=== PATIENT | male | born 1960 | race Hispanic/Latino ===

== ENCOUNTER 2017-01-31 22:59 | Observation (INO) | payer OTHER ==
[2017-01-31 22:59] VITALS: BMI 19.8
[2017-01-31] MEDS ORDERED: Morphine 2 mg/ml ISec IVP STA (23:47)
[2017-01-31] MEDS ORDERED: Sodium Chloride 0.9% 1,000 ML IV STA (23:47)
--- NOTE | 2017-01-31 23:53 | ED PDOC ---
Arrival/HPI - General Chief Complaint: Abdominal Pain Time Seen by Provider: 01/31/17 23:18 Historian: Patient - History of Present Illness Narrative History of Present Illness (Text): 01/31/17 23:44 Alexis Carolina is a 56 year old male, whose past medical history includes Crohn' s disease, hypertension, and diabetes, who presents to the Emergency department complaining of diffuse abdominal pain since for the past few hours. Patient reports associated nausea. Patient states symptoms are similar to previous episodes of Crohn's flare ups. Patient denies any chest pain, shortness of breath, vomiting, diarrhea, urinary symptoms, back pain, neck pain, headache, dizziness, or any other complaints. PMD: Dr. Olson GI: Dr. Rachel Evans Time/Duration: 4-6 hours Symptom Onset: Gradual Symptom Course: Unchanged Activities at Onset: Rest, Light Context: Home Past Medical History - Provider Review Nursing Documentation Reviewed: Yes - Infectious Disease Hx of Infectious Diseases: None - Cardiac Hx Hypertension: Yes - Pulmonary Hx Respiratory Disorders: No - Neurological Hx Neurological Disorder: No - HEENT Hx HEENT Disorder: No - Renal Hx Renal Disorder: Yes Hx Kidney Stones: Yes (11-09-26 2 MM STONE) - Endocrine/Metabolic Hx Endocrine Disorders: Yes Hx Diabetes Mellitus Type 2: Yes (NEWLY DX 2015) - Hematological/Oncological Hx Blood Disorders: No - Integumentary Hx Dermatological Disorder: No - Musculoskeletal/Rheumatological Hx Falls: No - Gastrointestinal Hx Gastrointestinal Disorders: Yes (BILATERAL HERNIA REPAIR) Hx Crohn's Disease: Yes Other/Comment: IBS - Genitourinary/Gynecological Hx Genitourinary Disorders: Yes (HYDROCELE) - Psychiatric Hx Psychophysiologic Disorder: No Hx Substance Use: No - Surgical History Hx Musculoskeletal Surgery: Yes (L SHOULDER SX) Other/Comment: explor lap 08/30/16/bowel small intestine DENIES - Anesthesia Hx Anesthesia: Yes Hx Anesthesia Reactions: No Hx Malignant Hyperthermia: No Family/Social History - Physician Review Nursing Documentation Reviewed: Yes Family/Social History: No Known Family HX Smoking Status: Never Smoked Hx Alcohol Use: No Hx Substance Use: No Allergies/Home Meds Allergies/Adverse Reactions: Allergies pseudoephedrine HCl [From Sudafed] Allergy (Verified 11/09/16 11:31) NAUSEA Home Medications: Home Meds Medication Instructions Recorded Confirmed metFORMIN [glucOPHAGE] 500 mg PO BID 05/20/16 01/31/17 Aspirin [Ecotrin] 81 mg PO DAILY 05/22/16 01/31/17 Ferrous Sulfate [Feosol] 325 mg PO TID 11/09/16 01/31/17 Mercaptopurine [6-Mp] 2 tab PO DAILY 11/09/16 01/31/17 Lisinopril [Zestril] 20 mg PO DAILY 01/31/17 01/31/17 Review of Systems - Physician Review All systems were reviewed & negative as marked: Yes - Review of Systems Constitutional: Normal. absent: Fevers Eyes: Normal ENT: Normal Respiratory: Normal. absent: SOB, Cough Cardiovascular: Normal. absent: Chest Pain Gastrointestinal: Abdominal Pain, Nausea. absent: Diarrhea, Vomiting Genitourinary Male: Normal. absent: Dysuria, Frequency, Hematuria, Urinary Output Changes Musculoskeletal: Normal. absent: Back Pain, Neck Pain Skin: Normal. absent: Rash Neurological: Normal. absent: Headache, Dizziness Endocrine: Normal Hemo/Lymphatic: Normal Psychiatric: Normal Physical Exam Vital Signs Reviewed: Yes Vital Signs Temp Pulse Resp BP Pulse Ox 02/01/17 02:00 77 16 160/83 H 100 02/01/17 00:57 79 18 154/96 H 98 01/31/17 23:23 99.0 F 86 18 168/86 H 98 Temperature: Afebrile Blood Pressure: Hypertensive Pulse: Regular Respiratory Rate: Normal Appearance: Positive for: Well-Appearing, Non-Toxic, Comfortable Pain Distress: None Mental Status: Positive for: Alert and Oriented X 3 - Systems Exam Head: Present: Atraumatic, Normocephalic Pupils: Present: PERRL Extroacular Muscles: Present: EOMI Conjunctiva: Present: Normal Mouth: Present: Moist Mucous Membranes Neck: Present: Normal Range of Motion Respiratory/Chest: Present: Clear to Auscultation, Good Air Exchange. No: Respiratory Distress, Accessory Muscle Use Cardiovascular: Present: Regular Rate and Rhythm, Normal S1, S2. No: Murmurs Abdomen: Present: Tenderness (Diffuse abdominal tenderness), Normal Bowel Sounds. No: Distention, Peritoneal Signs Back: Present: Normal Inspection Upper Extremity: Present: Normal Inspection. No: Cyanosis, Edema Lower Extremity: Present: Normal Inspection. No: Edema Neurological: Present: GCS=15, CN II-XII Intact, Speech Normal Skin: Present: Warm, Dry, Normal Color. No: Rashes Psychiatric: Present: Alert, Oriented x 3, Normal Insight, Normal Concentration Medical Decision Making ED Course and Treatment: 01/31/17 23:45 Impression: 56 year old male complaining of diffuse abdominal pain and nausea. Differential Diagnosis include but are not limited to: Plan: -- CT Abdomen and Pelvis -- Labs, lipase -- Urinalysis -- IV fluids -- Zofran -- Pepcid -- Zofran -- Morphine -- Reassess and disposition Prior Visits: Notes and results from previous visits were reviewed. Progress Notes: Reviewed radiology, CT Abdomen and Pelvis shows: 1. Partial ascending colectomy with ileocolic anastomosis in the right mid abdomen. 2. Mild distention of distal small bowel which is increased since 01/03/2017 and extends to the ileocolic anastomosis which remains widely patent. There is borderline distention of the colon to the level of the sigmoid which is similar to the prior study. The obstructive change of the small bowel may be related to the degree of colonic distention which may be a reflection of colonic ileus or pseudoobstruction. The degree of distention of the sigmoid and rectum is decreased since the prior study, however. 3. Nonobstructing left renal calculus. 4. Mild left hydronephrosis and slight hydroureter which extends into the pelvis. No ureteral or UVJ calculi are seen and may reflect baseline physiology and is similar to the prior study. 5. Borderline splenomegaly which is similar. 6. Question of slight wall thickening of the gastric antrum, however, the stomach is not distended. There is slight induration extending anteriorly from the stomach into the right transverse mesocolon which is increased since the prior study and may be a reflection of antral gastritis. 02/01/17 03:[address] Modesto Olson, who is aware and agrees with plan. Accepts pt in to his service. Pt will go to [facility] observation for Crohn's exacerbation and abdominal pain. - Lab Interpretations Lab Results: 02/01/17 00:01 02/01/17 00:01 Lab Results 02/01/17 00:01: WBC 6.0 D, RBC 4.07, Hgb 11.9 L, Hct 33.7 L, MCV 82.8, MCH 29.2 , MCHC 35.3, RDW 16.7 H, Plt Count 158, MPV 10.3 02/01/17 00:01: Sodium 140, Potassium 3.7, Chloride 103, Carbon Dioxide 28, Anion Gap 13, BUN 17, Creatinine 0.9, Est GFR ( Amer) > 60, Est GFR (Non- Af Amer) > 60, Random Glucose 113 H, Calcium 9.2, Total Bilirubin 1.3, AST 41, ALT 32, Alkaline Phosphatase 120, Total Protein 7.3, Albumin 4.3, Globulin 3.0, Albumin/Globulin Ratio 1.4, Lipase 50 I have reviewed the lab results: Yes - RAD Interpretation Narrative RAD Interpretations (Text): CT Abdomen and Pelvis shows: Lower thorax: Minimal bilateral lower lobe atelectasis or scar. ABDOMEN: Liver: Unremarkable. No mass. Gallbladder and bile ducts: Unremarkable. No calcified stones. No ductal dilation. Pancreas: Unremarkable. No mass. No ductal dilation. Spleen: Borderline splenomegaly. Adrenals: Unremarkable. No mass. Kidneys and ureters: Small nonobstructing left renal calculus in the lower pole with mild left hydronephrosis and slight hydroureter which extends pelvis with no ureteral, UVJ or bladder calculi identified. Stomach and bowel: There is slight wall thickening of the gastric antrum which is not unusual in the nondistended state, however, there is induration extending from the stomach into the right transverse mesocolon and suggests antral gastritis. Partial ascending colectomy with ileocolic anastomosis in the lateral right abdomen. Moderate stool in the proximal ascending colon just beyond the anastomosis which remains adequately patent. There is upper normal size of the gas filled transverse and descending colon with a transition sigmoid colon which demonstrates no definite mass. There is mild distention of small bowel to the level of the ileocolic anastomosis. Appendix: See above. PELVIS: Bladder: Unremarkable. No mass. Reproductive: Unremarkable as visualized. ABDOMEN and PELVIS: Intraperitoneal space: Unremarkable. No free air. No significant fluid collection. Bones/joints: No acute fracture. No dislocation. Soft tissues: Unremarkable. Vasculature: Unremarkable. No abdominal aortic aneurysm. Lymph nodes: Unremarkable. No enlarged lymph nodes. IMPRESSION: 1. Partial ascending colectomy with ileocolic anastomosis in the right mid abdomen. 2. Mild distention of distal small bowel which is increased since 01/03/2017 and extends to the ileocolic anastomosis which remains widely patent. There is borderline distention of the colon to the level of the sigmoid which is similar to the prior study. The obstructive change of the small bowel may be related to the degree of colonic distention which may be a reflection of colonic ileus or pseudoobstruction. The degree of distention of the sigmoid and rectum is decreased since the prior study, however. 3. Nonobstructing left renal calculus. 4. Mild left hydronephrosis and slight hydroureter which extends into the pelvis. No ureteral or UVJ calculi are seen and may reflect baseline physiology and is similar to the prior study. 5. Borderline splenomegaly which is similar. 6. Question of slight wall thickening of the gastric antrum, however, the stomach is not distended. There is slight induration extending anteriorly from the stomach into the right transverse mesocolon which is increased since the prior study and may be a reflection of antral gastritis. Radiology Orders: 02/01/17 00:49 ABD & PELVIS IV CONTRAST ONLY [CT] Stat Creative Services Producer: Radiologist - Medication Orders Current Medication Orders: Sodium Chloride (Sodium Chloride 0.9%) 1,000 mls @ 100 mls/hr IV .Q10H [facility] Last Admin: 02/01/17 03:17 Dose: 100 mls/hr Discontinued Medications Famotidine (Pepcid) 20 mg IVP STAT STA Stop: 01/31/17 23:48 Last Admin: 02/01/17 00:13 Dose: 20 mg Sodium Chloride (Sodium Chloride 0.9%) 1,000 mls @ 999 mls/hr IV .Q1H1M STA Stop: 02/01/17 00:47 Last Admin: 02/01/17 00:13 Dose: 999 mls/hr Iohexol (Omnipaque 350 100 Ml) Confirm Administered Dose 350 mg .ROUTE .STK-MED ONE Stop: 02/01/17 01:07 Morphine Sulfate (Morphine) 2 mg IVP STAT STA Stop: 01/31/17 23:48 Last Admin: 02/01/17 00:14 Dose: 2 mg Re-Assess: DILMA Pain Assessment Document 02/01/17 01:14 EKCHELSEA (Rec: 02/01/17 03:26 [id number]) Pain Reassessment Is this a pain reassessment? Yes Morphine Sulfate (Morphine) 2 mg IVP STAT STA Stop: 02/01/17 02:56 Last Admin: 02/01/17 03:17 Dose: 2 mg Ondansetron HCl (Zofran Inj) 4 mg IVP ONCE ONE Stop: 01/31/17 23:48 Last Admin: 02/01/17 00:13 Dose: 4 mg - Maria Ribe Statement The provider has reviewed the documentation as recorded by the Maria Ribhector Echavarria All medical record entries made by the Maria Ribhector were at my direction and personally dictated by me. I have reviewed the chart and agree that the record accurately reflects my personal performance of the history, physical exam, medical decision making, and the department course for this patient. I have also personally directed, reviewed, and agree with the discharge instructions and disposition. Disposition/Present on Arrival - Present on Arrival Any Indicators Present on Arrival: No History of DVT/PE: No History of Uncontrolled Diabetes: No Urinary Catheter: No History of Decub. Ulcer: No History Surgical Site Infection Following: None - Disposition Have Diagnosis and Disposition been Completed?: Yes Diagnosis: Crohns disease, Abdominal pain Disposition: HOSPITALIZED Disposition Time: 03:59 Patient Plan: Observation Condition: STABLE Referrals: Rolo Olson MD [Primary Care Provider] - Follow up with primary
[2017-02-01 00:19] LABS: HEMATOCRIT 33.7 % (42.0-52.0); MEAN CELL VOLUME 82.8 fL (80.0-105.0); MEAN CORPUSCULAR HEMOGLOBIN 29.2 pg (25.0-35.0); MEAN CORPUSCULAR HGB CONC 35.3 g/dl (31.0-37.0); MEAN PLATELET VOLUME 10.3 fl (7.0-11.0); RED CELL DISTRIBUTION WIDTH 16.7 % (11.5-14.5)
[2017-02-01 00:29] LABS: ALB/GLOB RATIO 1.4 (1.1-1.8); ALKALINE PHOSPHATASE 120 U/L (38-133); ALT/SGPT 32 U/L (7-56); AST/SGOT 41 U/L (15-59); BILIRUBIN,TOTAL 1.3 mg/dL (0.2-1.3); BLOOD UREA NITROGEN 17 mg/dL (7-21); CALCIUM 9.2 mg/dL (8.4-10.5); CARBON DIOXIDE 28 mmol/L (21-33); CHLORIDE 103 mmol/L (95-110); GFR AFRICAN-AMERICAN > 60; GLUCOSE,RANDOM 113 mg/dL (70-110); LIPASE 50 U/L (23-300); POTASSIUM 3.7 mmol/L (3.6-5.0); SODIUM 140 mmol/L (132-148); TOTAL PROTEIN 7.3 g/dL (5.8-8.3)
[2017-02-01] MEDS ORDERED: Iohexol 350 MG/100 ML VIAL ONE (01:06)
[2017-02-01] MEDS ORDERED: Morphine 2 mg/ml ISec IVP STA (02:55)
[2017-02-01] MEDS: Sodium Chloride 0.9% 1,000 ML IV SCH ×2 (03:17→12:30)
[2017-02-01] MEDS ORDERED: Sodium Chloride 0.9% 1,000 ML IV STA (04:00)
--- NOTE | 2017-02-01 06:25 | CP.PCM.PN ---
Subjective - Date & Time of Evaluation Date of Evaluation: 02/01/17 Time of Evaluation: 06:21 - Subjective Subjective: S:Nurse calls and tells that BP was 171/109 at 4:45AM. It was 160/11 at 06:00. Patient is asymptomatic. Seen at bedside. Has No complaints. Medical record was reviewed. O: Last Vital Signs 3 Temp 98.1 F 02/01/17 05:10 Pulse 77 02/01/17 05:10 Resp 18 02/01/17 05:10 BP 171/109 H 02/01/17 05:10 Pulse Ox 98 02/01/17 04:00 Awake, alert, not in distress. LUNGS:Normal breathing pattern. A:Elevated blood pressure reading. P:Lisinopril 20 mg PO stat. Objective - Vital Signs/Intake and Output Vital Signs (last 24 hours): Temp Pulse Resp BP Pulse Ox 98.1 F 77 18 171/109 H 98 02/01/17 05:10 02/01/17 05:10 02/01/17 05:10 02/01/17 05:10 02/01/17 04:00 - Medications Medications: Current Medications Sodium Chloride (Sodium Chloride 0.9%) 1,000 mls @ 100 mls/hr IV .Q10H [facility]ATH[facility] Last Admin: 02/01/17 03:17 Dose: 100 mls/hr Sodium Chloride (Sodium Chloride 0.9%) 1,000 mls @ 100 mls/hr IV .Q10H STA Stop: 02/01/17 13:59 Last Admin: 02/01/17 05:00 Dose: 100 mls/hr Pneumococcal Polyvalent Vaccine (Pneumovax 23 Vaccine) 0.5 ml IM .ONCE ONE Stop: 02/03/17 10:01
--- NOTE | 2017-02-01 07:27 | CT ---
PROCEDURE: CT Chest, Abdomen and Pelvis with intravenous contrast HISTORY: abdominal pain COMPARISON: 01/03/2017. TECHNIQUE: IV dose administered: 100 cc of Omnipaque 300 Radiation dose: Total exam DLP = 282 mGy-cm. This CT exam was performed using one or more of the following dose reduction techniques: Automated exposure control, adjustment of the mA and/or kV according to patient size, and/or use of iterative reconstruction technique. FINDINGS: CT CHEST WITH CONTRAST: LUNGS: Clear. No nodule, mass or consolidation. MEDIASTINUM: Unremarkable. Normal caliber aorta and pulmonary arterial trunk. No aortic dissection. Normal size heart. LYMPH NODES: Unremarkable. PLEURA: Unremarkable. No pneumothorax. No pleural fluid. BONES: Unremarkable. OTHER FINDINGS: None. CT ABDOMEN AND PELVIS: LIVER: Unremarkable. No gross lesion or ductal dilatation. GALLBLADDER AND BILE DUCTS: Unremarkable. PANCREAS: Unremarkable. No gross lesion or ductal dilatation. SPLEEN: Unremarkable. ADRENALS: Unremarkable. No mass. KIDNEYS AND URETERS: Nonobstructive left lower pole renal calculus.. Minimal left hydronephrosis. No solid mass. VASCULATURE: Unremarkable. No aortic aneurysm. BOWEL: Mild distention of distal small bowel extending to the ileocolic anastomosis. Borderline distention of the colon to the level of the sigmoid colon. Status post partial ascending colectomy with ileocolic anastomosis. APPENDIX: Normal appendix. PERITONEUM: Minimal free fluid in the pelvis. LYMPH NODES: Unremarkable. No enlarged lymph nodes. BLADDER: Unremarkable. REPRODUCTIVE: Unremarkable. BONES: No acute fracture. OTHER FINDINGS: None. IMPRESSION: Status post partial ascending colectomy with ileocolic anastomosis.Mild distention of distal small bowel extending to the ileocolic anastomosis. Minimal free fluid in the pelvis. Borderline distention of the colon to the level of the sigmoid colon
[2017-02-01 12:27] LABS: URINE BILIRUBIN NEGATIVE (NEGATIVE); URINE BLOOD TRACE-INTACT (NEGATIVE); URINE GLUCOSE (UA) NEGATIVE (NEGATIVE); URINE KETONE NEGATIVE (NEGATIVE); URINE LEUKOCYTE ESTERASE NEGATIVE Leu/uL (NEGATIVE); URINE PROTEIN NEGATIVE mg/dL (<30 mg/dL); URINE UROBILINOGEN 0.2 E.U./dL (<1 E.U./dL)
[2017-02-01 12:30] LABS: URINE APPEARANCE CLEAR (CLEAR); URINE COLOR YELLOW (YELLOW)
[2017-02-01 12:45] LABS: URINE BACTERIA FEW (NEG); URINE EPITHELIAL CELLS 0 - 2 /hpf (0-5); URINE WBC 0 - 2 /hpf (0-6)
--- NOTE | 2017-02-01 13:33 | CP.PCM.CON ---
<Salazar Claire - Last Filed: 02/01/17 13:33> History of Present Illness - History of Present Illness History of Present Illness: PGY4 GI Fellow Consult Note Patient is a 55yo male with PMHx significant for Crohn's disease s/p right hemicolectomy and terminal ileum resection, on 6-MP 100mg PO QD, multiple SBO, DM, nephrolithiasis who presented to the ED with abdominal pain. The patient contacted our answering service last night when he suddenly developed crushing, stabbing 10/10 diffuse abdominal pain while at work. He notes that he had not passed stool or flatus in approximately 24 hours. Given severity of pain and history of CD and recurrent SBO, he was encouraged to go to the ED for further evaluation. Today, he states pain is modestly improved at an 8/10 following analgesia but he still has not passed flatus or BM. In the days leading up to admission he does admit to having had a slight URI which was improving. Denies any recent antibiotic use, sick contacts or travel. He has been compliant with his 6-MP regimen. Denies any rectal bleeding and has been having 2-3 loose or watery stool daily. Denies any significant weight loss, nausea or vomiting. PMHx: See HPI PSHx: Right hemicolectomy, TI resection, B/L inguinal hernia repairs FHx: Mother - breast cancer; father - CAD Social: Former smoker, occasional EtOH use Endo: EGD/Colonoscopy - 07/19 - gastritis, gastric polyps, TI stricture, internal hemorrhoids Review of Systems - Constitutional Constitutional: Anorexia. absent: Chills, Fever - EENT Eyes: absent: Change in Vision Nose/Mouth/Throat: absent: Sore Throat - Cardiovascular Cardiovascular: absent: Chest Pain, Dyspnea, Edema - Respiratory Respiratory: absent: Cough, Dyspnea, Excessive Mucous Production - Gastrointestinal Gastrointestinal: Abdominal Pain, Bloating, Change in Bowel Habits, Constipation , Cramping, Nausea. absent: Diarrhea, Dyspepsia, Excessive Flatus, Heartburn, Hematemesis, Hematochezia, Melena, Vomiting - Genitourinary Genitourinary: absent: Dysuria, Urinary Frequency, Urinary Urgency - Musculoskeletal Musculoskeletal: absent: Back Pain, Neck Pain - Integumentary Integumentary: absent: New Lesions, Rash - Neurological Neurological: absent: Dizziness, Numbness, Focal Weakness - Psychiatric Psychiatric: absent: Anxiety, Depression - Endocrine Endocrine: absent: Polydipsia, Polyphagia, Polyuria - Hematologic/Lymphatic Hematologic: absent: Easy Bleeding, Easy Bruising, Lymphadenopathy Past Patient History - Infectious Disease Hx of Infectious Diseases: None - Past Social History Smoking Status: Never Smoked - CARDIAC Hx Cardiac Disorders: Yes Hx Hypertension: Yes - PULMONARY Hx Respiratory Disorders: No - NEUROLOGICAL Hx Neurological Disorder: No - HEENT Hx HEENT Problems: No - RENAL Hx Chronic Kidney Disease: Yes Hx Kidney Stones: Yes (39- 2 MM STONE) - ENDOCRINE/METABOLIC Hx Endocrine Disorders: Yes Hx Diabetes Mellitus Type 2: Yes (NEWLY DX 2015) - HEMATOLOGICAL/ONCOLOGICAL Hx Blood Disorders: No - INTEGUMENTARY Hx Dermatological Problems: No - MUSCULOSKELETAL/RHEUMATOLOGICAL Hx Falls: No - GASTROINTESTINAL Hx Gastrointestinal Disorders: Yes (BILATERAL HERNIA REPAIR) Hx Crohn's Disease: Yes Other/Comment: IBS - GENITOURINARY/GYNECOLOGICAL Hx Genitourinary Disorders: Yes (HYDROCELE) - PSYCHIATRIC Hx Psychophysiologic Disorder: No - SURGICAL HISTORY Hx Musculoskeletal Surgery: Yes (L SHOULDER SX) Other/Comment: explor lap 08/30/16/bowel small intestine DENIES - ANESTHESIA Hx Anesthesia: Yes Hx Anesthesia Reactions: No Hx Malignant Hyperthermia: No Meds Allergies/Adverse Reactions: Allergies Allergy/AdvReac Type Severity Reaction Status Date / Time pseudoephedrine HCl Allergy NAUSEA Verified 11/09/16 11:31 [From [facility]] - Medications Medications: Current Medications Famotidine (Pepcid) 20 mg PO 1000,2200 [facility] Last Admin: 02/01/17 10:17 Dose: 20 mg Sodium Chloride (Sodium Chloride 0.9%) 1,000 mls @ 100 mls/hr IV .Q10H [facility] Last Admin: 02/01/17 03:17 Dose: 100 mls/hr Sodium Chloride (Sodium Chloride 0.9%) 1,000 mls @ 100 mls/hr IV .Q10H STA Stop: 02/01/17 13:59 Last Admin: 02/01/17 05:00 Dose: 100 mls/hr Lisinopril (Zestril) 20 mg PO DAILY [facility] Last Admin: 02/01/17 10:17 Dose: 20 mg Metoprolol Tartrate (Lopressor) 100 mg PO BID [facility] Last Admin: 02/01/17 10:16 Dose: 100 mg Physical Exam - Constitutional Appears: Non-toxic, No Acute Distress - Eye Exam Eye Exam: EOMI, PERRL - ENT Exam ENT Exam: Mucous Membranes Moist - Respiratory Exam Respiratory Exam: Clear to Auscultation Bilateral. absent: Rales, Rhonchi, Wheezes - Cardiovascular Exam Cardiovascular Exam: RRR, +S1, +S2 - GI/Abdominal Exam GI & Abdominal Exam: Distended, Normal Bowel Sounds, Soft, Tenderness (diffusely , worse in RLQ/LLQ). absent: Firm, Guarding, Organomegaly, Rigid - Extremities Exam Extremities exam: Positive for: normal inspection. Negative for: pedal edema - Neurological Exam Neurological exam: Alert, Oriented x3 - Psychiatric Exam Psychiatric exam: Normal Affect, Normal Mood - Skin Skin Exam: Dry, Warm Results - Vital Signs Recent Vital Signs: Last Vital Signs Temp 98.3 F 02/01/17 08:17 Pulse 80 02/01/17 08:17 Resp 20 02/01/17 08:17 BP 160/111 H 02/01/17 10:17 Pulse Ox 100 02/01/17 08:17 - Labs Result Diagrams: 02/01/17 00:01 02/01/17 00:01 Assessment & Plan - Assessment and Plan (Free Text) Assessment: Patient is a 55yo male with PMHx significant for Crohn's disease s/p right hemicolectomy and terminal ileum resection, on 6-MP 100mg PO QD, multiple SBO, DM, nephrolithiasis who presented to the ED with abdominal pain. -Abdominal pain, suspect PSBO, ileus or possibly CD flare -Crohn's disease on 6-MP -DM Plan: -CT reviewed -Encourage NPO diet except medications for now, slowly advance to goal of low residue diet if passing flatus/stool -Resume 6-MP 100mg PO QD -Recommend surgical evaluation given recurrence of suspected obstruction -Check ESR/CRP, thiopurine metabolites -Conservative management for now; plan per clinical course -If symptoms worsen and CD flare presumed etiology, consider steroid therapy - Date & Time Date: 02/01/17 Time: 09:55 <Bessy Arteaga - Last Filed: 02/01/17 14:08> Meds - Medications Medications: Current Medications Famotidine (Pepcid) 20 mg PO 1000,2200 [facility] Last Admin: 02/01/17 10:17 Dose: 20 mg Sodium Chloride (Sodium Chloride 0.9%) 1,000 mls @ 100 mls/hr IV .Q10H [facility] Last Admin: 02/01/17 03:17 Dose: 100 mls/hr Lisinopril (Zestril) 20 mg PO DAILY [facility] Last Admin: 02/01/17 10:17 Dose: 20 mg Mercaptopurine (6-Mp) 100 mg PO DAILY [facility] Metoprolol Tartrate (Lopressor) 100 mg PO BID [facility] Last Admin: 02/01/17 10:16 Dose: 100 mg Results - Vital Signs Recent Vital Signs: Last Vital Signs Temp 98.3 F 02/01/17 08:17 Pulse 80 02/01/17 08:17 Resp 20 02/01/17 08:17 BP 160/111 H 02/01/17 10:17 Pulse Ox 100 02/01/17 08:17 - Labs Result Diagrams: 02/01/17 00:01 02/01/17 00:01 Attending/Attestation - Attestation I have personally seen and examined this patient.: Yes I have fully participated in the care of the patient.: Yes I have reviewed all pertinent clinical information: Yes Notes (Text): Patient seen and examined with GI fellow. Agree with his note as documented above with the following additions/exceptions. This is a 55yo male with h/o Crohn's ileitis s/p right hemicolectomy and terminal ileum resection on 6MP prophylaxis who is admitted with abdominal pain associated with nausea/vomiting x [address] with dilated small bowel loops. He has been compliant with his 6MP and was scheduled for elective colonoscopy later this month to evaluate anastomosis. Would continue conservative management at this time with bowel rest, IVF hydration, pain control as needed and antiemetic therapy if needed. If symptoms worsen, place NGT. Obtain surgical consultation with Dr. Ayala. Continue 6MP, check 6TG level. Further recommendations pending clinical course. Discussed with Dr. Olson. 02/01/17 14:08
--- NOTE | 2017-02-01 15:28 | CP.PCM.CON ---
History of Present Illness - History of Present Illness History of Present Illness: General Surgery Consult Re: h/o CD s/p resection; dilated loops r/o ileus/flare vs post-op HPI: 56M presented to ED C/O diffuse abdominal pain. Sudden, 10/10, stabbing, cramping pain. Began last night at work. Pt has had pain off and on 2/2 Crohn's but this pain was worse than prior episodes. Compliant with Crohn's meds. Last BM was 2 days ago, soft, non-bloody. +N, without emesis. + headache. No flatus, F/C, SOB, chest pain, dysuria. No other C/O. As of this afternoon, pt had had a liquid BM and 7/10 pain after meds. Nausea continues. PMH: Crohn's, HTN, DM PSH: R hemicolectomy, TI resection, B/L inguinal hernia repairs SH: Former smoker, EtOH, or drug use All: sudafed Meds: See MAR Review of Systems - Review of Systems All systems: reviewed and no additional remarkable complaints except (as per HPI ) Past Patient History - Infectious Disease Hx of Infectious Diseases: None - Past Social History Smoking Status: Never Smoked - CARDIAC Hx Cardiac Disorders: Yes Hx Hypertension: Yes - PULMONARY Hx Respiratory Disorders: No - NEUROLOGICAL Hx Neurological Disorder: No - HEENT Hx HEENT Problems: No - RENAL Hx Chronic Kidney Disease: Yes Hx Kidney Stones: Yes (3-9-27 2 MM STONE) - ENDOCRINE/METABOLIC Hx Endocrine Disorders: Yes Hx Diabetes Mellitus Type 2: Yes (NEWLY DX 2015) - HEMATOLOGICAL/ONCOLOGICAL Hx Blood Disorders: No - INTEGUMENTARY Hx Dermatological Problems: No - MUSCULOSKELETAL/RHEUMATOLOGICAL Hx Falls: No - GASTROINTESTINAL Hx Gastrointestinal Disorders: Yes (BILATERAL HERNIA REPAIR) Hx Crohn's Disease: Yes Other/Comment: IBS - GENITOURINARY/GYNECOLOGICAL Hx Genitourinary Disorders: Yes (HYDROCELE) - PSYCHIATRIC Hx Psychophysiologic Disorder: No - SURGICAL HISTORY Hx Musculoskeletal Surgery: Yes (L SHOULDER SX) Other/Comment: explor lap 08/30/16/bowel small intestine DENIES - ANESTHESIA Hx Anesthesia: Yes Hx Anesthesia Reactions: No Hx Malignant Hyperthermia: No Meds Allergies/Adverse Reactions: Allergies Allergy/AdvReac Type Severity Reaction Status Date / Time pseudoephedrine HCl Allergy NAUSEA Verified 11/09/16 11:31 [From [facility]] - Medications Medications: Current Medications Acetaminophen (Tylenol 325mg Tab) 650 mg PO Q4H PRN PRN Reason: Pain, Mild (1-3) Last Admin: 02/01/17 14:52 Dose: 650 mg Famotidine (Pepcid) 20 mg PO 1000,2200 [facility] Last Admin: 02/01/17 10:17 Dose: 20 mg Sodium Chloride (Sodium Chloride 0.9%) 1,000 mls @ 100 mls/hr IV .Q10H [facility] Last Admin: 02/01/17 12:30 Dose: 100 mls/hr Lisinopril (Zestril) 20 mg PO DAILY [facility] Last Admin: 02/01/17 10:17 Dose: 20 mg Mercaptopurine (6-Mp) 100 mg PO DAILY [facility] Last Admin: 02/01/17 15:15 Dose: 100 mg Metoprolol Tartrate (Lopressor) 100 mg PO BID [facility] Last Admin: 02/01/17 10:16 Dose: 100 mg Ondansetron HCl (Zofran Inj) 4 mg IVP Q4H PRN PRN Reason: Nausea/Vomiting Physical Exam - Constitutional Appears: Non-toxic, No Acute Distress - Head Exam Head Exam: ATRAUMATIC, NORMOCEPHALIC - Eye Exam Eye Exam: EOMI. absent: Scleral icterus - ENT Exam ENT Exam: Mucous Membranes Moist Additional comments: trachea midline - Respiratory Exam Respiratory Exam: NORMAL BREATHING PATTERN. absent: Respiratory Distress - Cardiovascular Exam Cardiovascular Exam: RRR, +S1, +S2 - GI/Abdominal Exam GI & Abdominal Exam: Guarding, Soft, Tenderness (in Right quadrants). absent: Distended, Firm, Rebound, Rigid - Rectal Exam Rectal Exam: Deferred - Extremities Exam Extremities exam: Positive for: normal capillary refill, normal inspection, pedal pulses present. Negative for: pedal edema - Back Exam Back exam: absent: CVA tenderness (L), CVA tenderness (R) - Neurological Exam Neurological exam: Alert, Oriented x3 - Psychiatric Exam Psychiatric exam: Normal Affect, Normal Mood - Skin Skin Exam: Dry, Warm Results - Vital Signs Recent Vital Signs: Last Vital Signs Temp 98.3 F 02/01/17 08:17 Pulse 80 02/01/17 08:17 Resp 20 02/01/17 08:17 BP 160/111 H 02/01/17 10:17 Pulse Ox 100 02/01/17 08:17 - Labs Result Diagrams: 02/01/17 00:01 02/01/17 00:01 Assessment & Plan - Assessment and Plan (Free Text) Assessment: 56M with crohns flare vs PSBO Plan: Pt passing stool, pain improving. Continue to monitor. Serial abd exams Possibly add stool softener to assist with stool passage, if ok with GI Appreciate GI input No surgical intervention at this time D/W Dr. Jamie Michelle PGY3
[2017-02-02] MEDS: Sodium Chloride 0.9% 1,000 ML IV SCH ×3 (00:31→17:44)
--- NOTE | 2017-02-02 08:35 | CP.PCM.PN ---
<Salazar Claire - Last Filed: 02/02/17 08:31> Subjective - Date & Time of Evaluation Date of Evaluation: 02/02/17 Time of Evaluation: 07:00 - Subjective Subjective: PGY4 GI Fellow Progress Note Patient seen and examined bedside this morning. The patient states he is feeling much better than on admission. One episode of bilious emesis yesterday. Passed stool yesterday, states no flatus today. Tolerating liquid diet. 12 system ROS performed and negative except where stated. Objective - Vital Signs/Intake and Output Vital Signs (last 24 hours): Temp Pulse Resp BP Pulse Ox 97.7 F 67 20 166/95 H 95 02/01/17 16:03 02/01/17 17:35 02/01/17 16:03 02/01/17 17:35 02/01/17 16:03 Intake and Output: 02/02/17 02/02/17 06:59 18:59 Intake Total 300 Output Total 1 Balance 299 - Medications Medications: Current Medications Acetaminophen (Tylenol 325mg Tab) 650 mg PO Q4H PRN PRN Reason: Pain, Mild (1-3) Last Admin: 02/02/17 05:22 Dose: 650 mg Famotidine (Pepcid) 20 mg PO 1000,2200 [facility] Last Admin: 02/01/17 21:30 Dose: 20 mg Sodium Chloride (Sodium Chloride 0.9%) 1,000 mls @ 100 mls/hr IV .Q10H [facility] Last Admin: 02/02/17 07:28 Dose: 100 mls/hr Lisinopril (Zestril) 20 mg PO DAILY [facility] Last Admin: 02/01/17 10:17 Dose: 20 mg Mercaptopurine (6-Mp) 100 mg PO DAILY [facility] Last Admin: 02/01/17 15:15 Dose: 100 mg Metoprolol Tartrate (Lopressor) 100 mg PO BID [facility] Last Admin: 02/01/17 17:35 Dose: 100 mg Ondansetron HCl (Zofran Inj) 4 mg IVP Q4H PRN PRN Reason: Nausea/Vomiting - Constitutional Appears: Non-toxic, No Acute Distress - Eye Exam Eye Exam: EOMI, PERRL - ENT Exam ENT Exam: Mucous Membranes Moist - Respiratory Exam Respiratory Exam: Clear to Ausculation Bilateral. absent: Rales, Rhonchi, Wheezes - Cardiovascular Exam Cardiovascular Exam: RRR, +S1, +S2 - GI/Abdominal Exam GI & Abdominal Exam: Soft, Tenderness (LLQ/RLQ), Normal Bowel Sounds. absent: Distended, Firm, Guarding, Rigid, Organomegaly - Extremities Exam Extremities Exam: Normal Inspection. absent: Pedal Edema - Neurological Exam Neurological Exam: Alert, Awake, Oriented x3 - Psychiatric Exam Psychiatric exam: Normal Affect, Normal Mood - Skin Skin Exam: Dry, Warm Assessment and Plan - Assessment and Plan (Free Text) Assessment: Patient is a 55yo male with PMHx significant for Crohn's disease s/p right hemicolectomy and terminal ileum resection, on 6-MP 100mg PO QD, multiple SBO, DM, nephrolithiasis who presented to the ED with abdominal pain. -Abdominal pain, suspect PSBO, ileus; less likely CD flare -Crohn's disease on 6-MP -DM Plan: -Suspect symptoms related to ileus/PSBO in setting of low ESR/CRP -Check fecal calprotectin -Tolerating liquid diet, continue for today; goal of low residue diet if symptomatically improved -Tap water enema X1 -Continue 6-MP 100mg PO QD -Appreciate surgical evaluation -Awaiting thiopurine metabolites <Micah Potter - Last Filed: 02/02/17 11:07> Objective - Vital Signs/Intake and Output Vital Signs (last 24 hours): Temp Pulse Resp BP Pulse Ox 98.6 F 76 20 151/90 H 97 02/02/17 06:00 02/02/17 06:00 02/02/17 06:00 02/02/17 10:08 02/02/17 06:00 Intake and Output: 02/02/17 02/02/17 06:59 18:59 Intake Total 300 Output Total 1 Balance 299 - Medications Medications: Current Medications Acetaminophen (Tylenol 325mg Tab) 650 mg PO Q4H PRN PRN Reason: Pain, Mild (1-3) Last Admin: 02/02/17 10:06 Dose: 650 mg Famotidine (Pepcid) 20 mg PO 1000,2200 [facility] Last Admin: 02/02/17 10:08 Dose: 20 mg Sodium Chloride (Sodium Chloride 0.9%) 1,000 mls @ 100 mls/hr IV .Q10H [facility] Last Admin: 06/02/17 07:28 Dose: 100 mls/hr Lisinopril (Zestril) 20 mg PO DAILY [facility] Last Admin: 02/02/17 10:07 Dose: 20 mg Mercaptopurine (6-Mp) 100 mg PO DAILY [facility] Last Admin: 02/02/17 10:08 Dose: 100 mg Metoprolol Tartrate (Lopressor) 100 mg PO BID [facility] Last Admin: 02/02/17 10:08 Dose: 100 mg Ondansetron HCl (Zofran Inj) 4 mg IVP Q4H PRN PRN Reason: Nausea/Vomiting Last Admin: 02/02/17 10:11 Dose: 4 mg Attending/Attestation - Attestation I have personally seen and examined this patient.: Yes I have fully participated in the care of the patient.: Yes I have reviewed all pertinent clinical information, including history, physical exam and plan: Yes Notes (Text): 02/02/17 11:02 I have seen and examined patient with GI fellow. No acute events overnight, he continues to endorse abdominal pain worse on movement, though improved considerably since arrival to hospital. He had one episode of non-bloody emesis yesterday along with small bowel movement. He denies nausea, vomiting, fever/chills. Tolerating PO liquids without difficulty. Crohn's disease s/p R hemicolectomy with ileocolonic anastomosis Abdominal pain, likely secondary to ileus, clinically does not resemble IBD disease exacerbation - Continue with 6-MP dosed at 1.5 mg/kg, awaiting metabolites - Obtain fecal calprotectin - Follow up surgical recommendations - Suggest enema today along with gentle once daily miralax for symptomatic relief of constipation/ileus - May advance diet slowly as tolerated - Patient has reportedly had recent outpatient CT enterography performed, will obtain results. He also has an outpatient colonoscopy scheduled with Dr. Evans in the upcoming 2 weeks. Will continue to monitor patient clinical course.
--- NOTE | 2017-02-02 09:36 | CP.PCM.PN ---
Subjective - Date & Time of Evaluation Date of Evaluation: 02/02/17 Time of Evaluation: 06:50 - Subjective Subjective: General Surgery Pt S&E, NAEO. Still with some abd pain but improved since yesterday. No other complaints today. Tolerating liquids. BM yesterday. Objective - Vital Signs/Intake and Output Vital Signs (last 24 hours): Temp Pulse Resp BP Pulse Ox 98.6 F 76 20 151/90 H 97 02/02/17 06:00 02/02/17 06:00 02/02/17 06:00 02/02/17 06:00 02/02/17 06:00 Intake and Output: 02/02/17 02/02/17 06:59 18:59 Intake Total 300 Output Total 1 Balance 299 - Medications Medications: Current Medications Acetaminophen (Tylenol 325mg Tab) 650 mg PO Q4H PRN PRN Reason: Pain, Mild (1-3) Last Admin: 02/02/17 05:22 Dose: 650 mg Famotidine (Pepcid) 20 mg PO 1000,2200 [facility] Last Admin: 02/01/17 21:30 Dose: 20 mg Sodium Chloride (Sodium Chloride 0.9%) 1,000 mls @ 100 mls/hr IV .Q10H [facility] Last Admin: 02/02/17 07:28 Dose: 100 mls/hr Lisinopril (Zestril) 20 mg PO DAILY [facility] Last Admin: 02/01/17 10:17 Dose: 20 mg Mercaptopurine (6-Mp) 100 mg PO DAILY [facility] Last Admin: 02/01/17 15:15 Dose: 100 mg Metoprolol Tartrate (Lopressor) 100 mg PO BID [facility] Last Admin: 02/01/17 17:35 Dose: 100 mg Ondansetron HCl (Zofran Inj) 4 mg IVP Q4H PRN PRN Reason: Nausea/Vomiting - Constitutional Appears: Non-toxic, No Acute Distress - Head Exam Head Exam: ATRAUMATIC, NORMOCEPHALIC - Eye Exam Eye Exam: EOMI. absent: Scleral icterus - Respiratory Exam Respiratory Exam: NORMAL BREATHING PATTERN. absent: Respiratory Distress - GI/Abdominal Exam GI & Abdominal Exam: Soft, Tenderness (in lower quadrants). absent: Distended, Firm, Rigid - Neurological Exam Neurological Exam: Alert, Awake - Skin Skin Exam: Dry, Warm Assessment and Plan - Assessment and Plan (Free Text) Assessment: 56M with Ileus vs PSBO Plan: Pain improving. Continue to monitor. Serial abd exams Management per GI No surgical intervention at this time D/W Dr. Jamie Michelle PGY3
--- NOTE | 2017-02-02 10:22 | RAD ---
HISTORY: Abdominal pain, constipation COMPARISON: CT abdomen and pelvis from 02/01/2017. FINDINGS: BOWEL: There is mild gaseous distension of the distal small bowel loops. BONES: Normal. OTHER FINDINGS: None. IMPRESSION: Persistent mild gaseous distension of the distal small bowel loops.
--- NOTE | 2017-02-03 07:26 | CP.PCM.PN ---
Subjective - Date & Time of Evaluation Date of Evaluation: 02/03/17 Time of Evaluation: 07:23 - Subjective Subjective: Surgery: Dr. Ayala Patient feeling better today. Reports small BM yesterday. Pain resolved. Patient states he is going home today and has plan for colonoscopy on the . Objective - Vital Signs/Intake and Output Vital Signs (last 24 hours): Temp Pulse Resp BP Pulse Ox 98.5 F 77 20 160/98 H 97 02/02/17 16:39 02/02/17 17:37 02/02/17 16:39 02/02/17 17:37 02/02/17 16:39 - Medications Medications: Current Medications Acetaminophen (Tylenol 325mg Tab) 650 mg PO Q4H PRN PRN Reason: Pain, Mild (1-3) Last Admin: 02/02/17 18:52 Dose: 650 mg Famotidine (Pepcid) 20 mg PO 1000,2200 [facility] Last Admin: 02/02/17 22:38 Dose: 20 mg Sodium Chloride (Sodium Chloride 0.9%) 1,000 mls @ 100 mls/hr IV .Q10H [facility] Last Admin: 02/02/17 17:44 Dose: 100 mls/hr Lisinopril (Zestril) 20 mg PO DAILY [facility] Last Admin: 02/02/17 10:07 Dose: 20 mg Mercaptopurine (6-Mp) 100 mg PO DAILY [facility] Last Admin: 02/02/17 10:08 Dose: 100 mg Metoprolol Tartrate (Lopressor) 100 mg PO BID [facility] Last Admin: 02/02/17 17:37 Dose: 100 mg Ondansetron HCl (Zofran Inj) 4 mg IVP Q4H PRN PRN Reason: Nausea/Vomiting Last Admin: 02/02/17 10:11 Dose: 4 mg - Constitutional Appears: Non-toxic, No Acute Distress - Head Exam Head Exam: ATRAUMATIC, NORMOCEPHALIC - Eye Exam Eye Exam: EOMI, Normal appearance - ENT Exam ENT Exam: Mucous Membranes Moist - Respiratory Exam Respiratory Exam: NORMAL BREATHING PATTERN. absent: Respiratory Distress - Cardiovascular Exam Cardiovascular Exam: REGULAR RHYTHM. absent: Tachycardia - GI/Abdominal Exam GI & Abdominal Exam: Soft. absent: Distended, Tenderness Assessment and Plan - Assessment and Plan (Free Text) Assessment: 56 y/o male w/ ileus vs. partial SBO, resolved Plan: -cont reg diet -seems resolved -cleared from surgical standpoint -further recs per Dr. Jamie Coley PGY1
[2017-02-03 07:43] VITALS: BP 152/99; PULSE 72; RESP 18; TEMP 98.1; O2SAT 98
[2017-02-03 08:06] LABS: BASO # 0.02 K/mm3 (0.0-2.0); BASO % 0.7 % (0.0-3.0); EOS # 0.2 (0.0-0.7); EOS % 6.1 % (1.5-5.0); GRAN # 1.75 (1.4-6.5); GRAN % 59.8 % (50.0-68.0); LYMPH # 0.8 (1.2-3.4); LYMPH % 25.6 % (22.0-35.0); MEAN CELL VOLUME 81.2 fL (80.0-105.0); MEAN CORPUSCULAR HEMOGLOBIN 29.2 pg (25.0-35.0); MEAN CORPUSCULAR HGB CONC 35.9 g/dl (31.0-37.0); MEAN PLATELET VOLUME 9.9 fl (7.0-11.0); MONO # 0.2 (0.1-0.6); MONO % 7.8 % (1.0-6.0); PLATELET COUNT 150 10^3/uL (120.0-450.0); RED CELL DISTRIBUTION WIDTH 15.8 % (11.5-14.5)
[2017-02-03 08:30] LABS: ALB/GLOB RATIO 1.2 (1.1-1.8); ALKALINE PHOSPHATASE 95 U/L (38-133); ALT/SGPT 25 U/L (7-56); AMYLASE 43 U/L (35-125); AST/SGOT 20 U/L (15-59); BILIRUBIN,TOTAL 1.2 mg/dL (0.2-1.3); BLOOD UREA NITROGEN 9 mg/dL (7-21); CALCIUM 8.7 mg/dL (8.4-10.5); CARBON DIOXIDE 27 mmol/L (21-33); CHLORIDE 106 mmol/L (98-107); GFR AFRICAN-AMERICAN > 60; GLUCOSE,RANDOM 124 mg/dL (70-110); LIPASE 42 U/L (23-300); POTASSIUM 3.3 mmol/L (3.6-5.0); SODIUM 138 mmol/L (132-148); TOTAL PROTEIN 6.2 g/dL (5.8-8.3)
[2017-02-03 08:54] LABS: ADD MANUAL DIFF? NO; WHITE BLOOD COUNT 2.9 10^3/ul (4.5-11.0)
--- NOTE | 2017-02-03 08:55 | CP.PCM.PN ---
<Salazar Claire - Last Filed: 02/03/17 10:07> Subjective - Date & Time of Evaluation Date of Evaluation: 02/03/17 Time of Evaluation: 07:45 - Subjective Subjective: PGY4 GI Fellow Progress Note Patient seen and examined bedside this morning. The patient admits that he passed a large loose BM this morning and 2 yesterday. Ate regular diet for dinner last night without pain or issues. Denies any nausea, vomiting and is eager to return home. 12 system ROS performed and negative except where stated. Objective - Vital Signs/Intake and Output Vital Signs (last 24 hours): Temp Pulse Resp BP Pulse Ox 98.1 F 72 18 152/99 H 98 02/03/17 07:42 02/03/17 07:42 02/03/17 07:42 02/03/17 07:42 02/03/17 07:42 - Medications Medications: Current Medications Acetaminophen (Tylenol 325mg Tab) 650 mg PO Q4H PRN PRN Reason: Pain, Mild (1-3) Last Admin: 02/02/17 18:52 Dose: 650 mg Famotidine (Pepcid) 20 mg PO 1000,2200 [facility] Last Admin: 02/02/17 22:38 Dose: 20 mg Sodium Chloride (Sodium Chloride 0.9%) 1,000 mls @ 100 mls/hr IV .Q10H [facility] Last Admin: 02/02/17 17:44 Dose: 100 mls/hr Lisinopril (Zestril) 20 mg PO DAILY [facility] Last Admin: 02/02/17 10:07 Dose: 20 mg Mercaptopurine (6-Mp) 100 mg PO DAILY [facility] Last Admin: 02/02/17 10:08 Dose: 100 mg Metoprolol Tartrate (Lopressor) 100 mg PO BID [facility] Last Admin: 02/02/17 17:37 Dose: 100 mg Ondansetron HCl (Zofran Inj) 4 mg IVP Q4H PRN PRN Reason: Nausea/Vomiting Last Admin: 02/02/17 10:11 Dose: 4 mg - Labs Labs: 02/03/17 07:57 - Constitutional Appears: Non-toxic, No Acute Distress - Eye Exam Eye Exam: EOMI, PERRL - ENT Exam ENT Exam: Mucous Membranes Moist - Respiratory Exam Respiratory Exam: Clear to Ausculation Bilateral. absent: Rales, Rhonchi, Wheezes - Cardiovascular Exam Cardiovascular Exam: RRR, +S1, +S2 - GI/Abdominal Exam GI & Abdominal Exam: Soft, Normal Bowel Sounds. absent: Distended, Firm, Guarding, Rigid, Tenderness, Organomegaly - Extremities Exam Extremities Exam: Normal Inspection. absent: Pedal Edema - Neurological Exam Neurological Exam: Alert, Awake, Oriented x3 - Psychiatric Exam Psychiatric exam: Normal Affect, Normal Mood - Skin Skin Exam: Dry, Warm Assessment and Plan - Assessment and Plan (Free Text) Assessment: Patient is a 55yo male with PMHx significant for Crohn's disease s/p right hemicolectomy and terminal ileum resection, on 6-MP 100mg PO QD, multiple SBO, DM, nephrolithiasis who presented to the ED with abdominal pain. -Abdominal pain, suspect PSBO, ileus - resolving -Crohn's disease on 6-MP -DM Plan: -Passing flatus and BM, tolerating diet -Fecal calprotectin collected yesterday, pending -Continue 6-MP 100mg PO QD (1.5mg/kg dosing) -Awaiting thiopurine metabolites -Patient has outpatient follow up scheduled with planned colonoscopy on 02/19/17 -OK to D/C from GI standpoint <Adair Polanco MD - Last Filed: 02/03/17 13:56> Objective - Vital Signs/Intake and Output Vital Signs (last 24 hours): Temp Pulse Resp BP Pulse Ox 98.1 F 72 18 152/99 H 98 02/03/17 07:42 02/03/17 10:05 02/03/17 07:42 02/03/17 10:05 02/03/17 07:42 - Labs Labs: 02/03/17 07:57 02/03/17 07:57 Attending/Attestation - Attestation I have personally seen and examined this patient.: Yes I have fully participated in the care of the patient.: Yes I have reviewed all pertinent clinical information, including history, physical exam and plan: Yes Notes (Text): 02/03/17 13:55 55yo male with PMHx significant for Crohn's disease s/p right hemicolectomy and terminal ileum resection, on 6-MP 100mg PO QD, multiple SBO, DM, nephrolithiasis who presented to the ED with abdominal pain in setting of partial ileus. Now passing flatus and BM. Advance diet and follow up with Dr yanez as outpatient.
[2017-02-03] MEDS ORDERED: Pneumococcal 23-Valent Vaccine IM ONE (10:00)
[2017-02-03] MEDS ORDERED: Potassium Chloride 20 mEq ER Tab PO SCH (10:00)
[2017-02-03 10:34] LABS: ERYTHROCYTE SEDIMENTATION RATE 17 mm/hr (0.00-15.0)
--- NOTE | 2017-02-03 19:43 | PN ---
DATE: 02/02/2017 The patient was seen this Sunday morning in room 373, bed 2. He was down for an abdominal x-ray as o rdered by GI. He is feeling well and would like to eat, but still has some abdominal distention and bloating. In reviewing the abdominal film, there appears to be a good amount of stool in the transve rse colon, a little stool in the descending colon and then air in the rectum, but that is my interpre tation by my view. I will await the radiologist's opinion. I explained to the patient that I agree with the recommendation of the systems programmer analyst to get a Fleet enema today, stimulate a bowel movem ent and if he moves his bowels, I told him I would increase his diet and perhaps look forward to disc harge as early as tomorrow as this all may be a transient ileus related to his Crohn's disease, perha ps related to diet. PHYSICAL EXAMINATION: ABDOMEN: Soft. There is little pain or tenderness. EXTREMITIES: Show no edema. PLAN: As outlined above. Kris Olson MD cc: [id number] TT: 02/03/2017 19:42:42 Confirmation # [id number] Dictation # [id number] kelsey
--- NOTE | 2017-02-04 00:43 | HP ---
CHIEF COMPLAINT: Abdominal pain. HISTORY OF PRESENT ILLNESS: This is a 56-year-old man known in the office for several years. He has recently diagnosed Crohn's disease and was hospitalized with a flareup twice earlier this year. The patient was doing well during the day, but developed rather sudden onset of abdominal pain, causing him to come to the Emergency Room. This was felt to be related to his Crohn's disease. Pain was sig nificant. His cake inspector was notified and arrangements were made for him to be admitted. PAST MEDICAL HISTORY: Significant for hypertension and diabetes. PAST SURGICAL HISTORY: Significant for bilateral inguinal hernia repairs and resection of the termin al ileum due to obstruction and of Crohn's disease earlier in this year, 2017. SOCIAL HISTORY: He does not smoke. He only experimented with tobacco a little bit in high school. He does not drink alcohol. He is with 2 sons. ALLERGIES: He has no known allergies to medication, but there is a QUESTION OF SUDAFED CAUSING NAUSE A IN THE PAST. CURRENT MEDICATIONS: Include 6-mercaptopurine, medications for diabetes as well as hypertension, bet a blockers, SALVADOR inhibitors, metformin and possibly glipizide. REVIEW OF SYSTEMS: Otherwise, unremarkable. PHYSICAL EXAMINATION: GENERAL: The patient was seen on morning after admission in the lap cutter hours of this day in room 373, bed 1. He is lying in bed, somewhat uncomfortable with left-sided abdominal discom fort. He reports loose watery stools as his baseline and has had several stools yesterday. HEENT: Head and neck are unremarkable. Conjunctivae pink. Mucous membranes moist. NECK: Supple, without masses. Thyroid not palpable. LUNGS: Clear with good aeration, right and left. HEART: Regular, nontachycardic. ABDOMEN: Soft. Diffusely tender, more so on the left side. No guarding or rebound. Bowel sounds w ere present. There is no palpable mass, heat or erythema. EXTREMITIES: Unremarkable, thin, no edema. IMPRESSION: 1. Abdominal pain. 2. History of postoperative Crohn's related colonic ileus impaction/constipation. 3. Chronic constipation. 4. Hypertension. 5. Diabetes. PLAN: We will follow the lead from GI. The patient received some analgesics last night and seems to already be much improved. CT scan looks relatively unremarkable today. He is headed for abdominal pain film this morning. We will continue to follow. Kris Olson MD cc: [id number] TT: 02/04/2017 00:31:55 ln
--- NOTE | 2017-02-04 11:13 | DS ---
This is a 56-year-old man I have known for some time. He moved to [place] and then returned to [facility] under my care once again after several years in [place]. He was recently diagnosed with Crohn's disease, underwent surgical resection of the terminal ileum. His surgical course and home postop cou rse was complicated with anastomosis stricture and chronic constipation. Surgery was not required on the stricture. It seems to have improved gradually. The patient was tolerating food and diet well, eating well, but now presented to the acute care facility at [facility] with a rather diallo dden onset of abdominal pain. Initial CT was unremarkable. Followup abdominal plain film showed enriqueta e stool, quite a bit of stool, in the colon. He was given a tap water enema and low-residue diet and treatment of his Crohn's and constipation. His bowel movements had been watery at home, but he now had several large stools and as of today, was in good spirits, feeling much better, no abdominal symp toms, tolerating dinner and breakfast well and looking forward to going home. PHYSICAL EXAMINATION: ABDOMEN: Completely within normal limits. There is normal bowel sounds. No guarding, no tenderness . The remainder of his physical exam was normal and at baseline and therefore with his family present, he was instructed to resume his prior medications, continue the low-residue diet recommended by GI. He is scheduled for colonoscopy in approximately 2 weeks. He will follow up with the gastroenterolog ist for that and then see me after his colonoscopy. In the meantime, I remain network operations manager and available to him 26/03 should there be any questions. FINAL DISCHARGE DIAGNOSES: 1. Acute constipation. 2. Chronic constipation. 3. Crohn's disease. 4. Hypertension. 5. Diabetes. Kris Olson MD cc: [id number] TT: 02/04/2017 11:13:36 en
[2017-02-06 23:59] LABS: 6-MMP < 500 (< 5700); 6-TG 207 (235-400)
== END 2017-02-03 13:11 | disposition home or self-care (01) ==
LOC: ED 22:59 → ERH 02-01 03:55 → 3RSO 02-01 04:43
PROVIDERS: ADMIT Internal Medicine; ATTEND Internal Medicine
DX: K59.09 Other constipation (principal); K50.90 Crohn's disease, unspecified, without complications; I12.9 Hypertensive chronic kidney disease with stage 1 through stage 4 chronic kidney disease, or unspecified chronic kidney disease; E11.22 Type 2 diabetes mellitus with diabetic chronic kidney disease; N18.9 Chronic kidney disease, unspecified; Z87.442 Personal history of urinary calculi; K29.70 Gastritis, unspecified, without bleeding; N13.2 Hydronephrosis with renal and ureteral calculous obstruction; K64.8 Other hemorrhoids; R16.1 Splenomegaly, not elsewhere classified; K29.50 Unspecified chronic gastritis without bleeding; K56.7 Ileus, unspecified; K56.60 Unspecified intestinal obstruction; Z79.82 Long term (current) use of aspirin; Z79.899 Other long term (current) drug therapy; Z87.891 Personal history of nicotine dependence; Z90.49 Acquired absence of other specified parts of digestive tract; Z80.3 Family history of malignant neoplasm of breast; Z82.49 Family history of ischemic heart disease and other diseases of the circulatory system; Z87.19 Personal history of other diseases of the digestive system
CPT/HCPCS: 36415; 74020; 74177; 80053; 81001; 82150; 82948; 83690; 83789; 85025; 85027; 85651; 96361; 96374; 96375; 96376; 99284; G0378; J2270; J2405; J7040; Q9967

== ENCOUNTER 2017-02-19 06:19 | Day surgery (SDC) | payer OTHER ==
[2017-02-19 07:03] VITALS: BMI 19.8
[2017-02-19] MEDS ORDERED: Lidocaine 1% Inj (20ml) ONE (08:09)
[2017-02-19] MEDS ORDERED: Propofol 10 mg/ml Inj (20 ML) ONE (08:09)
[2017-02-19 08:42] VITALS: TEMP 97.5
[2017-02-19] MEDS ORDERED: Sodium Chloride 0.9% 1,000 ML IV SCH (08:45)
[2017-02-19 09:33] VITALS: BP 145/86; PULSE 81; RESP 16; O2SAT 99
== END 2017-02-19 10:00 | disposition home or self-care (01) ==
LOC: ENDO 06:19
PROVIDERS: ATTEND Internal Medicine
DX: K50.00 Crohn's disease of small intestine without complications (principal); K63.89 Other specified diseases of intestine; Z90.49 Acquired absence of other specified parts of digestive tract; Z88.2 Allergy status to sulfonamides; K52.9 Noninfective gastroenteritis and colitis, unspecified
CPT/HCPCS: 45380; 88305; J2704; J3010; J7040 ×2

== ENCOUNTER 2017-03-16 10:45 | Observation (INO) | payer OTHER ==
[2017-03-16 11:02] VITALS: BMI 21.1
[2017-03-16] MEDS ORDERED: Sodium Chloride 0.9% 1,000 ML IV STA (11:09)
[2017-03-16] MEDS ORDERED: Iohexol 240 (50 ml) ONE (11:14)
--- NOTE | 2017-03-16 11:36 | ED PDOC ---
Arrival/HPI - General Historian: Patient - History of Present Illness Time/Duration: 24 hours Symptom Onset: Sudden Symptom Course: Unchanged Quality: Cramping Severity Level: 7 Activities at Onset: Other (at work) Context: Work <Shane Dillon - Last Filed: 03/16/17 17:45> <Bhupendra Hunter DO - Last Filed: 03/16/17 20:42> - General Chief Complaint: Abdominal Pain Time Seen by Provider: 03/16/17 11:06 - History of Present Illness Narrative History of Present Illness (Text): 56 M with PMH of Crohn's, DM, HTN, and s/p partial ascending colectomy presents to ED for complaint of Abdominal pain. Patient stated that he was at work yesterday when the pain came on suddenly. Patient has had similar pain in the past that has been associated with Crohn's flares. Patient has had a history of obstruction as well. Patient rates the pain as 7/10 currently but 10/10 yesterday when it began. He describes the pain as constant and cramping located in LUQ without radiation. Nothing he noticed alleviates or exacerbates his pain. Patient last had a BM yesterday morning. He reports to normally having liquid stool. Patient had colectomy in August [address] Ayala and had a colonoscopy by Dr. Evans last month. He states that he is complaint with medications and follows the diet that Dr. Evans had suggested. Admits to subjective Chills and nausea. Denies fevers, cp, palpitations, sob, vomiting, diarrhea. PMD: Dr. Olson PMH: Crohn's, DM, HTN, and s/p partial ascending colectomy Meds: As per EMR Allergy: pseudoephedrine PSH: s/p partial ascending colectomy (08/2016), colonoscopy (02/2017) Hosp: multiple in last 6-7 months for Crohn's, abd pain Social: Denies smoking, etoh and illicit drug use (Shane Dillon) Past Medical History - Provider Review Nursing Documentation Reviewed: Yes - Travel History Have you recently traveled outside [place] w/in the past 3 mons?: No - Infectious Disease Hx of Infectious Diseases: None - Cardiac Hx Hypertension: Yes Hx Pacemaker: No - Pulmonary Hx Respiratory Disorders: No - Neurological Hx Paralysis: No - HEENT Hx HEENT Disorder: No - Renal Hx Renal Disorder: Yes Hx Kidney Stones: Yes (3-9-27 2 MM STONE) - Endocrine/Metabolic Hx Endocrine Disorders: Yes Hx Diabetes Mellitus Type 2: Yes (NEWLY DX 2015) - Hematological/Oncological Hx Blood Transfusions: Yes (2016) Hx Blood Transfusion Reaction: No - Integumentary Hx Dermatological Disorder: No - Musculoskeletal/Rheumatological Hx Musculoskeletal Disorders: No - Gastrointestinal Hx Gastrointestinal Disorders: Yes (BILATERAL HERNIA REPAIR) Hx Crohn's Disease: Yes Other/Comment: IBS - Genitourinary/Gynecological Hx Genitourinary Disorders: Yes (HYDROCELE) - Psychiatric Hx Emotional Abuse: No Hx Physical Abuse: No Hx Substance Use: No - Surgical History Hx Musculoskeletal Surgery: Yes (L SHOULDER SX) Other/Comment: explor lap 08/30/16/bowel small intestine DENIES - Anesthesia Hx Anesthesia: Yes Hx Anesthesia Reactions: No Hx Malignant Hyperthermia: No - Suicidal Assessment Feels Threatened In Home Enviroment: No <Shane Dillon - Last Filed: 03/16/17 17:45> Family/Social History - Physician Review Nursing Documentation Reviewed: Yes Smoking Status: Never Smoked Hx Alcohol Use: No Hx Substance Use: No <Shane Dillon - Last Filed: 03/16/17 17:45> Family/Social History: No Known Family HX <Bhupendra Hunter DO - Last Filed: 03/16/17 20:42> Allergies/Home Meds <Shane Dillon - Last Filed: 03/16/17 17:45> <Bhupendra Hunter DO - Last Filed: 03/16/17 20:42> Allergies/Adverse Reactions: Allergies pseudoephedrine HCl [From Sudafed] Allergy (Verified 02/12/17 09:26) "HEART RACES" DENIES NAUSEA Home Medications: Home Meds Medication Instructions Recorded Confirmed metFORMIN [glucOPHAGE] 500 mg PO QAM 05/20/16 03/16/17 Aspirin [Ecotrin] 81 mg PO QAM 05/22/16 03/16/17 Mercaptopurine [6-Mp] 1 tab PO QAM 11/09/16 03/16/17 Lisinopril [Zestril] 20 mg PO QAM 01/31/17 03/16/17 Cholestyramine [Questran] 4 gm PO BID 02/12/17 03/16/17 Methylcellulose [Fiber] 500 mg PO BID 02/12/17 03/16/17 Ondansetron HCl [Zofran] 4 mg PO Q6H 02/12/17 03/16/17 Budesonide [Entocort EC] 9 mg PO DAILY 02/19/17 03/16/17 Cholecalciferol [Vitamin D 1000 IU] 1 tab PO DAILY 02/19/17 03/16/17 Cyanocobalamin [Vitamin B12 1000 1 ml SC Q30D 02/19/17 03/16/17 mcg/ml Inj] Review of Systems - Review of Systems Constitutional: Other (chills). absent: Fatigue, Weight Change, Fevers, Night Sweats Eyes: absent: Vision Changes, Photophobia, Eye Pain ENT: absent: Hearing Changes, Tinnitus, TMJ Pain, Voice Changes Respiratory: absent: SOB, Cough, Sputum, Wheezing Cardiovascular: absent: Chest Pain, Palpitations, Edema, Calf Pain, Orthopnea, Syncope Gastrointestinal: Abdominal Pain, Constipation, Nausea. absent: Diarrhea, Vomiting Genitourinary Male: absent: Dysuria, Frequency Musculoskeletal: absent: Arthralgias, Back Pain, Neck Pain Skin: absent: Pruritis, Skin Lesions, Laceration, Abscess Neurological: absent: Headache, Dizziness, Focal Weakness Endocrine: absent: Diaphoresis, Polyuria, Polydipsia Hemo/Lymphatic: absent: Adenopathy, Easy Bleeding, Easy Bruising Psychiatric: absent: Anxiety, Depression, Suicidal Ideation <Shane Dillon - Last Filed: 03/16/17 17:45> Physical Exam Vital Signs Reviewed: Yes Temperature: Afebrile Blood Pressure: Hypertensive Pulse: Regular Respiratory Rate: Normal Appearance: Positive for: Non-Toxic, Comfortable Pain Distress: Mild Mental Status: Positive for: Alert and Oriented X 3 - Systems Exam Head: Present: Atraumatic, Normocephalic Pupils: Present: PERRL Extroacular Muscles: Present: EOMI Conjunctiva: Present: Normal Ears: Present: Normal Mouth: Present: Moist Mucous Membranes Pharnyx: Present: Normal Nose (External): Present: Atraumatic Nose (Internal): Present: Normal Inspection Neck: Present: Normal Range of Motion Respiratory/Chest: Present: Clear to Auscultation, Good Air Exchange Cardiovascular: Present: Regular Rate and Rhythm, Normal S1, S2 Abdomen: Present: Tenderness, Guarding (voluntary), Scars (midline scar from previous colectomy). No: Distention, Normal Bowel Sounds (hyperactive), Peritoneal Signs, Rebound, Hernias Upper Extremity: Present: Normal ROM, NORMAL PULSES, Neurovascularly Intact, Capillary Refill < 2s Lower Extremity: Present: NORMAL PULSES, Normal ROM, Neurovascularly Intact, Capillary Refill < 2 s Neurological: Present: GCS=15, CN II-XII Intact, Speech Normal, Motor Func Grossly Intact, Normal Sensory Function, Normal Cerebellar Funct Skin: Present: Warm, Dry, Normal Color Lymphatic: No: Cervical Adenopathy, Axillary Adenopathy, Inguinal Adenopathy Psychiatric: Present: Alert, Oriented x 3, Normal Insight, Normal Concentration , Normal Affect, Normal Mood <Shane Dillon - Last Filed: 03/16/17 17:45> <Bhupendra Hunter DO - Last Filed: 03/16/17 20:42> Vital Signs Temp Pulse Resp BP Pulse Ox 03/16/17 19:28 82 18 142/87 98 03/16/17 17:32 87 16 139/84 99 03/16/17 15:43 84 16 165/107 H 99 03/16/17 11:02 98.8 F 84 18 177/97 H 99 Medical Decision Making <Sahne Dillon - Last Filed: 03/16/17 17:45> <Bhupendra Hunter DO - Last Filed: 03/16/17 20:42> ED Course and Treatment: Patient made NPO. CBC, CMP, Lipase, Urinalysis, urine C&S, and Abd & Pelvis CT with PO contrast ordered. IV fluids, pepcid, and zofran given. Patient refusing to drink PO contrast because "it doesn't taste good and makes stomach hurt." AB CT showed colonic distention that was similar to previous study from 02/2017. Morphine was given for pain which helped. Case was discussed with patient's primary Dr. Olson. He recommended Maalox and . Primary wanted surgery to see patient. As per surgical consultant, patient is ok to go home. Patient did not feel comfortable going home due to pain. Case was discussed again with Dr. Olson, it was determined that patient would be admitted for observation. Consult placed for Dr. Evans. IV fluids continued. (Shane Dillon) In agreement with resident note, which includes further HPI details. Patient was seen and evaluated with resident, came up with plan and treatment together. (Bhupendra Hunter DO) - Lab Interpretations Lab Results: 03/16/17 12:00 03/16/17 12:00 Lab Results 03/16/17 14:30: Urine Color Yellow, Urine Appearance Clear, Urine pH 6.0, Ur Specific Comfort 1.020, Urine Protein Negative, Urine Glucose (UA) Negative, Urine Ketones Negative, Urine Blood Negative, Urine Nitrate Negative, Urine Bilirubin Negative, Urine Urobilinogen 0.2, Ur Leukocyte Esterase Negative 03/16/17 12:00: Sodium 140, Potassium 3.6, Chloride 104, Carbon Dioxide 27, Anion Gap 13, BUN 16, Creatinine 0.7, Est GFR ( Amer) > 60, Est GFR (Non- Af Amer) > 60, Random Glucose 111 H, Calcium 9.4, Total Bilirubin 1.8 H, AST 24 , ALT 29, Alkaline Phosphatase 126, Total Protein 7.3, Albumin 4.2, Globulin 3.2 , Albumin/Globulin Ratio 1.3, Lipase 31 03/16/17 12:00: WBC 4.1 L D, RBC 4.28, Hgb 13.2 L, Hct 38.0 L, MCV 88.8, MCH 30.8, MCHC 34.7, RDW 13.9, Plt Count 141, MPV 10.6, Gran % 74.0 H, Lymph % (Auto ) 18.4 L, Labette % (Auto) 6.4 H, Eos % (Auto) 1.0 L, Baso % (Auto) 0.2, Gran # 3.01, Lymph # 0.8 L, Labette # 0.3, Eos # 0.0, Baso # 0.01 - RAD Interpretation Radiology Orders: 03/16/17 11:09 ABD PELVIS PO & IV CONTRAST [CT] Stat - Medication Orders Current Medication Orders: Hydromorphone HCl (Dilaudid) 0.5 mg IVP Q4H PRN PRN Reason: Pain, moderate (4-7) Last Admin: 03/16/17 20:30 Dose: 0.5 mg Sodium Chloride (Sodium Chloride 0.9%) 1,000 mls @ 100 mls/hr IV .Q10H HEATHER Last Admin: 03/16/17 16:59 Dose: 100 mls/hr Discontinued Medications Al Hydrox/Mg Hydrox/Simethicone (Maalox Plus 30 Ml) 30 ml PO STAT STA Stop: 03/16/17 14:31 Last Admin: 03/16/17 15:23 Dose: 30 ml Belladonna/Phenobarbital ( Elixir) 10 ml PO STAT STA Stop: 03/16/17 14:30 Last Admin: 03/16/17 15:23 Dose: 10 ml Famotidine (Pepcid) 20 mg IVP STAT STA Stop: 03/16/17 11:10 Last Admin: 03/16/17 12:05 Dose: 20 mg Sodium Chloride (Sodium Chloride 0.9%) 1,000 mls @ 250 mls/hr IV .Q4H STA Stop: 03/16/17 15:08 Last Admin: 03/16/17 12:05 Dose: 250 mls/hr Iohexol (Omnipaque 240 (50 Ml)) Confirm Administered Dose 50 ml .ROUTE .STK-MED ONE Stop: 03/16/17 11:15 Iohexol (Omnipaque 350 100 Ml) Confirm Administered Dose 350 mg .ROUTE .STK-MED ONE Stop: 03/16/17 13:38 Morphine Sulfate (Morphine) 2 mg IVP STAT STA Stop: 03/16/17 13:26 Last Admin: 03/16/17 15:24 Dose: 2 mg Re-Assess: DILMA Pain Assessment Document 03/16/17 16:24 HI (Rec: 03/16/17 19:26 ID [id number]) Pain Reassessment Is this a pain reassessment? Yes Sleep Is patient sleeping during reassessment? Yes Ondansetron HCl (Zofran Inj) 4 mg IVP STAT STA Stop: 03/16/17 11:10 Last Admin: 03/16/17 12:05 Dose: 4 mg <Shane Dillon - Last Filed: 03/16/17 17:45> - PA / GLASS CUTTER HAND / Resident Statement / has reviewed & agrees with the documentation as recorded. / has examined the patient and agrees with the treatment plan. - Scribe Statement The provider has reviewed the documentation as recorded by the Scribe <Bhupendra Hunter DO - Last Filed: 03/16/17 20:42> - Scribe Statement Rosa Rico Provider Scribe Attestation: All medical record entries made by the Scribe were at my direction and personally dictated by me. I have reviewed the chart and agree that the record accurately reflects my personal performance of the history, physical exam, medical decision making, and the department course for this patient. I have also personally directed, reviewed, and agree with the discharge instructions and disposition. (Bhupendra Hunter DO) Disposition/Present on Arrival - Present on Arrival Any Indicators Present on Arrival: No History of DVT/PE: No History of Uncontrolled Diabetes: No Urinary Catheter: No History of Decub. Ulcer: No History Surgical Site Infection Following: None - Disposition Have Diagnosis and Disposition been Completed?: Yes Disposition Time: 16:00 Patient Plan: Admission <Shane Dillon - Last Filed: 03/16/17 17:45> <Bhupendra Hunter DO - Last Filed: 03/16/17 20:42> - Disposition Diagnosis: Abdominal pain Disposition: HOSPITALIZED Patient Problems: Current Active Problems Problem Status Onset Abdominal pain Acute Condition: STABLE
[2017-03-16 12:15] LABS: BASO # 0.01 K/mm3 (0.0-2.0); BASO % 0.2 % (0.0-3.0); GRAN # 3.01 (1.4-6.5); HEMOGLOBIN 13.2 gm/dL (14.0-18.0); LYMPH # 0.8 (1.2-3.4); LYMPH % 18.4 % (22.0-35.0); MEAN CELL VOLUME 88.8 fL (80.0-105.0); MEAN CORPUSCULAR HEMOGLOBIN 30.8 pg (25.0-35.0); MEAN CORPUSCULAR HGB CONC 34.7 g/dl (31.0-37.0); MEAN PLATELET VOLUME 10.6 fl (7.0-11.0); MONO # 0.3 (0.1-0.6); MONO % 6.4 % (1.0-6.0); PLATELET COUNT 141 10^3/uL (120.0-450.0); RBC 4.28 10^6/uL (3.5-6.1); RED CELL DISTRIBUTION WIDTH 13.9 % (11.5-14.5); WHITE BLOOD COUNT 4.1 10^3/ul (4.5-11.0)
[2017-03-16 12:24] LABS: ALB/GLOB RATIO 1.3 (1.1-1.8); ALBUMIN 4.2 g/dL (3.0-4.8); ALT/SGPT 29 U/L (7-56); AST/SGOT 24 U/L (15-59); BLOOD UREA NITROGEN 16 mg/dL (7-21); CALCIUM 9.4 mg/dL (8.4-10.5); GFR AFRICAN-AMERICAN > 60; GFR NON-AFRICAN AMERICAN > 60; LIPASE 31 U/L (23-300)
[2017-03-16] MEDS ORDERED: Morphine 2 mg/ml ISec IVP STA (13:25)
[2017-03-16] MEDS ORDERED: Iohexol 350 MG/100 ML VIAL ONE (13:37)
--- NOTE | 2017-03-16 14:15 | CT ---
PROCEDURE: CT Abdomen and Pelvis with contrast HISTORY: abd pain - h/o Crohn's disease partial colectomy COMPARISON: 02/01/2017 TECHNIQUE: Contrast dose: 96 cc of Omni 350 Radiation dose: Total exam DLP = 266 mGy-cm. This CT exam was performed using one or more of the following dose reduction techniques: Automated exposure control, adjustment of the mA and/or kV according to patient size, and/or use of iterative reconstruction technique. FINDINGS: LOWER THORAX: Unremarkable. LIVER: Unremarkable. No gross lesion or ductal dilatation. GALLBLADDER AND BILE DUCTS: Unremarkable. PANCREAS: Unremarkable. No gross lesion or ductal dilatation. SPLEEN: Unremarkable. ADRENALS: Unremarkable. No mass. KIDNEYS AND URETERS: Unremarkable. No hydronephrosis. No solid mass. VASCULATURE: Unremarkable. No aortic aneurysm. BOWEL: A suture line is seen in the ascending colon. The colon is moderately dilated. There is also some distal small bowel dilatation. The findings are unchanged. There is no mural thickening. There are no inflammatory changes. APPENDIX: Normal appendix. PERITONEUM: Unremarkable. No free fluid. No free air. LYMPH NODES: Unremarkable. No enlarged lymph nodes. BLADDER: Moderate to severe distention of the bladder REPRODUCTIVE: Unremarkable. BONES: No acute fracture. OTHER FINDINGS: None. IMPRESSION: Moderate distention of the colon and small bowel unchanged from prior study. There are no inflammatory changes seen
[2017-03-16] MEDS ORDERED: Atrop/Hyosc/Scopal/PB Elixir (120 ml) PO STA (14:29)
[2017-03-16] MEDS ORDERED: Alum-Mag Hydrox-Simethicone Susp (30 mL) PO STA (14:30)
[2017-03-16 14:38] LABS: URINE BILIRUBIN NEGATIVE (NEGATIVE); URINE BLOOD NEGATIVE (NEGATIVE); URINE GLUCOSE (UA) NEGATIVE (NEGATIVE); URINE LEUKOCYTE ESTERASE NEGATIVE Leu/uL (NEGATIVE); URINE NITRATE NEGATIVE (NEGATIVE); URINE PROTEIN NEGATIVE mg/dL (<30 mg/dL); URINE UROBILINOGEN 0.2 E.U./dL (<1 E.U./dL)
[2017-03-16 14:44] LABS: URINE APPEARANCE CLEAR (CLEAR); URINE COLOR YELLOW (YELLOW)
[2017-03-16] MEDS: Sodium Chloride 0.9% 1,000 ML IV SCH (16:59)
[2017-03-16] MEDS ORDERED: HYDROmorphone 0.5 mg/0.5 ml ISec IVP PRN (19:52)
[2017-03-17] MEDS: Sodium Chloride 0.9% 1,000 ML IV SCH (04:34)
--- NOTE | 2017-03-17 08:24 | CP.PCM.CON ---
<Salazar Claire - Last Filed: 03/17/17 10:46> History of Present Illness - History of Present Illness History of Present Illness: PGY5 GI Fellow Consult Note Patient is a 55yo male with PMHx significant for Crohn's ileitis s/p resection of TI with right hemicolectomy currently maintained on 6-MP 100mg PO QD and budesonide 9mg PO QD, SBO, DM, nephrolithiasis who presented overnight with sudden onset abdominal pain. Pain began Sunday night while patient was at work in the LUQ and LLQ and quickly generalized to the entire abdomen. Pain was sharp in nature and associated with constipation and difficulty passing flatus. He has had several similar episodes previously. Pain releived with analgesia given in the ED and CT performed there was unchanged from prior. He denies BM in last 24H. Tolerating liquid/soft diet without issue at this time. Recently saw Dr Evans as an outpatient and discussing possibility of initiating therapy with a biologic agent for his CD. Has been compliant with 6-MP and Budesonide. No recent illnesses, antibiotics use, sick contacts. PMHx: See HPI PSHx: Right hemicolectomy and TI resection, inguinal hernia repairs FHx: Mother - breast cancer; father - CAD Social: Former smoker, occasional EtOH use Endo: Colonoscopy - 02/2017 Review of Systems - Constitutional Constitutional: Anorexia. absent: Chills, Fever - EENT Eyes: absent: Change in Vision Nose/Mouth/Throat: absent: Sore Throat - Cardiovascular Cardiovascular: absent: Chest Pain, Dyspnea, Edema - Respiratory Respiratory: absent: Cough, Dyspnea, Excessive Mucous Production - Gastrointestinal Gastrointestinal: Abdominal Pain, Bloating, Constipation, Cramping, Nausea. absent: Diarrhea, Dyspepsia, Heartburn, Melena, Vomiting - Genitourinary Genitourinary: absent: Dysuria, Urinary Frequency, Urinary Urgency - Musculoskeletal Musculoskeletal: absent: Back Pain, Neck Pain - Integumentary Integumentary: absent: New Lesions, Rash - Neurological Neurological: absent: Dizziness, Numbness, Focal Weakness - Psychiatric Psychiatric: absent: Anxiety, Depression - Endocrine Endocrine: absent: Polydipsia, Polyphagia, Polyuria - Hematologic/Lymphatic Hematologic: absent: Easy Bleeding, Easy Bruising, Lymphadenopathy Past Patient History - Infectious Disease Hx of Infectious Diseases: None - Past Social History Smoking Status: Never Smoked - CARDIAC Hx Hypertension: Yes Hx Pacemaker: No - PULMONARY Hx Respiratory Disorders: No - NEUROLOGICAL Hx Neurological Disorder: No - HEENT Hx HEENT Problems: No - RENAL Hx Chronic Kidney Disease: Yes Hx Kidney Stones: Yes (3--27 2 MM STONE) - ENDOCRINE/METABOLIC Hx Endocrine Disorders: Yes Hx Diabetes Mellitus Type 2: Yes (NEWLY DX 2015) - HEMATOLOGICAL/ONCOLOGICAL Hx Blood Disorders: No - INTEGUMENTARY Hx Dermatological Problems: No - MUSCULOSKELETAL/RHEUMATOLOGICAL Hx Musculoskeletal Disorders: No Hx Falls: No - GASTROINTESTINAL Hx Gastrointestinal Disorders: Yes (BILATERAL HERNIA REPAIR) Hx Crohn's Disease: Yes Other/Comment: IBS - GENITOURINARY/GYNECOLOGICAL Hx Genitourinary Disorders: Yes (HYDROCELE) - PSYCHIATRIC Hx Emotional Abuse: No Hx Physical Abuse: No - SURGICAL HISTORY Hx Musculoskeletal Surgery: Yes (L SHOULDER SX) Other/Comment: explor lap 08/30/16/bowel small intestine DENIES - ANESTHESIA Hx Anesthesia: Yes Hx Anesthesia Reactions: No Hx Malignant Hyperthermia: No Meds Allergies/Adverse Reactions: Allergies Allergy/AdvReac Type Severity Reaction Status Date / Time pseudoephedrine HCl Allergy "HEART Verified 02/12/17 09:26 [From Sudafed] RACES" - Medications Medications: Current Medications Acetaminophen (Tylenol 325mg Tab) 650 mg PO Q4H PRN PRN Reason: Pain, Mild (1-3) Aspirin (Ecotrin) 81 mg PO DAILY HEATHER Budesonide (Entocort Ec) 9 mg PO DAILY HEATHER Hydromorphone HCl (Dilaudid) 0.5 mg IVP Q4H PRN PRN Reason: Pain, moderate (4-7) Last Admin: 03/16/17 20:30 Dose: 0.5 mg Sodium Chloride (Sodium Chloride 0.9%) 1,000 mls @ 100 mls/hr IV .Q10H HEATHER Last Admin: 03/17/17 04:34 Dose: 100 mls/hr Lisinopril (Zestril) 20 mg PO DAILY HEATHER Mercaptopurine (6-Mp) 50 mg PO DAILY HEATHER Metoprolol Tartrate (Lopressor) 100 mg PO BID HEATHER Ondansetron HCl (Zofran Tab) 4 mg PO Q8H PRN PRN Reason: Nausea/Vomiting Last Admin: 03/17/17 07:39 Dose: 4 mg Ondansetron HCl (Zofran Inj) 4 mg IVP Q6H PRN PRN Reason: Nausea/Vomiting Results - Vital Signs Recent Vital Signs: Last Vital Signs Temp 98.5 F 03/17/17 07:41 Pulse 95 H 03/17/17 07:41 Resp 18 03/17/17 07:41 BP 147/100 H 03/17/17 07:41 Pulse Ox 100 03/17/17 07:41 - Labs Result Diagrams: 03/16/17 12:00 03/16/17 12:00 Assessment & Plan - Assessment and Plan (Free Text) Assessment: Patient is a 55yo male with PMHx significant for Crohn's ileitis s/p resection of TI with right hemicolectomy currently maintained on 6-MP 100mg PO QD and budesonide 9mg PO QD, SBO, DM, nephrolithiasis who presented overnight with sudden onset abdominal pain. -Abdominal pain, constipation -Crohn's disease -DM -HTN Plan: -Tolerating diet without significant issue at this time; would eat low residue diet and advance slowly - can be done at home -Pain well controlled -Passing flatus, no stool at this juncture -Patient to follow up with Dr Evans for possible initiation of biologic therapy for ongoing CD -Continue 6-MP and Budesonide for now as ordered -OK to D/C from GI standpoint if pain well controlled - Date & Time Date: 03/17/17 Time: 08:00 <Adair Polanco MD - Last Filed: 03/17/17 16:28> Results - Vital Signs Recent Vital Signs: Last Vital Signs Temp 98.5 F 03/17/17 07:41 Pulse 85 03/17/17 09:09 Resp 18 03/17/17 07:41 BP 127/88 03/17/17 11:19 Pulse Ox 100 03/17/17 07:41 - Labs Result Diagrams: 03/16/17 12:00 03/16/17 12:00 Attending/Attestation - Attestation I have personally seen and examined this patient.: Yes I have fully participated in the care of the patient.: Yes I have reviewed all pertinent clinical information: Yes Notes (Text): 03/17/17 16:26 Patient seen with GI fellow on rounds. This is a 55yo male with PMHx significant for Crohn's ileitis s/p resection of TI with right hemicolectomy currently maintained on 6-MP 100mg PO QD and budesonide 9mg PO QD, SBO, DM, nephrolithiasis who presented overnight with sudden onset abdominal pain. Passing flatus today with resolution of pain. Wants to go home today with outpatient follow up.
[2017-03-17] MEDS ORDERED: Budesonide 3 mg ER Cap PO SCH (10:00)
[2017-03-17 11:57] VITALS: BP 127/88; PULSE 85
[2017-03-17 12:06] VITALS: RESP 18; O2SAT 100
[2017-03-17 12:33] VITALS: TEMP 98.5
--- NOTE | 2017-03-20 21:29 | HP ---
CHIEF COMPLAINT: Abdominal pain. HISTORY OF PRESENT ILLNESS: This is a 56-year-old man I have known for several years with Crohn's disease who was hospitalized on a few occasions this year, underwent a resection of the colon because of Crohn's disease with complications of persistent diarrhea and abdominal pain with apparent ileus noted on x-rays in the past prompting hospitalization. He is followed closely by surgeon and stone gang sawyer. He presented to the emergency room this 03/16/2017, because of a day of worsening abdominal pain. In the emergency room, analgesics were given as well as IV fluids. The patient and his family were still uncomfortable with the severity of the symptoms, so arrangements were made for him to be admitted for overnight observation. PAST MEDICAL HISTORY: Significant for hypertension and diabetes. PAST SURGICAL HISTORY: Significant for bilateral inguinal hernia repairs and resection of the terminal ileum due to obstruction of Crohn's disease earlier in this year, 2016. SOCIAL HISTORY: He does not smoke. He experimented with tobacco in high school. Does not drink alcohol. He is , has 2 sons. ALLERGIES: HE HAS NO KNOWN ALLERGIES. HE HAS NO KNOWN ALLERGIES TO THE MEDICINES, BUT THERE IS A QUESTION OF SUDAFED CAUSING NAUSEA IN THE PAST. CURRENT MEDICATIONS: Include 6-mercaptopurine, Entocort, aspirin, metoprolol, lisinopril, cholestyramine, metformin and Zofran. MULTIPOINT REVIEW OF SYSTEMS: Multipoint review of systems is otherwise unremarkable. PHYSICAL EXAMINATION: GENERAL: The patient was in the emergency room 12, resting in comfortable, in no acute distress. CT scan having been done. He is awake, alert, appropriate. VITAL SIGNS: Stable. He recently passed a huge amount of urine from a markedly distended urinary bladder, but there is no evidence of obstruction. He is able to void completely. HEAD AND NECK: Unremarkable. Conjunctivae are pink. Mucous membranes are moist. NECK: Supple without masses. Thyroid is not palpable. There are no masses palpable. No lymphadenopathy. LUNGS: Clear to auscultation and percussion. HEART: Regular, non-tachycardic. ABDOMEN: Soft, diffusely tender in all quadrants, especially the left upper quadrant. There is no palpable mass. No dilated loops of constipated stool are palpable. EXTREMITIES: Show no edema. IMPRESSION: 1. Abdominal pain. 2. Crohn's disease. 3. Diabetes. 4. Hypertension. PLAN: We will continue analgesics for now as well as IV fluids. GI consultation is ordered for the morning as well as surgical consultation appreciated, done in the emergency room earlier today. Hopefully with IV fluids and antibiotics, the patient will improve clinically and be ready for discharge tomorrow after relief of some of the gas and stool noted in the CAT scan to be present in the large intestine. Kris Olson MD
--- NOTE | 2017-03-21 10:14 | DS ---
This is a 56-year-old male I have known for sometime with Crohn's disease, hypertension and diabetes. He recently had resection of terminal ileum complicated by concerns of anastomosis stricture. He is plagued by chronic diarrhea and intermittent constipation. He came to the emergency room just yesterday with a day of worsening abdominal pain. Labs and CT scans were unremarkable, but because of the severity of symptoms and his chronic history after discussion with GI, he was admitted for overnight observation. Surgical team saw him in the ER. I met him in the ER Sunday evening of admission, he was hemodynamically stable. Abdominal exam was unremarkable except for tenderness and so he was admitted with IV fluids and analgesic. On the date of discharge, 03/17/2017, he was in bed much more comfortable looking forward to going home, feeling that after passing gas and stool, he was ready for discharge. He will follow up with us in the office within 1 week as well as with GI consult. FINAL DISCHARGE DIAGNOSES: 1. Abdominal pain. 2. Crohn's disease. 3. Hypertension. 4. Diabetes. Kris Olson MD
== END 2017-03-17 12:22 | disposition home or self-care (01) ==
LOC: ED 10:45 → ERH 16:51 → 5RNO 19:37
PROVIDERS: ADMIT Internal Medicine; ATTEND Internal Medicine
DX: K50.00 Crohn's disease of small intestine without complications (principal); N20.0 Calculus of kidney; E11.22 Type 2 diabetes mellitus with diabetic chronic kidney disease; I12.9 Hypertensive chronic kidney disease with stage 1 through stage 4 chronic kidney disease, or unspecified chronic kidney disease; N18.9 Chronic kidney disease, unspecified; K59.00 Constipation, unspecified; R10.9 Unspecified abdominal pain; Z87.891 Personal history of nicotine dependence; Z90.49 Acquired absence of other specified parts of digestive tract; Z79.82 Long term (current) use of aspirin; Z79.84 Long term (current) use of oral hypoglycemic drugs
CPT/HCPCS: 74177; 80053; 81003; 82948; 83690; 85025; 87086; 96361; 96374; 96375; 99285; G0378; J1170; J2270; J2405; J7040; Q9966; Q9967

== ENCOUNTER 2017-05-07 06:39 | Emergency (ER) | payer OTHER ==
[2017-05-07 06:40] VITALS: BMI 21.1
[2017-05-07 06:53] VITALS: TEMP 98.2
--- NOTE | 2017-05-07 07:21 | ED PDOC ---
Arrival/HPI - General Chief Complaint: Back Pain Time Seen by Provider: 05/07/17 06:58 - History of Present Illness Narrative History of Present Illness (Text): 05/07/17 07:17 56 year old male presenting to the ED with right sided neck pain. The patient woke up a week ago with a complaint of right sided neck pain. He states that upon waking he began to have difficultly turning his head. The pain starts in the right side of his neck and shoots down into his right shoulder. The pain is dull in nature but he gets a sharp pain whenever he moves his head. He states that he has been taking advil and tylenol all week but it has not really helped. He forgot to take an advil last night, so when he woke up this morning he could not get out of bed, this is when he decided to come to the emergency room. He denies any trauma. Denies any f/c, n/v, sob, cp, lightheadedness, dizziness, blurred vision, double vision, muscle weakness, numbness or tingling. PMH: Crohns Disease, IDDM, HTN PSH: Hernia surgery x2 Social: Denies tobacco, alcohol, illicit drug use Allergies: Pseudoephedrine (Luis De La O) Past Medical History - Provider Review Nursing Documentation Reviewed: Yes - Infectious Disease Hx of Infectious Diseases: None - Cardiac Hx Cardiac Disorders: Yes Hx Hypertension: Yes Hx Pacemaker: No - Pulmonary Hx Respiratory Disorders: No - Neurological Hx Neurological Disorder: No - HEENT Hx HEENT Disorder: No - Renal Hx Renal Disorder: Yes Hx Kidney Stones: Yes (3-9-27 2 MM STONE) - Endocrine/Metabolic Hx Endocrine Disorders: Yes Hx Diabetes Mellitus Type 2: Yes (NEWLY DX 2015) - Hematological/Oncological Hx Blood Disorders: No - Integumentary Hx Dermatological Disorder: No - Musculoskeletal/Rheumatological Hx Musculoskeletal Disorders: Yes Hx Back Pain: Yes Hx Falls: No - Gastrointestinal Hx Gastrointestinal Disorders: Yes (BILATERAL HERNIA REPAIR) Hx Crohn's Disease: Yes Other/Comment: IBS - Genitourinary/Gynecological Hx Genitourinary Disorders: Yes (HYDROCELE) - Psychiatric Hx Psychophysiologic Disorder: No Hx Emotional Abuse: No Hx Physical Abuse: No Hx Substance Use: No - Surgical History Hx Musculoskeletal Surgery: Yes (L SHOULDER SX) Other/Comment: explor lap 08/30/16/bowel small intestine DENIES - Anesthesia Hx Anesthesia: Yes Hx Anesthesia Reactions: No Hx Malignant Hyperthermia: No - Suicidal Assessment Feels Threatened In Home Enviroment: No Family/Social History - Physician Review Nursing Documentation Reviewed: Yes Family/Social History: Unknown Family HX Smoking Status: Never Smoked Hx Alcohol Use: No Hx Substance Use: No Allergies/Home Meds Allergies/Adverse Reactions: Allergies pseudoephedrine HCl [From Sudafed] Allergy (Verified 05/07/17 06:53) "HEART RACES" DENIES NAUSEA Home Medications: Home Meds Medication Instructions Recorded Confirmed Aspirin [Ecotrin] 81 mg PO QAM 05/22/16 05/07/17 Mercaptopurine [6-Mp] 2 tab PO QAM 11/09/16 05/07/17 Lisinopril [Zestril] 20 mg PO QAM 01/31/17 05/07/17 Methylcellulose [Fiber] 500 mg PO BID 02/12/17 05/07/17 Ondansetron HCl [Zofran] 4 mg PO Q6H 02/12/17 05/07/17 Budesonide [Entocort EC] 9 mg PO DAILY 02/19/17 05/07/17 Cholecalciferol [Vitamin D 1000 IU] 1 tab PO DAILY 02/19/17 05/07/17 Cyanocobalamin [Vitamin B12 1000 1 ml SC Q30D 02/19/17 05/07/17 mcg/ml Inj] Cholestyramine [Questran] 4 gm PO BID 05/07/17 05/07/17 Review of Systems - Physician Review All systems were reviewed & negative as marked: Yes - Review of Systems Constitutional: Normal Eyes: absent: Vision Changes, Eye Pain ENT: Other (right sided neck pain). absent: Hearing Changes, Sore Throat, Rhinorrhea, Sinus Congestion Respiratory: absent: SOB, Cough Cardiovascular: absent: Chest Pain, Palpitations, Edema, Syncope Gastrointestinal: Abdominal Pain (hx of Crohns dx). absent: Nausea, Vomiting Genitourinary Male: absent: Dysuria, Frequency Musculoskeletal: Neck Pain (right sided pain shoots into right shoulder ) Skin: Normal Neurological: Normal. absent: Headache, Dizziness, Focal Weakness, Speech Changes, Disequilibrium, Other (denies numbness or tingling) Endocrine: absent: Diaphoresis Psychiatric: Normal Physical Exam Vital Signs Reviewed: Yes Temperature: Afebrile Blood Pressure: Hypertensive (known long standing HTN, did not take morning medication) Pulse: Regular Respiratory Rate: Normal Appearance: Positive for: Well-Appearing, Non-Toxic, Comfortable Pain Distress: None Mental Status: Positive for: Alert and Oriented X 3 Finger Stick Blood Glucose: 169 - Systems Exam Head: Present: Atraumatic, Normocephalic. No: Contusion, Swelling Pupils: Present: PERRL. No: Pinpoint Extroacular Muscles: Present: EOMI Conjunctiva: Present: Normal Mouth: Present: Moist Mucous Membranes, Normal Lips, Normal Tounge. No: Normal Teeth (missing multiple teeth) Pharnyx: Present: Normal. No: ERYTHEMA, EXUDATE, TONSILS ENLARGED, Muffled/ Hoarse Voice Nose (External): Present: Atraumatic. No: Abrasion Nose (Internal): Present: Normal Inspection, Moist. No: No Active Bleeding Neck: Present: Paraspinal Tenderness (right sided muscles tight, tender to palpation), Trachea Midline. No: Normal Range of Motion (decreased active ROM due to pain), MIDLINE TENDERNESS, JVD, Lymphadenopathy, Bruit (no bruit b/l), Other (no palpable thrill in cartoids) Respiratory/Chest: Present: Clear to Auscultation. No: Respiratory Distress, Accessory Muscle Use, Wheezes, Rhonchi, Tender to Palpation Cardiovascular: Present: Regular Rate and Rhythm Abdomen: Present: Normal Bowel Sounds. No: Tenderness, Distention, Peritoneal Signs, Rebound, Guarding Back: No: CVA Tenderness, Midline Tenderness, Pain with Leg Raise Upper Extremity: Present: Normal Inspection, Normal ROM, NORMAL PULSES, Neurovascularly Intact, Capillary Refill < 2s, Other (5/5 strength b/l ). No: Edema, Tenderness, Swelling, Erythema, Temperature Abnormalties, Deformity Lower Extremity: Present: Normal Inspection, NORMAL PULSES, Neurovascularly Intact, Capillary Refill < 2 s, Other (5/5 strength b/l). No: Edema, CALF TENDERNESS, Tenderness, Swelling, Erythema, Temperature Abnormalties Neurological: Present: GCS=15, CN II-XII Intact, Speech Normal, Motor Func Grossly Intact, Normal Sensory Function, Normal Cerebellar Funct, Memory Normal Skin: Present: Warm, Dry, Normal Color. No: Diaphoretic Lymphatic: No: Cervical Adenopathy Psychiatric: Present: Alert, Oriented x 3, Normal Insight, Normal Concentration Medical Decision Making ED Course and Treatment: Right sided neck pain - Cervical muscle neck strain - Patient given Flexeril and Toradol while in ED - pain/ROM improved - Patient given a prescription for Flexeril and instructed to take advil as needed for pain Dispo: Home. Script given for Flexeril. Patient instructed to follow up with PMD. If symptoms worsen, patient is to return to the ED. (Luis De La O) 05/07/17 07:44 Patient Seen With Resident: In agreement with resident note and more details are present in their notes. Patient was seen and evaluated with resident, came up with plan and treatment together. 56 year old M p/w R sided neck pain. No midline tenderness. Reproducible with head turning towards that side. (Luis Armando Marx) - Medication Orders Current Medication Orders: Discontinued Medications Cyclobenzaprine HCl (Flexeril) 10 mg PO STAT STA Stop: 05/07/17 07:22 Last Admin: 05/07/17 07:30 Dose: 10 mg Ketorolac Tromethamine (Toradol) 30 mg IM STAT STA Stop: 05/07/17 07:29 Last Admin: 05/07/17 07:38 Dose: 30 mg Disposition/Present on Arrival - Present on Arrival Any Indicators Present on Arrival: No History of DVT/PE: No History of Uncontrolled Diabetes: No Urinary Catheter: No History of Decub. Ulcer: No History Surgical Site Infection Following: Abdominal Surgery - Disposition Have Diagnosis and Disposition been Completed?: Yes Disposition Time: 08:29 Patient Plan: Discharge - Disposition Diagnosis: Strain of neck muscle Disposition: HOME/ ROUTINE Condition: GOOD Discharge Instructions (ExitCare): Cervical Strain (DC) Prescriptions: Cyclobenzaprine [Flexeril] 5 mg PO BID #14 tab Referrals: Kris Olson MD [Primary Care Provider] - Follow up with primary Forms: [employer] (Emirati)
[2017-05-07 08:47] VITALS: BP 161/98; PULSE 90; RESP 18; O2SAT 99
== END 2017-05-07 08:46 | disposition home or self-care (01) ==
LOC: ED 06:39
DX: S16.1XXA Strain of muscle, fascia and tendon at neck level, initial encounter (principal); X58.XXXA Exposure to other specified factors, initial encounter
CPT/HCPCS: 96372; 99283; J1885

== ENCOUNTER 2017-05-22 08:00 | Observation (INO) | payer OTHER ==
[2017-05-22 08:00] VITALS: BMI 20.3
[2017-05-22] MEDS ORDERED: Sodium Chloride 0.9% 1,000 ML IV STA ×2 (08:29→10:09)
--- NOTE | 2017-05-22 08:44 | ED PDOC ---
Arrival/HPI - History of Present Illness Time/Duration: < week Symptom Onset: Sudden <Delfino Hinds - Last Filed: 05/22/17 11:10> <Slava Saldivar - Last Filed: 05/22/17 11:13> - General Chief Complaint: High Blood Sugar Time Seen by Provider: 05/22/17 08:02 - History of Present Illness Narrative History of Present Illness (Text): 05/22/17 08:37 This is a 56 year old male with PMHx Crohns disease s/p right hemicolectomy and terminal ileum resection, DM, HTN who presents complaining of elevated blood glucose. Patient was told to stop taking Metformin by his PMD last month because his glucose tended to run in the 90s. As of last , patient noted his glucose was 299. His PMD told him to restart on the Metformin that he still had at home. Since , patient has felt sick complaining of chills, nausea, blurred vision, dizziness, and lightheadedness. Patient denies travel history but admits sick contact in the form of his son who he states currently has a cold. Patient has also been experiencing polydipsia and polyuria. Patient states that his measured glucose this morning was 390 prompting him to come to the ED. Patient denies fevers, chest pain, dyspnea, dysuria. Patient complains of abdominal pain but states that this is his usual pain that he attributes to Crohns. PMHx: Crohns disease s/p right hemicolectomy and terminal ileum resection, DM, HTN PSHx: Right hemicolectomy, Terminal Illeum resection, B/L inguinal hernia repairs Allergies: Pseudoephedrine Social: Former smoker, occasional alcohol use. Denies drugs. Family Hx: Mother - breast cancer; father - CAD PMD: Dr. Olson (LizetDelfino Edmonds) Past Medical History - Provider Review Nursing Documentation Reviewed: Yes - Infectious Disease Hx of Infectious Diseases: None - Cardiac Hx Cardiac Disorders: Yes Hx Hypertension: Yes Hx Pacemaker: No - Pulmonary Hx Respiratory Disorders: No - Neurological Hx Neurological Disorder: No - HEENT Hx HEENT Disorder: No - Renal Hx Renal Disorder: Yes Hx Kidney Stones: Yes (3-9-27 2 MM STONE) - Endocrine/Metabolic Hx Endocrine Disorders: Yes Hx Diabetes Mellitus Type 2: Yes - Hematological/Oncological Hx Blood Disorders: No - Integumentary Hx Dermatological Disorder: No - Musculoskeletal/Rheumatological Hx Musculoskeletal Disorders: Yes Hx Back Pain: Yes Hx Falls: No - Gastrointestinal Hx Gastrointestinal Disorders: Yes (BILATERAL HERNIA REPAIR) Hx Crohn's Disease: Yes Other/Comment: IBS - Genitourinary/Gynecological Hx Genitourinary Disorders: Yes (HYDROCELE) - Psychiatric Hx Psychophysiologic Disorder: No Hx Emotional Abuse: No Hx Physical Abuse: No Hx Substance Use: No - Surgical History Hx Musculoskeletal Surgery: Yes (L SHOULDER SX) Other/Comment: explor lap 08/30/16/bowel small intestine - Anesthesia Hx Anesthesia: Yes Hx Anesthesia Reactions: No Hx Malignant Hyperthermia: No - Suicidal Assessment Feels Threatened In Home Enviroment: No <Delfino Hinds - Last Filed: 05/22/17 11:10> Family/Social History - Physician Review Nursing Documentation Reviewed: Yes Family/Social History: CAD/[place], Neoplasm/Cancer Smoking Status: Never Smoked Hx Alcohol Use: No Hx Substance Use: No <Delfino Hinds - Last Filed: 05/22/17 11:10> Allergies/Home Meds <Delfino Hinsd S - Last Filed: 05/22/17 11:10> <Slava Saldivar - Last Filed: 05/22/17 11:13> Allergies/Adverse Reactions: Allergies pseudoephedrine HCl [From Sudafed] Allergy (Verified 05/22/17 08:09) "HEART RACES" DENIES NAUSEA Home Medications: Home Meds Medication Instructions Recorded Confirmed Aspirin [Ecotrin] 81 mg PO QAM 05/22/16 05/22/17 Mercaptopurine [6-Mp] 2 tab PO QAM 11/09/16 05/22/17 Lisinopril [Zestril] 20 mg PO QAM 01/31/17 05/22/17 Methylcellulose [Fiber] 500 mg PO BID 02/12/17 05/22/17 Ondansetron HCl [Zofran] 4 mg PO Q6H PRN 02/12/17 05/22/17 Cholecalciferol [Vitamin D 1000 IU] 1 tab PO DAILY 02/19/17 05/22/17 Cyanocobalamin [Vitamin B12 1000 1 ml SC Q30D 02/19/17 05/22/17 mcg/ml Inj] Cholestyramine [Questran] 4 gm PO PRN PRN 05/07/17 05/22/17 Entecort 9 mg PO DAILY 05/22/17 05/22/17 amLODIPine [Norvasc] 5 mg PO DAILY 05/22/17 05/22/17 metFORMIN [glucOPHAGE] 500 mg PO BID 05/22/17 05/22/17 Review of Systems - Review of Systems Constitutional: Other (chills). absent: Fevers Eyes: Vision Changes (blurred vision) ENT: Normal Respiratory: Cough (dry). absent: SOB Cardiovascular: Normal. absent: Chest Pain Gastrointestinal: Abdominal Pain (right sided that he attributes to his usual chronic pain from Crohns disease) Genitourinary Male: Frequency. absent: Dysuria Musculoskeletal: Normal Skin: Normal Neurological: Dizziness, Other (lightheaded) Endocrine: Normal Hemo/Lymphatic: Normal Psychiatric: Normal <Delfino Hinds S - Last Filed: 05/22/17 11:10> Physical Exam Vital Signs Reviewed: Yes Temperature: Afebrile Blood Pressure: Hypertensive Pulse: Regular Respiratory Rate: Normal Appearance: Positive for: Comfortable Pain Distress: None Mental Status: Positive for: Alert and Oriented X 3 Finger Stick Blood Glucose: 415 - Systems Exam Head: Present: Atraumatic, Normocephalic Pupils: Present: PERRL Extroacular Muscles: Present: EOMI Conjunctiva: Present: Normal Mouth: Present: Moist Mucous Membranes Neck: Present: Normal Range of Motion Respiratory/Chest: Present: Clear to Auscultation, Good Air Exchange. No: Accessory Muscle Use, Wheezes, Rales, Rhonchi Cardiovascular: Present: Regular Rate and Rhythm, Normal S1, S2 Abdomen: Present: Tenderness (slight tenderness on the right side which patient states is chronic due to Crohns ), Normal Bowel Sounds. No: Distention Upper Extremity: Present: Normal Inspection, NORMAL PULSES. No: Edema Lower Extremity: Present: Normal Inspection, NORMAL PULSES. No: Edema, CALF TENDERNESS Neurological: Present: GCS=15, CN II-XII Intact Skin: Present: Warm, Dry, Normal Color. No: Rashes Psychiatric: Present: Alert, Oriented x 3 <Delfino Hinds S - Last Filed: 05/22/17 11:10> Vital Signs Temp Pulse Resp BP Pulse Ox 05/22/17 10:09 74 16 137/79 99 05/22/17 08:15 97.9 F 73 16 157/90 H 100 Medical Decision Making <Delfino Hinds - Last Filed: 05/22/17 11:10> <Slava Saldivar - Last Filed: 05/22/17 11:13> ED Course and Treatment: 05/22/17 08:49 Impression: This is a 56 year old male with PMHx Crohn's disease s/p right partial hemicolectomy and terminal ileum resection, DM, HTN complaining of elevated blood sugars. Differential diagnoses include but are not limited due to infection especially given the fact that he is on immune compromising medications for his Crohns disease. Plan: EKG CXR CBC, CMP, Mag, Phos Blood cultures UA VBG w. shock panel NS 1L bolus Re-assess EKG revealed sinus rhythm at rate 69 with short MS interval 100 ms. Patient given 2nd Liter bolus of fluid and admitted for observation. (Delfino Hinds Grey) A 56 year old male with high blood sugar. In agreement with resident note, which includes further HPI details. Patient was seen and evaluated with resident , came up with plan and treatment together. 05/22/17 10:44 Patient received 2 L of fluids with improvement in his glucose but he is still having symptoms. He needs tight glucose management and considering he is taking immunosuppresants he needs to be monitoring. Case discussed with Dr. Rolo Olson, who agrees with plan to place patient on observation and accepts admission under his service. (Slava Saldivar) - Lab Interpretations Lab Results: 05/22/17 08:10 05/22/17 08:10 Lab Results 05/22/17 10:05: POC Glucose (mg/dL) 306 H 05/22/17 09:05: Urine Color Yellow, Urine Appearance Clear, Urine pH 6.0, Ur Specific [place] 1.010, Urine Protein Negative, Urine Glucose (UA) >=1000, Urine Ketones Trace H, Urine Blood Negative, Urine Nitrate Negative, Urine Bilirubin Negative, Urine Urobilinogen 0.2, Ur Leukocyte Esterase Negative 05/22/17 08:12: POC Glucose (mg/dL) 415 H* 05/22/17 08:10: pO2 31, VBG pH 7.34, VBG pCO2 56.0, VBG HCO3 30.2 H, VBG Total CO2 31.9 H, VBG O2 Sat (Calc) 63.9, VBG Base Excess 3.1 H, VBG Potassium 3.7, Sodium 137.0, Chloride 100.0, Glucose 448 H*, Lactate 1.6, FiO2 21.0, Venous Blood Potassium 3.7 05/22/17 08:10: Sodium 139, Chloride 99, Potassium 3.8, Carbon Dioxide 27, Anion Gap 17, BUN 19, Creatinine 0.9, Est GFR ( Amer) > 60, Est GFR (Non- Af Amer) > 60, Random Glucose 425 H* D, Calcium 9.4, Phosphorus 3.2, Magnesium 1.5 L, Total Bilirubin 1.5 H, AST 17, ALT 24, Alkaline Phosphatase 175 H, Total Protein 7.2, Albumin 4.4, Globulin 2.8, Albumin/Globulin Ratio 1.6 05/22/17 08:10: WBC 3.9 L, RBC 4.21, Hgb 13.3 L, Hct 36.6 L, MCV 86.9, MCH 31.6 , MCHC 36.3, RDW 12.7, Plt Count 141, MPV 10.2, Gran % 67.2, Lymph % (Auto) 24.4 , [place] % (Auto) 5.8, Eos % (Auto) 2.3, Baso % (Auto) 0.3, Gran # 2.65, Lymph # 1.0 L, [place] # 0.2, Eos # 0.1, Baso # 0.01 - RAD Interpretation Radiology Orders: 05/22/17 08:26 CHEST PORTABLE [RAD] Stat - Medication Orders Current Medication Orders: Discontinued Medications Sodium Chloride (Sodium Chloride 0.9%) 1,000 mls @ 999 mls/hr IV .Q1H1M STA Stop: 05/22/17 09:29 Last Admin: 05/22/17 09:00 Dose: 999 mls/hr eMAR Start Stop Document 05/22/17 09:00 KATHRIN (Rec: 05/22/17 09:26 KATHRIN [id number]) Intravenous Solution Start Date 05/22/17 Start Time 09:00 End Date 05/22/17 End time 10:00 Total Infusion Time 60 Sodium Chloride (Sodium Chloride 0.9%) 1,000 mls @ 999 mls/hr IV .Q1H1M STA Stop: 05/22/17 11:09 Last Admin: 05/22/17 10:14 Dose: 999 mls/hr eMAR Start Stop Document 05/22/17 10:14 HI (Rec: 05/22/17 10:14 HI [id number]) Intravenous Solution Start Date 05/22/17 Start Time 10:14 <Delfino Hinds - Last Filed: 05/22/17 11:10> - PA / BOARD HAMMER OPERATOR / Resident Statement MD/DO has reviewed & agrees with the documentation as recorded. MD/DO has examined the patient and agrees with the treatment plan. - Scribe Statement The provider has reviewed the documentation as recorded by the Scribe <Slava Saldivar - Last Filed: 05/22/17 11:13> - Scribe Statement Malika Manley Provider Scribe Attestation: All medical record entries made by the Scribe were at my direction and personally dictated by me. I have reviewed the chart and agree that the record accurately reflects my personal performance of the history, physical exam, medical decision making, and the department course for this patient. I have also personally directed, reviewed, and agree with the discharge instructions and disposition. (Slava Saldivar) Disposition/Present on Arrival - Present on Arrival Any Indicators Present on Arrival: No History of DVT/PE: No History of Uncontrolled Diabetes: No Urinary Catheter: No History of Decub. Ulcer: No History Surgical Site Infection Following: None - Disposition Have Diagnosis and Disposition been Completed?: Yes Disposition Time: 10:45 <Delfino Hinds - Last Filed: 05/22/17 11:10> - Present on Arrival Any Indicators Present on Arrival: No - Disposition Patient Plan: Observation <Slava Saldivar - Last Filed: 05/22/17 11:13> - Disposition Diagnosis: Hyperglycemia, Weakness, Dehydration Disposition: HOSPITALIZED Patient Problems: Current Active Problems Problem Status Onset Hyperglycemia Acute Weakness Acute Dehydration Acute Condition: FAIR
[2017-05-22 08:50] LABS: BASO # 0.01 K/mm3 (0.0-2.0); BASO % 0.3 % (0.0-3.0); EOS # 0.1 (0.0-0.7); EOS % 2.3 % (1.5-5.0); GRAN # 2.65 (1.4-6.5); GRAN % 67.2 % (50.0-68.0); HEMATOCRIT 36.6 % (42.0-52.0); LYMPH % 24.4 % (22.0-35.0); MEAN CELL VOLUME 86.9 fl (80.0-105.0); MEAN CORPUSCULAR HEMOGLOBIN 31.6 pg (25.0-35.0); MEAN CORPUSCULAR HGB CONC 36.3 g/dl (31.0-37.0); MEAN PLATELET VOLUME 10.2 fl (7.0-11.0); MONO # 0.2 (0.1-0.6); MONO % 5.8 % (1.0-6.0); RED CELL DISTRIBUTION WIDTH 12.7 % (11.5-14.5); VENOUS BLOOD GAS BASE EXCESS 3.1 mmol/L (0.0-2.0); VENOUS BLOOD PH 7.34 (7.32-7.43); WHITE BLOOD COUNT 3.9 10^3/ul (4.5-11.0)
[2017-05-22 09:00] LABS: ALB/GLOB RATIO 1.6 (1.1-1.8); ALKALINE PHOSPHATASE 175 U/L (38-126); ALT/SGPT 24 U/L (7-56); AST/SGOT 17 U/L (17-59); BILIRUBIN,TOTAL 1.5 mg/dL (0.2-1.3); BLOOD UREA NITROGEN 19 mg/dL (7-21); CALCIUM 9.4 mg/dL (8.4-10.5); CARBON DIOXIDE 27 mmol/L (21-33); CHLORIDE 99 mmol/L (98-107); GFR AFRICAN-AMERICAN > 60; MAGNESIUM 1.5 mg/dL (1.7-2.2); PHOSPHOROUS 3.2 mg/dL (2.5-4.5); POTASSIUM 3.8 mmol/L (3.6-5.0); SODIUM 139 mmol/L (132-148); TOTAL PROTEIN 7.2 g/dL (5.8-8.3)
[2017-05-22 09:06] LABS: GLUCOSE,RANDOM 425 mg/dL (70-110)
[2017-05-22 09:57] LABS: URINE BILIRUBIN NEGATIVE (NEGATIVE); URINE BLOOD NEGATIVE (NEGATIVE); URINE GLUCOSE (UA) >=1000 mg/dL (NEGATIVE); URINE KETONE TRACE mg/dL (NEGATIVE); URINE LEUKOCYTE ESTERASE NEGATIVE Leu/uL (NEGATIVE); URINE PROTEIN NEGATIVE mg/dL (<30 mg/dL); URINE UROBILINOGEN 0.2 E.U./dL (<1 E.U./dL)
[2017-05-22 10:06] LABS: URINE APPEARANCE CLEAR (CLEAR); URINE COLOR YELLOW (YELLOW)
--- NOTE | 2017-05-22 11:02 | RAD ---
HISTORY: chills, cough COMPARISON: Comparison chest 11/04/2016. FINDINGS: LUNGS: No active pulmonary disease. PLEURA: No significant pleural effusion identified, no pneumothorax apparent. CARDIOVASCULAR: Normal. OSSEOUS STRUCTURES: No significant abnormalities. VISUALIZED UPPER ABDOMEN: Normal. OTHER FINDINGS: None. IMPRESSION: No active disease.
[2017-05-22] MEDS ORDERED: Sodium Chloride 0.45% 1,000 ML IV SCH (13:00)
[2017-05-22] MEDS ORDERED: Atropine-Diphenoxylate 0.025-2.5 mg Tab PO SCH (14:00)
[2017-05-22] MEDS: Insulin Reg-MEDIUM-Coverage SC SCH ×2 (16:36→21:52)
[2017-05-22] MEDS ORDERED: Atropine-Diphenoxylate 0.025-2.5 mg Tab PO PRN (17:44)
--- NOTE | 2017-05-22 22:48 | CARD ---
APPROVED REPORT EKG Measurement Heart [id number] CO [id number] [id number] <Conclusion> Poor data quality, interpretation may be adversely affected Sinus rhythm with short CO Otherwise normal ECG
[2017-05-23 06:24] LABS: BASO # 0.02 K/mm3 (0.0-2.0); BASO % 0.6 % (0.0-3.0); EOS # 0.1 (0.0-0.7); EOS % 2.5 % (1.5-5.0); GRAN # 2.11 (1.4-6.5); GRAN % 59.4 % (50.0-68.0); HEMATOCRIT 33.4 % (42.0-52.0); LYMPH # 1.2 (1.2-3.4); LYMPH % 32.4 % (22.0-35.0); MEAN CORPUSCULAR HEMOGLOBIN 30.5 pg (25.0-35.0); MEAN CORPUSCULAR HGB CONC 35.9 g/dl (31.0-37.0); MEAN PLATELET VOLUME 10.7 fl (7.0-11.0); MONO # 0.2 (0.1-0.6); MONO % 5.1 % (1.0-6.0); RED CELL DISTRIBUTION WIDTH 12.7 % (11.5-14.5); WHITE BLOOD COUNT 3.6 10^3/ul (4.5-11.0)
[2017-05-23 06:40] LABS: BLOOD UREA NITROGEN 15 mg/dL (7-21); CALCIUM 8.4 mg/dL (8.4-10.5); CARBON DIOXIDE 29 mmol/L (21-33); CHLORIDE 99 mmol/L (98-107); GFR AFRICAN-AMERICAN > 60; GLUCOSE,RANDOM 247 mg/dL (70-110); POTASSIUM 3.6 mmol/L (3.6-5.0); SODIUM 135 mmol/L (132-148)
[2017-05-23] MEDS: Insulin Reg-MEDIUM-Coverage SC SCH ×4 (08:08→22:21)
[2017-05-23] MEDS: Cholestyramine 4 gm/Pkt UD PO SCH ×2 (10:19→10:24)
[2017-05-23] MEDS: Budesonide 3 mg ER Cap PO SCH (10:20)
--- NOTE | 2017-05-23 11:36 | HP ---
CHIEF COMPLAINT: Diarrhea, dehydration, weakness, dizziness and elevated fingerstick sugar up to 400. HISTORY OF PRESENT ILLNESS: This is a 56-year-old man known to the office for several years who was recently diagnosed with Crohn's disease and hospitalized on several occasions with flare ups. He was doing very well. His sugars started run high. He developed diarrhea and abdominal cramping, which he feels is typical of his Crohn's type symptoms. When his sugar ran up to 400, he came to the emergency room. PAST MEDICAL/SURGICAL HISTORY: Significant for hypertension, diabetes and resection of the stricture of the terminal ileum. He also had bilateral inguinal hernia repairs in the distant past. SOCIAL HISTORY: He does not smoke. He does not drink alcohol. He is with 2 sons. ALLERGIES: HE HAS NO KNOWN ALLERGIES TO MEDICATION, BUT THERE IS A QUESTION OF SUDAFED CAUSING NAUSEA IN THE PAST. CURRENT MEDICATIONS: Include 6-mercaptopurine, Pentasa, aspirin, Entocort 9 mg daily, metformin, Lomotil, Lopressor, Norvasc, Questran, Tylenol, Zestril, and Zofran. REVIEW OF SYSTEMS: Significant only for symptoms related to his Crohn's disease with abdominal pain and diarrhea. PHYSICAL EXAMINATION: GENERAL: The patient was seen in room 364, bed 1, this Sunday, . He is sitting on bed, comfortable awake, alert, clear, and appropriate. Sugars have come down with the insulin given in the emergency room. HEENT: Head and neck is unremarkable. Conjunctivae are pink. Complexion is light. Mucous membranes are moist. NECK: Supple without masses. LUNGS: Clear. HEART: Regular and not tachycardic. ABDOMEN: Soft, essentially nontender. There is no guarding or rebound. EXTREMITIES: Show no edema. IMPRESSION: 1. Crohn's disease. 2. Abdominal pain. 3. Dehydration. 4. Diabetes out of control. PLAN: We will admit the patient, hydrate gently with IV fluids after 2 L normal saline given in the emergency room. Add fingerstick glucose checks every 4 times a day, before meals and at bedtime with insulin coverage. The patient says he feels hungry, and can tolerate a diet. Case was discussed later with GI. The patient is scheduled for an immunosuppressive infusion therapy tomorrow, so if clinically stable, improved and ready for discharge tomorrow, he will be able to be discharged and receive his IV infusion as an outpatient. Kris Olson MD [facility]
[2017-05-24 08:19] VITALS: BP 136/90; PULSE 75; RESP 20; TEMP 98; O2SAT 100
[2017-05-24] MEDS: Budesonide 3 mg ER Cap PO SCH (09:31)
[2017-05-24] MEDS: Insulin Reg-MEDIUM-Coverage SC SCH ×2 (09:32→11:56)
[2017-05-24] MEDS: Cholestyramine 4 gm/Pkt UD PO SCH (09:33)
--- NOTE | 2017-05-25 02:48 | DS ---
DATE OF DISCHARGE: 05/24/2017 The patient was seen this at noon at lunch time in room 364, bed 1. His GI symptoms and weakness have improved dramatically with IV hydration. His sugar has come down, but still runs high. Diarrhea has quieted. Crohn's disease seems to be at this point tolerable to him, and therefore he is ready for discharge to home. DISCHARGE SUMMARY: This is a 56-year-old man, known for a few years with recently-diagnosed Crohn's disease. He underwent colon resection in the past year for resection of the terminal ileum related to Crohn's. However, he continued abdominal pain and diarrhea. He also had diabetes in this hospital stay, came to the emergency room because of diabetes out of control with sugar of over 400 with abdominal symptoms and pain and watery diarrhea. He was seen in the ER. There, she was evaluated, insulin was given, and he was admitted. He was followed by gastroenterology campaign consultant, Dr. Evans and his group who know the patient well. The patient was scheduled for Remicade next day at the infusion center, so it was hoped that he has been able to discharge to home and receive his IV transfusion of Remicade. However following day, his IV hydration and antidiarrheal agents were given. The patient was still weak and felt unsteady and unable to go home. So, the treatment plan was continued an additional day. Remicade was not given. His prior medications were continued and on today, , 05/24/2017, he was ready for discharge to home feeling much better. His abdominal symptoms have quieted, diarrhea has subsided, and sugars were in the 200 range such that he can be comfortably discharged to home. His medications were reviewed as I sat at the bedside. He will continue metformin and glipizide, which had been resumed. 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 FINAL DIAGNOSES: 1. Diabetes, out of control. 2. Crohn's disease. 3. Diarrhea. 4. Dehydration. 5. Weakness due to all above. Kris Olson MD [facility] # [id number]
== END 2017-05-24 15:28 | disposition home or self-care (01) ==
LOC: ED 08:00 → ERH 10:41 → 3RNO 11:59
PROVIDERS: ADMIT Internal Medicine; ATTEND Internal Medicine
DX: E11.65 Type 2 diabetes mellitus with hyperglycemia (principal); I10 Essential (primary) hypertension; K50.90 Crohn's disease, unspecified, without complications; E86.0 Dehydration; Z79.82 Long term (current) use of aspirin; Z79.899 Other long term (current) drug therapy; Z80.3 Family history of malignant neoplasm of breast; Z82.49 Family history of ischemic heart disease and other diseases of the circulatory system; Z87.442 Personal history of urinary calculi; Z87.891 Personal history of nicotine dependence; Z90.49 Acquired absence of other specified parts of digestive tract; N43.3 Hydrocele, unspecified
CPT/HCPCS: 36415; 71010; 80048; 80053; 81003; 82803; 82948; 83735; 84100; 85025; 87040; 93005; 96360; 99284; G0378; J7040

== ENCOUNTER 2017-07-21 01:20 | Observation (INO) | payer OTHER ==
[2017-07-21] MEDS ORDERED: Sodium Chloride 0.9% 1,000 ML IV STA ×4 (01:38→10:27)
--- NOTE | 2017-07-21 02:29 | ED PDOC ---
Arrival/HPI - General Chief Complaint: Abdominal Pain Time Seen by Provider: 07/21/17 01:34 Historian: Family - Critical Care Critical Care Minutes: Other (35 minutes ) - History of Present Illness Narrative History of Present Illness (Text): 07/21/17 02:26 This is a 56 year old male, whose past medical history includes, Crohns disease s/p right hemicolectomy and terminal ileum resection, diabetes hypertension, who presents complaining of abdominal pain associated with vomiting and chills. Patient reports he was at work at 6PM when the pain began and believes his "Crohns is acting up". Patient's last bowel movement was yesterday. Patient reports vomiting, nausea, chills, but denies any fever or gas. PSHx: Right hemicolectomy, Terminal Illeum resection, B/L inguinal hernia repairs PMD: Dr. Olson Time/Duration: Other (8 hours ago) Symptom Onset: Sudden Symptom Course: Unchanged Activities at Onset: Light Context: Work Past Medical History - Provider Review Nursing Documentation Reviewed: Yes - Infectious Disease Hx of Infectious Diseases: None - Cardiac Hx Cardiac Disorders: Yes Other/Comment: HYPERLIPIDEMIA - Pulmonary Hx Respiratory Disorders: No - Neurological Hx Neurological Disorder: No - HEENT Hx HEENT Disorder: No - Renal Hx Kidney Stones: Yes - Endocrine/Metabolic Hx Diabetes Mellitus Type 2: Yes - Hematological/Oncological Other/Comment: BLOOD TRANSFUSION - Integumentary Hx Dermatological Disorder: No - Musculoskeletal/Rheumatological Other/Comment: LEFT SHOULDER SURGERY - Gastrointestinal Hx Gastrointestinal Disorders: Yes (BILATERAL HERNIA REPAIR) Hx Crohn's Disease: Yes Other/Comment: IBS - Genitourinary/Gynecological Hx Genitourinary Disorders: Yes (HYDROCELE) - Psychiatric Hx Psychophysiologic Disorder: No Hx Substance Use: No - Surgical History Hx Musculoskeletal Surgery: Yes (LEFT SHOULDER) Other/Comment: explor lap 08/30/16/bowel small intestine - Anesthesia Hx Anesthesia: Yes Hx Anesthesia Reactions: No Hx Malignant Hyperthermia: No - Suicidal Assessment Feels Threatened In Home Enviroment: No Family/Social History - Physician Review Nursing Documentation Reviewed: Yes Family/Social History: No Known Family HX Smoking Status: Never Smoked Hx Alcohol Use: No Hx Substance Use: No Allergies/Home Meds Allergies/Adverse Reactions: Allergies pseudoephedrine HCl [From Sudafed] Allergy (Verified 05/22/17 08:09) "HEART RACES" DENIES NAUSEA Home Medications: Home Meds Medication Instructions Recorded Confirmed Aspirin [Ecotrin] 81 mg PO QAM 05/22/16 07/21/17 Mercaptopurine [6-Mp] 2 tab PO QAM 11/09/16 07/21/17 Lisinopril [Zestril] 20 mg PO QAM 01/31/17 07/21/17 Methylcellulose [Fiber] 500 mg PO BID 02/12/17 07/21/17 Ondansetron HCl [Zofran] 4 mg PO Q6H PRN 02/12/17 07/21/17 Cholecalciferol [Vitamin D 1000 IU] 1 tab PO DAILY 02/19/17 07/21/17 Cyanocobalamin [Vitamin B12 1000 1 ml SC Q30D 02/19/17 07/21/17 mcg/ml Inj] Cholestyramine [Questran] 4 gm PO PRN PRN 05/07/17 07/21/17 amLODIPine [Norvasc] 5 mg PO DAILY 05/22/17 07/21/17 metFORMIN [glucOPHAGE] 500 mg PO Q12 05/22/17 07/21/17 Review of Systems - Physician Review All systems were reviewed & negative as marked: Yes - Review of Systems Constitutional: Other (Chills). absent: Fevers Gastrointestinal: Nausea, Vomiting. absent: Other (Gas) Physical Exam Vital Signs Reviewed: Yes Vital Signs Temp Pulse Resp BP Pulse Ox 07/21/17 07:59 100 H 16 137/87 96 07/21/17 03:45 94 H 18 156/92 H 96 07/21/17 01:39 98.0 F 86 18 181/107 H 98 Temperature: Afebrile Blood Pressure: Hypertensive Pulse: Regular Respiratory Rate: Normal Appearance: Positive for: Well-Appearing, Non-Toxic, Comfortable Pain Distress: None Mental Status: Positive for: Alert and Oriented X 3 - Systems Exam Head: Present: Atraumatic, Normocephalic Pupils: Present: PERRL Extroacular Muscles: Present: EOMI Conjunctiva: Present: Normal Mouth: Present: Dry Neck: Present: Normal Range of Motion Respiratory/Chest: Present: Clear to Auscultation, Good Air Exchange. No: Respiratory Distress, Accessory Muscle Use Cardiovascular: Present: Regular Rate and Rhythm, Normal S1, S2. No: Murmurs Abdomen: Present: Tenderness (diffusely thender), Distention (Mildly distented) , Normal Bowel Sounds. No: Peritoneal Signs, Rebound Back: Present: Normal Inspection Upper Extremity: Present: Normal Inspection. No: Cyanosis, Edema Lower Extremity: Present: Normal Inspection. No: Edema Neurological: Present: GCS=15, CN II-XII Intact, Speech Normal Skin: Present: Warm, Dry, Normal Color. No: Rashes Psychiatric: Present: Alert, Oriented x 3, Normal Insight, Normal Concentration Medical Decision Making ED Course and Treatment: 07/21/17 02:26 Impression: 56 year old male presents complaining of abdominal pain associated with vomiting and chills. PMHx of Crohns disease s/p right hemicolectomy and terminal ileum resection, DM, HTN Plan: -- labs -- Pepcid -- Morphine -- Zofran Inj -- IV Fluids -- Urinalysis -- VBG -- Reassess and disposition Prior Visits: Notes and results from previous visits were reviewed. Patient was last seen in the emergency department on 05/22/17 presents complaining of elevated blood glucose. Progress Notes: 07/21/17 03:19 35 minutes critical care time placed for pain management. Pending surgical consult EXAM: CT Abdomen and Pelvis With Intravenous Contrast Dictated and Authenticated by: Erika Denise MD 07/21/2017 5:05 AM IMPRESSION: Diffuse colonic dilation similar to prior study likely related to exacerbation of the patients known inflammatory bowel disease. 07/21/17 06:[address] Almonte and Dr. Holliday of GI who will place order. - Critical Care Critical Care Minutes: Other (35 minutes) - Lab Interpretations Lab Results: 07/21/17 02:25 07/21/17 02:25 Lab Results 07/21/17 06:00: pO2 85 H, VBG pH 7.34, VBG pCO2 49.0, VBG HCO3 26.4, VBG Total CO2 27.9, VBG O2 Sat (Calc) 93.3 H, VBG Base Excess 0.0, VBG Potassium 3.6, Sodium 139.0, Chloride 107.0, Glucose 151 H, Lactate 1.9, FiO2 21.0, Venous Blood Potassium 3.6 07/21/17 06:00: Urine Color Yellow, Urine Appearance Sl cloudy, Urine pH 6.0, Ur Specific Range 1.010, Urine Protein Negative, Urine Glucose (UA) 250 H, Urine Ketones Negative, Urine Blood Trace-lysed H, Urine Nitrate Negative, Urine Bilirubin Negative, Urine Urobilinogen 0.2, Ur Leukocyte Esterase Negative , Urine RBC 0 - 2, Urine WBC 0 - 2, Urine Bacteria Occ 07/21/17 02:25: pO2 42, VBG pH 7.30 L, VBG pCO2 58.0, VBG HCO3 28.5 H, VBG Total CO2 30.3 H, VBG O2 Sat (Calc) 75.4 H, VBG Base Excess 0.8, VBG Potassium 4.7, Sodium 140.0, Chloride 105.0, Glucose 182 H, Lactate 2.4 H, FiO2 21.0, Venous Blood Potassium 4.7 07/21/17 02:25: Sodium 140, Chloride 103, Potassium 4.7, Carbon Dioxide 30, Anion Gap 12, BUN 19, Creatinine 0.9, Est GFR ( Amer) > 60, Est GFR (Non- Af Amer) > 60, Random Glucose 174 H, Calcium 9.8, Total Bilirubin 2.1 H, AST 40 , ALT 42, Alkaline Phosphatase 168 H, Total Protein 8.0, Albumin 4.7, Globulin 3.3, Albumin/Globulin Ratio 1.4, Lipase 54 07/21/17 02:25: PT 10.4, INR 0.96, APTT 28.4 07/21/17 02:25: WBC 6.5 D, RBC 4.36, Hgb 14.0 D, Hct 39.9 L, MCV 91.5 D, MCH 32.1, MCHC 35.1, RDW 13.0, Plt Count 124, MPV 10.5, Gran % 84.0 H, Lymph % (Auto ) 9.9 L, [place] % (Auto) 5.0, Eos % (Auto) 0.8 L, Baso % (Auto) 0.3, Gran # 5.42, Lymph # 0.6 L, [place] # 0.3, Eos # 0.1, Baso # 0.02 07/21/17 02:21: POC Glucose (mg/dL) 192 H I have reviewed the lab results: Yes - RAD Interpretation Radiology Orders: 07/21/17 02:44 ABD & PELVIS IV CONTRAST ONLY [CT] Stat - Medication Orders Current Medication Orders: Discontinued Medications Acetaminophen (Tylenol 325mg Tab) 650 mg PO Q4H PRN PRN Reason: Fever >100.5 F Acetaminophen (Tylenol 325mg Tab) 650 mg PO Q4H PRN PRN Reason: Pain, Mild (1-3) Amlodipine Besylate (Norvasc) 5 mg PO DAILY [facility] Last Admin: 07/23/17 09:42 Dose: 5 mg MAR Pulse and Blood Pressure Document 07/23/17 09:42 VS (Rec: 07/23/17 09:43 VS [id number]) Pulse Pulse Rate (60-90) 75 Blood Pressure Blood Pressure (100/60-150/90) 142/89 Famotidine (Pepcid) 20 mg IVP STAT STA Stop: 07/21/17 01:39 Last Admin: 07/21/17 02:30 Dose: 20 mg IVP Administration Document 07/21/17 02:30 YP (Rec: 07/21/17 02:30 YP [id number]) Charges for Administration # of IVP Administrations 1 Glipizide (Glucotrol) 10 mg PO 0730,1630 [facility] Last Admin: 07/23/17 08:09 Dose: 10 mg Hydromorphone HCl (Dilaudid) 1 mg IVP STAT STA Stop: 07/21/17 06:35 Last Admin: 07/21/17 06:46 Dose: 1 mg DILMA Pain Assessment Document 07/21/17 06:46 MR (Rec: 07/21/17 06:46 [id number]) Pain Reassessment Is this a pain reassessment? Yes Sleep Is patient sleeping during reassessment? No Presence of Pain Presence of Pain Yes Pain Scale Used Pain Scale Used Numeric Location Pain Location Body Site Abdomen Description Description Constant Intensity of Pain at present 8 Pain Behavior Guarding Facial Grimacing Alleviating Factors/Management Medication Techniques Alleviating Factors Medication IVP Administration Document 07/21/17 06:46 MR (Rec: 07/21/17 06:46 [id number]) Charges for Administration # of IVP Administrations 1 Sodium Chloride (Sodium Chloride 0.9%) 1,000 mls @ 1,000 mls/hr IV .Q1H STA Stop: 07/21/17 02:37 Last Admin: 07/21/17 02:30 Dose: 1,000 mls/hr eMAR Start Stop Document 07/21/17 02:30 YP (Rec: 07/21/17 02:30 YP [id number]) Intravenous Solution Start Date 07/21/17 Start Time 02:30 End Date 07/21/17 End time 03:30 Total Infusion Time 60 Sodium Chloride (Sodium Chloride 0.9%) 1,000 mls @ 999 mls/hr IV .Q1H1M STA Stop: 07/21/17 03:30 Last Admin: 07/21/17 02:46 Dose: 999 mls/hr eMAR Start Stop Document 07/21/17 02:46 YP (Rec: 07/21/17 02:46 YP [id number]) Intravenous Solution Start Date 07/21/17 Start Time 02:46 End Date 07/21/17 End time 03:46 Total Infusion Time 60 Piperacillin Sod/Tazobactam Sod (Zosyn 3.375 In Ns 100ml) 100 mls @ 200 mls/hr IVPB STAT STA PRN Reason: Protocol Stop: 07/21/17 05:27 Last Admin: 07/21/17 05:18 Dose: 200 mls/hr eMAR Start Stop Document 07/21/17 05:18 MR (Rec: 07/21/17 05:19 MR [id number]) Intravenous Solution Start Date 07/21/17 Start Time 05:18 End Date 07/21/17 End time 05:48 Total Infusion Time 30 Sodium Chloride (Sodium Chloride 0.9%) 1,000 mls @ 150 mls/hr IV .Q6H40M STA Stop: 07/21/17 14:12 Last Admin: 07/21/17 08:59 Dose: 150 mls/hr eMAR Start Stop Document 07/21/17 08:59 LMC (Rec: 07/21/17 09:00 [facility] [id number]) Intravenous Solution Start Date 07/21/17 Start Time 08:00 Sodium Chloride (Sodium Chloride 0.9%) 1,000 mls @ 75 mls/hr IV .[id number] STA Stop: 07/21/17 20:52 Last Admin: 07/21/17 10:43 Dose: 75 mls/hr eMAR Start Stop Document 07/21/17 10:43 LO (Rec: 07/21/17 11:44 LO [id number]) Intravenous Solution Start Date 07/21/17 Start Time 10:43 End Date 07/21/17 Lisinopril (Zestril) 20 mg PO DAILY [facility] Last Admin: 07/23/17 09:43 Dose: 20 mg MAR Pulse and Blood Pressure Document 07/23/17 09:43 VS (Rec: 07/23/17 09:43 VS [id number]) Pulse Pulse Rate (60-90) 75 Blood Pressure Blood Pressure (100/60-150/90) 142/89 Methylprednisolone (Solu-Medrol) 125 mg IVP STAT STA Stop: 07/21/17 06:35 Last Admin: 07/21/17 07:03 Dose: 125 mg IVP Administration Document 07/21/17 07:03 YP (Rec: 07/21/17 07:03 YP [id number]) Charges for Administration # of IVP Administrations 1 Metoprolol Tartrate (Lopressor) 100 mg PO BID [facility] Last Admin: 07/23/17 09:43 Dose: 100 mg MAR Pulse and Blood Pressure Document 07/23/17 09:43 VS (Rec: 07/23/17 09:43 VS [id number]) Pulse Pulse Rate (60-90) 75 Blood Pressure Blood Pressure (100/60-150/90) 142/89 Morphine Sulfate (Morphine) 4 mg IVP STAT STA Stop: 07/21/17 02:31 Last Admin: 07/21/17 02:46 Dose: 4 mg MAR Pain Assessment Document 07/21/17 02:46 YP (Rec: 07/21/17 02:46 YP [id number]) Pain Reassessment Is this a pain reassessment? Yes Sleep Is patient sleeping during reassessment? No Presence of Pain Presence of Pain Yes IVP Administration Document 07/21/17 02:46 YP (Rec: 07/21/17 02:46 YP [id number]) Charges for Administration # of IVP Administrations 1 Morphine Sulfate (Morphine) 4 mg IVP Q4 PRN PRN Reason: Pain, moderate (4-7) Ondansetron HCl (Zofran Inj) 4 mg IVP STAT STA Stop: 07/21/17 02:31 Last Admin: 07/21/17 02:46 Dose: 4 mg IVP Administration Document 07/21/17 02:46 YP (Rec: 07/21/17 02:46 YP [id number]) Charges for Administration # of IVP Administrations 1 Ondansetron HCl (Zofran Inj) 4 mg IVP Q4H PRN PRN Reason: Nausea/Vomiting - Scribe Statement The provider has reviewed the documentation as recorded by the Key Flores Provider Scribe Attestation: All medical record entries made by the Key were at my direction and personally dictated by me. I have reviewed the chart and agree that the record accurately reflects my personal performance of the history, physical exam, medical decision making, and the department course for this patient. I have also personally directed, reviewed, and agree with the discharge instructions and disposition. Disposition/Present on Arrival - Present on Arrival Any Indicators Present on Arrival: No History of DVT/PE: No History of Uncontrolled Diabetes: No Urinary Catheter: No History of Decub. Ulcer: No History Surgical Site Infection Following: None - Disposition Have Diagnosis and Disposition been Completed?: Yes Diagnosis: Dehydration, Crohns disease, Intractable pain Disposition: HOSPITALIZED Disposition Time: 06:00 Patient Plan: Admission Condition: FAIR
[2017-07-21] MEDS ORDERED: Morphine 4 mg/ml ISec IVP STA (02:30)
[2017-07-21 02:51] LABS: BASO # 0.02 K/mm3 (0.0-2.0); BASO % 0.3 % (0.0-3.0); EOS # 0.1 (0.0-0.7); EOS % 0.8 % (1.5-5.0); GRAN # 5.42 (1.4-6.5); HEMATOCRIT 39.9 % (42.0-52.0); LYMPH # 0.6 (1.2-3.4); LYMPH % 9.9 % (22.0-35.0); MEAN CELL VOLUME 91.5 fl (80.0-105.0); MEAN CORPUSCULAR HEMOGLOBIN 32.1 pg (25.0-35.0); MEAN CORPUSCULAR HGB CONC 35.1 g/dl (31.0-37.0); MEAN PLATELET VOLUME 10.5 fl (7.0-11.0); MONO # 0.3 (0.1-0.6); WHITE BLOOD COUNT 6.5 10^3/ul (4.5-11.0)
[2017-07-21 02:55] LABS: VENOUS BLOOD GAS BASE EXCESS 0.8 mmol/L (0.0-2.0)
[2017-07-21 02:59] LABS: ALB/GLOB RATIO 1.4 (1.1-1.8); ALKALINE PHOSPHATASE 168 U/L (38-126); ALT/SGPT 42 U/L (7-56); AST/SGOT 40 U/L (17-59); BILIRUBIN,TOTAL 2.1 mg/dL (0.2-1.3); BLOOD UREA NITROGEN 19 mg/dL (7-21); CALCIUM 9.8 mg/dL (8.4-10.5); CARBON DIOXIDE 30 mmol/L (21-33); CHLORIDE 103 mmol/L (98-107); GFR AFRICAN-AMERICAN > 60; GLUCOSE,RANDOM 174 mg/dL (70-110); LIPASE 54 U/L (23-300); POTASSIUM 4.7 mmol/L (3.6-5.0); SODIUM 140 mmol/L (132-148)
[2017-07-21] MEDS ORDERED: Iohexol 350 MG/100 ML VIAL ONE (03:31)
[2017-07-21 03:36] LABS: INR 0.96 (0.93-1.08); PARTIAL THROMBOPLASTIN TIME 28.4 Seconds (25.1-36.5)
[2017-07-21] MEDS ORDERED: Piperacillin/Tazobact 3.375 gm 100 ML IVPB STA (04:58)
--- NOTE | 2017-07-21 05:05 | CT ---
EXAM: CT Abdomen and Pelvis With Intravenous Contrast EXAM DATE/TIME: 07/21/2017 2:44 AM CLINICAL HISTORY: 56 years old, male; Pain; Abdominal pain; Acute; Additional info: Abd pain HX of crohns and sbo TECHNIQUE: Axial computed tomography images of the abdomen and pelvis with intravenous contrast. All CT scans at this facility use one or more dose reduction techniques, viz.: automated exposure control; ma/kV adjustment per patient size (including targeted exams where dose is matched to indication; i.e. head); or iterative reconstruction technique. MIP reconstructed images were created and reviewed. Coronal and sagittal reformatted images were created and reviewed. CONTRAST: 100 mL of OMNI 350 administered intravenously. COMPARISON: CT - ABD PELVIS PO IV CONTRAST 2017-03-16 13:41 FINDINGS: The liver is normal. The spleen is enlarged. The pancreas is normal. No gallstones. Mild fullness of the left renal pelvis. Nonobstructing left renal calcification. Urinary bladder is dilated Surgical sutures are noted in the right colon. The entire colon is dilated with fluid,stool and air similar to prior study likely related to the patient's history of inflammatory bowel disease. The presence of fluid can be indicative of diarrhea producing entities. No free air or abscess. IMPRESSION: Diffuse colonic dilation similar to prior study likely related to exacerbation of the patients known inflammatory bowel disease.
[2017-07-21 06:11] LABS: VENOUS BLOOD PH 7.34 (7.32-7.43)
[2017-07-21 06:17] LABS: URINE BILIRUBIN NEGATIVE (NEGATIVE); URINE BLOOD TRACE-LYSED (NEGATIVE); URINE GLUCOSE (UA) 250 mg/dL (NEGATIVE); URINE KETONE NEGATIVE (NEGATIVE); URINE LEUKOCYTE ESTERASE NEGATIVE Leu/uL (NEGATIVE); URINE PROTEIN NEGATIVE mg/dL (<30 mg/dL); URINE UROBILINOGEN 0.2 E.U./dL (<1 E.U./dL)
[2017-07-21] MEDS ORDERED: HYDROmorphone 1 mg/ml ISec IVP STA (06:34)
[2017-07-21 06:55] LABS: URINE APPEARANCE SL CLOUDY (CLEAR); URINE COLOR YELLOW (YELLOW)
[2017-07-21 06:59] LABS: URINE BACTERIA OCC (NEG); URINE RBC 0 - 2 /hpf (0-2); URINE WBC 0 - 2 /hpf (0-6)
[2017-07-21] MEDS ORDERED: Morphine 4 mg/ml ISec IVP PRN (07:36)
--- NOTE | 2017-07-21 08:37 | CP.PCM.CON ---
History of Present Illness - History of Present Illness History of Present Illness: Surgery Consult note. Dr. Ayala 56yo M with PMHx of HTN, DM, Crohn's s/p resection of terminal ileum w/ R Hemicolectomy, comes in for evaluation of abdominal pain, vomiting which started when he was at work around 6PM last night. Emesis is non-bloody, non- bilious. He also reports chills. Denies any fevers. Denies CP/SOB. No Headaches. No urinary complaints. He does report similar complaints in the past which were associated with crohn's flare. CT Abd performed in the ER with evidence of likely IBD flare. PMHx: HTN, DM, Crohn's PSHx: Terminal Ileum resection, R Hemicolectomy, Bilateral inguinal hernia repair Family Hx: Mom - Breast CA; Dad - CAD Social Hx: Former smoker, social ETOH use Review of Systems - Review of Systems All systems: reviewed and no additional remarkable complaints except - Constitutional Constitutional: Chills. absent: Fever, Headache - EENT Nose/Mouth/Throat: absent: Epistaxis - Cardiovascular Cardiovascular: absent: Chest Pain, Dyspnea - Respiratory Respiratory: absent: Cough, Dyspnea, Wheezing - Gastrointestinal Gastrointestinal: Abdominal Pain, Nausea, Vomiting. absent: Belching, Bloating , Cramping, Diarrhea, Hematochezia, Melena - Genitourinary Genitourinary: absent: Difficulty Urinating, Dysuria - Musculoskeletal Musculoskeletal: absent: Back Pain Past Patient History - Infectious Disease Hx of Infectious Diseases: None - Past Social History Smoking Status: Never Smoked - CARDIAC Hx Cardiac Disorders: Yes Other/Comment: HYPERLIPIDEMIA - PULMONARY Hx Respiratory Disorders: No - NEUROLOGICAL Hx Neurological Disorder: No - HEENT Hx HEENT Problems: No - RENAL Hx Kidney Stones: Yes - ENDOCRINE/METABOLIC Hx Diabetes Mellitus Type 2: Yes - HEMATOLOGICAL/ONCOLOGICAL Other/Comment: BLOOD TRANSFUSION - INTEGUMENTARY Hx Dermatological Problems: No - MUSCULOSKELETAL/RHEUMATOLOGICAL Other/Comment: LEFT SHOULDER SURGERY - GASTROINTESTINAL Hx Gastrointestinal Disorders: Yes (BILATERAL HERNIA REPAIR) Hx Crohn's Disease: Yes Other/Comment: IBS - GENITOURINARY/GYNECOLOGICAL Hx Genitourinary Disorders: Yes (HYDROCELE) - PSYCHIATRIC Hx Psychophysiologic Disorder: No Hx Substance Use: No - SURGICAL HISTORY Hx Musculoskeletal Surgery: Yes (LEFT SHOULDER) Other/Comment: explor lap 12/28/16/bowel small intestine - ANESTHESIA Hx Anesthesia: Yes Hx Anesthesia Reactions: No Hx Malignant Hyperthermia: No Meds Allergies/Adverse Reactions: Allergies Allergy/AdvReac Type Severity Reaction Status Date / Time pseudoephedrine HCl Allergy "HEART Verified 05/22/17 08:09 [From Sudafed] RACES" - Medications Medications: Current Medications Acetaminophen (Tylenol 325mg Tab) 650 mg PO Q4H PRN PRN Reason: Fever >100.5 F Acetaminophen (Tylenol 325mg Tab) 650 mg PO Q4H PRN PRN Reason: Pain, Mild (1-3) Sodium Chloride (Sodium Chloride 0.9%) 1,000 mls @ 150 mls/hr IV .Q6H40M STA Stop: 07/21/17 14:12 Morphine Sulfate (Morphine) 4 mg IVP Q4 PRN PRN Reason: Pain, moderate (4-7) Ondansetron HCl (Zofran Inj) 4 mg IVP Q4H PRN PRN Reason: Nausea/Vomiting Physical Exam - Constitutional Appears: Well, Non-toxic, No Acute Distress - Head Exam Head Exam: ATRAUMATIC, NORMAL INSPECTION, NORMOCEPHALIC - Eye Exam Eye Exam: EOMI, Normal appearance - ENT Exam ENT Exam: Mucous Membranes Moist - Respiratory Exam Respiratory Exam: Clear to Auscultation Bilateral, NORMAL BREATHING PATTERN. absent: Decreased Breath Sounds, Rales, Rhonchi, Wheezes, Respiratory Distress - Cardiovascular Exam Cardiovascular Exam: RRR. absent: JVD - GI/Abdominal Exam GI & Abdominal Exam: Soft, Tenderness (Lower abdomen tenderness). absent: Distended, Firm, Guarding, Rigid - Extremities Exam Extremities exam: Positive for: normal inspection - Neurological Exam Neurological exam: Alert, Oriented x3 - Skin Skin Exam: Dry, Intact, Normal Color, Warm Results - Vital Signs Recent Vital Signs: Last Vital Signs Temp 98.0 F 07/21/17 01:39 Pulse 100 H 07/21/17 07:59 Resp 16 07/21/17 07:59 BP 137/87 07/21/17 07:59 Pulse Ox 96 07/21/17 07:59 - Labs Result Diagrams: 07/21/17 02:25 07/21/17 02:25 Assessment & Plan - Assessment and Plan (Free Text) Assessment: 56yo M with PMHx of Crohn's s/p TI resection, R Hemicolectomy here for likely IBD flare - CT Abd noted. Bowel anastamosis intact. - F/u GI plan - Continue IVF - Clears. ADAT - f/u stool studies - pain management - Zofran prn Further recs as per Dr. Ayala. Barry Plasecnia PGY1 surgery pager: [phone]
--- NOTE | 2017-07-21 09:31 | CP.PCM.CON ---
<Argelia Holliday - Last Filed: 07/21/17 09:47> History of Present Illness - History of Present Illness History of Present Illness: GI Fellow PGY4 Consult Note This is a 56yo male with PMHx significant for Crohn's ileitis s/p resection of TI with right hemicolectomy on 6-MP and Remicaide and has just been tapered off budesonide a few weeks ago, SBO, DM, nephrolithiasis who presented overnight with sudden onset abdominal pain. Pain began soon after eating a peanut butter jelly sandwich and quickly generalized to the entire abdomen with associated non -bloody bilious emesis. Pain was sharp in nature and associated with loose stools. He has had several similar episodes previously. Pt denies fevers, chills , nausea or rectal bleeding. Pain relieved with analgesia given in the ED and CT performed there was unchanged from prior showing ileus and dilated loops of bowel with stool retention. No recent illnesses, antibiotics use, sick contacts. He just had a colonoscopy February 2017 with no colitis, anastamosis was good with no stricture or ulcers, positive for ileitis. ROS: A 12pt ROS was obtained and was negative except a above. PMHx: See HPI PSHx: Right hemicolectomy and TI resection, inguinal hernia repairs FHx: Mother - breast cancer; father - CAD SHx: Former smoker, occasional EtOH use Past Patient History - Infectious Disease Hx of Infectious Diseases: None - Past Social History Smoking Status: Never Smoked - CARDIAC Hx Cardiac Disorders: Yes Other/Comment: HYPERLIPIDEMIA - PULMONARY Hx Respiratory Disorders: No - NEUROLOGICAL Hx Neurological Disorder: No - HEENT Hx HEENT Problems: No - RENAL Hx Kidney Stones: Yes - ENDOCRINE/METABOLIC Hx Diabetes Mellitus Type 2: Yes - HEMATOLOGICAL/ONCOLOGICAL Other/Comment: BLOOD TRANSFUSION - INTEGUMENTARY Hx Dermatological Problems: No - MUSCULOSKELETAL/RHEUMATOLOGICAL Other/Comment: LEFT SHOULDER SURGERY - GASTROINTESTINAL Hx Gastrointestinal Disorders: Yes (BILATERAL HERNIA REPAIR) Hx Crohn's Disease: Yes Other/Comment: IBS - GENITOURINARY/GYNECOLOGICAL Hx Genitourinary Disorders: Yes (HYDROCELE) - PSYCHIATRIC Hx Psychophysiologic Disorder: No Hx Substance Use: No - SURGICAL HISTORY Hx Musculoskeletal Surgery: Yes (LEFT SHOULDER) Other/Comment: explor lap 08/30/16/bowel small intestine - ANESTHESIA Hx Anesthesia: Yes Hx Anesthesia Reactions: No Hx Malignant Hyperthermia: No Meds Allergies/Adverse Reactions: Allergies Allergy/AdvReac Type Severity Reaction Status Date / Time pseudoephedrine HCl Allergy "HEART Verified 05/22/17 08:09 [From Sudafed] RACES" - Medications Medications: Current Medications Acetaminophen (Tylenol 325mg Tab) 650 mg PO Q4H PRN PRN Reason: Fever >100.5 F Acetaminophen (Tylenol 325mg Tab) 650 mg PO Q4H PRN PRN Reason: Pain, Mild (1-3) Sodium Chloride (Sodium Chloride 0.9%) 1,000 mls @ 150 mls/hr IV .Q6H40M STA Stop: 07/21/17 14:12 Last Admin: 07/21/17 08:59 Dose: 150 mls/hr Morphine Sulfate (Morphine) 4 mg IVP Q4 PRN PRN Reason: Pain, moderate (4-7) Ondansetron HCl (Zofran Inj) 4 mg IVP Q4H PRN PRN Reason: Nausea/Vomiting Physical Exam - Constitutional Appears: Non-toxic - Head Exam Head Exam: ATRAUMATIC, NORMAL INSPECTION, NORMOCEPHALIC - Eye Exam Eye Exam: EOMI, Normal appearance, PERRL Pupil Exam: PERRL - ENT Exam ENT Exam: Mucous Membranes Moist, Normal Exam - Neck Exam Neck exam: Positive for: Full Rom - Respiratory Exam Respiratory Exam: Clear to Auscultation Bilateral, NORMAL BREATHING PATTERN - Cardiovascular Exam Cardiovascular Exam: REGULAR RHYTHM - GI/Abdominal Exam GI & Abdominal Exam: Soft, Tenderness. absent: Distended, Guarding, Organomegaly - Rectal Exam Rectal Exam: Deferred - Extremities Exam Extremities exam: Positive for: normal inspection - Back Exam Back exam: NORMAL INSPECTION - Neurological Exam Neurological exam: Alert, Oriented x3 - Psychiatric Exam Psychiatric exam: Normal Affect, Normal Mood - Skin Skin Exam: Dry, Intact, Normal Color, Warm Results - Vital Signs Recent Vital Signs: Last Vital Signs Temp 98.0 F 07/21/17 01:39 Pulse 100 H 07/21/17 07:59 Resp 16 07/21/17 07:59 BP 137/87 07/21/17 07:59 Pulse Ox 96 07/21/17 07:59 - Labs Result Diagrams: 07/21/17 02:25 07/21/17 02:25 Assessment & Plan - Assessment and Plan (Free Text) Assessment: Patient is a 56yo male with PMHx significant for Crohn's ileitis s/p resection of TI with right hemicolectomy on 6-MP and Remicaide who presented overnight with sudden onset abdominal pain, vomiting, loose stools. 1. Abdominal pain 2. Loose stools 3. Crohn's disease 4. DM Plan: -Continue supportive care with IVF hydration NS@150cc/hr -Continue pain control and anti-emetics -Clear liquid diet today and advance tolerated -No indication for antibiotic therapy at this time -CT imaging reviewed with dilated loops of bowel similar on previous CT scans -Will order stool studies and fecal calprotectin -If pt does not improve by tomorrow will consider steroid therapy at that time -No plan for endoscopic evaluation at this time with recent colonoscopy 02/2017 -Will continue to follow pt closely <Jacques Evans - Last Filed: 07/21/17 14:39> Meds - Medications Medications: Current Medications Acetaminophen (Tylenol 325mg Tab) 650 mg PO Q4H PRN PRN Reason: Fever >100.5 F Acetaminophen (Tylenol 325mg Tab) 650 mg PO Q4H PRN PRN Reason: Pain, Mild (1-3) Sodium Chloride (Sodium Chloride 0.9%) 1,000 mls @ 75 mls/hr IV .[id number] STA Stop: 07/21/17 20:52 Last Admin: 07/21/17 10:43 Dose: 75 mls/hr Morphine Sulfate (Morphine) 4 mg IVP Q4 PRN PRN Reason: Pain, moderate (4-7) Ondansetron HCl (Zofran Inj) 4 mg IVP Q4H PRN PRN Reason: Nausea/Vomiting Results - Vital Signs Recent Vital Signs: Last Vital Signs Temp 98 F 07/21/17 12:09 Pulse 100 H 07/21/17 12:09 Resp 16 07/21/17 12:09 BP 137/87 07/21/17 12:09 Pulse Ox 96 07/21/17 07:59 - Labs Result Diagrams: 07/21/17 02:25 07/21/17 02:25 Attending/Attestation - Attestation I have personally seen and examined this patient.: Yes I have fully participated in the care of the patient.: Yes I have reviewed all pertinent clinical information: Yes Notes (Text): 07/21/17 14:36 56 year old male with h/o Crohn's disease s/p right hemicolectomy on 6MP/ Remicade admited with abdominal pain, vomiting, diarrhea. 1. Abdominal pain 2. Diarrhea 3. Crohn's disease 4. Nausea and vomiting Plan: -patient has apparent recurrent ileus appearance on CT scan -he has had multiple episodes of ileus -unclear to me exactly why he has recurrent ileus so frequently -he is on therapy with 6mp and remicade -after his next remicade infusion we will check Ab and trough levels to see if he needs a dose adjustment -would check stool studies to r/o infection -check fecal calprotectin -hydration/pain meds/anti-emetics -bowel rest for now until he improves -appreciate surgical opinion
[2017-07-21 12:33] VITALS: BMI 21.2
[2017-07-21] MEDS ORDERED: Pneumococcal 23-Valent Vaccine IM ONE (12:34)
[2017-07-21] MEDS ORDERED: Influenza Vaccine 60 mcg/0.5 mL SYR (4YR UP) IM ONE (12:34)
[2017-07-22 07:14] LABS: BASO # 0.01 K/mm3 (0.0-2.0); BASO % 0.3 % (0.0-3.0); GRAN # 2.59 (1.4-6.5); GRAN % 65.2 % (50.0-68.0); LYMPH # 0.9 (1.2-3.4); LYMPH % 23.4 % (22.0-35.0); MEAN CELL VOLUME 90.2 fl (80.0-105.0); MEAN CORPUSCULAR HEMOGLOBIN 31.6 pg (25.0-35.0); MEAN PLATELET VOLUME 10.3 fl (7.0-11.0); MONO # 0.4 (0.1-0.6); MONO % 10.1 % (1.0-6.0)
[2017-07-22 09:20] LABS: BLOOD UREA NITROGEN 14 mg/dL (7-21); CALCIUM 8.5 mg/dL (8.4-10.5); CARBON DIOXIDE 25 mmol/L (21-33); CHLORIDE 105 mmol/L (98-107); GFR AFRICAN-AMERICAN > 60; GLUCOSE,RANDOM 169 mg/dL (70-110)
[2017-07-22 09:49] LABS: POTASSIUM 3.6 mmol/L (3.6-5.0); SODIUM 136 mmol/L (132-148)
--- NOTE | 2017-07-22 10:07 | CP.PCM.PN ---
<Argelia Holliday - Last Filed: 07/22/17 10:02> Subjective - Date & Time of Evaluation Date of Evaluation: 07/22/17 Time of Evaluation: 07:00 - Subjective Subjective: GI Fellow PGY 4 Progress Note Pt seen and evaluated at bedside, pt reports that he has not had anything to eat overnight and would like to be advanced to a regular diet. Pt reports abdominal pain, N/V is improved. No BM since admission. ROS: A 12pt ROS was negative except as above. Objective - Vital Signs/Intake and Output Vital Signs (last 24 hours): Temp Pulse Resp BP Pulse Ox 98 F 100 H 16 137/87 96 07/21/17 12:09 07/21/17 12:09 07/21/17 12:09 07/21/17 12:09 07/21/17 07:59 Intake and Output: 07/22/17 07/22/17 06:59 18:59 Intake Total 1600 Balance 1600 - Medications Medications: Current Medications Acetaminophen (Tylenol 325mg Tab) 650 mg PO Q4H PRN PRN Reason: Fever >100.5 F Acetaminophen (Tylenol 325mg Tab) 650 mg PO Q4H PRN PRN Reason: Pain, Mild (1-3) Morphine Sulfate (Morphine) 4 mg IVP Q4 PRN PRN Reason: Pain, moderate (4-7) Ondansetron HCl (Zofran Inj) 4 mg IVP Q4H PRN PRN Reason: Nausea/Vomiting - Labs Labs: 07/22/17 06:55 07/22/17 06:55 PT 10.4 SECONDS (9.4-12.5) 07/21/17 02:25 INR 0.96 (0.93-1.08) 07/21/17 02:25 APTT 28.4 Seconds (25.1-36.5) 07/21/17 02:25 - Constitutional Appears: Non-toxic, No Acute Distress - Head Exam Head Exam: ATRAUMATIC, NORMAL INSPECTION, NORMOCEPHALIC - Eye Exam Eye Exam: EOMI, Normal appearance, PERRL - ENT Exam ENT Exam: Mucous Membranes Moist, Normal Exam - Neck Exam Neck Exam: Full ROM, Normal Inspection - Respiratory Exam Respiratory Exam: Clear to Ausculation Bilateral, NORMAL BREATHING PATTERN - Cardiovascular Exam Cardiovascular Exam: REGULAR RHYTHM - GI/Abdominal Exam GI & Abdominal Exam: Soft, Normal Bowel Sounds. absent: Distended, Rigid, Tenderness - Rectal Exam Rectal Exam: Deferred - Extremities Exam Extremities Exam: Full ROM, Normal Inspection - Back Exam Back Exam: NORMAL INSPECTION - Neurological Exam Neurological Exam: Alert, Awake, Oriented x3 - Psychiatric Exam Psychiatric exam: Normal Affect, Normal Mood - Skin Skin Exam: Dry, Intact, Normal Color, Warm Assessment and Plan - Assessment and Plan (Free Text) Assessment: Patient is a 56yo male with PMHx significant for Crohn's ileitis s/p resection of TI with right hemicolectomy on 6-MP and Remicaide who presented overnight with sudden onset abdominal pain, vomiting, loose stools. 1. Abdominal pain, N/V resolved 2. Loose stools, no BM 3. Crohn's disease 4. DM Plan: -Continue supportive care with pain control and anti-emetics -Advance diet to low fat, small frequent meals -No indication for antibiotic therapy at this time -CT imaging reviewed with ileus -Stool studies and fecal calprotectin pending, no BM -No plan for steroid therapy as abdominal pain, N/V is improved -No plan for endoscopic evaluation at this time with recent colonoscopy 02/2017 -Will continue to follow pt closely <Jacques Evans - Last Filed: 07/22/17 11:50> Objective - Vital Signs/Intake and Output Vital Signs (last 24 hours): Temp Pulse Resp BP Pulse Ox 98 F 88 16 143/86 96 07/21/17 12:09 07/22/17 10:43 07/21/17 12:09 07/22/17 10:43 07/21/17 07:59 Intake and Output: 07/22/17 07/22/17 06:59 18:59 Intake Total 1600 Balance 1600 - Medications Medications: Current Medications Acetaminophen (Tylenol 325mg Tab) 650 mg PO Q4H PRN PRN Reason: Fever >100.5 F Acetaminophen (Tylenol 325mg Tab) 650 mg PO Q4H PRN PRN Reason: Pain, Mild (1-3) Amlodipine Besylate (Norvasc) 5 mg PO DAILY [facility] Glipizide (Glucotrol) 10 mg PO 0730,1630 [facility] Lisinopril (Zestril) 20 mg PO DAILY [facility] Last Admin: 07/22/17 10:43 Dose: 20 mg Metoprolol Tartrate (Lopressor) 100 mg PO BID [facility] Last Admin: 07/22/17 10:43 Dose: 100 mg Morphine Sulfate (Morphine) 4 mg IVP Q4 PRN PRN Reason: Pain, moderate (4-7) Ondansetron HCl (Zofran Inj) 4 mg IVP Q4H PRN PRN Reason: Nausea/Vomiting - Labs Labs: 07/22/17 06:55 07/22/17 06:55 PT 10.4 SECONDS (9.4-12.5) 07/21/17 02:25 INR 0.96 (0.93-1.08) 07/21/17 02:25 APTT 28.4 Seconds (25.1-36.5) 07/21/17 02:25 Attending/Attestation - Attestation I have personally seen and examined this patient.: Yes I have fully participated in the care of the patient.: Yes I have reviewed all pertinent clinical information, including history, physical exam and plan: Yes Notes (Text): 07/22/17 11:49 56 year old male with h/o Crohn's disease s/p right hemicolectomy on 6MP/ Remicade admited with abdominal pain, vomiting, diarrhea. 1. Ileus 2. Crohn's disease Plan: -improved abdominal pain, wants to eat -no bm yet -advance diet as tolerated today -stool studies to r/o infection and check fecal calprotectin if he has bm -continue plan for outpatient remicade and checking TNF ab/trough -likely dc tomorrow if tolerating diet
[2017-07-22 16:30] VITALS: RESP 18
--- NOTE | 2017-07-22 21:05 | PN ---
DATE: 07/22/2017 DAILY PROGRESS NOTE SUBJECTIVE: The patient was seen this Sunday morning in 365 bed 2, resting comfortably in bed, in no acute pain as we speak. He was able to tolerate a little bit of diet as it was advanced by GI this morning. PHYSICAL EXAMINATION: GENERAL: The patient is awake and alert. LUNGS: Show good aeration, right and left. HEART: Regular, not tachycardic. ABDOMEN: Soft. There is still some diffuse mild soreness. EXTREMITIES: Show no edema. I spoke to the patient offering him the opportunity to discharge to home and to mostly likely be stable. He is concerned about the severity of his Crohn's, the frequent flare-ups as this is his seventh hospitalization this year and pending stool cultures and studies to be sent . Therefore, we will continue current course of treatment, hydration, medications, and increase diet, and if tolerated well, he should be ready for discharge to home in the morning. Kris Olson MD
--- NOTE | 2017-07-23 00:17 | HP ---
CHIEF COMPLAINT: Abdominal pain and diarrhea. HISTORY OF PRESENT ILLNESS: This is a 56-year-old man who recently diagnosed with Crohn's disease earlier this year. I have known for several years who in fact was seen in the office only few weeks ago, was doing rather well, but then developed abdominal pain and diarrhea. He calls [employer] and came to Emergency Room, was found to be clinically dry. H and H is 11 and 35. Coags were unremarkable. Potassium was low at 3.5 as the patient was admitted to Med/Surg floor with IV fluids, antibiotics and GI consultation called. PAST MEDICAL HISTORY: Significant for hypertension and diabetes. PAST SURGICAL HISTORY: Significant for bilateral inguinal hernia repairs and resection of the terminal ileum due to obstruction of Crohn's disease earlier this year in 2017. SOCIAL HISTORY: He is a nonsmoker. He only experimented with tobacco a little bit in high school. He does not drink alcohol. He was with 2 sons. ALLERGIES: HE HAS NO KNOWN ALLERGIES TO MEDICATIONS, BUT THERE IS A QUESTION OF SUDAFED CAUSING NAUSEA IN THE PAST. CURRENT MEDICATIONS: He is on oral agents for his diabetes as well as medications for hypertension and a medication regimen for Crohn's disease directed by [employer]. REVIEW OF SYSTEMS: Multiple point review of systems is otherwise unremarkable except for symptoms that seem to have resolved mostly around his gastrointestinal tract and his Crohn's disease. PHYSICAL EXAMINATION GENERAL: The patient is seen this Sunday morning, having just arrived to floor from Emergency Room in room 365, bed 1. He is resting in bed, a little uncomfortable from the abdominal discomfort and sore from diarrhea. Appears clinically dry. HEENT: Conjunctivae pink. Mucous membrane is dry. NECK: Supple. There is no JVD. Thyroid is not palpable. CHEST WALL: Thin. LUNGS: Has good aeration right and left. HEART: Not tachycardiac. It was regular. ABDOMEN: Soft. Diffusely tender. Bowel sounds are present, a bit hyperactive. EXTREMITIES: Thin. No edema. No calf tenderness. Good DP and PT pulses. IMPRESSION: 1. Acute exacerbation of Crohn's disease. 2. Diarrhea. 3. Dehydration. 4. Hypertension. 5. Diabetes. PLAN: We will admit and give IV fluids. Hold diabetes and hypertensive meds for now. We will follow sugars and use insulin coverage only if the sugars become quite high. We will follow his blood pressure as we supplement his fluid status with IV fluids. Tomorrow, I will ask the patient how he is feeling, I suspect that he will spring back from this episode rather quickly and hopefully, be ready for discharge to home tomorrow. Kris Olson MD
[2017-07-23 06:32] LABS: BASO # 0.01 K/mm3 (0.0-2.0); BASO % 0.3 % (0.0-3.0); EOS # 0.1 (0.0-0.7); EOS % 3.2 % (1.5-5.0); GRAN # 1.7 (1.4-6.5); GRAN % 53.6 % (50.0-68.0); HEMATOCRIT 34.9 % (42.0-52.0); LYMPH % 32.8 % (22.0-35.0); MEAN CELL VOLUME 90.6 fl (80.0-105.0); MEAN CORPUSCULAR HEMOGLOBIN 31.2 pg (25.0-35.0); MEAN CORPUSCULAR HGB CONC 34.4 g/dl (31.0-37.0); MEAN PLATELET VOLUME 10.1 fl (7.0-11.0); MONO # 0.3 (0.1-0.6); MONO % 10.1 % (1.0-6.0); RED CELL DISTRIBUTION WIDTH 13.1 % (11.5-14.5); WHITE BLOOD COUNT 3.2 10^3/ul (4.5-11.0)
[2017-07-23 07:12] LABS: BLOOD UREA NITROGEN 18 mg/dL (7-21); CALCIUM 8.9 mg/dL (8.4-10.5); CARBON DIOXIDE 29 mmol/L (21-33); CHLORIDE 103 mmol/L (98-107); GFR AFRICAN-AMERICAN > 60; GLUCOSE,RANDOM 154 mg/dL (70-110); POTASSIUM 3.7 mmol/L (3.6-5.0); SODIUM 137 mmol/L (132-148)
--- NOTE | 2017-07-23 07:34 | CP.PCM.PN ---
<Sandip Valentine - Last Filed: 07/23/17 09:31> Subjective - Date & Time of Evaluation Date of Evaluation: 07/23/17 Time of Evaluation: 07:00 - Subjective Subjective: Sandip Valentine D.O. PGY-2, GI Progress Note 56 year old male with a PMH of Crohn's s/p resection of terminal ileum w/ R Hemicolectomy on remicaide and 6-MP, HTN, and DM who presented with sudden onset abdominal pain. Patient was seen and examined at bedside. Patient states that he had no issues overnight and is feeling much better. Patient denies having any more episodes of nausea or vomiting and he was able to tolerate his diet without issues. Patient also states that he had a regular bowel movement yesterday and gave it to the nursing staff for collection. Otherwise no acute overnight events. Objective - Vital Signs/Intake and Output Vital Signs (last 24 hours): Temp Pulse Resp BP Pulse Ox 98.8 F 75 18 120/79 97 07/22/17 16:29 07/22/17 18:26 07/22/17 16:29 07/22/17 18:26 07/22/17 16:29 Intake and Output: 07/23/17 07/23/17 06:59 18:59 Intake Total 960 Balance 960 - Medications Medications: Current Medications Acetaminophen (Tylenol 325mg Tab) 650 mg PO Q4H PRN PRN Reason: Fever >100.5 F Acetaminophen (Tylenol 325mg Tab) 650 mg PO Q4H PRN PRN Reason: Pain, Mild (1-3) Amlodipine Besylate (Norvasc) 5 mg PO DAILY [facility] Glipizide (Glucotrol) 10 mg PO 0730,1630 [facility] Last Admin: 07/22/17 18:27 Dose: 10 mg Lisinopril (Zestril) 20 mg PO DAILY [facility] Last Admin: 07/22/17 10:43 Dose: 20 mg Metoprolol Tartrate (Lopressor) 100 mg PO BID [facility] Last Admin: 07/22/17 18:26 Dose: 100 mg Morphine Sulfate (Morphine) 4 mg IVP Q4 PRN PRN Reason: Pain, moderate (4-7) Ondansetron HCl (Zofran Inj) 4 mg IVP Q4H PRN PRN Reason: Nausea/Vomiting - Labs Labs: 07/23/17 05:45 07/23/17 05:45 PT 10.4 SECONDS (9.4-12.5) 07/21/17 02:25 INR 0.96 (0.93-1.08) 07/21/17 02:25 APTT 28.4 Seconds (25.1-36.5) 07/21/17 02:25 - Constitutional Appears: Well, Non-toxic, No Acute Distress - Head Exam Head Exam: ATRAUMATIC, NORMOCEPHALIC - Eye Exam Eye Exam: EOMI, PERRL. absent: Scleral icterus - ENT Exam ENT Exam: Mucous Membranes Moist, Normal Oropharynx - Neck Exam Neck Exam: Normal Inspection. absent: Tenderness - Respiratory Exam Respiratory Exam: Clear to Ausculation Bilateral. absent: Rales, Rhonchi, Wheezes - Cardiovascular Exam Cardiovascular Exam: RRR, +S1, +S2. absent: Gallop, Rubs, Murmur - GI/Abdominal Exam GI & Abdominal Exam: Soft, Normal Bowel Sounds - Extremities Exam Extremities Exam: Normal Inspection. absent: Calf Tenderness, Pedal Edema - Neurological Exam Neurological Exam: Alert, Awake, CN II-XII Intact, Oriented x3 - Skin Skin Exam: Dry, Warm Assessment and Plan - Assessment and Plan (Free Text) Assessment: 56 year old male with history of Crohn's disease s/p resection of terminal ileum w/ R Hemicolectomy on remicaide and 6-MP who presented with sudden onset abdominal pain, N/V/D Plan: 1. Ileus 2. Chron's disease Abd pain resolved, no repeat Nausea or vomiting Moving bowels Tolerating low fat, moderate CHO diet without issues Stool studies pending Plan is for patient to return to office for Remicaide which may need to be adjusted in order to prevent further flares Will need to follow up outpatient as well for for TNF ab and tough Patient was seen and examined and case was discussed at length with GI fellow. <Micah Potter - Last Filed: 07/23/17 10:16> Objective - Vital Signs/Intake and Output Vital Signs (last 24 hours): Temp Pulse Resp BP Pulse Ox 98.5 F 75 18 142/89 98 07/23/17 07:58 07/23/17 09:43 07/23/17 07:58 07/23/17 09:43 07/23/17 07:58 Intake and Output: 07/23/17 07/23/17 06:59 18:59 Intake Total 960 Balance 960 - Medications Medications: Current Medications Acetaminophen (Tylenol 325mg Tab) 650 mg PO Q4H PRN PRN Reason: Fever >100.5 F Acetaminophen (Tylenol 325mg Tab) 650 mg PO Q4H PRN PRN Reason: Pain, Mild (1-3) Amlodipine Besylate (Norvasc) 5 mg PO DAILY [facility] Last Admin: 07/23/17 09:42 Dose: 5 mg Glipizide (Glucotrol) 10 mg PO 0730,1630 [facility] Last Admin: 07/23/17 08:09 Dose: 10 mg Lisinopril (Zestril) 20 mg PO DAILY [facility] Last Admin: 07/23/17 09:43 Dose: 20 mg Metoprolol Tartrate (Lopressor) 100 mg PO BID [facility] Last Admin: 07/23/17 09:43 Dose: 100 mg Morphine Sulfate (Morphine) 4 mg IVP Q4 PRN PRN Reason: Pain, moderate (4-7) Ondansetron HCl (Zofran Inj) 4 mg IVP Q4H PRN PRN Reason: Nausea/Vomiting - Labs Labs: 07/23/17 05:45 07/23/17 05:45 PT 10.4 SECONDS (9.4-12.5) 07/21/17 02:25 INR 0.96 (0.93-1.08) 07/21/17 02:25 APTT 28.4 Seconds (25.1-36.5) 07/21/17 02:25 Attending/Attestation - Attestation I have personally seen and examined this patient.: Yes I have fully participated in the care of the patient.: Yes I have reviewed all pertinent clinical information, including history, physical exam and plan: Yes Notes (Text): 07/23/17 10:13 I have seen and examined patient with GI fellow. No acute events overnight. He is seen resting in bed comfortably. His abdominal pain has resolved and he had a soft bowel movement overnight without presence of rectal bleeding. He denies nausea, vomiting, fever/chills and consumed his breakfast tray in entirety this morning. Review of vitals from today are normal. Crohn's ileitis s/p partial small bowel resection Abdominal pain, resolved - Diet as tolerated - Await results of stool studies - Continue with 6-mp and remicade infusion therapy. Patient scheduled for bloodwork post infusion to monitor antibody levels. - No further planned intervention, from GI standpoint ok to discharge home with subsequent outpatient follow up with Dr. Evans. Will sign off case, please reconsult as necessary, thank you.
[2017-07-23 07:58] VITALS: TEMP 98.5; O2SAT 98
[2017-07-23 09:45] VITALS: BP 142/89; PULSE 75
--- NOTE | 2017-07-24 02:23 | DS ---
HISTORY OF PRESENT ILLNESS: The patient is a 56-year-old male with a history of Crohn disease, hypertension, and diabetes, who presented to the emergency room complaining of abdominal pain and diarrhea and was admitted with a diagnosis of exacerbation of his Crohn disease. During his hospital stay, he was seen by Dr. Evans, the [facility]. He was treated with Glucotrol 10 mg twice a day, Lopressor 100 mg twice a day, morphine sulfate as needed for pain, Norvasc 5 mg once a day, Zestril 20 mg once a day, and Zofran. He is put on a clear liquid diet and this was slowly increased. When seen today, his family is at bedside. He claims to be feeling well. He tolerated breakfast well. PHYSICAL EXAMINATION: VITAL SIGNS: He is afebrile, blood pressure is 120/79, and heart rate is 75. LUNGS: Lungs are clear anteriorly. HEART: Regular. ABDOMEN: Soft and nontender. Bowel sounds are normal. LABORATORY DATA: Blood work this morning shows white blood cell count to be 3.2, hemoglobin and hematocrit of 12.0 and 34.9 respectively. Glucose this morning was 227. ASSESSMENT AND PLAN: So at this point, we will be discharging the patient to home. He is to continue his medicines as taken prior to this hospitalization. He is to be taking mercaptopurine 2 tablets in the morning as well as Questran 4 g as needed. He will be followed up as an outpatient. FINAL DIAGNOSES: 1. Colitis. 2. Crohn disease. 3. [id number] diabetes mellitus. 4. Hypertension. Rolo Olson MD
== END 2017-07-23 14:06 | disposition home or self-care (01) ==
LOC: ED 01:20 → INTOOBSV 06:39 → ERH 06:39 → 3RNO 09:35
PROVIDERS: ADMIT Internal Medicine; ATTEND Internal Medicine
DX: K50.90 Crohn's disease, unspecified, without complications (principal); K56.7 Ileus, unspecified; E86.0 Dehydration; I10 Essential (primary) hypertension; E11.9 Type 2 diabetes mellitus without complications; E78.5 Hyperlipidemia, unspecified; Z79.84 Long term (current) use of oral hypoglycemic drugs; Z87.442 Personal history of urinary calculi; Z90.49 Acquired absence of other specified parts of digestive tract; Z79.82 Long term (current) use of aspirin; Z79.899 Other long term (current) drug therapy; Z87.891 Personal history of nicotine dependence; Z82.49 Family history of ischemic heart disease and other diseases of the circulatory system; Z80.3 Family history of malignant neoplasm of breast
CPT/HCPCS: 36415; 74177; 80048; 80053; 81001; 82803; 82948; 83690; 85025; 85610; 85730; 87045; 87329; 89055; 96361; 96365; 96375; 99285; G0378; J1170; J2270; J2405; J2543; J2930; J7040; Q9967

== ENCOUNTER 2017-09-23 07:40 | Inpatient (IN) | payer OTHER ==
[2017-09-23] MEDS ORDERED: Sodium Chloride 0.9% 1,000 ML IV STA (08:43)
--- NOTE | 2017-09-23 08:47 | ED PDOC ---
Arrival/HPI - General Chief Complaint: Back Pain Time Seen by Provider: 09/23/17 08:36 Historian: Patient, Spouse, Family - History of Present Illness Narrative History of Present Illness (Text): 09/23/17 08:37 A 56 year old male, whose past medical history includes hyperglycemia, TIA, crohn's disease, and small bowel obstruction, presents to the emergency department for back pain in L flank, fever, body aches, headache, mild cough no sputum, and dark color urine. The patient denies any diarrhea, nausea, wheezing , or any other complaints at this time. The patient notes that after a few days of his symptoms he began to have right sided chest discomfort that radiates into his right arm. Time/Duration: < week (4-5 days) Symptom Onset: Gradual Symptom Course: Unchanged Context: Home Past Medical History - Provider Review Nursing Documentation Reviewed: Yes - Infectious Disease Hx of Infectious Diseases: None - Cardiac Hx Cardiac Disorders: Yes Other/Comment: HYPERLIPIDEMIA - Pulmonary Hx Respiratory Disorders: No - Neurological Hx Neurological Disorder: No - HEENT Hx HEENT Disorder: No - Renal Hx Kidney Stones: Yes - Endocrine/Metabolic Hx Diabetes Mellitus Type 2: Yes - Hematological/Oncological Other/Comment: BLOOD TRANSFUSION - Integumentary Other/Comment: abd surgical scar - Musculoskeletal/Rheumatological Other/Comment: LEFT SHOULDER SURGERY - Gastrointestinal Hx Gastrointestinal Disorders: Yes (BILATERAL HERNIA REPAIR) Hx Crohn's Disease: Yes Other/Comment: IBS - Genitourinary/Gynecological Hx Genitourinary Disorders: Yes (HYDROCELE) - Psychiatric Hx Psychophysiologic Disorder: No Hx Substance Use: No - Surgical History Hx Musculoskeletal Surgery: Yes (LEFT SHOULDER) Other/Comment: explor lap 08/30/16/bowel small intestine - Anesthesia Hx Anesthesia: Yes Hx Anesthesia Reactions: No Hx Malignant Hyperthermia: No - Suicidal Assessment Feels Threatened In Home Enviroment: No Family/Social History - Physician Review Nursing Documentation Reviewed: Yes Family/Social History: No Known Family HX Smoking Status: Never Smoked Hx Alcohol Use: No Hx Substance Use: No Allergies/Home Meds Allergies/Adverse Reactions: Allergies pseudoephedrine HCl [From Sudafed] Allergy (Verified 09/23/17 08:01) "HEART RACES" DENIES NAUSEA Home Medications: Home Meds Medication Instructions Recorded Confirmed Aspirin [Ecotrin] 81 mg PO QAM 05/22/16 09/23/17 Lisinopril [Zestril] 20 mg PO QAM 01/31/17 09/23/17 Ondansetron HCl [Zofran] 4 mg PO Q6H PRN 02/12/17 09/23/17 Cholecalciferol [Vitamin D 1000 IU] 1 tab PO DAILY 02/19/17 09/23/17 Cyanocobalamin [Vitamin B12 1000 1 ml SC 02/19/17 08/23/17 mcg/ml Inj] Cholestyramine [Questran] 4 gm PO PRN PRN 05/07/17 09/23/17 amLODIPine [Norvasc] 5 mg PO DAILY 05/22/17 09/23/17 Entecort 9 mg PO DAILY 09/23/17 09/23/17 GlipiZIDE [Glucotrol] 5 mg PO BID 09/23/17 09/23/17 Methylcellulose [Fiber] 500 mg PO BID 09/23/17 09/23/17 Review of Systems - Physician Review All systems were reviewed & negative as marked: Yes - Review of Systems Respiratory: absent: Wheezing Gastrointestinal: absent: Vomiting Physical Exam - Physical Exam Narrative Physical Exam (Text): 09/23/17 08:48 Constitutional: No acute distress. Head: Normocephalic. Atraumatic. Eyes: PERRL. ENT: Moist mucous membranes. Neck: Supple. Cardiovascular: Regular rate. Chest: No tenderness. Respiratory: No accessory muscle use. GI: Soft. Nontender. Nondistended. Old surgical scar in the mid abdomen region. : Dark urine. Back: No CVA tenderness. Musculoskeletal: No tenderness or swelling of extremities. Skin: No rash. Neurologic: Alert, no focal deficit. Vital Signs Temp Pulse Resp BP Pulse Ox 09/23/17 09:40 93 H 18 165/97 H 98 09/23/17 07:56 100.3 F H 111 H 16 152/95 H 97 Medical Decision Making ED Course and Treatment: 09/23/17 08:49 Impression: A 56 year old male with body aches and dark urine. Differential Diagnosis included but are not limited to: Plan: -- chest X-ray -- EKG -- Labs -- Urinalysis -- Rapid Flu -- Reassess and disposition Progress Notes: 09/23/17 09:11 Impression: no focal consolidation, significant pleural effusion, or definite pneumothorax identified. Enzymes negative and EKG normal. Bacteria in UA with UTI symptoms, will start treatment with Levofloxacin for pyelonephritis. Patient also with elevated bilirubin, no abdominal tenderness at this time. Dr. Olson accepts patient to his service and recommends consultation with MARIEL Evans. - Lab Interpretations Lab Results: 09/23/17 09:44 09/23/17 09:44 Lab Results 09/23/17 09:44: Influenza Typ A,B (EIA) Negative for flu a/b 09/23/17 09:44: pO2 47, VBG pH 7.45 H, VBG pCO2 46.0, VBG HCO3 32.0 H, VBG Total CO2 33.4 H, VBG O2 Sat (Calc) 85.3 H, VBG Base Excess 6.9 H, VBG Potassium 3.4 L, Sodium 135.0, Chloride 104.0, Glucose 176 H, Lactate 0.9, FiO2 21.0, Venous Blood Potassium 3.4 L 09/23/17 09:44: Sodium 137, Chloride 100, Potassium 3.5 L, Carbon Dioxide 27, Anion Gap 13, BUN 13, Creatinine 0.8, Est GFR ( Amer) > 60, Est GFR (Non- Af Amer) > 60, Random Glucose 170 H, Calcium 9.5, Total Bilirubin 3.3 H, AST 43 , ALT 44, Alkaline Phosphatase 159 H, Total Creatine Kinase 38, Troponin I < 0.01, Total Protein 7.4, Albumin 4.0, Globulin 3.4, Albumin/Globulin Ratio 1.2, Lipase 36 09/23/17 09:44: Urine Color Dark yellow, Urine Appearance Sl cloudy, Urine pH 6.0, Ur Specific [place] 1.025, Urine Protein 30 H, Urine Glucose (UA) >=1000, Urine Ketones 15 H, Urine Blood Negative, Urine Nitrate Negative, Urine Bilirubin Small H, Urine Urobilinogen 1.0 H, Ur Leukocyte Esterase Negative, Urine RBC 0 - 2, Urine WBC 1 - 3, Ur Epithelial Cells 0 - 2, Amorphous Sediment Few, Urine Bacteria Many, Urine Other Fiber 09/23/17 09:44: WBC 3.9 L D, RBC 4.22, Hgb 12.9 L, Hct 36.4 L, MCV 86.3 D, MCH 30.6, MCHC 35.4, RDW 12.2, Plt Count 119 L, MPV 10.6, Gran % 65.2, Lymph % (Auto ) 20.2 L, [place] % (Auto) 13.8 H, Eos % (Auto) 0.5 L, Baso % (Auto) 0.3, Gran # 2.55, Lymph # 0.8 L, [place] # 0.5, Eos # 0.0, Baso # 0.01 - RAD Interpretation Radiology Orders: 09/23/17 08:42 CHEST PORTABLE [RAD] Stat - Medication Orders Current Medication Orders: Levofloxacin/Dextrose (Levaquin 750mg) 750 mg IVPB STAT STA Stop: 09/23/17 11:39 Discontinued Medications Acetaminophen (Tylenol 325mg Tab) 650 mg PO STAT STA Stop: 09/23/17 09:04 Last Admin: 09/23/17 10:28 Dose: 650 mg MAR Pain/Vitals Document 09/23/17 10:28 SF (Rec: 09/23/17 10:29 [id number] Pain Reassessment Is This A Pain ReAssessment? Yes Sleep Is patient sleeping during reassessment? No Presence of Pain Presence of Pain Yes Sodium Chloride (Sodium Chloride 0.9%) 1,000 mls @ 999 mls/hr IV .Q1H1M STA Stop: 09/23/17 09:43 Last Admin: 09/23/17 10:15 Dose: 999 mls/hr eMAR Start Stop Document 09/23/17 10:15 SF (Rec: 09/23/17 10:28 SF [id number] Intravenous Solution Start Date 09/23/17 Start Time 10:15 End Date 09/23/17 End time 11:16 Total Infusion Time 61 Ketorolac Tromethamine (Toradol) 30 mg IVP STAT STA Stop: 09/23/17 08:44 Last Admin: 09/23/17 10:29 Dose: 30 mg MAR Pain Assessment Document 09/23/17 10:29 SF (Rec: 09/23/17 10:29 SF [id number] Pain Reassessment Is this a pain reassessment? Yes Sleep Is patient sleeping during reassessment? No Presence of Pain Presence of Pain Yes IVP Administration Document 09/23/17 10:29 SF (Rec: 09/23/17 10:29 SF [id number] Charges for Administration # of IVP Administrations 1 - Scribe Statement The provider has reviewed the documentation as recorded by the Scribe Charu Goldberg Provider Scribe Attestation: All medical record entries made by the Scribe were at my direction and personally dictated by me. I have reviewed the chart and agree that the record accurately reflects my personal performance of the history, physical exam, medical decision making, and the department course for this patient. I have also personally directed, reviewed, and agree with the discharge instructions and disposition. Disposition/Present on Arrival - Present on Arrival Any Indicators Present on Arrival: No History of DVT/PE: No History of Uncontrolled Diabetes: No Urinary Catheter: No History of Decub. Ulcer: No History Surgical Site Infection Following: None - Disposition Have Diagnosis and Disposition been Completed?: Yes Diagnosis: Pyelonephritis, Bilirubinemia Disposition: HOSPITALIZED Disposition Time: 11:16 Patient Plan: Admission Condition: FAIR Referrals: Kris Olson MD [Primary Care Provider] - Follow up with primary Forms: [employer] (Norwegian)
--- NOTE | 2017-09-23 09:08 | RAD ---
HISTORY: cp COMPARISON: Chest x-ray performed 05/22/17 TECHNIQUE: Chest, one view. FINDINGS: LUNGS: No focal consolidation. Please note that chest x-ray has limited sensitivity for the detection of pulmonary masses. PLEURA: No significant pleural effusion identified. No definite pneumothorax . CARDIOVASCULAR: Heart size appears within normal limits. Ectatic aorta. OSSEOUS STRUCTURES: No acute osseous abnormality identified. VISUALIZED UPPER ABDOMEN: Unremarkable. OTHER FINDINGS: None. IMPRESSION: No focal consolidation, significant pleural effusion, or definite pneumothorax identified.
[2017-09-23 10:25] LABS: VENOUS BLOOD GAS BASE EXCESS 6.9 mmol/L (0.0-2.0); VENOUS BLOOD GAS PO2 47 mm/Hg (30-55); VENOUS BLOOD PH 7.45 (7.32-7.43)
[2017-09-23 10:27] LABS: URINE BILIRUBIN SMALL (NEGATIVE); URINE BLOOD NEGATIVE (NEGATIVE); URINE GLUCOSE (UA) >=1000 mg/dL (NEGATIVE); URINE LEUKOCYTE ESTERASE NEGATIVE Leu/uL (NEGATIVE); URINE NITRATE NEGATIVE (NEGATIVE); URINE PROTEIN 30 mg/dL (<30 mg/dL)
[2017-09-23 10:30] LABS: BASO # 0.01 K/mm3 (0.0-2.0); BASO % 0.3 % (0.0-3.0); EOS % 0.5 % (1.5-5.0); GRAN # 2.55 (1.4-6.5); GRAN % 65.2 % (50.0-68.0); HEMOGLOBIN 12.9 g/dL (14.0-18.0); LYMPH # 0.8 (1.2-3.4); LYMPH % 20.2 % (22.0-35.0); MEAN CELL VOLUME 86.3 fl (80.0-105.0); MEAN CORPUSCULAR HEMOGLOBIN 30.6 pg (25.0-35.0); MEAN CORPUSCULAR HGB CONC 35.4 g/dl (31.0-37.0); MEAN PLATELET VOLUME 10.6 fl (7.0-11.0); MONO # 0.5 (0.1-0.6); MONO % 13.8 % (1.0-6.0); RBC 4.22 10^6/uL (3.5-6.1); RED CELL DISTRIBUTION WIDTH 12.2 % (11.5-14.5); WHITE BLOOD COUNT 3.9 10^3/ul (4.5-11.0)
[2017-09-23 10:35] LABS: URINE APPEARANCE SL CLOUDY (CLEAR); URINE COLOR DARK YELLOW (YELLOW)
[2017-09-23 10:40] LABS: URINE RBC 0 - 2 /hpf (0-2)
[2017-09-23 10:41] LABS: URINE AMORPHOUS SEDIMENT FEW; URINE BACTERIA MANY (NEG); URINE EPITHELIAL CELLS 0 - 2 /hpf (0-5)
[2017-09-23 10:46] LABS: ALB/GLOB RATIO 1.2 (1.1-1.8); ALT/SGPT 44 U/L (7-56); AST/SGOT 43 U/L (17-59); BLOOD UREA NITROGEN 13 mg/dL (7-21); CALCIUM 9.5 mg/dL (8.4-10.5); GFR AFRICAN-AMERICAN > 60; GFR NON-AFRICAN AMERICAN > 60; LIPASE 36 U/L (23-300)
[2017-09-23 10:56] LABS: TROPONIN I < 0.01 ng/mL
[2017-09-23] MEDS ORDERED: levoFLOXacin 750 mg in D5W 150 ML BAG IVPB STA (11:38)
[2017-09-23 15:24] VITALS: BMI 22.6
[2017-09-23] MEDS ORDERED: Cholestyramine 4 gm/Pkt UD PO PRN (15:36)
[2017-09-23] MEDS: Budesonide 3 mg ER Cap PO SCH (16:14)
[2017-09-23] MEDS: Insulin Lispro (humaLOG) LOW Coverage SC SCH (17:41)
[2017-09-23] MEDS: METHYLCELLULOSE 500 MG PO SCH (18:46)
[2017-09-24] MEDS: Insulin Lispro (humaLOG) LOW Coverage SC SCH ×5 (00:54→22:11)
--- NOTE | 2017-09-24 06:56 | CP.PCM.CON ---
<Prasad Dent - Last Filed: 09/24/17 11:18> History of Present Illness - History of Present Illness History of Present Illness: GI Consult Note: 56 year old male, whose PMHx includes Crohn's ileitis s/p resection of TI with right hemicolectomy (09/2016) on Remicaide, and Budesonide , SBO, DM, nephrolithiasis presents to the ED for L flank pain, body aches and dark urine. Pt states that for the last few weeks he has not been feeling well. He initially thought that it was a cold but 3 days ago he noticed "orange urine." He also developed L flank pain that is non radiating, this developed into generalized body aches. He denies any abdominal pain, nausea, vomiting, diarrhea , hematochezia or melena. GI team was consulted for elevated bilirubin. 12 Point ROS performed and negative other than stated above. 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, Internal Hemorrhoids Review of Systems - Review of Systems All systems: reviewed and no additional remarkable complaints except Past Patient History - Infectious Disease Hx of Infectious Diseases: None - Past Social History Smoking Status: Never Smoked - CARDIAC Hx Cardiac Disorders: Yes Other/Comment: HYPERLIPIDEMIA - PULMONARY Hx Respiratory Disorders: No - NEUROLOGICAL Hx Neurological Disorder: No - HEENT Hx HEENT Problems: No - RENAL Hx Kidney Stones: Yes - ENDOCRINE/METABOLIC Hx Diabetes Mellitus Type 2: Yes - HEMATOLOGICAL/ONCOLOGICAL Other/Comment: BLOOD TRANSFUSION - INTEGUMENTARY Other/Comment: abd surgical scar - MUSCULOSKELETAL/RHEUMATOLOGICAL Hx Falls: No - GASTROINTESTINAL Hx Gastrointestinal Disorders: Yes (BILATERAL HERNIA REPAIR) Hx Crohn's Disease: Yes Other/Comment: IBS - GENITOURINARY/GYNECOLOGICAL Hx Genitourinary Disorders: Yes (HYDROCELE) - PSYCHIATRIC Hx Psychophysiologic Disorder: No Hx Substance Use: No - SURGICAL HISTORY Hx Musculoskeletal Surgery: Yes (LEFT SHOULDER) Other/Comment: explor lap 08/30/16/bowel small intestine - ANESTHESIA Hx Anesthesia: Yes Hx Anesthesia Reactions: No Hx Malignant Hyperthermia: No Meds Allergies/Adverse Reactions: Allergies Allergy/AdvReac Type Severity Reaction Status Date / Time pseudoephedrine HCl Allergy "HEART Verified 09/23/17 08:01 [From Sudafed] RACES" - Medications Medications: Current Medications Acetaminophen (Tylenol 325mg Tab) 650 mg PO Q6H PRN PRN Reason: Pain, moderate (4-7) Last Admin: 09/23/17 22:13 Dose: 650 mg Amlodipine Besylate (Norvasc) 5 mg PO DAILY [facility] Last Admin: 09/23/17 16:14 Dose: 5 mg Aspirin (Ecotrin) 81 mg PO QAM [facility] Budesonide (Entocort Ec) 9 mg PO DAILY [facility] Last Admin: 09/23/17 16:14 Dose: 9 mg Cholestyramine Resin (Questran) 4 gm PO BID PRN PRN Reason: Constipation Glipizide (Glucotrol) 5 mg PO BID [facility] Last Admin: 09/23/17 17:41 Dose: 5 mg Insulin Human Lispro (Humalog Low) 0 units SC [facility] PRN Reason: Protocol Last Admin: 09/24/17 00:54 Dose: Not Given Lisinopril (Zestril) 20 mg PO QAM [facility] Metoprolol Tartrate (Lopressor) 100 mg PO BID [facility] Last Admin: 09/23/17 17:41 Dose: 100 mg Non-Formulary Medication (Methylcellulose [Fiber]) 500 mg PO BID [facility] Last Admin: 09/23/17 18:46 Dose: Not Given Ondansetron HCl (Zofran Tab) 4 mg PO Q6H PRN PRN Reason: Nausea/Vomiting Last Admin: 09/23/17 20:25 Dose: 4 mg Physical Exam - Constitutional Appears: No Acute Distress - Head Exam Head Exam: ATRAUMATIC, NORMOCEPHALIC - Eye Exam Eye Exam: EOMI, PERRL - ENT Exam ENT Exam: Mucous Membranes Moist - Respiratory Exam Respiratory Exam: Clear to Auscultation Bilateral. absent: Wheezes - Cardiovascular Exam Cardiovascular Exam: REGULAR RHYTHM, RRR, +S1, +S2 - GI/Abdominal Exam GI & Abdominal Exam: Normal Bowel Sounds, Soft. absent: Tenderness - Extremities Exam Extremities exam: Negative for: calf tenderness, pedal edema - Neurological Exam Neurological exam: Alert, Oriented x3 - Psychiatric Exam Psychiatric exam: Normal Affect, Normal Mood - Skin Skin Exam: Dry, Intact, Warm Results - Vital Signs Recent Vital Signs: Last Vital Signs Temp 97.9 F 09/24/17 00:00 Pulse 87 09/24/17 00:00 Resp 18 09/24/17 00:00 BP 134/90 09/24/17 00:00 Pulse Ox 97 09/24/17 00:00 - Labs Result Diagrams: 09/23/17 09:44 09/23/17 09:44 Labs: Laboratory Results - last 24 hr 09/23/17 09/23/17 16:18 21:44 POC Glucose (mg/dL) 260 H 167 H Assessment & Plan - Assessment and Plan (Free Text) Assessment: 6 year old male, whose PMHx includes Crohn's ileitis s/p resection of TI with right hemicolectomy (09/2016) on Remicade, (Budesonide tapered off as of 08/2017 ), SBO, DM, nephrolithiasis presents to the ED for L flank pain, body aches and dark urine. GI team consulted for elevated bilirubin. Elevated Bilirubin Crohn's dx - Pt has not been recently started on any new medications that can cause an elevated bilirubin - Abdominal US ordered - F/u Direct Bilirubin - Antibiotics Levaquin x 1 in the ED - Diet as tolerated - Continue Budesonide - Continue Fiber and Cholestyramine - Pain control - Pepcid PRN - Remicade therapy as outpatient Pt and plan was reviewed and discussed in detail with Dr Potter. <Micah Potter - Last Filed: 09/24/17 16:47> Meds - Medications Medications: Current Medications Acetaminophen (Tylenol 325mg Tab) 650 mg PO Q6H PRN PRN Reason: Pain, moderate (4-7) Last Admin: 09/23/17 22:13 Dose: 650 mg Amlodipine Besylate (Norvasc) 5 mg PO DAILY [facility] Last Admin: 09/24/17 10:18 Dose: 5 mg Aspirin (Ecotrin) 81 mg PO QAM [facility] Last Admin: 09/24/17 10:16 Dose: 81 mg Cholestyramine Resin (Questran) 4 gm PO BID PRN PRN Reason: Constipation Glipizide (Glucotrol) 5 mg PO BID [facility] Last Admin: 09/24/17 10:17 Dose: 5 mg Insulin Human Lispro (Humalog Low) 0 units SC ACHS [facility] PRN Reason: Protocol Last Admin: 09/24/17 12:18 Dose: Not Given Lisinopril (Zestril) 20 mg PO QAM [facility] Last Admin: 09/24/17 10:19 Dose: 20 mg Metoprolol Tartrate (Lopressor) 100 mg PO BID [facility] Last Admin: 09/24/17 10:18 Dose: 100 mg Non-Formulary Medication (Methylcellulose [Fiber]) 500 mg PO BID [facility] Last Admin: 09/24/17 10:18 Dose: Not Given Ondansetron HCl (Zofran Tab) 4 mg PO Q6H PRN PRN Reason: Nausea/Vomiting Last Admin: 09/23/17 20:25 Dose: 4 mg Results - Vital Signs Recent Vital Signs: Last Vital Signs Temp 98.3 F 09/24/17 07:30 Pulse 77 09/24/17 10:19 Resp 18 09/24/17 07:30 BP 126/85 09/24/17 10:19 Pulse Ox 99 09/24/17 07:30 - Labs Result Diagrams: 09/23/17 09:44 09/23/17 09:44 Labs: Laboratory Results - last 24 hr 09/23/17 09/24/17 09/24/17 21:44 07:29 08:00 POC Glucose (mg/dL) 167 H 166 H Direct Bilirubin 0.8 H 09/24/17 11:47 POC Glucose (mg/dL) 184 H Direct Bilirubin Attending/Attestation - Attestation I have personally seen and examined this patient.: Yes I have fully participated in the care of the patient.: Yes I have reviewed all pertinent clinical information: Yes Notes (Text): 09/24/17 16:41 I have seen and examined patient with GI fellow and manager medical affairs. Agree with above documentation with the following additions. In brief, this is a 56 year old male with history of crohn's ileitis maintained on outpatient remicade therapy, DM, nephrolithiasis who presents to hospital with complaint of generalized body aches and dark colored orange urine for the past few days. He describes having malaise recently and noted urinary color change while at work 3 days ago. He otherwise denies nausea, vomiting, fever/chills, weight loss, or change in bowel habits. He denies recent medication change, recent travel, or sick contacts. Review of vitals from today are normal. Additional physical examination: Abdomen: no palpable hepato/splenomegaly Crohn's ileitis DM Nephrolithiasis Hyperbilirubinemia - primarily indirect component - Diet as tolerated - Bilirubin is primarily indirect, possibly related to Gilbert's - Obtain abdominal US to rule out significant biliary dilation - There is an association with PSC with underlying inflammatory bowel disease in the patient with elevated bilirubin, additional MRCP imaging can be obtained if clinically indicated. Will continue to monitor patient clinical course.
--- NOTE | 2017-09-24 09:14 | CARD ---
APPROVED REPORT EKG Measurement Heart [id number] <Conclusion> Normal sinus rhythm Normal ECG No change
[2017-09-24] MEDS: Budesonide 3 mg ER Cap PO SCH ×2 (10:16→10:30)
[2017-09-24] MEDS: METHYLCELLULOSE 500 MG PO SCH ×2 (10:18→17:33)
--- NOTE | 2017-09-24 15:35 | US ---
HISTORY: hyperbilirubinemia COMPARISON: None. TECHNIQUE: Grayscale imaging was performed. FINDINGS: LIVER: Measures 17.4 cm. Normal echogenicity of the liver parenchyma. No mass. No intrahepatic bile duct dilatation. GALLBLADDER: There are no gallstones, wall thickening or pericholecystic fluid. The sonographic Harrison's sign is negative. COMMON BILE DUCT: Measures 5.7 mm. No stones. No dilatation. PANCREAS: Unremarkable as visualized. No mass. No ductal dilatation. RIGHT KIDNEY: Measures 11.8cm. Normal echogenicity. No calculus, mass, or hydronephrosis. LEFT KIDNEY: Measures 11.5cm. Normal echogenicity. No calculus, mass, or hydronephrosis. SPLEEN: Enlarged and measures 15.1 cm. AORTA: No aneurysmal dilatation. IVC: Unremarkable. OTHER FINDINGS: None. IMPRESSION: 1. Mild hepatosplenomegaly. 2. Diffuse increased echogenicity in the liver may reflect hepatic steatosis however parenchymal infectious/ inflammatory etiologies cannot be entirely excluded. Clinical and laboratory correlation is advised. 3. Mild dilatation of the common bile duct without sonographic evidence for choledocholithiasis. If clinically indicated, an MRCP may be performed to exclude distal obstruction.
[2017-09-24 17:10] LABS: HEPATITIS B SURFACE AG Negative (NEGATIVE)
[2017-09-24 17:16] LABS: HEPATITIS A IGM NEGATIVE (NEGATIVE); HEPATITIS B CORE AB NEGATIVE (NEGATIVE)
[2017-09-24 17:27] LABS: HEPATITIS C ANTIBODY NEGATIVE (NEGATIVE)
--- NOTE | 2017-09-25 06:45 | CP.PCM.PN ---
<Prasad Dent - Last Filed: 09/25/17 09:05> Subjective - Date & Time of Evaluation Date of Evaluation: 09/25/17 Time of Evaluation: 06:10 - Subjective Subjective: GI progress note: Pt seen and examined at bedside. No acute events overnight. Pt still complaining of body aches. Denies any further episodes of orange urine. 12 Point ROS performed and negative other than stated above. Objective - Vital Signs/Intake and Output Vital Signs (last 24 hours): Temp Pulse Resp BP Pulse Ox 98.5 F 77 20 129/87 97 09/25/17 00:00 09/25/17 00:00 09/25/17 00:00 09/25/17 00:00 09/25/17 00:00 Intake and Output: 09/24/17 09/25/17 18:59 06:59 Intake Total 120 660 Output Total 0 Balance 120 660 - Medications Medications: Current Medications Acetaminophen (Tylenol 325mg Tab) 650 mg PO Q6H PRN PRN Reason: Pain, moderate (4-7) Last Admin: 09/23/17 22:13 Dose: 650 mg Amlodipine Besylate (Norvasc) 5 mg PO DAILY [facility] Last Admin: 09/24/17 10:18 Dose: 5 mg Aspirin (Ecotrin) 81 mg PO QAM [facility] Last Admin: 09/24/17 10:16 Dose: 81 mg Cholestyramine Resin (Questran) 4 gm PO BID PRN PRN Reason: Constipation Glipizide (Glucotrol) 5 mg PO BID [facility] Last Admin: 09/24/17 17:32 Dose: 5 mg Insulin Human Lispro (Humalog Low) 0 units SC [facility] PRN Reason: Protocol Last Admin: 09/24/17 22:11 Dose: Not Given Lisinopril (Zestril) 20 mg PO QAM [facility] Last Admin: 09/24/17 10:19 Dose: 20 mg Metoprolol Tartrate (Lopressor) 100 mg PO BID [facility] Last Admin: 09/24/17 17:32 Dose: 100 mg Non-Formulary Medication (Methylcellulose [Fiber]) 500 mg PO BID [facility] Last Admin: 09/24/17 17:33 Dose: Not Given Ondansetron HCl (Zofran Tab) 4 mg PO Q6H PRN PRN Reason: Nausea/Vomiting Last Admin: 09/23/17 20:25 Dose: 4 mg - Constitutional Appears: No Acute Distress - Head Exam Head Exam: ATRAUMATIC, NORMOCEPHALIC - Eye Exam Eye Exam: EOMI - ENT Exam ENT Exam: Mucous Membranes Moist - Respiratory Exam Respiratory Exam: Clear to Ausculation Bilateral. absent: Wheezes - Cardiovascular Exam Cardiovascular Exam: REGULAR RHYTHM, +S1, +S2 - GI/Abdominal Exam GI & Abdominal Exam: Soft. absent: Tenderness - Neurological Exam Neurological Exam: Alert, Awake, Oriented x3 - Psychiatric Exam Psychiatric exam: Normal Affect, Normal Mood - Skin Skin Exam: Dry, Intact Assessment and Plan - Assessment and Plan (Free Text) Assessment: 6 year old male, whose PMHx includes Crohn's ileitis s/p resection of TI with right hemicolectomy (09/2016) on Remicade, (Budesonide tapered off as of 08/2017 ), SBO, DM, nephrolithiasis presents to the ED for L flank pain, body aches and dark urine. GI team consulted for elevated bilirubin which is now resolved. Likely Gilbert's syndrome. Elevated Bilirubin Crohn's ileitis DM Nephrolithiasis - Diet as tolerated - MRCP w/o contrast ordered for further evaluation and to r/o PSC - Total bili 1.3, Alk Phos 176 this am - Likely [place] syndrome - Pt has not been recently started on any new medications that can cause an elevated bilirubin - Abdominal US - hepatosplenomegally, hepatic steatosis, mild dilation of CBD 5.7cm, no evidence of acut choledocholithiasis - Indirect Bili 3.3 and Direct Bilirubin 0.8 yesterday - primarily indirect, possibly related to Gilbert's - Continue Fiber and Cholestyramine - Pain control - Pepcid PRN - Remicade therapy as outpatient Pt and plan was reviewed and discussed in detail with Dr Evans. <Jacques Evans - Last Filed: 09/25/17 16:33> Objective - Vital Signs/Intake and Output Vital Signs (last 24 hours): Temp Pulse Resp BP Pulse Ox 98.5 F 87 20 140/92 H 97 09/25/17 00:00 09/25/17 12:49 09/25/17 00:00 09/25/17 12:49 09/25/17 00:00 Intake and Output: 09/25/17 09/25/17 06:59 18:59 Intake Total 660 450 Output Total 0 Balance 660 450 - Medications Medications: Current Medications Acetaminophen (Tylenol 325mg Tab) 650 mg PO Q6H PRN PRN Reason: Pain, moderate (4-7) Last Admin: 09/23/17 22:13 Dose: 650 mg Amlodipine Besylate (Norvasc) 5 mg PO DAILY [facility] Last Admin: 09/25/17 12:49 Dose: 5 mg Aspirin (Ecotrin) 81 mg PO QAM [facility] Last Admin: 09/25/17 12:49 Dose: 81 mg Cholestyramine Resin (Questran) 4 gm PO BID PRN PRN Reason: Constipation Glipizide (Glucotrol) 5 mg PO BID [facility] Last Admin: 09/25/17 12:49 Dose: 5 mg Insulin Human Lispro (Humalog Low) 0 units SC [facility] PRN Reason: Protocol Last Admin: 09/25/17 12:53 Dose: 2 units Lisinopril (Zestril) 20 mg PO [facility] Last Admin: 09/25/17 12:48 Dose: 20 mg Metoprolol Tartrate (Lopressor) 100 mg PO BID [facility] Last Admin: 09/25/17 12:48 Dose: 100 mg Non-Formulary Medication (Methylcellulose [Fiber]) 500 mg PO BID [facility] Last Admin: 09/25/17 12:49 Dose: Not Given Ondansetron HCl (Zofran Tab) 4 mg PO Q6H PRN PRN Reason: Nausea/Vomiting Last Admin: 09/23/17 20:25 Dose: 4 mg - Labs Labs: 09/25/17 06:30 09/25/17 06:30 PT 12.9 SECONDS (9.4-12.5) H 09/25/17 08:10 INR 1.12 (0.93-1.08) H 09/25/17 08:10 Attending/Attestation - Attestation I have personally seen and examined this patient.: Yes I have fully participated in the care of the patient.: Yes I have reviewed all pertinent clinical information, including history, physical exam and plan: Yes Notes (Text): 09/25/17 16:30 56 year old male with h/o Crohn's disease, we are consulted due to abnormal lfts. 1. Crohn's disease 2. Gilbert's syndrome 3. Elevated alkaline phosphatase 4. Pneumonia Plan: -crohn's disease is stable, on remicade as outpatient, s/p prior r hemicolectomy -mild unconjugated hyperbilirubinemia, which has resolved now, most likely indicative of gilbert's syndrome -chronically elevated alk phos is also mild, ordered mrcp, which did not show any abnormalities or signs of PSC or liver disease -evidence of pneumonia on MRI, would start antibiotics, like levaquin for a short course
[2017-09-25 07:14] LABS: HEMOGLOBIN 11.9 g/dL (14.0-18.0); MEAN CORPUSCULAR HEMOGLOBIN 29.7 pg (25.0-35.0); MEAN CORPUSCULAR HGB CONC 34.5 g/dl (31.0-37.0); MEAN PLATELET VOLUME 10.3 fl (7.0-11.0); RBC 4.01 10^6/uL (3.5-6.1); RED CELL DISTRIBUTION WIDTH 12.2 % (11.5-14.5); WHITE BLOOD COUNT 3.5 10^3/ul (4.5-11.0)
[2017-09-25 07:35] LABS: ALB/GLOB RATIO 1.1 (1.1-1.8); ALBUMIN 3.6 g/dL (3.0-4.8); ALT/SGPT 35 U/L (7-56); AST/SGOT 29 U/L (17-59); BLOOD UREA NITROGEN 16 mg/dL (7-21); GFR AFRICAN-AMERICAN > 60; GFR NON-AFRICAN AMERICAN > 60
[2017-09-25] MEDS: Insulin Lispro (humaLOG) LOW Coverage SC SCH ×4 (08:11→21:16)
[2017-09-25 08:47] LABS: INR 1.12 (0.93-1.08); PROTHROMBIN TIME 12.9 SECONDS (9.4-12.5)
--- NOTE | 2017-09-25 09:54 | PN ---
DATE: 09/24/2017 DAILY PROGRESS NOTE SUBJECTIVE: The patient is a 56-year-old male with a past medical history positive for hyperlipidemia, transient ischemic attack, Crohn disease, small bowel obstruction, who presented to the emergency room complaining of left flank pain. He said this pain was totally different from his usual IBS symptoms. He is status post hemicolectomy. The patient was evaluated by GI, Dr. Evans. Of note is the patient's bilirubin was elevated at 3.3, alkaline phosphatase was elevated at 159. CK was negative. His urine showed small amount of bilirubin and high amount of urobilinogen. It was leukocyte esterase negative. White blood cells were between 1 and 3. So the patient was admitted with a diagnosis of pyelonephritis; however, the direction of his workup seemed to be more towards the liver and gallbladder. The ultrasound of the abdomen suggested mild hepatosplenomegaly, hepatic steatosis; however, parenchymal infections and inflammatory etiologies cannot be excluded. There was a mild dilatation of the bile duct without sonographic evidence for cholelithiasis. At this point, we are considering MRCP versus ERCP for the patient. When seen today, the patient is relatively comfortable. He does receive episodes of pain in the flank. However, it is tolerable. His vital signs were stable. Lungs were clear anteriorly. Heart is regular. On lab work, the sodium is 135, potassium 4.4, BUN and creatinine are 33 and 0.8 respectively, glucose is 304. So we are considering further workup of the liver and gallbladder. Case to be discussed with GI. Rolo Olson MD
--- NOTE | 2017-09-25 12:18 | MRI ---
PROCEDURE: Magnetic Resonance Cholangiopancreatography HISTORY: IBD rule out PSC COMPARISON: None available. TECHNIQUE: Multiplanar, multisequence MR images of the abdomen were obtained, including heavily T2 weighted MRCP images of the biliary system. Rotating maximum intensity projection images of the biliary system were generated. FINDINGS: MRCP: The common bile duct is of a normal caliber. No evidence of choledocholithiasis. No intrahepatic biliary ductal dilatation. LIVER: Unremarkable. GALLBLADDER: Unremarkable. SPLEEN: Unremarkable. PANCREAS: Unremarkable. ADRENALS: Unremarkable. KIDNEYS: Unremarkable. AORTA: No aneurysm. ASCITES: None. OTHER FINDINGS: There is a focal area of consolidation in the left lower lobe. IMPRESSION: No evidence of biliary abnormality. Focal area of consolidation in the left lower lobe suspicious for pneumonia.
[2017-09-25] MEDS: METHYLCELLULOSE 500 MG PO SCH ×2 (12:49→18:18)
--- NOTE | 2017-09-26 06:26 | CP.PCM.PN ---
<PilloSejal - Last Filed: 09/26/17 10:35> Subjective - Date & Time of Evaluation Date of Evaluation: 09/26/17 Time of Evaluation: 06:21 - Subjective Subjective: Gastroenterology Fellow/PGY5 Progress Note Patient feels well. Tolerating diet. One bowel movement yesterday. A 12-point review of systems negative except for as above. Objective - Vital Signs/Intake and Output Vital Signs (last 24 hours): Temp Pulse Resp BP Pulse Ox 98.5 F 80 20 133/92 H 96 09/25/17 00:00 09/25/17 17:39 09/25/17 00:00 09/25/17 17:39 09/25/17 16:00 Intake and Output: 09/25/17 09/26/17 18:59 06:59 Intake Total 450 1020 Balance 450 1020 - Medications Medications: Current Medications Acetaminophen (Tylenol 325mg Tab) 650 mg PO Q6H PRN PRN Reason: Pain, moderate (4-7) Last Admin: 09/23/17 22:13 Dose: 650 mg Amlodipine Besylate (Norvasc) 5 mg PO DAILY [facility] Last Admin: 09/25/17 12:49 Dose: 5 mg Aspirin (Ecotrin) 81 mg PO QAM [facility] Last Admin: 09/25/17 12:49 Dose: 81 mg Cholestyramine Resin (Questran) 4 gm PO BID PRN PRN Reason: Constipation Glipizide (Glucotrol) 5 mg PO BID [facility] Last Admin: 09/25/17 17:39 Dose: 5 mg Insulin Human Lispro (Humalog Low) 0 units SC [facility] PRN Reason: Protocol Last Admin: 09/25/17 21:16 Dose: Not Given Lisinopril (Zestril) 20 mg PO QAM [facility] Last Admin: 09/25/17 12:48 Dose: 20 mg Metoprolol Tartrate (Lopressor) 100 mg PO BID [facility] Last Admin: 09/25/17 17:39 Dose: 100 mg Non-Formulary Medication (Methylcellulose [Fiber]) 500 mg PO BID [facility] Last Admin: 09/25/17 18:18 Dose: Not Given Ondansetron HCl (Zofran Tab) 4 mg PO Q6H PRN PRN Reason: Nausea/Vomiting Last Admin: 09/23/17 20:25 Dose: 4 mg - Labs Labs: 09/25/17 06:30 09/25/17 06:30 PT 12.9 SECONDS (9.4-12.5) H 09/25/17 08:10 INR 1.12 (0.93-1.08) H 09/25/17 08:10 - Constitutional Appears: Non-toxic, No Acute Distress - Head Exam Head Exam: ATRAUMATIC, NORMOCEPHALIC - Eye Exam Eye Exam: EOMI, PERRL. absent: Scleral icterus Pupil Exam: PERRL. absent: Miosis, Mydriatic - ENT Exam ENT Exam: Mucous Membranes Moist, Normal Oropharynx - Neck Exam Neck Exam: Full ROM, Normal Inspection - Respiratory Exam Respiratory Exam: Clear to Ausculation Bilateral. absent: Rales, Rhonchi, Wheezes - Cardiovascular Exam Cardiovascular Exam: RRR, +S1, +S2. absent: Gallop, Rubs - GI/Abdominal Exam GI & Abdominal Exam: Soft, Normal Bowel Sounds. absent: Firm, Guarding, Rigid, Diminished Bowel Sounds, Organomegaly - Extremities Exam Extremities Exam: Full ROM, Normal Inspection - Neurological Exam Neurological Exam: Alert, Awake - Psychiatric Exam Psychiatric exam: Normal Affect, Normal Mood - Skin Skin Exam: Dry, Intact, Normal Color, Warm Assessment and Plan - Assessment and Plan (Free Text) Assessment: 56 year old male with history of Diabetes and Crohn's ileitis on Remicade s/p right hemicolectomy with end-to-end ileocolonic anastomosis (09/2016) presenting with orange urine. Active treatment of unconjugated hyperbilirubinemia 2/2 Gilbert's syndrome and elevated alkaline phosphatase. Plan: >MRCP- no signs of strictures or biliary dilatations >ruled out PSC >continue diet >monitor LFTs >LLL Pneumonia in MRCP-recommend antibiotic course >okay to discharge from GI standpoint <Adair Polanco MD - Last Filed: 09/26/17 13:17> Objective - Vital Signs/Intake and Output Vital Signs (last 24 hours): Temp Pulse Resp BP Pulse Ox 98.1 F 76 16 132/85 97 09/26/17 08:19 09/26/17 08:19 09/26/17 08:19 09/26/17 08:19 09/26/17 08:19 Intake and Output: 09/26/17 09/26/17 06:59 18:59 Intake Total 1020 Balance 1020 - Medications Medications: Current Medications Acetaminophen (Tylenol 325mg Tab) 650 mg PO Q6H PRN PRN Reason: Pain, moderate (4-7) Last Admin: 09/23/17 22:13 Dose: 650 mg Amlodipine Besylate (Norvasc) 5 mg PO DAILY [facility] Last Admin: 09/26/17 09:40 Dose: 5 mg Aspirin (Ecotrin) 81 mg PO QAM [facility] Last Admin: 09/26/17 09:40 Dose: 81 mg Cholestyramine Resin (Questran) 4 gm PO BID PRN PRN Reason: Constipation Glipizide (Glucotrol) 5 mg PO BID [facility] Last Admin: 09/26/17 09:41 Dose: 5 mg Insulin Human Lispro (Humalog Low) [address] [facility] PRN Reason: Protocol Last Admin: 09/25/17 21:16 Dose: Not Given Lisinopril (Zestril) 20 mg PO [facility] Last Admin: 09/26/17 09:42 Dose: 20 mg Metoprolol Tartrate (Lopressor) 100 mg PO BID [facility] Last Admin: 09/26/17 09:42 Dose: 100 mg Non-Formulary Medication (Methylcellulose [Fiber]) 500 mg PO BID [facility] Last Admin: 09/25/17 18:18 Dose: Not Given Ondansetron HCl (Zofran Tab) 4 mg PO Q6H PRN PRN Reason: Nausea/Vomiting Last Admin: 09/23/17 20:25 Dose: 4 mg - Labs Labs: 09/26/17 08:40 09/26/17 08:40 PT 12.9 SECONDS (9.4-12.5) H 09/25/17 08:10 INR 1.12 (0.93-1.08) H 09/25/17 08:10 Attending/Attestation - Attestation I have personally seen and examined this patient.: Yes I have fully participated in the care of the patient.: Yes I have reviewed all pertinent clinical information, including history, physical exam and plan: Yes Notes (Text): 09/26/17 13:14 This is a 56 year old male with history of Diabetes and Crohn's ileitis on Remicade s/p right hemicolectomy with end-to-end ileocolonic anastomosis (2016) presenting with orange urine which is resolved. MRCP ruled out PSC in setting of elevated ALk PO. Continue regular diet. No new labs today. LLL PNA- recommend short duration antibiotics. Can be discharged to home for GI perspective if medically cleared for PNA
[2017-09-26 07:19] LABS: PH,URINE 6.5 (4.7-8.0); URINE BILIRUBIN NEGATIVE (NEGATIVE); URINE BLOOD NEGATIVE (NEGATIVE); URINE GLUCOSE (UA) 500 mg/dL (NEGATIVE); URINE LEUKOCYTE ESTERASE NEGATIVE Leu/uL (NEGATIVE); URINE NITRATE NEGATIVE (NEGATIVE); URINE PROTEIN NEGATIVE mg/dL (<30 mg/dL); URINE UROBILINOGEN 0.2 E.U./dL (<1 E.U./dL)
[2017-09-26 07:20] LABS: URINE APPEARANCE CLEAR (CLEAR); URINE COLOR YELLOW (YELLOW)
[2017-09-26 08:20] VITALS: RESP 16; O2SAT 97
--- NOTE | 2017-09-26 09:06 | PN ---
DATE: 09/25/2017 SUBJECTIVE: The patient was seen this Sunday morning in room 568 bed 2. He is awake, alert, clear and in good spirits, having just come back from radiology department. Ultrasound was done yesterday and MRCP was done today. The patient still reports dark color urine. AST and ALT are normal. Alk phos is slightly elevated at 176. they were before. The patient says he feels comfortable and that this pain is nothing at all like his prior Crohn's pain, this all may be pyelonephritis and or renal colic as a he has a history of kidney stones in the past. PHYSICAL EXAMINATION: HEAD AND NECK: Unremarkable. LUNGS: Show good aeration in right and left. HEART: Regular. Not tachycardic. ABDOMEN: Tender, but soft. No guarding or rebound. EXTREMITIES: Show no edema. IMPRESSION: Suspected pyelonephritis with dark color urine. Urinalysis showing bacteria. PLAN: We will repeat UA tomorrow. Continue antibiotics. Await results of the MRCP. Kris Olson MD
[2017-09-26 09:10] LABS: BASO # 0.01 K/mm3 (0.0-2.0); BASO % 0.3 % (0.0-3.0); EOS # 0.1 (0.0-0.7); EOS % 2.6 % (1.5-5.0); GRAN # 2.17 (1.4-6.5); GRAN % 63.1 % (50.0-68.0); HEMOGLOBIN 12.2 g/dL (14.0-18.0); LYMPH # 0.8 (1.2-3.4); LYMPH % 24.1 % (22.0-35.0); MEAN CELL VOLUME 84.5 fl (80.0-105.0); MEAN CORPUSCULAR HEMOGLOBIN 29.5 pg (25.0-35.0); MEAN PLATELET VOLUME 10.4 fl (7.0-11.0); MONO # 0.3 (0.1-0.6); MONO % 9.9 % (1.0-6.0); RBC 4.13 10^6/uL (3.5-6.1); RED CELL DISTRIBUTION WIDTH 11.9 % (11.5-14.5); WHITE BLOOD COUNT 3.4 10^3/ul (4.5-11.0)
[2017-09-26 09:21] LABS: BLOOD UREA NITROGEN 13 mg/dL (7-21); CALCIUM 9.5 mg/dL (8.4-10.5); GFR AFRICAN-AMERICAN > 60; GFR NON-AFRICAN AMERICAN > 60
[2017-09-26] MEDS: Insulin Lispro (humaLOG) LOW Coverage SC SCH ×3 (09:40→17:20)
[2017-09-26] MEDS: METHYLCELLULOSE 500 MG PO SCH ×2 (09:42→18:42)
[2017-09-26 17:20] VITALS: BP 129/83; PULSE 74; TEMP 98.7
== END 2017-09-26 20:33 | disposition home or self-care (01) | DRG 689 ==
LOC: ED 07:40 → ERH 11:44 → 5RNO 12:05 → ERH 12:34 → 5RNO 13:50
PROVIDERS: ADMIT Internal Medicine; ATTEND Internal Medicine
DX: N12 Tubulo-interstitial nephritis, not specified as acute or chronic (principal); J18.9 Pneumonia, unspecified organism; K56.609 Unspecified intestinal obstruction, unspecified as to partial versus complete obstruction; K50.00 Crohn's disease of small intestine without complications; K58.9 Irritable bowel syndrome, unspecified; K76.0 Fatty (change of) liver, not elsewhere classified; N20.0 Calculus of kidney; Z86.73 Personal history of transient ischemic attack (TIA), and cerebral infarction without residual deficits; Z87.442 Personal history of urinary calculi; E80.4 Gilbert syndrome; E78.5 Hyperlipidemia, unspecified; E11.9 Type 2 diabetes mellitus without complications; Z80.3 Family history of malignant neoplasm of breast; Z82.49 Family history of ischemic heart disease and other diseases of the circulatory system; Z87.891 Personal history of nicotine dependence; Z90.49 Acquired absence of other specified parts of digestive tract; Z88.8 Allergy status to other drugs, medicaments and biological substances

== ENCOUNTER 2017-11-05 18:05 | Observation (INO) | payer OTHER ==
[2017-11-05] MEDS ORDERED: Sodium Chloride 0.9% 1,000 ML IV STA (19:58)
--- NOTE | 2017-11-05 20:03 | ED PDOC ---
Arrival/HPI - General Chief Complaint: Abdominal Pain Time Seen by Provider: 11/05/17 19:38 Historian: Patient, Spouse, Family - History of Present Illness Narrative History of Present Illness (Text): you were treated in the ED today for hx of crohn's disease with right hemicolectomy with ileocolic anastomosis 09/2016, diabetes, and with decreased appetite with nausea without vomiting but otherwise without any new foods/ travelheadache/dizziness/difficulty breathing/chest pain/abdomen pain/numbness/ tingling/loss of limb function/pain with urination. your passing gas and having loose non-blood stool. Time/Duration: Other (2 days) Symptom Onset: Gradual Symptom Course: Unchanged Quality: Aching Severity Level: 2 Activities at Onset: Rest Context: Sitting Past Medical History - Provider Review Nursing Documentation Reviewed: Yes - Travel History Have you recently traveled outside [place] w/in the past 3 mons?: No - Infectious Disease Hx of Infectious Diseases: None - Cardiac Hx Cardiac Disorders: Yes Other/Comment: HYPERLIPIDEMIA - Pulmonary Hx Respiratory Disorders: No - Neurological Hx Neurological Disorder: No - HEENT Hx HEENT Disorder: No - Renal Hx Renal Disorder: Yes Hx Kidney Stones: Yes - Endocrine/Metabolic Hx Endocrine Disorders: Yes Hx Diabetes Mellitus Type 2: Yes - Hematological/Oncological Hx Blood Disorders: Yes Hx Blood Transfusions: Yes Other/Comment: BLOOD TRANSFUSION - Integumentary Other/Comment: abd surgical scar - Musculoskeletal/Rheumatological Hx Musculoskeletal Disorders: No - Gastrointestinal Hx Gastrointestinal Disorders: Yes (BILATERAL HERNIA REPAIR) Hx Crohn's Disease: Yes Other/Comment: IBS - Genitourinary/Gynecological Hx Genitourinary Disorders: Yes (HYDROCELE) - Psychiatric Hx Psychophysiologic Disorder: No Hx Substance Use: No - Surgical History Hx Musculoskeletal Surgery: Yes (LEFT SHOULDER) Other/Comment: ABD SX - Anesthesia Hx Anesthesia: Yes - Suicidal Assessment Feels Threatened In Home Enviroment: No Family/Social History - Physician Review Nursing Documentation Reviewed: Yes Family/Social History: No Known Family HX Smoking Status: Never Smoked Hx Alcohol Use: No Hx Substance Use: No Allergies/Home Meds Allergies/Adverse Reactions: Allergies pseudoephedrine HCl [From Sudafed] Allergy (Verified 11/05/17 18:07) "HEART RACES" DENIES NAUSEA Home Medications: Home Meds Medication Instructions Recorded Confirmed Aspirin [Ecotrin] 81 mg PO QAM 05/22/16 11/05/17 Lisinopril [Zestril] 20 mg PO QAM 01/31/17 11/05/17 Cholecalciferol [Vitamin D 1000 IU] 1 tab PO DAILY 02/19/17 11/05/17 Cyanocobalamin [Vitamin B12 1000 1 ml SC Q30D 02/19/17 11/05/17 mcg/ml Inj] Cholestyramine [Questran] 4 gm PO PRN PRN 05/07/17 11/05/17 amLODIPine [Norvasc] 5 mg PO DAILY 05/22/17 11/05/17 Entecort 9 mg PO DAILY 09/23/17 11/05/17 GlipiZIDE [Glucotrol] 5 mg PO BID 09/23/17 11/05/17 Methylcellulose [Fiber] 500 mg PO BID 09/23/17 11/05/17 Review of Systems - Review of Systems Constitutional: Normal Eyes: Normal ENT: Normal Respiratory: Normal Cardiovascular: Normal Gastrointestinal: Abdominal Pain, Stool Changes, Diarrhea, Nausea, Appetite Changes Genitourinary Male: Normal Musculoskeletal: Normal Skin: Normal Neurological: Normal Endocrine: Normal Hemo/Lymphatic: Normal Psychiatric: Normal Physical Exam Vital Signs Reviewed: Yes Vital Signs Temp Pulse Resp BP Pulse Ox 11/05/17 23:51 98 F 72 18 145/85 99 11/05/17 18:12 98.3 F 93 H 16 175/110 H 100 Temperature: Afebrile Blood Pressure: Hypertensive Pulse: Regular Respiratory Rate: Normal Appearance: Positive for: Well-Appearing, Non-Toxic, Comfortable Pain Distress: None Mental Status: Positive for: Alert and Oriented X 3 - Systems Exam Head: Present: Atraumatic, Normocephalic Pupils: Present: PERRL Extroacular Muscles: Present: EOMI Conjunctiva: Present: Normal Ears: Present: Normal Mouth: Present: Moist Mucous Membranes Pharnyx: Present: Normal Nose (External): Present: Atraumatic Nose (Internal): Present: Normal Inspection Neck: Present: Normal Range of Motion Respiratory/Chest: Present: Clear to Auscultation, Good Air Exchange Cardiovascular: Present: Regular Rate and Rhythm Abdomen: No: Tenderness, Distention, Normal Bowel Sounds, Peritoneal Signs, Rebound, Guarding, McBurney's Point Tender, Rovsing's Sign Present, Hernias, Feeding Tubes, Ostomy Tubes, Mass/Organomegaly, Scars, Other Back: Present: Normal Inspection Upper Extremity: Present: Normal Inspection Lower Extremity: Present: Normal Inspection Neurological: Present: GCS=15, CN II-XII Intact, Speech Normal, Motor Func Grossly Intact Skin: Present: Warm, Normal Color Psychiatric: Present: Alert, Oriented x 3, Normal Insight, Normal Concentration Medical Decision Making ED Course and Treatment: you were treated in the ED today for hx of crohn's disease with right hemicolectomy with ileocolic anastomosis 09/2016, diabetes, and with decreased appetite with nausea without vomiting but otherwise without any new foods/ travelheadache/dizziness/difficulty breathing/chest pain/abdomen pain/numbness/ tingling/loss of limb function/pain with urination/testicular or scrotal or penis pain or discharge or bleeding. you refused sexual disease testing or treatment. your passing gas and having loose non-blood stool. You were otherwise breathing easily, pink moist lips, talking with your easily, good strength/sensation, alert/oriented, walking easily, clear lungs, no abdomen tenderness, no fever temp 98.3, stable heart rate 93, stable breathing rate 16, excellent oxygen level 100% room air, elevated blood pressure 175/110 which we recommend repeat in 2-3 days primary care office to determine further treatment, you have blood tests no infection count 4.2, stable blood level hemoglobin 12/platelets 159_, stable chemistry, except for mildly low potassium 3.1 replaced, mildly high Liver bilirubin 1.7 without skin/eye yellowing, heart blood test negative less than 0.01 urine test____, ct abdomen/pelvis radiology__ ___, ECG normal sinus rhythm, intravenous, fluids, toradol, protonix, observation done in the ED with stability. d/w GI Fellow of Dr. Evans who stated observation/cipro/flagyl and will see in the am. Dw Dr. Olson, Ed who accepted to med-surg, [place], ivf. CT Abdomen and Pelvis With Intravenous Contrast Dictated and Authenticated by: Patricia Cline MD 11/05/2017 10:50 PM Eastern Time ([place] & [place]) EXAM DATE/TIME: 11/05/2017 8:55 PM CLINICAL HISTORY: 57 years old, male; Pain; Abdominal pain; Localized; Lower; Additional info: 57yom, crohn's with abdomen pain TECHNIQUE: Axial computed tomography images of the abdomen and pelvis with intravenous contrast. All CT scans at this facility use one or more dose reduction techniques, viz.: automated exposure control; ma/kV adjustment per patient size (including targeted exams where dose is matched to indication; i.e. head); or iterative reconstruction technique. Coronal and sagittal reformatted images were created and reviewed. CONTRAST: 100 mL of OMNI administered intravenously. COMPARISON: CT - ABD PELVIS IV CONTRAST ONLY 2017-07-21 03:39 FINDINGS: Lower thorax: Subsegmental atelectasis in the left lower lobe. There is dependent atelectasis at both lung bases. There is minimal scarring at the lung bases. ABDOMEN: Liver: There is fatty infiltration of the liver. Gallbladder and bile ducts: unremarkable Pancreas: Pancreas is mildly atrophic. Spleen: The spleen is enlarged. Adrenals: unremarkable Kidneys and ureters: There are nonobstructing left renal stones.Kidneys and ureters are otherwise unremarkable. Stomach and bowel: Stomach is almost completely empty. Rotation is normal. There is mild duodenal and proximal jejunal fold prominence. There is mild distal ileal fold thickening. There is fecalization of the distal ileum. There is an ileocecal resection. There is an ileocolic anastomosis in the right flank. There is proximal transverse colon wall thickening There is moderate stool and air in the colon. There is mild rectal wall thickening Appendix: See stomach and bowel PELVIS: Bladder: unremarkable Reproductive: Seminal vesicles and prostate are unremarkable. There are bilateral hydroceles left greater than right. There are postsurgical changes in the right inguinal region. ABDOMEN and PELVIS: Intraperitoneal space: There are postsurgical changes in the intra-abdominal wall and a line. There is a small fat containing left inguinal hernia.There is no free air or free fluid. Bones/joints: There are degenerative changes in the osseus structures. Soft tissues: See above. Vasculature: There are vascular calcifications. Lymph nodes: There is shotty para-aortic adenopathy area IMPRESSION: Enteritis versus enterocolitis,; fatty liver Additional nonemergent findings as described above. 11/06/17 00:12 11/06/17 00:21 Reassessment Condition: Improved - Lab Interpretations Lab Results: 11/05/17 20:12 11/05/17 20:12 Lab Results 11/05/17 20:12: Sodium 142, Potassium 3.1 L, Chloride 102, Carbon Dioxide 32, Anion Gap 12, BUN 15, Creatinine 0.8, Est GFR ( Amer) > 60, Est GFR (Non- Af Amer) > 60, Random Glucose 110, Calcium 9.3, Total Bilirubin 1.7 H, AST 27, ALT 31, Alkaline Phosphatase 95, Troponin I < 0.01, Total Protein 6.9, Albumin 3.9, Globulin 3.0, Albumin/Globulin Ratio 1.3, Lipase 46 11/05/17 20:12: PT 11.6, INR 1.02, APTT 29.4 11/05/17 20:12: WBC 4.2 L D, RBC 4.25, Hgb 12.6 L, Hct 36.2 L, MCV 85.2, MCH 29.6, MCHC 34.8, RDW 13.3, Plt Count 159, MPV 10.0, Gran % 67.4, Lymph % (Auto) 24.7, [place] % (Auto) 6.7 H, Eos % (Auto) 1.0 L, Baso % (Auto) 0.2, Gran # 2.81, Lymph # (Auto) 1.0 L, [place] # (Auto) 0.3, Eos # (Auto) 0.0, Baso # (Auto) 0.01 I have reviewed the lab results: Yes - RAD Interpretation Radiology Orders: 11/05/17 20:55 ABDOMEN & PELVIS [ABD & PELVIS IV CONTRAST ONLY] [CT] Stat Corrections Corporal: Radiologist (ct a/p see mdm.) - EKG Interpretation Interpreted by ED Physician: Yes (NSR, flipped t waves avr, v1, iii.) Type: 12 lead EKG - Medication Orders Current Medication Orders: Ciprofloxacin (Cipro 400mg/200ml Dsw) 400 mg in 200 mls @ 133.3 mls/hr IVPB STAT STA PRN Reason: Protocol Stop: 11/06/17 01:41 Metronidazole (Flagyl) 500 mg in 100 mls @ 100 mls/hr IVPB STAT STA PRN Reason: Protocol Stop: 11/06/17 01:10 Discontinued Medications Sodium Chloride (Sodium Chloride 0.9%) 1,000 mls @ 1,000 mls/hr IV .Q1H STA Stop: 11/05/17 20:57 Last Admin: 11/05/17 20:27 Dose: 1,000 mls/hr eMAR Start Stop Document 11/05/17 20:27 SS (Rec: 11/05/17 20:27 SS [place] [id number]) Intravenous Solution Start Date 11/05/17 Start Time 20:27 End Date 11/05/17 End time 21:27 Total Infusion Time 60 Ketorolac Tromethamine (Toradol) 30 mg IVP STAT STA Stop: 11/05/17 19:59 Last Admin: 11/05/17 20:26 Dose: 30 mg MAR Pain Assessment Document 11/05/17 20:26 SS (Rec: 11/05/17 20:26 SS [place] [id number]) Pain Reassessment Is this a pain reassessment? No Sleep Is patient sleeping during reassessment? No Presence of Pain Presence of Pain Yes Pain Scale Used Pain Scale Used Numeric Location Pain Location Body Site Abdomen IVP Administration Document 11/05/17 20:26 SS (Rec: 11/05/17 20:26 SS [place] [id number]) Charges for Administration # of IVP Administrations 1 Ondansetron HCl (Zofran Inj) 4 mg IVP STAT STA Stop: 11/05/17 19:59 Last Admin: 11/05/17 20:26 Dose: 4 mg IVP Administration Document 11/05/17 20:26 SS (Rec: 11/05/17 20:27 SS [place] [id number]) Charges for Administration # of IVP Administrations 1 Pantoprazole Sodium (Protonix Inj) 40 mg IVP STAT STA Stop: 11/05/17 19:59 Last Admin: 11/05/17 20:26 Dose: 40 mg IVP Administration Document 11/05/17 20:26 SS (Rec: 11/05/17 20:26 SS [place] [id number]) Charges for Administration # of IVP Administrations 1 Potassium Chloride (K-Dur 20 Meq Er Tab) 40 meq PO STAT STA Stop: 11/05/17 20:56 Last Admin: 11/05/17 22:36 Dose: 40 meq Disposition/Present on Arrival - Present on Arrival Any Indicators Present on Arrival: No History of DVT/PE: No History of Uncontrolled Diabetes: No Urinary Catheter: No History of Decub. Ulcer: No History Surgical Site Infection Following: None - Disposition Have Diagnosis and Disposition been Completed?: Yes Diagnosis: Enterocolitis, Enteritis Disposition: HOSPITALIZED Disposition Time: 00:22 Patient Plan: Admission Condition: IMPROVED Referrals: Kris Olson MD [Primary Care Provider] - Follow up with primary Forms: [employer] (Yoruba)
[2017-11-05 20:29] LABS: BASO # 0.01 K/mm3 (0.0-2.0); BASO % 0.2 % (0.0-3.0); GRAN # 2.81 (1.4-6.5); GRAN % 67.4 % (50.0-68.0); HEMOGLOBIN 12.6 g/dL (14.0-18.0); LYMPH % 24.7 % (22.0-35.0); MEAN CELL VOLUME 85.2 fl (80.0-105.0); MEAN CORPUSCULAR HEMOGLOBIN 29.6 pg (25.0-35.0); MEAN CORPUSCULAR HGB CONC 34.8 g/dl (31.0-37.0); MONO # 0.3 (0.1-0.6); MONO % 6.7 % (1.0-6.0); RBC 4.25 10^6/uL (3.5-6.1); RED CELL DISTRIBUTION WIDTH 13.3 % (11.5-14.5); WHITE BLOOD COUNT 4.2 10^3/ul (4.5-11.0)
[2017-11-05 20:35] LABS: ALB/GLOB RATIO 1.3 (1.1-1.8); ALBUMIN 3.9 g/dL (3.0-4.8); ALT/SGPT 31 U/L (7-56); AST/SGOT 27 U/L (17-59); BLOOD UREA NITROGEN 15 mg/dL (7-21); CALCIUM 9.3 mg/dL (8.4-10.5); GFR AFRICAN-AMERICAN > 60; GFR NON-AFRICAN AMERICAN > 60; LIPASE 46 U/L (23-300)
[2017-11-05 20:37] LABS: INR 1.02 (0.93-1.08); PARTIAL THROMBOPLASTIN TIME 29.4 Seconds (25.1-36.5); PROTHROMBIN TIME 11.6 SECONDS (9.4-12.5)
[2017-11-05 20:46] LABS: TROPONIN I < 0.01 ng/mL
[2017-11-05] MEDS ORDERED: Potassium Chloride 20 mEq ER Tab PO STA (20:55)
[2017-11-05] MEDS ORDERED: Iohexol 350 MG/100 ML VIAL ONE (21:05)
--- NOTE | 2017-11-05 22:50 | CT ---
EXAM: CT Abdomen and Pelvis With Intravenous Contrast EXAM DATE/TIME: 11/05/2017 8:55 PM CLINICAL HISTORY: 57 years old, male; Pain; Abdominal pain; Localized; Lower; Additional info: 57yom, crohn's with abdomen pain TECHNIQUE: Axial computed tomography images of the abdomen and pelvis with intravenous contrast. All CT scans at this facility use one or more dose reduction techniques, viz.: automated exposure control; ma/kV adjustment per patient size (including targeted exams where dose is matched to indication; i.e. head); or iterative reconstruction technique. Coronal and sagittal reformatted images were created and reviewed. CONTRAST: 100 mL of OMNI administered intravenously. COMPARISON: CT - ABD PELVIS IV CONTRAST ONLY 2017-07-21 03:39 FINDINGS: Lower thorax: Subsegmental atelectasis in the left lower lobe. There is dependent atelectasis at both lung bases. There is minimal scarring at the lung bases. ABDOMEN: Liver: There is fatty infiltration of the liver. Gallbladder and bile ducts: unremarkable Pancreas: Pancreas is mildly atrophic. Spleen: The spleen is enlarged. Adrenals: unremarkable Kidneys and ureters: There are nonobstructing left renal stones.Kidneys and ureters are otherwise unremarkable. Stomach and bowel: Stomach is almost completely empty. Rotation is normal. There is mild duodenal and proximal jejunal fold prominence. There is mild distal ileal fold thickening. There is fecalization of the distal ileum. There is an ileocecal resection. There is an ileocolic anastomosis in the right flank. There is proximal transverse colon wall thickening There is moderate stool and air in the colon. There is mild rectal wall thickening Appendix: See stomach and bowel PELVIS: Bladder: unremarkable Reproductive: Seminal vesicles and prostate are unremarkable. There are bilateral hydroceles left greater than right. There are postsurgical changes in the right inguinal region. ABDOMEN and PELVIS: Intraperitoneal space: There are postsurgical changes in the intra-abdominal wall and a line. There is a small fat containing left inguinal hernia.There is no free air or free fluid. Bones/joints: There are degenerative changes in the osseus structures. Soft tissues: See above. Vasculature: There are vascular calcifications. Lymph nodes: There is shotty para-aortic adenopathy area IMPRESSION: Enteritis versus enterocolitis,; fatty liver Additional nonemergent findings as described above.
[2017-11-06] MEDS ORDERED: metroNIDAZOLE IV 500 mg/100 ml 500 MG/100 ML BAG IVPB STA (00:11)
[2017-11-06] MEDS ORDERED: Ciprofloxacin 400mg/200ml D5W 400 MG/200 ML BAG IVPB STA (00:11)
[2017-11-06] MEDS: Lactated Ringer's 1,000 ML IV SCH ×3 (00:54→23:09)
[2017-11-06 01:40] LABS: PH,URINE 6.5 (4.7-8.0); URINE BILIRUBIN NEGATIVE (NEGATIVE); URINE BLOOD NEGATIVE (NEGATIVE); URINE GLUCOSE (UA) NEGATIVE (NEGATIVE); URINE LEUKOCYTE ESTERASE NEGATIVE Leu/uL (NEGATIVE); URINE NITRATE NEGATIVE (NEGATIVE); URINE PROTEIN NEGATIVE mg/dL (<30 mg/dL); URINE UROBILINOGEN 0.2 E.U./dL (<1 E.U./dL)
[2017-11-06 01:41] LABS: URINE APPEARANCE CLEAR (CLEAR); URINE COLOR YELLOW (YELLOW)
[2017-11-06 02:34] VITALS: BMI 21.1
[2017-11-06 08:50] VITALS: RESP 20
--- NOTE | 2017-11-06 10:08 | CP.PCM.CON ---
<Argleia Holliday - Last Filed: 11/06/17 13:08> History of Present Illness - History of Present Illness History of Present Illness: GI Fellow PGY4 Consult Note: This is a 57 year old male with PMHx of Crohn's ileitis s/p resection of TI with right hemicolectomy (09/2016) on Remicaide, SBO, DM, nephrolithiasis presents to the ED for adominal pain, nausea, vomiting and diarrhea. Pt states that for the last few weeks he has not been feeling well. He initially thought that it was a GI bug that would get better but he developed severe abdominal pain associated with watery diarrhea. He reports the diarrhea is worse than his Crohns. Pt was recently on abx 2 months ago for PNA, levaquin. Last Remicaide was one month ago. Pt feels better this morning and had one episode of diarrhea since ER visit. CT imaging shows small bowel inflammation. 12 Point ROS performed and negative other than stated above. 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, Internal Hemorrhoids Past Patient History - Infectious Disease Hx of Infectious Diseases: None - Past Social History Smoking Status: Never Smoked - CARDIAC Hx Hypertension: Yes Other/Comment: HYPERLIPIDEMIA - PULMONARY Hx Respiratory Disorders: No - NEUROLOGICAL Hx Neurological Disorder: No - HEENT Hx HEENT Problems: No - RENAL Hx Kidney Stones: Yes - ENDOCRINE/METABOLIC Hx Diabetes Mellitus Type 2: Yes - HEMATOLOGICAL/ONCOLOGICAL Hx Blood Disorders: Yes Hx Blood Transfusions: Yes Other/Comment: BLOOD TRANSFUSION - INTEGUMENTARY Other/Comment: abd surgical scar - MUSCULOSKELETAL/RHEUMATOLOGICAL Hx Falls: No - GASTROINTESTINAL Hx Gastrointestinal Disorders: Yes (BILATERAL HERNIA REPAIR) Hx Crohn's Disease: Yes - GENITOURINARY/GYNECOLOGICAL Hx Genitourinary Disorders: Yes (HYDROCELE) - PSYCHIATRIC Hx Psychophysiologic Disorder: No - SURGICAL HISTORY Other/Comment: right hemicolectomy - ANESTHESIA Hx Anesthesia: Yes Meds Allergies/Adverse Reactions: Allergies Allergy/AdvReac Type Severity Reaction Status Date / Time pseudoephedrine HCl Allergy "HEART Verified 11/05/17 18:07 [From Sudafed] RACES" - Medications Medications: Current Medications Lactated Ringer's (Lactated Ringer's) 1,000 mls @ 100 mls/hr IV .Q10H HEATHER Last Admin: 11/06/17 00:54 Dose: 100 mls/hr Physical Exam - Constitutional Appears: Non-toxic, No Acute Distress - Head Exam Head Exam: ATRAUMATIC, NORMAL INSPECTION, NORMOCEPHALIC - Eye Exam Eye Exam: EOMI, Normal appearance, PERRL - ENT Exam ENT Exam: Mucous Membranes Moist - Respiratory Exam Respiratory Exam: Clear to Auscultation Bilateral, NORMAL BREATHING PATTERN - Cardiovascular Exam Cardiovascular Exam: REGULAR RHYTHM - GI/Abdominal Exam GI & Abdominal Exam: Normal Bowel Sounds, Soft. absent: Distended, Guarding - Rectal Exam Rectal Exam: Deferred - Back Exam Back exam: NORMAL INSPECTION - Neurological Exam Neurological exam: Alert, Oriented x3 - Psychiatric Exam Psychiatric exam: Normal Affect, Normal Mood - Skin Skin Exam: Dry, Intact, Normal Color, Warm Results - Vital Signs Recent Vital Signs: Last Vital Signs Temp 98.0 F 11/06/17 07:30 Pulse 72 11/06/17 07:30 Resp 20 11/06/17 07:30 BP 142/85 11/06/17 07:30 Pulse Ox 98 11/06/17 07:30 - Labs Result Diagrams: 11/05/17 20:12 11/05/17 20:12 Labs: Laboratory Results - last 24 hr 11/06/17 11/06/17 00:30 07:37 POC Glucose (mg/dL) 105 Urine Color Yellow Urine Appearance Clear Urine pH 6.5 Ur Specific Cas[place] <= 1.005 Urine Protein Negative Urine Glucose (UA) Negative Urine Ketones Negative Urine Blood Negative Urine Nitrate Negative Urine Bilirubin Negative Urine Urobilinogen 0.2 Ur Leukocyte Esterase Negative Assessment & Plan - Assessment and Plan (Free Text) Assessment: This is a 57yM with hx of Crohns disease presenting with abdominal pain, vomiting and diarrhea. 1. Enterocolitis-likely viral 2. Diarrhea- r/o infectious etiology 3. Crohns Disease Plan: -Continue supportive care with pain control and anti-emetics -IVF hydration -Liquid diet, advance as tolerated -Send stool studies for infectious etilogy, r/o Cdiff with recent abx use -CT imaging reviewed -Pt given one time dose of abx in ER, no fevers or WBC, will hold abx for now -Pt will need to follow up outpt -Will continue to follow closely <Jacques Evans - Last Filed: 11/06/17 13:58> Meds - Medications Medications: Current Medications Acetaminophen (Tylenol 325mg Tab) 650 mg PO Q4H PRN PRN Reason: Pain, Mild (1-3) Last Admin: 11/06/17 12:11 Dose: 650 mg Lactated Ringer's (Lactated Ringer's) 1,000 mls @ 100 mls/hr IV .Q10H HEATHER Last Admin: 11/06/17 00:54 Dose: 100 mls/hr Results - Vital Signs Recent Vital Signs: Last Vital Signs Temp 98.0 F 11/06/17 07:30 Pulse 72 11/06/17 07:30 Resp 20 11/06/17 07:30 BP 142/85 11/06/17 07:30 Pulse Ox 98 11/06/17 07:30 - Labs Result Diagrams: 11/05/17 20:12 11/05/17 20:12 Labs: Laboratory Results - last 24 hr 11/06/17 11/06/17 11/06/17 00:30 07:37 11:31 POC Glucose (mg/dL) 105 146 H Urine Color Yellow Urine Appearance Clear Urine pH 6.5 Ur Specific [place] <= 1.005 Urine Protein Negative Urine Glucose (UA) Negative Urine Ketones Negative Urine Blood Negative Urine Nitrate Negative Urine Bilirubin Negative Urine Urobilinogen 0.2 Ur Leukocyte Esterase Negative Attending/Attestation - Attestation I have personally seen and examined this patient.: Yes I have fully participated in the care of the patient.: Yes I have reviewed all pertinent clinical information: Yes Notes (Text): 11/06/17 13:56 57 year old male with h/o Crohn's disease s/p R hemicolecotmy on Remicade therapy admitted with abdominal pain. He is improving. Advance to regular diet. CT without significant change from prior CT. Anticipate discharge tomorrow.
--- NOTE | 2017-11-06 21:19 | CARD ---
APPROVED REPORT EKG Measurement Heart [id number] MI [id number] <Conclusion> Normal sinus rhythm Normal ECG
[2017-11-07 07:48] VITALS: BP 161/97; PULSE 73; TEMP 98.2; O2SAT 99
--- NOTE | 2017-11-07 09:02 | CP.PCM.PN ---
Subjective - Date & Time of Evaluation Date of Evaluation: 11/07/17 Time of Evaluation: 06:55 - Subjective Subjective: GI Fellow PGY4 Progress Note Pt seen and evaluated at bedside, but denies any abdominal pain, no more N/V. No diarrhea this am but overnight its improved to his baseline. Tolerating diet with no problems. ROS: A 12pt ROS was negative except as above Objective - Vital Signs/Intake and Output Vital Signs (last 24 hours): Temp Pulse Resp BP Pulse Ox 98.2 F 73 20 161/97 H 99 11/07/17 07:48 11/07/17 07:48 11/07/17 07:48 11/07/17 07:48 11/07/17 07:48 Intake and Output: 11/07/17 11/07/17 06:59 18:59 Intake Total 3240 Balance 3240 - Medications Medications: Current Medications Acetaminophen (Tylenol 325mg Tab) 650 mg PO Q4H PRN PRN Reason: Pain, Mild (1-3) Last Admin: 11/06/17 12:11 Dose: 650 mg Lactated Ringer's (Lactated Ringer's) 1,000 mls @ 100 mls/hr IV .Q10H HEATHER Last Admin: 11/06/17 23:09 Dose: 100 mls/hr Lisinopril (Zestril) 20 mg PO DAILY HEATHER Metoprolol Tartrate (Lopressor) 100 mg PO [facility] - Labs Labs: PT 11.6 SECONDS (9.4-12.5) 11/05/17 20:12 INR 1.02 (0.93-1.08) 11/05/17 20:12 APTT 29.4 Seconds (25.1-36.5) 11/05/17 20:12 - Constitutional Appears: Non-toxic, No Acute Distress - Head Exam Head Exam: ATRAUMATIC, NORMAL INSPECTION, NORMOCEPHALIC - Eye Exam Eye Exam: EOMI, Normal appearance, PERRL Pupil Exam: PERRL - ENT Exam ENT Exam: Mucous Membranes Moist - Respiratory Exam Respiratory Exam: Clear to Ausculation Bilateral, NORMAL BREATHING PATTERN - Cardiovascular Exam Cardiovascular Exam: REGULAR RHYTHM - GI/Abdominal Exam GI & Abdominal Exam: Soft, Normal Bowel Sounds. absent: Distended, Rigid, Tenderness - Extremities Exam Extremities Exam: Full ROM, Normal Inspection - Neurological Exam Neurological Exam: Alert, Awake, Oriented x3 - Psychiatric Exam Psychiatric exam: Normal Affect, Normal Mood - Skin Skin Exam: Dry, Intact, Normal Color, Warm Assessment and Plan - Assessment and Plan (Free Text) Assessment: This is a 57yM with hx of Crohns disease presenting with abdominal pain, vomiting and diarrhea. 1. Enterocolitis-likely viral 2. Diarrhea- r/o infectious etiology 3. Crohns Disease Plan: -Pt clinically improved with no further abdominal pain, N/V or multiple episodes of diarrhea -IVF hydration -Tolerating regular diet -Stool studies pending -No indication for abx -Pt okay for discharge
--- NOTE | 2017-11-07 12:51 | PN ---
DATE: 11/06/2017 SUBJECTIVE: The patient was seen this Sunday evening in room 564, bed symptoms have subsided markedly since his analgesics in the ER and IV fluids. Admitted in the packaging inspector hours today. He was seen by GI. Symptoms are improving. I offered him the option of home today versus home tomorrow. I see the meat cutting teacher is requesting him stay overnight. I will check on his condition in the morning, probability of early discharge. The potassium has been supplemented with his Ringer's lactate and oral potassium. He should be ready to go early in the a.m. Kris Olson MD
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
== END 2017-11-07 10:13 | disposition home or self-care (01) ==
LOC: ED 18:05 → ERH 11-06 00:20 → 5RNO 11-06 01:52
PROVIDERS: ADMIT Internal Medicine; ATTEND Internal Medicine
DX: K50.00 Crohn's disease of small intestine without complications (principal); I10 Essential (primary) hypertension; E11.9 Type 2 diabetes mellitus without complications; K64.8 Other hemorrhoids; E78.5 Hyperlipidemia, unspecified; Z80.3 Family history of malignant neoplasm of breast; Z82.49 Family history of ischemic heart disease and other diseases of the circulatory system; Z87.01 Personal history of pneumonia (recurrent); Z87.891 Personal history of nicotine dependence
CPT/HCPCS: 74177; 80053; 81003; 82948; 83690; 84484; 85025; 85610; 85730; 87086; 93005; 96361; 96374; 96375; 99285; C9113; G0378; J0744; J1885; J2405; J7040; J7120; Q9967

== ENCOUNTER 2018-01-28 01:05 | Observation (INO) | payer OTHER ==
--- NOTE | 2018-01-28 01:34 | ED PDOC ---
Arrival/HPI - General Chief Complaint: Lower Extremity Problem/Injury Time Seen by Provider: 01/28/18 01:14 Historian: Patient - History of Present Illness Narrative History of Present Illness (Text): 01/28/18 01:28 Alexis Carolina is a 57 year old male, whose past medical history includes Crohn' s disease, diabetes, and hypertension, who presents to the emergency department complaining of left knee pain for the past few days. Patient notes knee pain is worsened with bending and movement. Patient also reports bilateral hand pain and swelling, greater on the right. Patient denies any numbness/weakness/ tingling in the extremity, recent trauma/injury, or any other complaints. PMD: Dr. Olson GI: Dr. Evans Symptom Onset: Gradual Symptom Course: Unchanged Activities at Onset: Light Context: Home Past Medical History - Provider Review Nursing Documentation Reviewed: Yes - Infectious Disease Hx of Infectious Diseases: None - Cardiac Hx Hypertension: Yes Other/Comment: HYPERLIPIDEMIA - Pulmonary Hx Respiratory Disorders: No - Neurological Hx Neurological Disorder: No - HEENT Hx HEENT Disorder: No - Renal Hx Kidney Stones: Yes - Endocrine/Metabolic Hx Diabetes Mellitus Type 2: Yes - Hematological/Oncological Hx Blood Disorders: Yes Hx Blood Transfusions: Yes Other/Comment: BLOOD TRANSFUSION - Integumentary Other/Comment: abd surgical scar - Musculoskeletal/Rheumatological Hx Falls: No - Gastrointestinal Hx Gastrointestinal Disorders: Yes (BILATERAL HERNIA REPAIR) Hx Crohn's Disease: Yes - Genitourinary/Gynecological Hx Genitourinary Disorders: Yes (HYDROCELE) - Psychiatric Hx Psychophysiologic Disorder: No Hx Substance Use: No - Surgical History Other/Comment: right hemicolectomy - Anesthesia Hx Anesthesia: Yes - Suicidal Assessment Feels Threatened In Home Enviroment: No Family/Social History - Physician Review Nursing Documentation Reviewed: Yes Family/Social History: Unknown Family HX Smoking Status: Never Smoked Hx Alcohol Use: No Hx Substance Use: No Allergies/Home Meds Allergies/Adverse Reactions: Allergies pseudoephedrine HCl [From Sudafed] Allergy (Verified 11/05/17 18:07) "HEART RACES" DENIES NAUSEA Home Medications: Home Meds Medication Instructions Recorded Confirmed Aspirin [Ecotrin] 81 mg PO QAM 05/22/16 12/13/17 Lisinopril [Zestril] 20 mg PO QAM 01/31/17 12/13/17 Cholecalciferol [Vitamin D 1000 IU] 1 tab PO DAILY 02/19/17 12/13/17 Cyanocobalamin [Vitamin B12 1000 1 ml SC Q30D 02/19/17 12/13/17 mcg/ml Inj] Cholestyramine [Questran] 4 gm PO PRN PRN 05/07/17 12/13/17 amLODIPine [Norvasc] 5 mg PO DAILY 05/22/17 12/13/17 GlipiZIDE [Glucotrol] 5 mg PO BID 09/23/17 12/13/17 Methylcellulose [Fiber] 500 mg PO PRN PRN 09/23/17 12/13/17 Review of Systems - Physician Review All systems were reviewed & negative as marked: Yes - Review of Systems Constitutional: Normal. absent: Fevers Eyes: Normal ENT: Normal Respiratory: Normal. absent: SOB, Cough Cardiovascular: Normal. absent: Chest Pain Gastrointestinal: Normal. absent: Abdominal Pain, Diarrhea, Nausea, Vomiting Genitourinary Male: Normal. absent: Dysuria, Frequency, Hematuria, Urinary Output Changes Musculoskeletal: Arthralgias (+left knee pain, +bilateral hand pain). absent: Back Pain, Neck Pain Skin: Normal. absent: Rash Neurological: Normal. absent: Headache, Dizziness Endocrine: Normal Hemo/Lymphatic: Normal Psychiatric: Normal Physical Exam Vital Signs Reviewed: Yes Vital Signs Temp Pulse Resp BP Pulse Ox 01/28/18 01:33 98.7 F 96 H 18 156/96 H 100 Temperature: Afebrile Blood Pressure: Normal Pulse: Regular Respiratory Rate: Normal Appearance: Positive for: Well-Appearing, Non-Toxic, Comfortable Pain Distress: None Mental Status: Positive for: Alert and Oriented X 3 - Systems Exam Head: Present: Atraumatic, Normocephalic Pupils: Present: PERRL Extroacular Muscles: Present: EOMI Conjunctiva: Present: Normal Mouth: Present: Moist Mucous Membranes Neck: Present: Normal Range of Motion Respiratory/Chest: Present: Clear to Auscultation, Good Air Exchange. No: Respiratory Distress, Accessory Muscle Use Cardiovascular: Present: Regular Rate and Rhythm, Normal S1, S2. No: Murmurs Abdomen: No: Tenderness, Distention, Peritoneal Signs Back: Present: Normal Inspection Upper Extremity: Present: Swelling (Right hand swelling), Temperature Abnormalties (Warmth to the right hand). No: Cyanosis, Edema Lower Extremity: Present: Normal Inspection. No: Edema Neurological: Present: GCS=15, CN II-XII Intact, Speech Normal Skin: Present: Warm, Dry, Normal Color. No: Rashes Psychiatric: Present: Alert, Oriented x 3, Normal Insight, Normal Concentration Medical Decision Making ED Course and Treatment: 01/28/18 01:28 Impression: 57 year old male complaining of left knee pain and bilateral hand discomfort. Plan: -- Labs -- XR Left Hand -- XR Right Hand -- XR Left Knee -- Motrin -- Reassess and disposition Prior Visits: Notes and results from previous visits were reviewed. Progress Notes: 01/28/18 02:38 Reviewed radiology, XR Left Hand shows no acute processes. XR Right Hand shows no acute processes. XR Left Knee shows no acute processes. 01/28/18 03:[address] Olson, who is aware and agrees with plan. Accepts pt in to his service. Pt will go to [facility] observation for cellulitis. - Lab Interpretations Lab Results: 01/28/18 02:10 01/28/18 02:10 Lab Results 01/28/18 02:10: WBC 2.7 L* D, RBC 4.10, Hgb 12.3 L, Hct 34.4 L, MCV 83.9, MCH 30.0, MCHC 35.8, RDW 13.2, Plt Count 125, MPV 10.2 01/28/18 02:10: Sodium 140, Potassium 3.3 L, Chloride 102, Carbon Dioxide 26, Anion Gap 16, BUN 14, Creatinine 0.7 L, Est GFR ( Amer) > 60, Est GFR ( Non-Af Amer) > 60, Random Glucose 208 H, Calcium 8.7, Total Bilirubin 1.1, AST 24, ALT 20, Alkaline Phosphatase 102, Total Protein 6.9, Albumin 4.0, Globulin 2.9, Albumin/Globulin Ratio 1.4 I have reviewed the lab results: Yes - RAD Interpretation Radiology Orders: 01/28/18 01:31 HAND LEFT 3 VIEWS ROUTINE [RAD] Stat HAND RIGHT 3 VIEWS [RAD] Stat KNEE LEFT 2 VIEWS (AP & LAT) [RAD] Stat Paper Winder: ED Physician - Medication Orders Current Medication Orders: Piperacillin Sod/Tazobactam Sod (Zosyn 3.375 In Ns 100ml) 100 mls @ 200 mls/hr IV STAT STA PRN Reason: Protocol Stop: 01/28/18 04:00 Discontinued Medications Ibuprofen (Motrin Tab) 600 mg PO STAT STA Stop: 01/28/18 01:34 Last Admin: 01/28/18 02:22 Dose: 600 mg MAR Pain/Vitals Document 01/28/18 02:22 IT (Rec: 01/28/18 02:22 IT [facility] [id number]) Pain Reassessment Is This A Pain ReAssessment? No Sleep Is patient sleeping during reassessment? No Presence of Pain Presence of Pain Yes Potassium Chloride (K-Dur 20 Meq Er Tab) 20 meq PO STAT STA Stop: 01/28/18 03:25 - Scribe Statement The provider has reviewed the documentation as recorded by the Key [place] Provider Scribe Attestation: All medical record entries made by the Scribe were at my direction and personally dictated by me. I have reviewed the chart and agree that the record accurately reflects my personal performance of the history, physical exam, medical decision making, and the department course for this patient. I have also personally directed, reviewed, and agree with the discharge instructions and disposition. Disposition/Present on Arrival - Present on Arrival Any Indicators Present on Arrival: No History of DVT/PE: No History of Uncontrolled Diabetes: No Urinary Catheter: No History of Decub. Ulcer: No History Surgical Site Infection Following: None - Disposition Have Diagnosis and Disposition been Completed?: Yes Diagnosis: Cellulitis, Joint swelling Disposition: HOSPITALIZED Disposition Time: 03:38 Patient Plan: Observation Condition: STABLE Discharge Instructions (ExitCare): Cellulitis (ED) Forms: [employer] ([place])
[2018-01-28 02:24] LABS: HEMOGLOBIN 12.3 g/dL (14.0-18.0); MEAN CELL VOLUME 83.9 fl (80.0-105.0); MEAN CORPUSCULAR HGB CONC 35.8 g/dl (31.0-37.0); MEAN PLATELET VOLUME 10.2 fl (7.0-11.0); RBC 4.1 10^6/uL (3.5-6.1); RED CELL DISTRIBUTION WIDTH 13.2 % (11.5-14.5)
[2018-01-28 02:37] LABS: WHITE BLOOD COUNT 2.7 10^3/ul (4.5-11.0)
[2018-01-28 02:41] LABS: ALB/GLOB RATIO 1.4 (1.1-1.8); ALT/SGPT 20 U/L (7-56); AST/SGOT 24 U/L (17-59); BLOOD UREA NITROGEN 14 mg/dL (7-21); CALCIUM 8.7 mg/dL (8.4-10.5); GFR AFRICAN-AMERICAN > 60; GFR NON-AFRICAN AMERICAN > 60
[2018-01-28] MEDS ORDERED: Potassium Chloride 20 mEq ER Tab PO STA (03:24)
[2018-01-28] MEDS ORDERED: Piperacillin/Tazobact 3.375 gm 100 ML IV STA (03:31)
[2018-01-28] MEDS ORDERED: Sodium Chloride 0.9% 1,000 ML IV STA (03:40)
[2018-01-28 05:33] VITALS: BMI 21.6
[2018-01-28] MEDS ORDERED: METHYLCELLULOSE 500 MG PO PRN (10:36)
[2018-01-28] MEDS ORDERED: Cholestyramine 4 gm/Pkt UD PO PRN ×2 (10:36→10:49)
[2018-01-28] MEDS ORDERED: POLYETHYLENE GLYCOL 3350 17 GM/Dose PACKET PO PRN (10:43)
--- NOTE | 2018-01-28 10:57 | RAD ---
PROCEDURE: Right Hand Radiographs. HISTORY: pain COMPARISON: None. FINDINGS: BONES: No evidence of acute displaced fracture nor dislocation so far as can be seen. Note that a pulse oximeter hardware partially obscures the distal and middle phalanges of the 2nd finger on the PA view. JOINTS: Normal. No osteoarthritic changes. SOFT TISSUES: Normal. OTHER FINDINGS: None. IMPRESSION: Limited study demonstrating no acute displaced fractures nor dislocations. If symptoms persist or occult fracture suspected clinically recommend repeat radiographs in 5-10 days as most fractures should become radiographically evident in this timeframe.
--- NOTE | 2018-01-28 10:58 | RAD ---
PROCEDURE: Left Knee Radiographs. HISTORY: Pain. COMPARISON: None. FINDINGS: BONES: Normal. No fracture. JOINTS: Normal. No osteoarthritis. JOINT EFFUSION: None. OTHER FINDINGS: None. IMPRESSION: No evidence of acute displaced fracture nor dislocation. If symptoms persist or occult fracture suspected clinically recommend repeat radiographs in 5-10 days as most fractures should become radiographically evident in this timeframe.
--- NOTE | 2018-01-28 11:00 | RAD ---
PROCEDURE: Left hand dated 01/20/2018. Three standard views of the left hand performed. Note that a ring partially obscures the distal aspect proximal phalanx 4th finger left hand HISTORY: Pain COMPARISON: None. FINDINGS: BONES: No evidence of acute displaced fracture nor dislocation within limitation of the exam. JOINTS: Joint spaces are relatively preserved. No significant osteoarthritic changes. SOFT TISSUES: Normal. OTHER FINDINGS: None. IMPRESSION: No evidence of acute displaced fracture nor dislocation.
[2018-01-28] MEDS: Cholecalciferol 1,000 INTLU TAB PO SCH (11:03)
[2018-01-28] MEDS: Insulin Reg-MEDIUM-Coverage SC SCH ×2 (16:37→21:14)
[2018-01-28 16:51] VITALS: RESP 18
[2018-01-29 06:41] LABS: BASO # 0.01 K/mm3 (0.0-2.0); BASO % 0.3 % (0.0-3.0); EOS # 0.1 (0.0-0.7); EOS % 3.1 % (1.5-5.0); GRAN # 2.09 (1.4-6.5); GRAN % 64.1 % (50.0-68.0); HEMOGLOBIN 11.8 g/dL (14.0-18.0); LYMPH # 0.8 (1.2-3.4); LYMPH % 23.3 % (22.0-35.0); MEAN CORPUSCULAR HEMOGLOBIN 29.6 pg (25.0-35.0); MEAN CORPUSCULAR HGB CONC 35.2 g/dl (31.0-37.0); MEAN PLATELET VOLUME 10.1 fl (7.0-11.0); MONO # 0.3 (0.1-0.6); MONO % 9.2 % (1.0-6.0); RBC 3.99 10^6/uL (3.5-6.1); RED CELL DISTRIBUTION WIDTH 13.3 % (11.5-14.5); WHITE BLOOD COUNT 3.3 10^3/ul (4.5-11.0)
[2018-01-29 06:53] LABS: ALB/GLOB RATIO 1.1 (1.1-1.8); ALBUMIN 3.1 g/dL (3.0-4.8); ALT/SGPT 21 U/L (7-56); AST/SGOT 18 U/L (17-59); BLOOD UREA NITROGEN 13 mg/dL (7-21); CALCIUM 8.4 mg/dL (8.4-10.5); GFR AFRICAN-AMERICAN > 60; GFR NON-AFRICAN AMERICAN > 60; URIC ACID 2.5 mg/dL (3.5-8.5)
[2018-01-29] MEDS: Insulin Reg-MEDIUM-Coverage SC SCH ×2 (07:59→12:57)
[2018-01-29 08:35] VITALS: BP 128/80; PULSE 67; TEMP 97.1; O2SAT 97
[2018-01-29] MEDS: Cholecalciferol 1,000 INTLU TAB PO SCH (09:46)
--- NOTE | 2018-01-29 11:07 | CP.PCM.CON ---
<Argelia Holliday - Last Filed: 01/29/18 13:05> History of Present Illness - History of Present Illness History of Present Illness: GI Fellow PGY4 Consult Note: This is a 57 year old male with PMHx of Crohn's ileitis s/p resection of TI with right hemicolectomy (09/2016) on Remicaide, SBO, DM, nephrolithiasis presents to the ED for knee pain and bl hand pain and swelling. He denies any GI complaints with no abdominal pain, diarrhea, nausea or vomiting. He reports the stiffness has improved after ibuprofen and dose of abx. This has never happened to him before. His last dose of remicaide was a few weeks ago and he stopped his 6MP a few months ago due to insurance issues. ROS: 12 Point ROS performed and negative other than stated above. 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, Internal Hemorrhoids Past Patient History - Infectious Disease Hx of Infectious Diseases: None - Past Social History Smoking Status: Never Smoked - CARDIAC Hx Hypertension: Yes Other/Comment: HYPERLIPIDEMIA - PULMONARY Hx Respiratory Disorders: No - NEUROLOGICAL Hx Neurological Disorder: No - HEENT Hx HEENT Problems: No - RENAL Hx Kidney Stones: Yes - ENDOCRINE/METABOLIC Hx Diabetes Mellitus Type 2: Yes - HEMATOLOGICAL/ONCOLOGICAL Hx Blood Disorders: Yes Hx Blood Transfusions: Yes Other/Comment: BLOOD TRANSFUSION - INTEGUMENTARY Other/Comment: abd surgical scar - MUSCULOSKELETAL/RHEUMATOLOGICAL Hx Falls: No - GASTROINTESTINAL Hx Gastrointestinal Disorders: Yes (BILATERAL HERNIA REPAIR) Hx Crohn's Disease: Yes - GENITOURINARY/GYNECOLOGICAL Hx Genitourinary Disorders: Yes (HYDROCELE) - PSYCHIATRIC Hx Psychophysiologic Disorder: No Hx Substance Use: No - SURGICAL HISTORY Other/Comment: right hemicolectomy - ANESTHESIA Hx Anesthesia: Yes Meds Allergies/Adverse Reactions: Allergies Allergy/AdvReac Type Severity Reaction Status Date / Time pseudoephedrine HCl Allergy "HEART Verified 11/05/17 18:07 [From Sudafed] RACES" - Medications Medications: Current Medications Amlodipine Besylate (Norvasc) 5 mg PO DAILY [facility] Last Admin: 01/29/18 09:47 Dose: 5 mg Aspirin (Ecotrin) 81 mg PO QAM [facility] Last Admin: 01/29/18 09:46 Dose: 81 mg Cholecalciferol (Vitamin D) 1,000 intlu PO DAILY [facility] Last Admin: 01/29/18 09:46 Dose: 1,000 intlu Cholestyramine Resin (Questran) 4 gm PO DAILY PRN PRN Reason: Other Glipizide (Glucotrol) 5 mg PO BID [facility] Last Admin: 01/29/18 09:46 Dose: 5 mg Ibuprofen (Motrin Tab) 600 mg PO TID [facility] Last Admin: 01/29/18 09:45 Dose: 600 mg Insulin Human Regular (Humulin R Med) 0 units SC ACHS [facility] PRN Reason: Protocol Last Admin: 01/29/18 07:59 Dose: Not Given Lisinopril (Zestril) 20 mg PO QAM [facility] Last Admin: 01/29/18 09:46 Dose: 20 mg Metformin HCl (Glucophage) 500 mg PO BID [facility] Last Admin: 01/29/18 09:46 Dose: 500 mg Metoprolol Tartrate (Lopressor) 100 mg PO BID [facility] Last Admin: 01/29/18 09:47 Dose: 100 mg Polyethylene Glycol (Miralax) 17 gm PO DAILY PRN PRN Reason: Constipation Physical Exam - Constitutional Appears: Non-toxic, No Acute Distress - Head Exam Head Exam: ATRAUMATIC, NORMAL INSPECTION, NORMOCEPHALIC - Eye Exam Eye Exam: EOMI, Normal appearance, PERRL - ENT Exam ENT Exam: Mucous Membranes Moist - Neck Exam Neck exam: Positive for: Normal Inspection - Respiratory Exam Respiratory Exam: Clear to Auscultation Bilateral, NORMAL BREATHING PATTERN - Cardiovascular Exam Cardiovascular Exam: REGULAR RHYTHM, RRR, +S1, +S2 - GI/Abdominal Exam GI & Abdominal Exam: Normal Bowel Sounds, Soft. absent: Distended, Organomegaly , Tenderness - Rectal Exam Rectal Exam: Deferred - Extremities Exam Extremities exam: Positive for: joint swelling, tenderness - Back Exam Back exam: NORMAL INSPECTION - Neurological Exam Neurological exam: Alert, Oriented x3 - Psychiatric Exam Psychiatric exam: Normal Affect, Normal Mood - Skin Skin Exam: Dry, Intact, Normal Color, Warm Results - Vital Signs Recent Vital Signs: Last Vital Signs Temp 97.1 F L 01/29/18 08:34 Pulse 67 01/29/18 09:47 Resp 18 01/29/18 08:34 BP 128/80 01/29/18 09:47 Pulse Ox 97 01/29/18 08:34 - Labs Result Diagrams: 01/29/18 05:45 01/29/18 05:45 Labs: Laboratory Results - last 24 hr 01/28/18 01/28/18 01/28/18 11:19 11:19 16:04 WBC RBC Hgb Hct MCV MCH MCHC RDW Plt Count MPV Gran % Lymph % (Auto) Carbon % (Auto) Eos % (Auto) Baso % (Auto) Gran # Lymph # (Auto) Carbon # (Auto) Eos # (Auto) Baso # (Auto) ESR 2 Sodium Potassium Chloride Carbon Dioxide Anion Gap BUN Creatinine Est GFR ( Amer) Est GFR (Non-Af Amer) POC Glucose (mg/dL) 340 H Random Glucose Uric Acid 3.1 L Calcium Total Bilirubin AST ALT Alkaline Phosphatase Total Protein Albumin Globulin Albumin/Globulin Ratio 01/28/18 01/29/18 01/29/18 21:09 05:45 05:45 WBC 3.3 L D RBC 3.99 Hgb 11.8 L Hct 33.5 L MCV 84.0 MCH 29.6 MCHC 35.2 RDW 13.3 Plt Count 115 L MPV 10.1 Gran % 64.1 Lymph % (Auto) 23.3 Carbon % (Auto) 9.2 H Eos % (Auto) 3.1 Baso % (Auto) 0.3 Gran # 2.09 Lymph # (Auto) 0.8 L Carbon # (Auto) 0.3 Eos # (Auto) 0.1 Baso # (Auto) 0.01 ESR 12 Sodium 140 Potassium 3.7 Chloride 106 Carbon Dioxide 26 Anion Gap 11 BUN 13 Creatinine 0.8 Est GFR ( Amer) > 60 Est GFR (Non-Af Amer) > 60 POC Glucose (mg/dL) 168 H Random Glucose 133 H Uric Acid 2.5 L Calcium 8.4 Total Bilirubin 1.0 AST 18 ALT 21 Alkaline Phosphatase 88 Total Protein 5.9 Albumin 3.1 Globulin 2.8 Albumin/Globulin Ratio 1.1 Assessment & Plan - Assessment and Plan (Free Text) Assessment: This is a 57 year old male with PMHx of Crohn's ileitis s/p resection of TI with right hemicolectomy (09/2016) on Remicaide, SBO, DM, nephrolithiasis presenting for hand and knee pain. 1. Joint swelling/pain 2. Hx of Chron's disease Plan: -Continue supportive care -Continue ibuprofen 800mg tid -PPI daily -Joint swelling maybe from immune response to Remicaide, will check antibodies, ESR and CRP -Start loratidine -Recommend rheumatoid consult -No acute GI issues at this time -Follow up outpt for medical management of Crohn's -Will continue to follow closely <Jacques Evans - Last Filed: 01/29/18 13:39> Meds - Medications Medications: Current Medications Amlodipine Besylate (Norvasc) 5 mg PO DAILY [facility] Last Admin: 01/29/18 09:47 Dose: 5 mg Aspirin (Ecotrin) 81 mg PO QAM [facility] Last Admin: 01/29/18 09:46 Dose: 81 mg Cholecalciferol (Vitamin D) 1,000 intlu PO DAILY [facility] Last Admin: 01/29/18 09:46 Dose: 1,000 intlu Cholestyramine Resin (Questran) 4 gm PO DAILY PRN PRN Reason: Other Glipizide (Glucotrol) 5 mg PO BID [facility] Last Admin: 01/29/18 09:46 Dose: 5 mg Ibuprofen (Motrin Tab) 600 mg PO TID [facility] Last Admin: 01/29/18 09:45 Dose: 600 mg Insulin Human Regular (Humulin R Med) 0 units SC [facility] PRN Reason: Protocol Last Admin: 01/29/18 12:57 Dose: 7 units Lisinopril (Zestril) 20 mg PO QAM [facility] Last Admin: 01/29/18 09:46 Dose: 20 mg Loratadine (Claritin) 10 mg PO DAILY [facility] Metformin HCl (Glucophage) 500 mg PO BID [facility] Last Admin: 01/29/18 09:46 Dose: 500 mg Metoprolol Tartrate (Lopressor) 100 mg PO BID [facility] Last Admin: 01/29/18 09:47 Dose: 100 mg Pantoprazole Sodium (Protonix Ec Tab) 40 mg PO 0600 [facility] Polyethylene Glycol (Miralax) 17 gm PO DAILY PRN PRN Reason: Constipation Results - Vital Signs Recent Vital Signs: Last Vital Signs Temp 97.1 F L 01/29/18 08:34 Pulse 67 01/29/18 09:47 Resp 18 01/29/18 08:34 BP 128/80 01/29/18 09:47 Pulse Ox 97 01/29/18 08:34 - Labs Result Diagrams: 01/29/18 05:45 01/29/18 05:45 Labs: Laboratory Results - last 24 hr 01/28/18 01/28/18 01/29/18 16:04 21:09 05:45 WBC 3.3 L D RBC 3.99 Hgb 11.8 L Hct 33.5 L MCV 84.0 MCH 29.6 MCHC 35.2 RDW 13.3 Plt Count 115 L MPV 10.1 Gran % 64.1 Lymph % (Auto) 23.3 Carbon % (Auto) 9.2 H Eos % (Auto) 3.1 Baso % (Auto) 0.3 Gran # 2.09 Lymph # (Auto) 0.8 L Carbon # (Auto) 0.3 Eos # (Auto) 0.1 Baso # (Auto) 0.01 ESR 12 Sodium Potassium Chloride Carbon Dioxide Anion Gap BUN Creatinine Est GFR ( Amer) Est GFR (Non-Af Amer) POC Glucose (mg/dL) 340 H 168 H Random Glucose Uric Acid Calcium Total Bilirubin AST ALT Alkaline Phosphatase Total Protein Albumin Globulin Albumin/Globulin Ratio 01/29/18 05:45 WBC RBC Hgb Hct MCV MCH MCHC RDW Plt Count MPV Gran % Lymph % (Auto) Carbon % (Auto) Eos % (Auto) Baso % (Auto) Gran # Lymph # (Auto) Carbon # (Auto) Eos # (Auto) Baso # (Auto) ESR Sodium 140 Potassium 3.7 Chloride 106 Carbon Dioxide 26 Anion Gap 11 BUN 13 Creatinine 0.8 Est GFR ( Amer) > 60 Est GFR (Non-Af Amer) > 60 POC Glucose (mg/dL) Random Glucose 133 H Uric Acid 2.5 L Calcium 8.4 Total Bilirubin 1.0 AST 18 ALT 21 Alkaline Phosphatase 88 Total Protein 5.9 Albumin 3.1 Globulin 2.8 Albumin/Globulin Ratio 1.1 Attending/Attestation - Attestation I have personally seen and examined this patient.: Yes I have fully participated in the care of the patient.: Yes I have reviewed all pertinent clinical information: Yes Notes (Text): 01/29/18 13:37 57 year old male with h/o Crohn's disease s/p R hemicolectomy on infliximab admitted with bilateral hand pain and swelling. He self discontinued 6MP in due to cost/insurance coverage. He was admitted to the hospital in the first week after remicade infusion with a viral illess. Now he presents with bilateral joint pain/swelling in his hands. These may represent acute and delayed type infusion reactions due to infliximab. Would recommend checking for Infliximab Ab (send out), ESR/CRP. Start motrin 800 TID x 1 week, start PPI for protective effect, start loratidine 10 mg daily for possible delayed type infusion reaction. Consider outpatient rheum referral.
--- NOTE | 2018-01-29 11:11 | CON ---
DATE: 01/29/2018 INPATIENT CONSULT REASON FOR CONSULT: Bilateral hand swelling and pain and left knee pain. HISTORY OF PRESENT ILLNESS: This is a 57-year-old gentleman, who was admitted yesterday with complaints of bilateral left hand pain and swelling. The patient also said he had a left knee pain as well. He denies any history of trauma. He said he was at work a couple of days ago and had so much pain. He had to go to the emergency room. He denies any history of gout. He denies any fevers or chills. PAST MEDICAL HISTORY: Significant for diabetes and Crohn's disease. He is currently getting treatment for that. He says he gets infusions for his Crohn's and has not had a recent flare-up. Today, he says he is feeling a lot better and feels like he can go home. PHYSICAL EXAMINATION: GENERAL: This is a gentleman, in no apparent distress. He is awake, alert and oriented x3. He is afebrile. EXTREMITIES: Evaluation of the right hand shows that he has some mild swelling of the right hand. There is no obvious deformity. No crepitus is appreciated. He has some mild tenderness along the palmar aspect of the right hand, but not too localized. He is able to make a fist. No evidence of any reproducible triggering. He has good capillary refill in all his fingers. He has full active range of motion of the wrist without any pain. No snuffbox tenderness. Neurovascularly, he is intact. Evaluation of the left hand shows he has some very minimal generalized swelling about the left hand. Again, he has some generalized soreness in the palmar aspect of the hand and at the thenar eminence, but no pinpoint tenderness to palpation. He is easily able to make a fist and has full active range of motion of the hand and wrist. Again, no snuffbox tenderness. He has good capillary refill on all his fingers. Neurovascularly, he is intact. Evaluation of the left knee shows no obvious effusion. No areas of point tenderness to palpation. He has full active range of motion of the left knee. He has stable varus valgus stress. He has a negative Jose C. His thigh and calf are soft and nontender. Neurovascularly, he is intact. LABORATORY DATA: X-rays of bilateral hands showed no acute fractures or dislocations. No significant degenerative changes are appreciated. X-rays of the left knee again showed no obvious fracture or dislocations. No significant degenerative changes. His white count is within normal limits. His serum and uric acid level are within normal limits. IMPRESSION: Bilateral hand pain and swelling, resolving and left knee pain. PLAN: At this point, given that he is feeling better, I recommend continued activity as tolerated with his hands and recommend an antiinflammatory. Continue the antiinflammatory for any pain and swelling. For now, we are waiting results of the C-reactive protein and sed rate. Given that this does not appear to be of septic etiology, the patient can follow up as an outpatient. Demarcus Sanabria MD
--- NOTE | 2018-01-29 16:55 | HP ---
ADMITTING HISTORY AND PHYSICAL HISTORY OF PRESENT ILLNESS: Te patient is a 57-year-old male, who presents to the emergency room complaining of painful swelling of his left knee and bilateral hands. The patient denies trauma. Denies falling or twisting. He states that the swelling and tenderness gradually increased over the past several days and the patient therefore presented to the emergency room for evaluation. PAST MEDICAL HISTORY: Positive for Crohn's disease, status post hemicolectomy secondary to the Crohn's, status post transient ischemic attack, has a history of [id number] diabetes mellitus and history of hypertension. SOCIAL HISTORY: He never smoked. He is a nonalcoholic drinker. ALLERGIES: HE IS KNOWN TO BE ALLERGIC TO SUDAFED, WHICH CAUSED PALPITATIONS. MEDICATIONS AT THE TIME OF ADMISSION: Included aspirin 81 mg once a day, lisinopril 20 mg, vitamin D, vitamin B12, Questran 4 mg as needed, Norvasc 5 mg daily, Glucotrol 5 mg twice a day and Metamucil. REVIEW OF SYSTEMS: Otherwise unremarkable. PHYSICAL EXAMINATION: GENERAL: The patient is awake, alert and oriented. HEENT: The head, eyes, ears, nose and throat are unremarkable. NECK: Supple with no lymphadenopathy. No goiter. LUNGS: Clear to auscultation and percussion. HEART: Regular. No murmurs are appreciated. ABDOMEN: Soft and nontender. EXTREMITIES: Free of cyanosis, clubbing or edema. There is mild tenderness on palpation of the left knee. Swelling is noted. There is minimal tenderness on flexion and extension and torsion to the knee. There is no erythema and no warmth appreciated in the joint. The similar picture is for bilateral hands. The left more than the right is swollen over the knuckles. The dorsum of the hand is swollen. There is no erythema or warmth on palpation. There is some minimal tenderness on palpation; however. X-rays of the hands and the knees are unremarkable. NEUROLOGICAL: The patient is awake, alert and oriented with no focal neurological signs. LABORATORY STUDIES: Show the white blood cell to be markedly depressed at 2.7, hemoglobin and hematocrit are 12.3 and 34.4, platelet count is 125. Sodium is 140, potassium is 3.3, blood urea nitrogen is 14, creatinine 0.7, glucose is 208. His blood pressure is 121/80, heart rate is 92. He is afebrile at 98 degrees Fahrenheit. IMPRESSION: The patient received a dose of Zosyn in the emergency room and he feels he noted some improvement over that. I have not started any antibiotics at this point because of the leukopenia as well as lack of signs of a real cellulitis, i.e. erythema, warmth. I am treating the patient with antiinflammatories of ibuprofen 600 mg three times a day. Review of the patient's chart shows there have been episodes of leukopenia in the past, which were very short-lived, transient and self resolving. Blood work will be repeated in the morning. If leukopenia is continued to be a problem, we will call Dr. Hoffman, his cable splicer for reevaluation. We will continue to follow the patient closely. Rolo Olson MD
[2018-01-30] MEDS ORDERED: Pantoprazole 40 mg EC Tab PO SCH (06:00)
--- NOTE | 2018-01-30 14:53 | DS ---
HISTORY OF PRESENT ILLNESS: This is a 57-year-old man I have known for sometime with Crohn disease, who came to the emergency room with painful swelling of the hands, both right and left hand were noted to be red and erythematous, exclusively tender, suspicion for cellulitis was strong, so the dose of antibiotics were given. The patient was admitted to the hospital. He was also treated with a dose of antiinflammatory medicines. Orthopedic consult was called as well as GI who know him from his Crohn disease. From an orthopedic standpoint, he was cleared. X-rays of the hands were essentially unremarkable. By the following morning today where I am seeing the patient, there is no swelling of hands. There is no erythema. His white count is normal and always was. He remains afebrile. He is relatively asymptomatic. Feeling that the single dose of antibiotics with large dose of NSAIDs gave him dramatic relief. He is most likely had this acute arthritis was related to his GI inflammatory bowel disease. He is comfortable, stable and ready to discharged to home. FINAL DISCHARGE DIAGNOSES: 1. Acute arthritis of the hands secondary to . 2. Crohn disease. Kris Olson MD
== END 2018-01-29 15:14 | disposition home or self-care (01) ==
LOC: ED 01:05 → ERH 03:39 → 3RSO 04:44
PROVIDERS: ADMIT Internal Medicine; ATTEND Internal Medicine
DX: M79.641 Pain in right hand (principal); M79.642 Pain in left hand; M25.562 Pain in left knee; K50.00 Crohn's disease of small intestine without complications; E11.9 Type 2 diabetes mellitus without complications; I10 Essential (primary) hypertension; E78.5 Hyperlipidemia, unspecified; Z79.84 Long term (current) use of oral hypoglycemic drugs; Z86.73 Personal history of transient ischemic attack (TIA), and cerebral infarction without residual deficits; Z90.49 Acquired absence of other specified parts of digestive tract
CPT/HCPCS: 36415; 73130; 73560; 80053; 82948; 84550; 85025; 85027; 85651; 87040; 99285; G0378; J2543; J7030

== ENCOUNTER 2018-03-15 01:26 | Emergency (ER) | payer OTHER ==
[2018-03-15 01:52] VITALS: TEMP 98.4; BMI 22.6
--- NOTE | 2018-03-15 02:39 | ED PDOC ---
Arrival/HPI - General Chief Complaint: Finger,Hand,&Wrist Time Seen by Provider: 03/15/18 02:24 Historian: Patient - History of Present Illness Narrative History of Present Illness (Text): 03/15/18 02:38 57 year old male, whose past medical history include medical history includes Crohn's disease, diabetes, and hypertension, presents to the emergency department complaining of reoccurring swelling to his fingers on both hands. Patient states he had x-rays done which came back negative for gout and arthritis. Patient was given Prednisone by PMD with decrease swelling and relief. Patient was at work when his hands began to swell up. Patient is also complaining of left elbow pain and nausea, but denies any fever, chills, chest pain, shortness of breath, vomiting, diarrhea, urinary symptoms, back pain, neck pain, headache, dizziness, or any other complaints. PMD: Dr. Olson GI: Dr. Evans Symptom Onset: Sudden Symptom Course: Unchanged Activities at Onset: Light Context: Work Past Medical History - Provider Review Nursing Documentation Reviewed: Yes - Infectious Disease Hx of Infectious Diseases: None - Cardiac Hx Cardiac Disorders: Yes Hx Hypertension: Yes Other/Comment: HYPERLIPIDEMIA - Pulmonary Hx Respiratory Disorders: No - Neurological Hx Neurological Disorder: No - HEENT Hx HEENT Disorder: No - Renal Hx Renal Disorder: Yes Hx Kidney Stones: Yes - Endocrine/Metabolic Hx Endocrine Disorders: Yes Hx Diabetes Mellitus Type 2: Yes - Hematological/Oncological Hx Blood Disorders: Yes Hx Blood Transfusions: Yes Other/Comment: BLOOD TRANSFUSION - Integumentary Hx Dermatological Disorder: Yes Other/Comment: abd surgical scar - Musculoskeletal/Rheumatological Hx Musculoskeletal Disorders: No - Gastrointestinal Hx Gastrointestinal Disorders: Yes (BILATERAL HERNIA REPAIR) Hx Crohn's Disease: Yes - Genitourinary/Gynecological Hx Genitourinary Disorders: Yes (HYDROCELE) - Psychiatric Hx Psychophysiologic Disorder: No Hx Substance Use: No - Surgical History Other/Comment: right hemicolectomy - Anesthesia Hx Anesthesia: Yes - Suicidal Assessment Feels Threatened In Home Enviroment: No Family/Social History - Physician Review Nursing Documentation Reviewed: Yes Family/Social History: No Known Family HX Smoking Status: Never Smoked Hx Alcohol Use: No Hx Substance Use: No Allergies/Home Meds Allergies/Adverse Reactions: Allergies pseudoephedrine HCl [From Sudafed] Allergy (Verified 03/15/18 01:48) "HEART RACES" DENIES NAUSEA Home Medications: Home Meds Medication Instructions Recorded Confirmed Aspirin [Ecotrin] 81 mg PO QAM 05/22/16 03/15/18 Cyanocobalamin [Vitamin B12 1000 1 ml SC Q30D 02/19/17 03/15/18 mcg/ml Inj] amLODIPine [Norvasc] 5 mg PO DAILY 05/22/17 03/15/18 GlipiZIDE [Glucotrol] 5 mg PO BID 09/23/17 03/15/18 Review of Systems - Physician Review All systems were reviewed & negative as marked: Yes - Review of Systems Constitutional: absent: Fevers, Other (Chills) Respiratory: absent: SOB Cardiovascular: absent: Chest Pain Gastrointestinal: absent: Diarrhea, Nausea, Vomiting Genitourinary Male: absent: Dysuria, Frequency Musculoskeletal: Other ((+)swelling and pain to finegrs on both hands. (+)Elbow pain). absent: Back Pain, Neck Pain Neurological: absent: Headache, Dizziness Physical Exam Vital Signs Reviewed: Yes Vital Signs Temp Pulse Resp BP Pulse Ox 03/15/18 04:34 80 17 127/80 100 03/15/18 01:51 98.4 F 81 16 131/82 97 Temperature: Afebrile Blood Pressure: Normal Pulse: Regular Respiratory Rate: Normal Appearance: Positive for: Well-Appearing, Non-Toxic, Comfortable Pain Distress: None Mental Status: Positive for: Alert and Oriented X 3 - Systems Exam Head: Present: Atraumatic, Normocephalic Pupils: Present: PERRL Extroacular Muscles: Present: EOMI Conjunctiva: Present: Normal Mouth: Present: Moist Mucous Membranes Neck: Present: Normal Range of Motion Respiratory/Chest: Present: Clear to Auscultation, Good Air Exchange. No: Respiratory Distress, Accessory Muscle Use Cardiovascular: Present: Regular Rate and Rhythm, Normal S1, S2. No: Murmurs Abdomen: No: Tenderness, Distention, Peritoneal Signs Back: Present: Normal Inspection Upper Extremity: Present: Normal ROM, NORMAL PULSES, Tenderness, Swelling ( swelling and tenderness to the left metacarpals and right 3rd digit.). No: Cyanosis, Edema, Erythema Lower Extremity: Present: Normal Inspection. No: Edema Neurological: Present: GCS=15, CN II-XII Intact, Speech Normal Skin: Present: Warm, Dry, Normal Color. No: Rashes Psychiatric: Present: Alert, Oriented x 3, Normal Insight, Normal Concentration Medical Decision Making ED Course and Treatment: 03/15/18 02:38 Impression: 57 year old male presents complaining of reoccurring swelling and pain to the fingers of both hands. Patient also reports left elbow pain and nausea. Plan: -- Toradol, Motrin -- Labs -- Left hand 3 view x-ray -- Reassess and disposition Prior Visits: Notes and results from previous visits were reviewed. Progress Notes: 03/15/18 04:01 Left hand 3 view x-ray Impression: As read by me, Some swelling. No acute disease. No fractures. 03/15/18 04:26 On re-evaluation, patient is in no acute distress. I have discussed the results and plan with the patient, who expresses understanding. Patient in agreement with plan to be discharged home. Offered steroids as they have helped with his hand swelling in the past, however patient declines. Patient is stable for discharge. Patient was instructed to follow up with physician or return if symptoms worsen or new concerning symptoms arise. Advised specialist followup as well, likely with rheumatology, as he has had swollen hands multiple times and has also had similar symptoms in his knees. - Lab Interpretations Lab Results: 03/15/18 02:38 03/15/18 02:38 Lab Results 03/15/18 02:38: Sodium 140, Potassium 3.7, Chloride 104, Carbon Dioxide 23, Anion Gap 17, BUN 14, Creatinine 0.8, Est GFR ( Amer) > 60, Est GFR (Non- Af Amer) > 60, Random Glucose 170 H, Calcium 8.9 03/15/18 02:38: WBC 3.1 L, RBC 3.87, Hgb 11.6 L, Hct 33.0 L, MCV 85.3, MCH 30.0 , MCHC 35.2, RDW 13.7, Plt Count 106 L, MPV 10.2, Gran % 57.4, Lymph % (Auto) 30.4, [place] % (Auto) 8.2 H, Eos % (Auto) 3.3, Baso % (Auto) 0.7, Gran # 1.76, Lymph # (Auto) 0.9 L, [place] # (Auto) 0.3, Eos # (Auto) 0.1, Baso # (Auto) 0.02 I have reviewed the lab results: Yes - RAD Interpretation Narrative RAD Interpretations (Text): No fracture or dislocation. Soft tissue swelling. Radiology Orders: 03/15/18 02:25 HAND LEFT 3 VIEWS ROUTINE [RAD] Stat Realty Specialist: ED Physician - Medication Orders Current Medication Orders: Discontinued Medications Ketorolac Tromethamine (Toradol) 60 mg IM STAT STA Stop: 03/15/18 02:48 Last Admin: 03/15/18 02:55 Dose: 60 mg MAR Pain Assessment Document 03/15/18 02:55 RD (Rec: 03/15/18 02:56 RD [id number]) Pain Reassessment Is this a pain reassessment? No Sleep Is patient sleeping during reassessment? No Presence of Pain Presence of Pain Yes IM Administration Charges Document 03/15/18 02:55 RD (Rec: 03/15/18 02:56 RD [id number]) Injection Site MAR Injection Site Right Vastus Lateralis Charges for Administration # of IM Administrations 1 - Scribe Statement The provider has reviewed the documentation as recorded by the Key Flores Provider Scribe Attestation: All medical record entries made by the Scribe were at my direction and personally dictated by me. I have reviewed the chart and agree that the record accurately reflects my personal performance of the history, physical exam, medical decision making, and the department course for this patient. I have also personally directed, reviewed, and agree with the discharge instructions and disposition. Disposition/Present on Arrival - Present on Arrival Any Indicators Present on Arrival: No History of DVT/PE: No History of Uncontrolled Diabetes: No Urinary Catheter: No History of Decub. Ulcer: No History Surgical Site Infection Following: None - Disposition Have Diagnosis and Disposition been Completed?: Yes Diagnosis: Hand edema Disposition: HOME/ ROUTINE Disposition Time: 04:34 Condition: GOOD Discharge Instructions (ExitCare): Dependent Edema (DC) Additional Instructions: ZULEYKA CAMPOS, thank you for letting us take care of you today. Your provider was Lise Mancilla MD and you were treated for hand problem ( puffy hand ) . The emergency medical care you received today was directed at your acute symptoms. If you were prescribed any medication, please fill it and take as directed. It may take several days for your symptoms to resolve. Return to the Emergency Department if your symptoms worsen, do not improve, or if you have any other problems. Please contact your doctor or call one of the physicians/clinics you have been referred to that are listed on the Patient Visit Information form that is included in your discharge packet. Bring any paperwork you were given at discharge with you along with any medications you are taking to your follow up visit. Our treatment cannot replace ongoing medical care by a primary care provider outside of the emergency department. Thank you for allowing the [facility] team to be part of your care today. If you had an X-Ray or CT scan: A Radiologist will review the ED reading if any change in treatment is needed we will contact you. If you had a blood, urine, or wound culture: It will take several days for the results, if any change in treatment is needed we will contact you. If you had an STI test: It will take 48 hours for the results. Please call after 1 week if you have not heard back. Forms: [employer] (Emirati)
[2018-03-15 02:53] LABS: BASO # 0.02 K/mm3 (0.0-2.0); BASO % 0.7 % (0.0-3.0); EOS # 0.1 (0.0-0.7); EOS % 3.3 % (1.5-5.0); GRAN # 1.76 (1.4-6.5); GRAN % 57.4 % (50.0-68.0); HEMOGLOBIN 11.6 g/dL (14.0-18.0); LYMPH # 0.9 (1.2-3.4); LYMPH % 30.4 % (22.0-35.0); MEAN CELL VOLUME 85.3 fl (80.0-105.0); MEAN CORPUSCULAR HGB CONC 35.2 g/dl (31.0-37.0); MEAN PLATELET VOLUME 10.2 fl (7.0-11.0); MONO # 0.3 (0.1-0.6); MONO % 8.2 % (1.0-6.0); RBC 3.87 10^6/uL (3.5-6.1); RED CELL DISTRIBUTION WIDTH 13.7 % (11.5-14.5); WHITE BLOOD COUNT 3.1 10^3/ul (4.5-11.0)
[2018-03-15 03:00] LABS: BLOOD UREA NITROGEN 14 mg/dL (7-21); CALCIUM 8.9 mg/dL (8.4-10.5); GFR AFRICAN-AMERICAN > 60; GFR NON-AFRICAN AMERICAN > 60
[2018-03-15 04:35] VITALS: BP 127/80; PULSE 80; RESP 17; O2SAT 100
--- NOTE | 2018-03-15 09:08 | RAD ---
PROCEDURE: Left Hand Radiographs. HISTORY: edema COMPARISON: None. FINDINGS: BONES: Normal. No fracture. JOINTS: Normal. No osteoarthritic changes. SOFT TISSUES: There is a small linear metallic foreign body ventral to the 2nd middle phalanx OTHER FINDINGS: None. IMPRESSION: No acute finding
== END 2018-03-15 04:34 | disposition home or self-care (01) ==
LOC: ED 01:26
DX: R60.0 Localized edema (principal); E11.9 Type 2 diabetes mellitus without complications; I10 Essential (primary) hypertension; E78.5 Hyperlipidemia, unspecified
CPT/HCPCS: 73130; 80048; 85025; 96372; 99283; J1885

== ENCOUNTER 2018-06-25 15:19 | Inpatient (IN) | payer OTHER ==
[2018-06-25 16:11] VITALS: BMI 21.1
[2018-06-25] MEDS ORDERED: Sodium Chloride 0.9% 500 ML IV STA ×2 (16:48→19:49)
[2018-06-25 17:08] LABS: VENOUS BLOOD GAS BASE EXCESS -10.3 mmol/L (0.0-2.0); VENOUS BLOOD GAS PO2 234 mm/Hg (30-55)
[2018-06-25 17:13] LABS: BASO # 0.02 K/mm3 (0.0-2.0); BASO % 0.7 % (0.0-3.0); EOS # 0.2 (0.0-0.7); EOS % 5.5 % (1.5-5.0); GRAN # 1.46 (1.4-6.5); GRAN % 49.8 % (50.0-68.0); HEMOGLOBIN 11.5 g/dL (14.0-18.0); LYMPH % 34.8 % (22.0-35.0); MEAN CELL VOLUME 85.1 fl (80.0-105.0); MEAN CORPUSCULAR HEMOGLOBIN 29.5 pg (25.0-35.0); MEAN CORPUSCULAR HGB CONC 34.6 g/dl (31.0-37.0); MEAN PLATELET VOLUME 10.4 fl (7.0-11.0); MONO # 0.3 (0.1-0.6); MONO % 9.2 % (1.0-6.0); RBC 3.9 10^6/uL (3.5-6.1); RED CELL DISTRIBUTION WIDTH 12.6 % (11.5-14.5)
[2018-06-25 17:13] LABS: VENOUS BLOOD PH 7.14 (7.32-7.43)
--- NOTE | 2018-06-25 17:15 | RAD ---
Date of service: 06/25/2018 HISTORY: weakness COMPARISON: 09/23/2017 FINDINGS: LUNGS: The lungs are well inflated and clear. PLEURA: No pleural effusions or pneumothorax. CARDIOVASCULAR: The heart is normal in size. No aortic atherosclerotic calcification present. OSSEOUS STRUCTURES: Within normal limits for the patient's age. VISUALIZED UPPER ABDOMEN: Normal. OTHER FINDINGS: None. IMPRESSION: No active pulmonary disease.
[2018-06-25 17:18] LABS: URINE BILIRUBIN NEGATIVE (NEGATIVE); URINE BLOOD NEGATIVE (NEGATIVE); URINE GLUCOSE (UA) >=1000 mg/dL (NEGATIVE); URINE LEUKOCYTE ESTERASE NEGATIVE Leu/uL (NEGATIVE); URINE PROTEIN NEGATIVE mg/dL (<30 mg/dL); URINE UROBILINOGEN 0.2 E.U./dL (<1 E.U./dL)
[2018-06-25 17:20] LABS: URINE APPEARANCE CLEAR (CLEAR); URINE COLOR YELLOW (YELLOW)
--- NOTE | 2018-06-25 17:20 | ED PDOC ---
Arrival/HPI - General Chief Complaint: Abdominal Pain Time Seen by Provider: 06/25/18 15:37 Historian: Patient - History of Present Illness Narrative History of Present Illness (Text): 06/25/18 16:46 Patient is a 57 year old male, whose past medical history includes Crohn's disease, diabetes, and hypertension, presents to the Emergency Department complaining of 2 weeks history of loose stools and intermittent abdominal crampi ng. Patient states he has had 4-5 episodes of lose stool a day. Patient denies any associated nausea or vomiting. Patient reports increased thirst "all the time". As per patient, symptoms of abdominal discomfort and diarrhea are different from his typical Crohn's flare. Patient informs he was put on antibiotics 3 months ago for leg infection. Denies any fever, chills, nausea, vomiting. Denies any chest pain or shortness of breath. Denies any headache or dizziness. Denies any dysuria, urinary output changes or changes in bowel movement. Patient denies any other associated complaints. PMD: Dr. Olson GI: Dr. Evans 06/25/18 20:52 Time/Duration: < week Symptom Onset: Gradual Symptom Course: Unchanged Quality: Cramping Activities at Onset: Light Context: Home Past Medical History - Provider Review Nursing Documentation Reviewed: Yes - Infectious Disease Hx of Infectious Diseases: None - Cardiac Hx Cardiac Disorders: No - Pulmonary Hx Respiratory Disorders: No - Neurological Hx Neurological Disorder: No - HEENT Hx HEENT Disorder: No - Renal Hx Renal Disorder: Yes Hx Kidney Stones: Yes - Endocrine/Metabolic Hx Endocrine Disorders: Yes Hx Diabetes Mellitus Type 2: Yes - Hematological/Oncological Hx Blood Disorders: Yes Other/Comment: BLOOD TRANSFUSION, VITAMIN D DEFICIENCY - Integumentary Hx Dermatological Disorder: Yes Other/Comment: abd surgical scar - Musculoskeletal/Rheumatological Hx Musculoskeletal Disorders: Yes - Gastrointestinal Hx Gastrointestinal Disorders: Yes (BILATERAL HERNIA REPAIR) Hx Crohn's Disease: Yes Hx Irritable Bowel: Yes Other/Comment: IBS - Genitourinary/Gynecological Hx Genitourinary Disorders: No - Psychiatric Hx Psychophysiologic Disorder: No Hx Emotional Abuse: No Hx Physical Abuse: No Hx Substance Use: No - Anesthesia Hx Anesthesia: Yes Hx Anesthesia Reactions: No Hx Malignant Hyperthermia: No - Suicidal Assessment Feels Threatened In Home Enviroment: No Family/Social History - Physician Review Nursing Documentation Reviewed: Yes Family/Social History: Unknown Family HX Smoking Status: Never Smoked Hx Alcohol Use: No Hx Substance Use: No Allergies/Home Meds Allergies/Adverse Reactions: Allergies pseudoephedrine HCl [From Sudafed] Allergy (Verified 06/25/18 15:49) "HEART RACES" DENIES NAUSEA Home Medications: Home Meds Medication Instructions Recorded Confirmed Aspirin [Ecotrin] 81 mg PO QAM 05/22/16 06/25/18 Cyanocobalamin [Vitamin B12 1000 1 ml SC Q30D 02/19/17 06/25/18 mcg/ml Inj] GlipiZIDE [Glucotrol] 5 mg PO BID 09/23/17 06/25/18 Hydroxychloroquine Sulfate 200 mg PO BID 05/09/18 06/25/18 [Plaquenil] Losartan [Cozaar] 50 mg PO DAILY 05/09/18 06/25/18 metFORMIN [glucOPHAGE] 500 mg PO BID 05/09/18 06/25/18 Review of Systems - Review of Systems Constitutional: absent: Fatigue, Fevers Eyes: absent: Vision Changes ENT: absent: Sore Throat, Rhinorrhea Respiratory: absent: SOB, Cough Cardiovascular: absent: Chest Pain, [place] Gastrointestinal: Abdominal Pain, Diarrhea. absent: Nausea, Vomiting, Appetite Changes, Hematochezia, Hematemesis Genitourinary Male: absent: Dysuria, Urinary Output Changes Musculoskeletal: absent: Back Pain, Neck Pain Skin: absent: Rash Neurological: absent: Headache, Dizziness Endocrine: Polydipsia. absent: Polyuria Hemo/Lymphatic: absent: Easy Bleeding Psychiatric: absent: Anxiety, Depression, Suicidal Ideation Physical Exam - Physical Exam Narrative Physical Exam (Text): 06/25/18 16:43 Head: Atraumatic. Normocephalic. Eyes: PERRL. EOMI. Conjunctivae are not pale. ENT: Mucous membranes are moist and intact. Oropharynx is clear and symmetric. Neck: Supple. Full ROM. No JVD. No lymphadenopathy. Cardiovascular: Regular rate. Regular rhythm. No murmurs, rubs, or gallops. Distal pulses are 2+ and symmetric. Pulmonary/Chest: No evidence of respiratory distress. Clear to auscultation bilaterally. No wheezing, rales or rhonchi. Abdominal: Soft and non-distended. MILD diffuse tenderness. No focal rebound, guarding, or rigidity. No organomegaly. Good bowel sounds. Back: No CVA tenderness. Rectal: no gross bleeding Extremities: No edema. No cyanosis. No clubbing. Full range of motion in all extremities. No calf tenderness. Skin: Skin is warm and dry. No petechiae. No purpura. Neurological: Alert, awake, and oriented. Motor and sensory exam intact. Psychiatric: Good eye contact. Normal interaction, affect, and behavior. Vital Signs Reviewed: Yes Vital Signs Temp Pulse Resp BP Pulse Ox 06/25/18 15:48 98.3 F 94 H 18 157/102 H 99 Temperature: Afebrile Blood Pressure: Hypertensive Pulse: Regular Respiratory Rate: Normal Appearance: Positive for: Well-Appearing, Non-Toxic, Comfortable Pain Distress: None Mental Status: Positive for: Alert and Oriented X 3 Finger Stick Blood Glucose: 341 Medical Decision Making ED Course and Treatment: 06/25/18 16:43 Impression: 57 year old male presents to the Emergency Department complaining of abdominal pain and diarrhea. Plan: -- VBG -- EKG -- Labs -- Chest X-ray -- IV Fluids -- Blood Culture -- C Diff -- Urine Culture -- Reassess and disposition Prior Visits: Notes and results from previous visits were reviewed. Progress Notes: Patient on initial exam with mild diffuse pain. Has hx of Chrohns but states symptoms not typical of Chrohns flare as he does "not have as much pain". No rectal bleeding noted. He is hyperglycemic, but initial exam and labs not consistent with DKA. CO2 unremarkable initially. Patient nontoxic appearing. No recent travel but there has been antibiotic usage several months ago. IV fluids given, will reassess blood sugar. Patient with CT abdomen/pelvis suggestive of enterocolitis. I reviewed exam and labs with PMD Dr. Norberto Olson. Cdiff ordered and is pending. IV antibiotics and po flagyl ordered. I reviewed case with covering GI consultation for Dr. Potter, and reviewed current labs, ct and treatment plan. Patient admitted for entercolitis. Lactate mildly elevated. As patient afebrile, not tachycardic, not hypotensive, will hydrate, repeat lactate. He remains afebrile, nontoxic appearing on re-evaluation, no leukocytosis noted. 06/25/18 20:56 - Lab Interpretations Lab Results: Lab Results 06/25/18 16:00: POC Glucose (mg/dL) 341 H - RAD Interpretation Narrative RAD Interpretations (Text): 06/25/18 17:55 Chest X-ray reviewed by radiologist, shows: FINDINGS: LUNGS: The lungs are well inflated and clear. PLEURA: No pleural effusions or pneumothorax. CARDIOVASCULAR: The heart is normal in size. No aortic atherosclerotic calcification present. OSSEOUS STRUCTURES: Within normal limits for the patient's age. ISUALIZED UPPER ABDOMEN: Normal. OTHER FINDINGS: None. IMPRESSION: No active pulmonary disease. 06/25/18 19:45 CT of Abdomen/Pelvis reviewed by radiologist, shows: FINDINGS: LOWER THORAX: Mild bibasilar atelectasis are noted. LIVER: Hepatic steatosis is again noted. No evidence of discrete mass or acute pathology in the liver. GALLBLADDER AND BILE DUCTS: The gallbladder is contracted demonstrate mild diffuse wall thickening. No CT evidence of acute cholecystitis. PANCREAS: Unremarkable. No gross lesion or ductal dilatation. SPLEEN: Splenomegaly is again noted. ADRENALS: Unremarkable. No mass. KIDNEYS AND URETERS: Mildly dilated collecting system of both kidneys is noted. Punctate calcification in the kidneys are again noted. VASCULATURE: Unremarkable. No aortic aneurysm. No aortic atherosclerotic calcification or mural plaque present. BOWEL: Postsurgical changes in the right colon are again noted. Mild large bowel wall thickening suspicious for colitis is noted. Mild small bowel wall thickening is also noted. No evidence of high-grade bowel obstruction. APPENDIX: The appendix is is not visualized PERITONEUM: Unremarkable. No free fluid. No free air. LYMPH NODES: Unremarkable. No enlarged lymph nodes. BLADDER: Mildly to moderately distended urinary bladder. REPRODUCTIVE: The prostate and seminal vesicles are mildly enlarged. BONES: No acute fracture. OTHER FINDINGS: None. IMPRESSION: Findings suspicious for enterocolitis. Stable splenomegaly. Distended collecting system of both kidneys likely due to distended bladder. Punctate calcification in the kidneys suggestive of nonobstructing calculi. Radiology Orders: 06/25/18 16:47 CHEST PORTABLE [RAD] Stat Pie Chef: Radiologist - Medication Orders Current Medication Orders: Sodium Chloride (Sodium Chloride 0.9%) 500 mls @ 1,000 mls/hr IV .Q30M STA Stop: 06/25/18 17:17 Last Admin: 06/25/18 17:02 Dose: 1,000 mls/hr eMAR Start Stop Document 06/25/18 17:02 SF (Rec: 06/25/18 17:02 [id number]) Intravenous Solution Start Date 06/25/18 Start Time 17:02 End Date 06/25/18 End time 17:32 Total Infusion Time 30 - Scribe Statement The provider has reviewed the documentation as recorded by the Scribe Juany Pinzon. All medical record entries made by the Scribe were at my direction and personally dictated by me. I have reviewed the chart and agree that the record accurately reflects my personal performance of the history, physical exam, medical decision making, and the department course for this patient. I have also personally directed, reviewed, and agree with the discharge instructions and disposition. Disposition/Present on Arrival - Present on Arrival Any Indicators Present on Arrival: Yes History of DVT/PE: No History of Uncontrolled Diabetes: Yes Urinary Catheter: No History of Decub. Ulcer: No History Surgical Site Infection Following: None - Disposition Have Diagnosis and Disposition been Completed?: Yes Diagnosis: Abdominal pain, Enterocolitis, Diarrhea, Hyperglycemia Disposition: HOSPITALIZED Disposition Time: 19:00 Patient Plan: Admission Patient Problems: Current Active Problems Problem Status Onset Abdominal pain Acute Diarrhea Acute Enterocolitis Acute Hyperglycemia Acute Condition: FAIR Forms: [facility] (Colombian)
[2018-06-25 17:22] LABS: INR 0.95; PARTIAL THROMBOPLASTIN TIME 29.1 Seconds (25.1-36.5); PROTHROMBIN TIME 10.8 SECONDS (9.4-12.5)
[2018-06-25 17:25] LABS: WHITE BLOOD COUNT 2.9 10^3/ul (4.5-11.0)
[2018-06-25 17:36] LABS: TROPONIN I < 0.01 ng/mL
[2018-06-25 17:48] LABS: ALB/GLOB RATIO 1.2 (1.1-1.8); ALBUMIN 3.4 g/dL (3.0-4.8); ALT/SGPT 21 U/L (7-56); AMYLASE 34 U/L (35-125); AST/SGOT 16 U/L (17-59); BLOOD UREA NITROGEN 12 mg/dL (7-21); CALCIUM 7.8 mg/dL (8.4-10.5); GFR NON-AFRICAN AMERICAN > 60; LIPASE 69 U/L (23-300)
[2018-06-25] MEDS ORDERED: Iohexol 350 MG/100 ML VIAL ONE (18:05)
[2018-06-25] MEDS: Sodium Chloride 0.9% 1,000 ML IV SCH ×2 (19:20→19:30)
--- NOTE | 2018-06-25 19:22 | CT ---
Date of service: 06/25/2018 PROCEDURE: CT Abdomen and Pelvis with contrast HISTORY: diarrhea, abdominal pain COMPARISON: Comparison is made to the previous study dated 11/05/2017 TECHNIQUE: Contrast dose: 100 mL of Omnipaque 350 intravenously. Axial and reformatted coronal and sagittal CT images of the abdomen and pelvis were obtained after IV contrast administration. Radiation dose: Total exam DLP = 264.96 mGy-cm. This CT exam was performed using one or more of the following dose reduction techniques: Automated exposure control, adjustment of the mA and/or kV according to patient size, and/or use of iterative reconstruction technique. FINDINGS: LOWER THORAX: Mild bibasilar atelectasis are noted. LIVER: Hepatic steatosis is again noted. No evidence of discrete mass or acute pathology in the liver. GALLBLADDER AND BILE DUCTS: The gallbladder is contracted demonstrate mild diffuse wall thickening. No CT evidence of acute cholecystitis. PANCREAS: Unremarkable. No gross lesion or ductal dilatation. SPLEEN: Splenomegaly is again noted. ADRENALS: Unremarkable. No mass. KIDNEYS AND URETERS: Mildly dilated collecting system of both kidneys is noted. Punctate calcification in the kidneys are again noted. VASCULATURE: Unremarkable. No aortic aneurysm. No aortic atherosclerotic calcification or mural plaque present. BOWEL: Postsurgical changes in the right colon are again noted. Mild large bowel wall thickening suspicious for colitis is noted. Mild small bowel wall thickening is also noted. No evidence of high-grade bowel obstruction. APPENDIX: The appendix is is not visualized PERITONEUM: Unremarkable. No free fluid. No free air. LYMPH NODES: Unremarkable. No enlarged lymph nodes. BLADDER: Mildly to moderately distended urinary bladder. REPRODUCTIVE: The prostate and seminal vesicles are mildly enlarged. BONES: No acute fracture. OTHER FINDINGS: None. IMPRESSION: Findings suspicious for enterocolitis. Stable splenomegaly. Distended collecting system of both kidneys likely due to distended bladder. Punctate calcification in the kidneys suggestive of nonobstructing calculi.
[2018-06-25] MEDS ORDERED: cefTRIAXone 1 gm 1 GM/100 ML BAG IVPB STA (19:48)
[2018-06-25 21:09] LABS: VENOUS BLOOD GAS PO2 174 mm/Hg (30-55); VENOUS BLOOD PH 7.42 (7.32-7.43)
--- NOTE | 2018-06-26 08:01 | CARD ---
APPROVED REPORT Date of service: 06/25/2018 EKG Measurement Heart [id number] OR [id number] [id number] <Conclusion> Normal sinus rhythm LVH by voltage criteria
[2018-06-26] MEDS: Insulin Reg-MEDIUM-Coverage SC SCH ×4 (08:43→23:12)
[2018-06-26 09:01] LABS: BASO # 0.01 K/mm3 (0.0-2.0); BASO % 0.3 % (0.0-3.0); EOS # 0.1 (0.0-0.7); EOS % 4.5 % (1.5-5.0); GRAN # 1.77 (1.4-6.5); HEMOGLOBIN 12.6 g/dL (14.0-18.0); LYMPH % 31.8 % (22.0-35.0); MEAN CELL VOLUME 84.2 fl (80.0-105.0); MEAN CORPUSCULAR HEMOGLOBIN 29.2 pg (25.0-35.0); MEAN CORPUSCULAR HGB CONC 34.7 g/dl (31.0-37.0); MEAN PLATELET VOLUME 10.2 fl (7.0-11.0); MONO # 0.2 (0.1-0.6); MONO % 6.4 % (1.0-6.0); RBC 4.31 10^6/uL (3.5-6.1); RED CELL DISTRIBUTION WIDTH 12.5 % (11.5-14.5); WHITE BLOOD COUNT 3.1 10^3/ul (4.5-11.0)
[2018-06-26] MEDS: cefTRIAXone 1 gm 1 GM/100 ML BAG IVPB SCH (09:03)
[2018-06-26 09:13] LABS: BLOOD UREA NITROGEN 8 mg/dL (7-21); CALCIUM 8.2 mg/dL (8.4-10.5); GFR NON-AFRICAN AMERICAN > 60
--- NOTE | 2018-06-26 10:48 | CP.PCM.CON ---
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 (follows with Rheum and is on hydroxychloroquine) presenting with complaint of loose stools and abd pain. He states over the last few weeks has had increase in bowel movement from 1-2 mostly formed brown BMs to 4-5 loose water brown BMs associated with intermittent, diffuse, mild "stomach" cramping. He denies any n/v, weight loss sick contacts, recent travel, dietary changes, raw food consumption, dysphagia, melena nor hematochezia. He states that he was on antibiotics a few months ago for a "leg infection." He states that he continues on infliximab therapy with last dose 06/21; states that he was on 10 mg after previously 5 mg dose did not reveal therapeutic level. Has been on 6MP in the past, but no longer reportedly due to insurance issues. On ROS, he reports some fatigue and chronic joint pain which is overall improved since seeing a Pre Owned Sales Consultant and being started on hydroxychloroquine. ROS: 12 Point ROS performed and negative other than stated above. MHx: See HPI SurgHx: Right hemicolectomy and TI resection 09/2016 , inguinal hernia repairs Meds: Reviewed in MAR, also on infliximab, last dose 06/21/18 FamHx: Mother with breast cancer; father with CAD SocHx: Former smoker, occasional EtOH use, Denies any drug usage All: Pseudoephedrine Endo Hx 05/09/19 [facility]SP[facility] Multiple ulcers at rohit-TI (Biopsies neg), Random Biopsies negative, patent ile-colonic anastamosis 02/2017 [facility] showing Crohns disease with Ilieitis, patent end to end Ileo- colonic anastamosis, Internal Hemorrhoids 07/2016 [facility] Stricture in the terminal Ilium, Internal Hemorrhoids 08/01/16 EGD Gastritis (Bx negative), Gastic Polyp (cystic) Past Patient History - Infectious Disease Hx of Infectious Diseases: None - Past Medical History & Family History Past Medical History?: Yes - Past Social History Smoking Status: Never Smoked - CARDIAC Hx Cardiac Disorders: No Hx Angina: No Hx Cardia Arrhythmia: No Hx Circulatory Problems: No Hx Congestive Heart Failure: No Hx Heart Murmur: No Hx Heart Transplant: No Hx Hypercholesterolemia: No Hx Hypertension: Yes Hx Internal Defibrillator: No Hx Mitral Valve Prolapse: No Hx Pacemaker: No Hx Peripheral Edema: No Hx Peripheral Vascular Disease: No - PULMONARY Hx Respiratory Disorders: No Hx Asthma: No Hx Bronchitis: No Hx Chronic Obstructive Pulmonary Disease (COPD): No Hx Emphysema: No Hx Pneumonia: No Hx Respiratory Aspiration: No Hx Respiratory Tract Infection: No Hx Sleep Apnea: No Hx Tuberculosis: No - NEUROLOGICAL Hx Neurological Disorder: No Hx Alzheimer's Disease: No HX Cerebrovascular Accident: No Hx Dementia: No Hx Dizziness: No Hx Meningitis: No Hx Migraine: No Hx Parkinson's Disease: No Hx Seizures: No Hx Transient Ischemic Attacks (TIA): No - HEENT Hx HEENT Problems: No Hx Blind: No Hx Cataracts: No Hx Deafness: No Hx Difficulty Chewing: No Hx Epistaxis: No Hx Glaucoma: No Hx Macular Degeneration: No - RENAL Hx Chronic Kidney Disease: No Hx Dialysis: No Hx Kidney Stones: No Hx Neurogenic Bladder: No Hx Pyelonephritis: No Hx Renal (Kidney) Cancer: No Hx Renal Failure: No - ENDOCRINE/METABOLIC Hx Endocrine Disorders: No Hx Adrenal Cancer: No Hx Diabetes Insipidus: No Hx Diabetes Mellitus Type 1: No Hx Diabetes Mellitus Type 2: No Hx Hyperthyroidism: No Hx Hypothyroidism: No Hx Systemic Lupus Erythematosus: Yes (possible dx. No confirmed) - HEMATOLOGICAL/ONCOLOGICAL Hx Blood Disorders: No Hx AIDS: No Hx Anemia: No Hx Cancer: No Hx Chemotherapy: No Hx Cirrhosis: No Hx Hemophilia: No Hx Hepatitis A: No Hx Hepatitis B: No Hx Hepatitis C: No Hx Human Immunodeficiency Virus (HIV): No Hx Metastesis: No Hx Shingles: No Hx Sickle Cell Disease: No Hx Unexplained Bleeding: No - INTEGUMENTARY Hx Dermatological Problems: No Hx Basil Cell: No Hx Eczema: No Hx Melanoma: No Hx Psoriasis: No Hx Squamous Cell: No - MUSCULOSKELETAL/RHEUMATOLOGICAL Hx Musculoskeletal Disorders: No Hx Arthritis: No Hx Back Pain: No Hx Degenerative Joint Disease: No Hx Falls: No Hx Fractures: No Hx Gout: No Hx Herniated Disk: No Hx Myasthenia Gravis: No Hx Osteoarthritis: No Hx Osteomyelitis: No Hx Osteoporosis: No Hx Rhabdomyolysis: No Hx Spinal Stenosis: No Hx Unsteady Gait: No - GASTROINTESTINAL Hx Gastrointestinal Disorders: No Hx Colostomy: No Hx Crohn's Disease: Yes Hx Diverticulitis: No Hx Gall Bladder Disease: No Hx Gastroesophageal Reflux: No Hx Ileostomy: No Hx Liver Failure: No Hx Pancreatitis: No HX Swallowing Problems: No Hx Ulcer: No - GENITOURINARY/GYNECOLOGICAL Hx Genitourinary Disorders: No Hx Hematuria: No Hx Incontinence: No Hx Prostate Problems: No Hx Sexually Transmitted Disorders: No Hx Urinary Tract Infection: No - PSYCHIATRIC Hx Psychophysiologic Disorder: No Hx Anxiety: No Hx Bipolar Disorder: No Hx Depression: No Hx Emotional Abuse: No Hx Hallucinations: No Hx Panic Symptoms: No Hx Paranoia: No Hx Post Traumatic Stress Disorder: No Hx Psychosis: No Hx Physical Abuse: No Hx Schizophrenia: No Hx Sexual Abuse: No - SURGICAL HISTORY Hx Surgeries: No Hx Amputation: No Hx Appendectomy: No Hx Cardiac Catheterization: No Hx Cholecystectomy: No Hx Coronary Stent: No Hx Gastric Bypass Surgery: No Hx Hysterectomy: No Hx Joint Replacement: No Hx Kidney Transplant: No Hx Liver Transplant: No Hx Mastectomy: No Hx Musculoskeletal Surgery: No Hx Open Heart Surgery: No Hx Orthopedic Surgery: No Hx Splenectomy: No Hx Valve Replacement: No - ANESTHESIA Hx Anesthesia: Yes Hx Anesthesia Reactions: No Hx Malignant Hyperthermia: No Meds Allergies/Adverse Reactions: Allergies Allergy/AdvReac Type Severity Reaction Status Date / Time pseudoephedrine HCl Allergy "HEART Verified 06/25/18 15:49 [From Sudafed] RACES" - Medications Medications: Current Medications Aspirin (Ecotrin) 81 mg PO QAM [facility] Glipizide (Glucotrol) 5 mg PO BID [facility] Hydroxychloroquine Sulfate (Plaquenil) 200 mg PO BID [facility]; Protocol Sodium Chloride (Sodium Chloride 0.9%) 1,000 mls @ 100 mls/hr IV .Q10H [facility] Last Admin: 06/25/18 19:30 Dose: 100 mls/hr Ceftriaxone Sodium (Rocephin 1 Gram Ivpb) 1 gm in 100 mls @ 100 mls/hr IVPB DAILY [facility]; Protocol Last Admin: 06/26/18 09:03 Dose: 100 mls/hr Insulin Human Regular (Humulin R Med) 0 units SC ACHS [facility]; Protocol Last Admin: 06/26/18 08:43 Dose: 1 unit Losartan Potassium (Cozaar) 50 mg PO DAILY [facility] Metformin HCl (Glucophage) 500 mg PO BID [facility] Metoprolol Tartrate (Lopressor) 100 mg PO BID [facility] Metronidazole (Flagyl) 250 mg PO Q8H [facility]; Protocol Last Admin: 06/26/18 09:03 Dose: 250 mg Physical Exam - Constitutional Appears: Well, Non-toxic, No Acute Distress - Head Exam Head Exam: NORMAL INSPECTION - Eye Exam Eye Exam: EOMI. absent: Conjunctival injection, Scleral icterus - ENT Exam ENT Exam: Mucous Membranes Moist, Normal Exam, Normal External Ear Exam. absent: Mucous Membranes Dry - Respiratory Exam Respiratory Exam: Clear to Auscultation Bilateral, NORMAL BREATHING PATTERN. absent: Accessory Muscle Use, Respiratory Distress - Cardiovascular Exam Cardiovascular Exam: REGULAR RHYTHM, RRR - GI/Abdominal Exam GI & Abdominal Exam: Normal Bowel Sounds, Soft. absent: Bruit, Diminished Bowel Sounds, Distended, Firm, Guarding, Hernia, Mass, Organomegaly, Pulsatile Mass, Rebound, Rigid, Tenderness Additional comments: +midline abd scar - Rectal Exam Rectal Exam: Deferred - Extremities Exam Extremities exam: Positive for: normal inspection. Negative for: pedal edema - Neurological Exam Neurological exam: Alert, CN II-XII Intact - Psychiatric Exam Psychiatric exam: Normal Affect, Normal Mood - Skin Skin Exam: Normal Color, Warm Results - Vital Signs Recent Vital Signs: Last Vital Signs Temp 98.3 F 06/25/18 15:48 Pulse 66 06/25/18 22:46 Resp 20 06/25/18 23:48 BP 150/96 H 06/25/18 22:46 Pulse Ox 97 06/25/18 22:46 - Labs Result Diagrams: 06/26/18 08:50 06/26/18 08:50 Labs: Laboratory Results - last 24 hr 06/25/18 06/25/18 06/25/18 16:00 17:01 17:01 WBC 2.9 L* RBC 3.90 Hgb 11.5 L Hct 33.2 L MCV 85.1 MCH 29.5 MCHC 34.6 RDW 12.6 Plt Count 162 MPV 10.4 Gran % 49.8 L Lymph % (Auto) 34.8 Johnson % (Auto) 9.2 H Eos % (Auto) 5.5 H Baso % (Auto) 0.7 Gran # 1.46 Lymph # (Auto) 1.0 L Johnson # (Auto) 0.3 Eos # (Auto) 0.2 Baso # (Auto) 0.02 PT INR APTT pO2 VBG pH VBG pCO2 VBG HCO3 VBG Total CO2 VBG O2 Sat (Calc) VBG Base Excess VBG Potassium Glucose Lactate FiO2 Sodium 136 Potassium 4.0 Chloride 104 Carbon Dioxide 26 Anion Gap 10 BUN 12 Creatinine 0.7 L Est GFR ( Amer) > 60 Est GFR (Non-Af Amer) > 60 POC Glucose (mg/dL) 341 H Random Glucose 377 H* D Calcium 7.8 L Magnesium 1.6 L Total Bilirubin 0.9 AST 16 L ALT 21 Alkaline Phosphatase 120 Lactate Dehydrogenase 462 Total Creatine Kinase 48 Troponin I < 0.01 Total Protein 6.2 Albumin 3.4 Globulin 2.8 Albumin/Globulin Ratio 1.2 Amylase 34 L Lipase 69 Venous Blood Potassium Urine Color Urine Appearance Urine pH Ur Specific Jeddo Urine Protein Urine Glucose (UA) Urine Ketones Urine Blood Urine Nitrate Urine Bilirubin Urine Urobilinogen Ur Leukocyte Esterase 06/25/18 06/25/18 06/25/18 17:01 17:02 17:13 WBC RBC Hgb Hct MCV MCH MCHC RDW Plt Count MPV Gran % Lymph % (Auto) Johnson % (Auto) Eos % (Auto) Baso % (Auto) Gran # Lymph # (Auto) Johnson # (Auto) Eos # (Auto) Baso # (Auto) PT 10.8 INR 0.95 APTT 29.1 pO2 234 H VBG pH 7.14 L* VBG pCO2 56.0 VBG HCO3 19.1 L VBG Total CO2 20.8 L VBG O2 Sat (Calc) 98.4 H VBG Base Excess -10.3 L VBG Potassium Glucose 398 H Lactate 2.4 H FiO2 21.0 Sodium 121.0 L Potassium Chloride 99.0 Carbon Dioxide Anion Gap BUN Creatinine Est GFR ( Amer) Est GFR (Non-Af Amer) POC Glucose (mg/dL) Random Glucose Calcium Magnesium Total Bilirubin AST ALT Alkaline Phosphatase Lactate Dehydrogenase Total Creatine Kinase Troponin I Total Protein Albumin Globulin Albumin/Globulin Ratio Amylase Lipase Venous Blood Potassium Urine Color Yellow Urine Appearance Clear Urine pH 6.0 Ur Specific Jeddo 1.020 Urine Protein Negative Urine Glucose (UA) >=1000 Urine Ketones Negative Urine Blood Negative Urine Nitrate Negative Urine Bilirubin Negative Urine Urobilinogen 0.2 Ur Leukocyte Esterase Negative 06/25/18 06/26/18 06/26/18 20:48 00:05 08:00 WBC RBC Hgb Hct MCV MCH MCHC RDW Plt Count MPV Gran % Lymph % (Auto) Johnson % (Auto) Eos % (Auto) Baso % (Auto) Gran # Lymph # (Auto) Johnson # (Auto) Eos # (Auto) Baso # (Auto) PT INR APTT pO2 174 H VBG pH 7.42 VBG pCO2 45.0 VBG HCO3 29.2 H VBG Total CO2 30.6 H VBG O2 Sat (Calc) 98.1 H VBG Base Excess 4.0 H VBG Potassium 3.4 L Glucose 342 H Lactate 1.9 FiO2 21.0 Sodium 139.0 Potassium Chloride 106.0 Carbon Dioxide Anion Gap BUN Creatinine Est GFR ( Amer) Est GFR (Non-Af Amer) POC Glucose (mg/dL) 198 H 189 H Random Glucose Calcium Magnesium Total Bilirubin AST ALT Alkaline Phosphatase Lactate Dehydrogenase Total Creatine Kinase Troponin I Total Protein Albumin Globulin Albumin/Globulin Ratio Amylase Lipase Venous Blood Potassium 3.4 L Urine Color Urine Appearance Urine pH Ur Specific Jeddo Urine Protein Urine Glucose (UA) Urine Ketones Urine Blood Urine Nitrate Urine Bilirubin Urine Urobilinogen Ur Leukocyte Esterase 06/26/18 06/26/18 08:50 08:50 WBC 3.1 L RBC 4.31 Hgb 12.6 L Hct 36.3 L MCV 84.2 MCH 29.2 MCHC 34.7 RDW 12.5 Plt Count 154 MPV 10.2 Gran % 57.0 Lymph % (Auto) 31.8 Johnson % (Auto) 6.4 H Eos % (Auto) 4.5 Baso % (Auto) 0.3 Gran # 1.77 Lymph # (Auto) 1.0 L Johnson # (Auto) 0.2 Eos # (Auto) 0.1 Baso # (Auto) 0.01 PT INR APTT pO2 VBG pH VBG pCO2 VBG HCO3 VBG Total CO2 VBG O2 Sat (Calc) VBG Base Excess VBG Potassium Glucose Lactate FiO2 Sodium 137 Potassium 3.6 Chloride 102 Carbon Dioxide 27 Anion Gap 11 BUN 8 Creatinine 0.6 L Est GFR ( Amer) > 60 Est GFR (Non-Af Amer) > 60 POC Glucose (mg/dL) Random Glucose 254 H Calcium 8.2 L Magnesium Total Bilirubin AST ALT Alkaline Phosphatase Lactate Dehydrogenase Total Creatine Kinase Troponin I Total Protein Albumin Globulin Albumin/Globulin Ratio Amylase Lipase Venous Blood Potassium Urine Color Urine Appearance Urine pH Ur Specific Jeddo Urine Protein Urine Glucose (UA) Urine Ketones Urine Blood Urine Nitrate Urine Bilirubin Urine Urobilinogen Ur Leukocyte Esterase Assessment & Plan - Assessment and Plan (Free Text) Assessment: 57 yo WM with h/o Crohn's (on infliximab), DM presenting with diarrhea and abd pain. # Acute diarrhea, Abd Pain: Suspect related to enterocolitis given history and CT findings. Trigger perhaps related to Cdiff, antibiotic associated diarrhea given recent Abx use or simply viral infection. Symptoms already mildly improved per patient report shortly after admission after receiving ceftriaxone and metronidazole. Perhaps could be disease progression/failure of infliximab though not as likely at this point given recent dose escalation a few months ago from 5mg/kg to 10 mg/kg; however, will plan to assess disease control with calprotectin. 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 Plan: - Infectious diarrhea w/u with Cdiff pending - Cont ceftriaxone and metronidazole, can complete 7 day Abx course - Check fecal calprotectin - Blood glucose control - Supportive care - Low residue diet - Started enoxaparin for DVT ppx as IBD pts are higher risk Pt seen and examined with Dr. Potter. Please see attestation for further recs/changes. <Micah Potter - Last Filed: 06/26/18 18:39> Meds - Medications Medications: Current Medications Acetaminophen (Tylenol 325mg Tab) 650 mg PO Q4 PRN PRN Reason: Headache Last Admin: 06/26/18 15:45 Dose: 650 mg Aspirin (Ecotrin) 81 mg PO QAM [facility] Enoxaparin Sodium (Lovenox) 40 mg SC DAILY [facility]; Protocol Last Admin: 06/26/18 15:45 Dose: 40 mg Glipizide (Glucotrol) 5 mg PO BID [facility] Last Admin: 06/26/18 17:32 Dose: 5 mg Hydroxychloroquine Sulfate (Plaquenil) 200 mg PO BID [facility]; Protocol Last Admin: 06/26/18 17:32 Dose: 200 mg Sodium Chloride (Sodium Chloride 0.9%) 1,000 mls @ 100 mls/hr IV .Q10H [facility] Last Admin: 06/25/18 19:30 Dose: 100 mls/hr Ceftriaxone Sodium (Rocephin 1 Gram Ivpb) 1 gm in 100 mls @ 100 mls/hr IVPB DAILY [facility]; Protocol Last Admin: 06/26/18 09:03 Dose: 100 mls/hr Insulin Human Regular (Humulin R Med) 0 units SC ACHS [facility]; Protocol Last Admin: 06/26/18 11:32 Dose: 3 unit Losartan Potassium (Cozaar) 50 mg PO DAILY [facility] Last Admin: 06/26/18 11:30 Dose: 50 mg Metformin HCl (Glucophage) 500 mg PO BID [facility] Last Admin: 06/26/18 17:32 Dose: 500 mg Metoprolol Tartrate (Lopressor) 100 mg PO BID [facility] Last Admin: 06/26/18 17:32 Dose: 100 mg Metronidazole (Flagyl) 250 mg PO Q8H [facility]; Protocol Last Admin: 06/26/18 09:03 Dose: 250 mg Results - Vital Signs Recent Vital Signs: Last Vital Signs Temp 98.3 F 06/25/18 15:48 Pulse 68 06/26/18 17:32 Resp 18 06/26/18 14:00 BP 154/100 H 06/26/18 17:32 Pulse Ox 97 06/25/18 22:46 - Labs Result Diagrams: 06/26/18 08:50 06/26/18 08:50 Labs: Laboratory Results - last 24 hr 06/25/18 06/25/18 06/26/18 20:48 22:30 00:05 WBC RBC Hgb Hct MCV MCH MCHC RDW Plt Count MPV Gran % Lymph % (Auto) Johnson % (Auto) Eos % (Auto) Baso % (Auto) Gran # Lymph # (Auto) Johnson # (Auto) Eos # (Auto) Baso # (Auto) pO2 174 H VBG pH 7.42 VBG pCO2 45.0 VBG HCO3 29.2 H VBG Total CO2 30.6 H VBG O2 Sat (Calc) 98.1 H VBG Base Excess 4.0 H VBG Potassium 3.4 L Sodium 139.0 Chloride 106.0 Glucose 342 H Lactate 1.9 FiO2 21.0 Potassium Carbon Dioxide Anion Gap BUN Creatinine Est GFR ( Amer) Est GFR (Non-Af Amer) POC Glucose (mg/dL) 222 H 198 H Random Glucose Calcium Venous Blood Potassium 3.4 L 06/26/18 06/26/18 06/26/18 08:00 08:50 08:50 WBC 3.1 L RBC 4.31 Hgb 12.6 L Hct 36.3 L MCV 84.2 MCH 29.2 MCHC 34.7 RDW 12.5 Plt Count 154 MPV 10.2 Gran % 57.0 Lymph % (Auto) 31.8 Johnson % (Auto) 6.4 H Eos % (Auto) 4.5 Baso % (Auto) 0.3 Gran # 1.77 Lymph # (Auto) 1.0 L Johnson # (Auto) 0.2 Eos # (Auto) 0.1 Baso # (Auto) 0.01 pO2 VBG pH VBG pCO2 VBG HCO3 VBG Total CO2 VBG O2 Sat (Calc) VBG Base Excess VBG Potassium Sodium 137 Chloride 102 Glucose Lactate FiO2 Potassium 3.6 Carbon Dioxide 27 Anion Gap 11 BUN 8 Creatinine 0.6 L Est GFR ( Amer) > 60 Est GFR (Non-Af Amer) > 60 POC Glucose (mg/dL) 189 H Random Glucose 254 H Calcium 8.2 L Venous Blood Potassium 06/26/18 06/26/18 11:09 16:00 WBC RBC Hgb Hct MCV MCH MCHC RDW Plt Count MPV Gran % Lymph % (Auto) Johnson % (Auto) Eos % (Auto) Baso % (Auto) Gran # Lymph # (Auto) Johnson # (Auto) Eos # (Auto) Baso # (Auto) pO2 VBG pH VBG pCO2 VBG HCO3 VBG Total CO2 VBG O2 Sat (Calc) VBG Base Excess VBG Potassium Sodium Chloride Glucose Lactate FiO2 Potassium Carbon Dioxide Anion Gap BUN Creatinine Est GFR ( Amer) Est GFR (Non-Af Amer) POC Glucose (mg/dL) 235 H 141 H Random Glucose Calcium Venous Blood Potassium Attending/Attestation - Attestation I have personally seen and examined this patient.: Yes I have fully participated in the care of the patient.: Yes I have reviewed all pertinent clinical information: Yes Notes (Text): 06/26/18 18:32 I have seen and examined patient with GI fellow. Agree with above documentation with the following additions. In brief, this is a 57 year old male with history of Crohn's ileitis complicated by stricturing disease s/p partial small bowel and colon resection, DM, chronic joint pain who presents to hospital with complaint of change in bowel habits. He reports for the past 2 weeks he has developed loose bowel movements along with mild epigastric abdominal pain. He is typically having 3-4 loose bowel movements daily without presence of blood in stool. He otherwise denies nausea, vomiting, fever/chills, weight loss, rectal bleeding, sick contacts, travel history. He does report antibiotic use 1 month ago for a lower extremity infection. He was previously maintained on 5mg/kg infliximab which was recently increased to 10mg/kg due to outpatient trough/ant ibody testing. He follows with rheumatology given ongoing joint related pain and was recently started on plaquenil. He had a colonoscopy last month which showed multiple apthous ulceration in rohit-terminal ileum, no significant colonic abnormalities. Crohn's ileitis DM Neuropathy Chronic joint pain, ?drug induced lupus - Liquid diet, advance slowly as tolerated - Continue with antibiotic therapy - Obtain stool studies (culture, c-difficile) - Obtain fecal calprotectin - Maintain strict glycemic control - Will continue to monitor patient clinical course
[2018-06-26] MEDS: Enoxaparin 40 mg Syringe SC SCH (15:45)
[2018-06-26] MEDS: Sodium Chloride 0.9% 1,000 ML IV SCH (19:04)
--- NOTE | 2018-06-27 09:53 | CP.PCM.PN ---
<JamariNabilatejal - Last Filed: 06/27/18 15:55> Subjective - Date & Time of Evaluation Date of Evaluation: 06/27/18 Time of Evaluation: 08:15 - Subjective Subjective: PGY-4 GI Fellow Prog Note Pt lying in bed when seen this AM. States no further semi-formed BMs. Reports one episode of nausea with NB/NB emesis last night after turkey sandwhich. Otherwise, states he has a headache. 5 point ROS negative other than stated above Objective - Vital Signs/Intake and Output Vital Signs (last 24 hours): Temp Pulse Resp BP Pulse Ox 98.3 F 78 20 150/92 H 99 06/27/18 07:00 06/27/18 07:00 06/27/18 07:00 06/27/18 07:00 06/27/18 07:00 Intake and Output: 06/27/18 06/27/18 06:59 18:59 Intake Total 2980 Balance 2980 - Medications Medications: Current Medications Acetaminophen (Tylenol 325mg Tab) 650 mg PO Q4 PRN PRN Reason: Headache Last Admin: 06/26/18 21:51 Dose: 650 mg Aspirin (Ecotrin) 81 mg PO QAM [facility] Enoxaparin Sodium (Lovenox) 40 mg SC DAILY [facility]; Protocol Last Admin: 06/26/18 15:45 Dose: 40 mg Glipizide (Glucotrol) 5 mg PO BID [facility] Last Admin: 06/26/18 17:32 Dose: 5 mg Hydroxychloroquine Sulfate (Plaquenil) 200 mg PO BID [facility]; Protocol Last Admin: 06/26/18 17:32 Dose: 200 mg Sodium Chloride (Sodium Chloride 0.9%) 1,000 mls @ 100 mls/hr IV .Q10H [facility] Last Admin: 06/26/18 19:04 Dose: 100 mls/hr Ceftriaxone Sodium (Rocephin 1 Gram Ivpb) 1 gm in 100 mls @ 100 mls/hr IVPB DAILY [facility]; Protocol Last Admin: 06/26/18 09:03 Dose: 100 mls/hr Insulin Human Regular (Humulin R Med) 0 units SC ACHS [facility]; Protocol Last Admin: 06/26/18 23:12 Dose: Not Given Losartan Potassium (Cozaar) 50 mg PO DAILY [facility] Last Admin: 06/26/18 11:30 Dose: 50 mg Metformin HCl (Glucophage) 500 mg PO BID [facility] Last Admin: 06/26/18 17:32 Dose: 500 mg Metoprolol Tartrate (Lopressor) 100 mg PO BID [facility] Last Admin: 06/26/18 17:32 Dose: 100 mg Metronidazole (Flagyl) 250 mg PO Q8H [facility]; Protocol Last Admin: 06/27/18 01:40 Dose: 250 mg Ondansetron HCl (Zofran Inj) 4 mg IVP Q6H PRN PRN Reason: Nausea/Vomiting Last Admin: 06/26/18 21:22 Dose: 4 mg - Labs Labs: 06/26/18 08:50 06/26/18 08:50 PT 10.8 SECONDS (9.4-12.5) 06/25/18 17:01 INR 0.95 06/25/18 17:01 APTT 29.1 Seconds (25.1-36.5) 06/25/18 17:01 - Constitutional Appears: Well, No Acute Distress - Head Exam Head Exam: ATRAUMATIC, NORMAL INSPECTION - ENT Exam ENT Exam: Mucous Membranes Dry, Normal External Ear Exam. absent: Mucous Membranes Moist - Respiratory Exam Respiratory Exam: NORMAL BREATHING PATTERN. absent: Accessory Muscle Use, Respiratory Distress - GI/Abdominal Exam GI & Abdominal Exam: Soft, Normal Bowel Sounds. absent: Bruit, Distended, Firm, Guarding, Rigid, Tenderness, Diminished Bowel Sounds, Hernia, Mass, Organomegaly, Pulsatile Mass, Rebound Assessment and Plan - Assessment and Plan (Free Text) Assessment: 57 yo WM with h/o Crohn's (on infliximab), DM presenting with diarrhea and abd pain. # Acute diarrhea, Abd Pain: Suspect related to enterocolitis given history and CT findings. Trigger perhaps related to antibiotic associated diarrhea given recent Abx use or simply viral infection; Cdiff returned negative. Symptoms already mildly improved per patient report shortly after admission after receiving ceftriaxone and metronidazole. Perhaps could be disease progression/failure of infliximab though not as likely at this point given recent dose escalation a few months ago from 5mg/kg to 10 mg/kg; however, will plan to assess disease control with calprotectin. 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 Plan: - Cont ceftriaxone and metronidazole, can complete 5 day Abx course - Check fecal calprotectin, pending - Blood glucose control - Supportive care - Low residue diet - Enoxaparin for DVT ppx as IBD pts are higher risk - ADAT, if tolerating PO, OK to DC with GI f/u as outpatient Pt discussed with Dr. Potter. Please see attestation for further recs/changes. <Micah Potter - Last Filed: 06/27/18 16:00> Objective - Vital Signs/Intake and Output Vital Signs (last 24 hours): Temp Pulse Resp BP Pulse Ox 99.1 F 72 18 142/96 H 98 06/27/18 14:00 06/27/18 14:00 06/27/18 14:00 06/27/18 14:00 06/27/18 14:00 Intake and Output: 06/27/18 06/27/18 06:59 18:59 Intake Total 2980 Balance 2980 - Medications Medications: Current Medications Acetaminophen (Tylenol 325mg Tab) 650 mg PO Q4 PRN PRN Reason: Headache Last Admin: 06/26/18 21:51 Dose: 650 mg Aspirin (Ecotrin) 81 mg PO QAM [facility] Last Admin: 06/27/18 10:19 Dose: 81 mg Enoxaparin Sodium (Lovenox) 40 mg SC DAILY [facility]; Protocol Last Admin: 06/27/18 10:21 Dose: 40 mg Glipizide (Glucotrol) 5 mg PO BID [facility] Last Admin: 06/27/18 10:19 Dose: 5 mg Hydroxychloroquine Sulfate (Plaquenil) 200 mg PO BID [facility]; Protocol Last Admin: 06/27/18 10:20 Dose: 200 mg Sodium Chloride (Sodium Chloride 0.9%) 1,000 mls @ 100 mls/hr IV .Q10H [facility] Last Admin: 06/26/18 19:04 Dose: 100 mls/hr Ceftriaxone Sodium (Rocephin 1 Gram Ivpb) 1 gm in 100 mls @ 100 mls/hr IVPB DAILY [facility]; Protocol Last Admin: 06/27/18 10:21 Dose: 100 mls/hr Insulin Human Regular (Humulin R Med) 0 units SC ACHS [facility]; Protocol Last Admin: 06/27/18 12:37 Dose: Not Given Losartan Potassium (Cozaar) 50 mg PO DAILY [facility] Last Admin: 06/27/18 10:20 Dose: 50 mg Metformin HCl (Glucophage) 500 mg PO BID [facility] Last Admin: 06/27/18 10:19 Dose: 500 mg Metoprolol Tartrate (Lopressor) 100 mg PO BID [facility] Last Admin: 06/27/18 10:20 Dose: 100 mg Metronidazole (Flagyl) 250 mg PO Q8H [facility]; Protocol Last Admin: 06/27/18 12:39 Dose: 250 mg Ondansetron HCl (Zofran Inj) 4 mg IVP Q6H PRN PRN Reason: Nausea/Vomiting Last Admin: 06/27/18 10:19 Dose: 4 mg - Labs Labs: 06/26/18 08:50 06/26/18 08:50 PT 10.8 SECONDS (9.4-12.5) 06/25/18 17:01 INR 0.95 06/25/18 17:01 APTT 29.1 Seconds (25.1-36.5) 06/25/18 17:01 Attending/Attestation - Attestation I have fully participated in the care of the patient.: Yes I have reviewed all pertinent clinical information, including history, physical exam and plan: Yes Notes (Text): 06/27/18 15:59 Crohn's ileitis DM Neuropathy Chronic joint pain, ?drug induced lupus - Diet as tolerated - Awaiting fecal calprotectin - Cdifficile negative, would complete 5 day course of antibiotic therapy - From GI standpoint, if tolerating PO diet can be discharged with subsequent outpatient follow up
[2018-06-27] MEDS: cefTRIAXone 1 gm 1 GM/100 ML BAG IVPB SCH (10:21)
[2018-06-27] MEDS: Enoxaparin 40 mg Syringe SC SCH (10:21)
[2018-06-27] MEDS: Insulin Reg-MEDIUM-Coverage SC SCH ×3 (12:37→22:03)
[2018-06-27] MEDS: Sodium Chloride 0.9% 1,000 ML IV SCH (16:23)
[2018-06-28] MEDS: Sodium Chloride 0.9% 1,000 ML IV SCH (03:17)
[2018-06-28 08:22] VITALS: BP 146/95; PULSE 68; RESP 16; TEMP 98.5; O2SAT 99
[2018-06-28] MEDS: Insulin Reg-MEDIUM-Coverage SC SCH (08:52)
== END 2018-06-28 11:56 | disposition home or self-care (01) | DRG 387 ==
LOC: ED 15:19 → ERH 19:47 → 5RSO 23:15
PROVIDERS: ADMIT Internal Medicine; ATTEND Internal Medicine
DX: K50.00 Crohn's disease of small intestine without complications (principal); E11.65 Type 2 diabetes mellitus with hyperglycemia; E11.40 Type 2 diabetes mellitus with diabetic neuropathy, unspecified; G89.29 Other chronic pain; I10 Essential (primary) hypertension; K12.0 Recurrent oral aphthae; M32.9 Systemic lupus erythematosus, unspecified; Z80.3 Family history of malignant neoplasm of breast; Z82.49 Family history of ischemic heart disease and other diseases of the circulatory system; Z87.442 Personal history of urinary calculi; Z87.891 Personal history of nicotine dependence; M25.50 Pain in unspecified joint

== ENCOUNTER 2018-07-03 06:36 | Inpatient (IN) | payer OTHER ==
--- NOTE | 2018-07-03 07:06 | ED PDOC ---
Arrival/HPI - General Chief Complaint: Abdominal Pain Time Seen by Provider: 07/03/18 07:05 Historian: Patient - History of Present Illness Narrative History of Present Illness (Text): 07/03/18 07:16 Patient is a 57 year old male, who has a h/o Crohn's disease, diabetes, and hypertension, presents to the Emergency Department c/o nausea and diffuse, constant abdominal pain that started last night. Patient was admitted to [facility] on 06/25 for similar complaints. Patient states he has had lose stools daily as is typical w/his Crohn's symptoms. Denies any vomiting, fever, chills, nausea, chest pain or shortness of breath, headache or dizziness, dysuria, urinary output changes or changes in bowel movement. Past Medical History - Provider Review Nursing Documentation Reviewed: Yes - Infectious Disease Hx of Infectious Diseases: None - Cardiac Hx Hypertension: Yes - Pulmonary Hx Respiratory Disorders: No Hx Asthma: No Hx Bronchitis: No Hx Chronic Obstructive Pulmonary Disease (COPD): No Hx Emphysema: No Hx Pneumonia: No Hx Respiratory Aspiration: No Hx Respiratory Tract Infection: No Hx Sleep Apnea: No Hx Tuberculosis: No - Neurological Hx Neurological Disorder: No Hx Alzheimer's Disease: No HX Cerebrovascular Accident: No Hx Dementia: No Hx Dizziness: No Hx Meningitis: No Hx Migraine: No Hx Parkinson's Disease: No Hx Seizures: No Hx Transient Ischemic Attacks (TIA): No - HEENT Hx HEENT Disorder: No Hx Blind: No Hx Cataracts: No Hx Deafness: No Hx Difficulty Chewing: No Hx Epistaxis: No Hx Glaucoma: No Hx Macular Degeneration: No - Renal Hx Renal Disorder: No Hx Dialysis: No Hx Kidney Stones: No Hx Neurogenic Bladder: No Hx Pyelonephritis: No Hx Renal Cancer: No Hx Renal Failure: No - Endocrine/Metabolic Hx Endocrine Disorders: No Hx Adrenal Cancer: No Hx Diabetes Insipidus: No Hx Diabetes Mellitus Type 1: No Hx Diabetes Mellitus Type 2: Yes Hx Hyperthyroidism: No Hx Hypothyroidism: No Hx Systemic Lupus Erythematosus: Yes (possible dx. No confirmed) - Hematological/Oncological Hx Blood Disorders: No Hx AIDS: No Hx Anemia: No Hx Cancer: No Hx Chemotherapy: No Hx Cirrhosis: No Hx Hemophilia: No Hx Hepatitis A: No Hx Hepatitis B: No Hx Hepatitis C: No Hx Metastasis: No Hx Shingles: No Hx Sickle Cell Disease: No Hx Unexplained Bleeding: No - Integumentary Hx Dermatological Disorder: No Hx Basal Cell Carcinoma: No Hx Eczema: No Hx Melanoma: No Hx Psoriasis: No Hx Squamous Cell Carcinoma: No - Musculoskeletal/Rheumatological Hx Musculoskeletal Disorders: No Hx Arthritis: No Hx Back Pain: No Hx Degenerative Joint Disease: No Hx Falls: No Hx Fractures: No Hx Gout: No Hx Herniated Disk: No Hx Myasthenia Gravis: No Hx Osteoarthritis: No Hx Osteomyelitis: No Hx Osteoporosis: No Hx Rhabdomyolysis: No Hx Spinal Stenosis: No Hx Unsteady Gait: No - Gastrointestinal Hx Gastrointestinal Disorders: No Hx Colostomy: No Hx Crohn's Disease: Yes Hx Diverticulitis: No Hx Gall Bladder Disease: No Hx Gastroesophageal Reflux: No Hx Ileostomy: No Hx Liver Failure: No Hx Pancreatitis: No HX Swallowing Problems: No - Genitourinary/Gynecological Hx Genitourinary Disorders: No Hx Hematuria: No Hx Incontinence: No Hx Prostate Problems: No Hx Sexually Transmitted Diseases: No Hx Urinary Tract Infection: No - Psychiatric Hx Psychophysiologic Disorder: No Hx Anxiety: No Hx Bipolar Disorder: No Hx Depression: No Hx Emotional Abuse: No Hx Hallucinations: No Hx Panic Disorder: No Hx Post Traumatic Stress Disorder: No Hx Psychosis: No Hx Physical Abuse: No Hx Schizophrenia: No Hx Sexual Abuse: No Hx Substance Use: No - Surgical History Hx Amputation: No Hx Appendectomy: No Hx Cardiac Catheterization: No Hx Cholecystectomy: No Hx Coronary Stent: No Hx Gastric Bypass Surgery: No Hx Hysterectomy: No Hx Joint Replacement: No Hx Kidney Transplant: No Hx Liver Transplant: No Hx Mastectomy: No Hx Musculoskeletal Surgery: No Hx Open Heart Surgery: No Hx Orthopedic Surgery: No Hx Splenectomy: No Hx Valve Replacement: No - Anesthesia Hx Anesthesia: Yes Hx Anesthesia Reactions: No Hx Malignant Hyperthermia: No - Suicidal Assessment Feels Threatened In Home Enviroment: No Family/Social History - Physician Review Nursing Documentation Reviewed: Yes Family/Social History: No Known Family HX Smoking Status: Never Smoked Hx Alcohol Use: No Hx Substance Use: No Allergies/Home Meds Allergies/Adverse Reactions: Allergies pseudoephedrine HCl [From Sudafed] Allergy (Verified 07/03/18 06:45) "HEART RACES" DENIES NAUSEA Home Medications: Home Meds Medication Instructions Recorded Confirmed Aspirin [Ecotrin] 81 mg PO QAM 05/22/16 07/03/18 Cyanocobalamin [Vitamin B12 1000 1 ml SC Q30D 02/19/17 07/03/18 mcg/ml Inj] GlipiZIDE [Glucotrol] 5 mg PO BID 09/23/17 07/03/18 Hydroxychloroquine Sulfate 200 mg PO BID 05/09/18 07/03/18 [Plaquenil] Losartan [Cozaar] 50 mg PO DAILY 05/09/18 07/03/18 metFORMIN [glucOPHAGE] 500 mg PO BID 05/09/18 07/03/18 Review of Systems - Physician Review All systems were reviewed & negative as marked: Yes - Review of Systems Constitutional: absent: Fevers, Night Sweats Respiratory: absent: SOB Cardiovascular: absent: Chest Pain Gastrointestinal: Abdominal Pain, Nausea Genitourinary Male: absent: Dysuria, Urinary Output Changes Neurological: absent: Headache, Dizziness Physical Exam Vital Signs Reviewed: Yes Vital Signs Temp Pulse Resp BP Pulse Ox 07/03/18 06:42 98.4 F 78 18 183/110 H 100 Temperature: Afebrile Blood Pressure: Hypertensive Pulse: Regular Respiratory Rate: Normal Appearance: Positive for: Well-Appearing, Non-Toxic, Uncomfortable Pain Distress: None Mental Status: Positive for: Alert and Oriented X 3 Finger Stick Blood Glucose: 151 - Systems Exam Head: Present: Atraumatic, Normocephalic Pupils: Present: PERRL Extroacular Muscles: Present: EOMI Conjunctiva: Present: Normal Mouth: Present: Dry (and pink) Neck: Present: Normal Range of Motion Respiratory/Chest: Present: Clear to Auscultation, Good Air Exchange. No: Respiratory Distress, Accessory Muscle Use Cardiovascular: Present: Regular Rate and Rhythm, Normal S1, S2. No: Murmurs Abdomen: No: Tenderness, Distention, Peritoneal Signs Back: Present: Normal Inspection Upper Extremity: Present: Normal Inspection. No: Cyanosis, Edema Lower Extremity: Present: Normal Inspection. No: Edema Neurological: Present: GCS=15, CN II-XII Intact, Speech Normal Skin: Present: Warm, Dry, Normal Color. No: Rashes Psychiatric: Present: Alert, Oriented x 3, Normal Insight, Normal Concentration Medical Decision Making ED Course and Treatment: 07/03/18 07:34 Impression: 57 year old male with nausea and abdominal pain. Physical exam shows patient appears uncomfortable and has dry and pink mucous membranes; no other acute findings on examination. Plan: -- Chest X-ray -- Labs -- Venous Blood Gas -- Abdominal X-Ray -- Blood Culture -- Morphine -- IV Fluids -- Zofran -- Urinalysis -- Reassess and disposition Progress Notes: 07/03/18 07:35 Patient states he did not takes his blood pressure medications this morning. Will be given to the patient after administering Zofran. 07/03/18 10:00 Upon reassessment, patient states he is still experiencing some pain and his blood pressure has been normalized to 153/101. Another liter of fluids to be ordered. 07/03/2018 10:49 Chest X-ray IMPRESSION: No active disease. Dictator: Rolo Vora MD 07/03/2018 10:51 Abdominal X-ray IMPRESSION: The large bowel is severely dilated. There is no evidence of small bowel obstruction. Findings may be due to distal large bowel obstrution versus ileus. Dictator: Rolo Vora MD 07/03/18 11:00 Abd/Pelvis CT has been ordered for further imaging. 07/03/2018 12:01 Abd/Pelvis CT IMPRESSION: There is severe constipation and severe dilatation of the colon. The pattern is most consistent with chronic ileus. There is no evidence of small bowel obstruction. Dictator: Rolo Vora MD 07/03/18 12:[address] Rolo Olson, who has seen patient at bedside here in the ER and accepts patient for full admission. Requests for Dr. Correia for consultation. Spoke to patient regarding results, labs are unremarkable. Blood pressure improved to 155/92. - Lab Interpretations I have reviewed the lab results: Yes Disposition/Present on Arrival - Present on Arrival Any Indicators Present on Arrival: No History of DVT/PE: No History of Uncontrolled Diabetes: No Urinary Catheter: No History of Decub. Ulcer: No History Surgical Site Infection Following: None - Disposition Have Diagnosis and Disposition been Completed?: Yes Diagnosis: Intractable pain, Crohns disease, Ileus Disposition: HOSPITALIZED Disposition Time: 12:18 Patient Plan: Admission Patient Problems: Current Active Problems Problem Status Onset Crohns disease Acute Ileus Acute Intractable pain Acute Condition: FAIR
[2018-07-03] MEDS ORDERED: Morphine 4 mg/ml ISec IVP STA ×2 (07:24→10:02)
[2018-07-03 07:39] LABS: BASO # 0.01 K/mm3 (0.0-2.0); BASO % 0.1 % (0.0-3.0); EOS # 0.1 (0.0-0.7); EOS % 1.5 % (1.5-5.0); GRAN # 5.5 (1.4-6.5); GRAN % 80.3 % (50.0-68.0); HEMOGLOBIN 14.2 g/dL (14.0-18.0); LYMPH # 0.9 (1.2-3.4); LYMPH % 12.8 % (22.0-35.0); MEAN CELL VOLUME 85.9 fl (80.0-105.0); MEAN CORPUSCULAR HGB CONC 34.9 g/dl (31.0-37.0); MEAN PLATELET VOLUME 10.9 fl (7.0-11.0); MONO # 0.4 (0.1-0.6); MONO % 5.3 % (1.0-6.0); RBC 4.74 10^6/uL (3.5-6.1); RED CELL DISTRIBUTION WIDTH 12.8 % (11.5-14.5); WHITE BLOOD COUNT 6.9 10^3/uL (4.5-11.0)
[2018-07-03] MEDS: Sodium Chloride 0.9% 1,000 ML IV STA ×2 (07:42→16:57)
[2018-07-03 07:56] LABS: ALB/GLOB RATIO 1.5 (1.1-1.8); ALBUMIN 4.4 g/dL (3.0-4.8); ALT/SGPT 30 U/L (7-56); AST/SGOT 26 U/L (17-59); BLOOD UREA NITROGEN 15 mg/dL (7-21); CALCIUM 9.4 mg/dL (8.4-10.5); GFR NON-AFRICAN AMERICAN > 60; LIPASE 60 U/L (23-300)
[2018-07-03 08:23] LABS: VENOUS BLOOD GAS PO2 43 mm/Hg (30-55); VENOUS BLOOD PH 7.32 (7.32-7.43)
[2018-07-03] MEDS ORDERED: Sodium Chloride 0.9% 1,000 ML IV ONE (10:02)
[2018-07-03 10:34] LABS: URINE BILIRUBIN NEGATIVE (NEGATIVE); URINE BLOOD NEGATIVE (NEGATIVE); URINE GLUCOSE (UA) NEGATIVE (NEGATIVE); URINE LEUKOCYTE ESTERASE NEGATIVE Leu/uL (NEGATIVE); URINE PROTEIN NEGATIVE mg/dL (<30 mg/dL); URINE UROBILINOGEN 0.2 E.U./dL (<1 E.U./dL)
[2018-07-03 10:37] LABS: URINE APPEARANCE CLEAR (CLEAR); URINE COLOR YELLOW (YELLOW)
--- NOTE | 2018-07-03 10:53 | RAD ---
Date of service: 07/03/2018 HISTORY: abd pain COMPARISON: 06/25/2018 TECHNIQUE: Chest PA and lateral FINDINGS: LUNGS: No active pulmonary disease. PLEURA: No significant pleural effusion identified. No pneumothorax apparent. CARDIOVASCULAR: No aortic atherosclerotic calcification present. Mild cardiomegaly no pulmonary vascular congestion. OSSEOUS STRUCTURES: No significant abnormalities. VISUALIZED UPPER ABDOMEN: Normal. OTHER FINDINGS: None. IMPRESSION: No active disease.
--- NOTE | 2018-07-03 10:55 | RAD ---
Date of service: 07/03/2018 HISTORY: abd pain COMPARISON: 02/02/2017 FINDINGS: BOWEL: The large bowel is severely dilated. There is no evidence of small bowel obstruction. Findings may be due to distal large bowel obstruction versus ileus. BONES: Normal. OTHER FINDINGS: None. IMPRESSION: The large bowel is severely dilated. There is no evidence of small bowel obstruction. Findings may be due to distal large bowel obstruction versus ileus.
[2018-07-03] MEDS ORDERED: Iohexol 350 MG/100 ML VIAL ONE (11:08)
--- NOTE | 2018-07-03 12:04 | CT ---
Date of service: 07/03/2018 PROCEDURE: CT Abdomen and Pelvis with contrast HISTORY: abd pain COMPARISON: None. TECHNIQUE: Contrast dose: 100 cc of Omni 350 Radiation dose: Total exam DLP = 304.44 mGy-cm. This CT exam was performed using one or more of the following dose reduction techniques: Automated exposure control, adjustment of the mA and/or kV according to patient size, and/or use of iterative reconstruction technique. FINDINGS: LOWER THORAX: Unremarkable. LIVER: Unremarkable. No gross lesion or ductal dilatation. GALLBLADDER AND BILE DUCTS: Unremarkable. PANCREAS: Unremarkable. No gross lesion or ductal dilatation. SPLEEN: Unremarkable. ADRENALS: Unremarkable. No mass. KIDNEYS AND URETERS: Unremarkable. No hydronephrosis. No solid mass. VASCULATURE: Unremarkable. No aortic aneurysm. No aortic atherosclerotic calcification or mural plaque present. BOWEL: There is severe constipation and severe dilatation of the colon. The pattern is most consistent with chronic ileus. There is no evidence of small bowel obstruction. APPENDIX: Normal appendix. PERITONEUM: Unremarkable. No free fluid. No free air. LYMPH NODES: Unremarkable. No enlarged lymph nodes. BLADDER: Unremarkable. REPRODUCTIVE: Unremarkable. BONES: No acute fracture. OTHER FINDINGS: None. IMPRESSION: There is severe constipation and severe dilatation of the colon. The pattern is most consistent with chronic ileus. There is no evidence of small bowel obstruction.
[2018-07-03 16:51] VITALS: BMI 21.1
[2018-07-03] MEDS ORDERED: Pneumococcal 23-Valent Vaccine IM ONE (16:51)
[2018-07-03] MEDS ORDERED: Influenza Vaccine 60 mcg/0.5 mL SYR (4YR UP) IM ONE (16:51)
[2018-07-03] MEDS ORDERED: Dextrose 5%/0.45% NS 1,000 ML IV SCH (19:00)
--- NOTE | 2018-07-04 12:41 | CP.PCM.CON ---
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 (follows with Rheum and is on hydroxychloroquine) presenting with complaint of abd pain. He states in the PM of 07/02 eh began to feel diffuse, undescribable abd pain associated with nausea but no vomiting. No clear precipitating or alleviating factors, but states it didn't feel exactly like his Crohn's but he was concerned and therefore came in for evaluation. He states that he has been moving his bowels at least daily with soft, BMs but that have been small in quantity. Denied any hematemeis, melena nor hematochezia. 12 Point ROS performed and negative other than stated above. Endo Hx 05/09/19 [facility] Multiple ulcers at rohit-TI (Biopsies neg), Random Biopsies negative, patent ile-colonic anastamosis 02/2017 [facility] showing Crohns disease with Ilieitis, patent end to end Ileo- colonic anastamosis, Internal Hemorrhoids 07/2016 [facility] Stricture in the terminal Ilium, Internal Hemorrhoids 08/01/16 EGD Gastritis (Bx negative), Gastic Polyp (cystic) MHx: See HPI SurgHx: Right hemicolectomy and TI resection 09/2016 , inguinal hernia repairs Meds: Reviewed in MAR FamHx: Mother with breast cancer; father with CAD SocHx: Former smoker, occasional EtOH use, Denies any drug usage All: Pseudoephedrine Past Patient History - Infectious Disease Hx of Infectious Diseases: None - Past Medical History & Family History Past Medical History?: Yes - Past Social History Smoking Status: Never Smoked - CARDIAC Hx Hypertension: Yes - PULMONARY Hx Respiratory Disorders: No Hx Asthma: No Hx Bronchitis: No Hx Chronic Obstructive Pulmonary Disease (COPD): No Hx Emphysema: No Hx Pneumonia: No Hx Respiratory Aspiration: No Hx Respiratory Tract Infection: No Hx Sleep Apnea: No Hx Tuberculosis: No - NEUROLOGICAL Hx Neurological Disorder: No Hx Alzheimer's Disease: No HX Cerebrovascular Accident: No Hx Dementia: No Hx Dizziness: No Hx Meningitis: No Hx Migraine: No Hx Parkinson's Disease: No Hx Seizures: No Hx Transient Ischemic Attacks (TIA): No - HEENT Hx HEENT Problems: No Hx Blind: No Hx Cataracts: No Hx Deafness: No Hx Difficulty Chewing: No Hx Epistaxis: No Hx Glaucoma: No Hx Macular Degeneration: No - RENAL Hx Chronic Kidney Disease: No Hx Dialysis: No Hx Kidney Stones: No Hx Neurogenic Bladder: No Hx Pyelonephritis: No Hx Renal (Kidney) Cancer: No Hx Renal Failure: No - ENDOCRINE/METABOLIC Hx Endocrine Disorders: Yes Hx Adrenal Cancer: No Hx Diabetes Insipidus: No Hx Diabetes Mellitus Type 1: No Hx Diabetes Mellitus Type 2: Yes Hx Hyperthyroidism: No Hx Hypothyroidism: No Hx Systemic Lupus Erythematosus: Yes (possible dx. No confirmed) - HEMATOLOGICAL/ONCOLOGICAL Hx Blood Disorders: No Hx AIDS: No Hx Anemia: No Hx Cancer: No Hx Chemotherapy: No Hx Cirrhosis: No Hx Hemophilia: No Hx Hepatitis A: No Hx Hepatitis B: No Hx Hepatitis C: No Hx Metastesis: No Hx Shingles: No Hx Sickle Cell Disease: No Hx Unexplained Bleeding: No - INTEGUMENTARY Hx Dermatological Problems: No Hx Basil Cell: No Hx Eczema: No Hx Melanoma: No Hx Psoriasis: No Hx Squamous Cell: No - MUSCULOSKELETAL/RHEUMATOLOGICAL Hx Musculoskeletal Disorders: Yes (L SHOULDER AND L ELBOW SURGERY) Hx Arthritis: No Hx Back Pain: No Hx Degenerative Joint Disease: No Hx Falls: Yes Hx Fractures: No Hx Gout: No Hx Herniated Disk: No Hx Myasthenia Gravis: No Hx Osteoarthritis: No Hx Osteomyelitis: No Hx Osteoporosis: No Hx Rhabdomyolysis: No Hx Spinal Stenosis: No Hx Unsteady Gait: No - GASTROINTESTINAL Hx Gastrointestinal Disorders: Yes (ENTERITIS,ENTEROCOLITIS,SBO,HERNIORHAPPHY X 2.IBS) Hx Colostomy: No Hx Crohn's Disease: Yes Hx Diverticulitis: No Hx Gall Bladder Disease: No Hx Gastroesophageal Reflux: No Hx Ileostomy: No Hx Liver Failure: No Hx Pancreatitis: No HX Swallowing Problems: No - GENITOURINARY/GYNECOLOGICAL Hx Genitourinary Disorders: No Hx Hematuria: No Hx Incontinence: No Hx Prostate Problems: No Hx Sexually Transmitted Disorders: No Hx Urinary Tract Infection: No - PSYCHIATRIC Hx Psychophysiologic Disorder: No Hx Anxiety: No Hx Bipolar Disorder: No Hx Depression: No Hx Emotional Abuse: No Hx Hallucinations: No Hx Panic Symptoms: No Hx Post Traumatic Stress Disorder: No Hx Psychosis: No Hx Physical Abuse: No Hx Schizophrenia: No Hx Sexual Abuse: No Hx Substance Use: No - SURGICAL HISTORY Hx Surgeries: Yes (CHROHNS SX,L SHOULDER AND L ELBOW SURGERY.) Hx Amputation: No Hx Appendectomy: No Hx Cardiac Catheterization: No Hx Cholecystectomy: No Hx Coronary Stent: No Hx Gastric Bypass Surgery: No Hx Hysterectomy: No Hx Joint Replacement: No Hx Kidney Transplant: No Hx Liver Transplant: No Hx Mastectomy: No Hx Musculoskeletal Surgery: No Hx Open Heart Surgery: No Hx Orthopedic Surgery: No Hx Splenectomy: No Hx Valve Replacement: No - ANESTHESIA Hx Anesthesia: Yes Hx Anesthesia Reactions: No Hx Malignant Hyperthermia: No Meds Allergies/Adverse Reactions: Allergies Allergy/AdvReac Type Severity Reaction Status Date / Time pseudoephedrine HCl Allergy "HEART Verified 07/03/18 16:13 [From [facility]] RACES" - Medications Medications: Current Medications Aspirin (Aspirin Chewable) 81 mg PO DAILY [facility] Last Admin: 07/04/18 10:03 Dose: 81 mg Glipizide (Glucotrol) 5 mg PO ACB [facility] Last Admin: 07/04/18 08:30 Dose: 5 mg Hydroxychloroquine Sulfate (Plaquenil) 200 mg PO BID [facility]; Protocol Last Admin: 07/04/18 10:03 Dose: 200 mg Losartan Potassium (Cozaar) 50 mg PO DAILY [facility] Last Admin: 07/04/18 10:03 Dose: 50 mg Metformin HCl (Glucophage) 500 mg PO BID [facility] Last Admin: 07/04/18 10:03 Dose: 500 mg Metoprolol Tartrate (Lopressor) 25 mg PO BID [facility] Last Admin: 07/04/18 10:03 Dose: 25 mg Mineral Oil (Fleet Mineral Oil Enema) 135 ml RC ONCE ONE Stop: 07/04/18 15:01 Ondansetron HCl (Zofran Inj) 4 mg IVP Q6H PRN PRN Reason: Nausea/Vomiting Polyethylene Glycol (Miralax) 17 gm PO BID [facility] Tramadol HCl (Ultram) 50 mg PO QID PRN PRN Reason: Pain, moderate (4-7) Last Admin: 07/04/18 07:13 Dose: 50 mg Physical Exam - Constitutional Appears: Well, No Acute Distress - Head Exam Head Exam: ATRAUMATIC, NORMAL INSPECTION - Eye Exam Eye Exam: EOMI. absent: Scleral icterus - ENT Exam ENT Exam: Mucous Membranes Moist, Normal External Ear Exam. absent: Mucous Membranes Dry - Respiratory Exam Respiratory Exam: Clear to Auscultation Bilateral, NORMAL BREATHING PATTERN. absent: Accessory Muscle Use, Respiratory Distress - Cardiovascular Exam Cardiovascular Exam: REGULAR RHYTHM, RRR - GI/Abdominal Exam GI & Abdominal Exam: Normal Bowel Sounds, Soft. absent: Bruit, Distended, Firm, Guarding, Hernia, Organomegaly, Pulsatile Mass, Rigid, Tenderness Additional comments: midline abd scar - Rectal Exam Rectal Exam: NORMAL INSPECTION Additional comments: No stool in rectal vault on FERNANDO - Extremities Exam Extremities exam: Positive for: normal inspection. Negative for: pedal edema - Neurological Exam Neurological exam: Alert, CN II-XII Intact, Oriented x3 - Psychiatric Exam Psychiatric exam: Normal Affect, Normal Mood (though occasionally frustrated) - Skin Skin Exam: Normal Color, Warm Results - Vital Signs Recent Vital Signs: Last Vital Signs Temp 97.7 F 07/04/18 06:00 Pulse 78 07/04/18 10:03 Resp 18 07/04/18 06:00 BP 153/99 H 07/04/18 10:03 Pulse Ox 97 07/04/18 06:00 - Labs Result Diagrams: 07/03/18 06:50 07/03/18 06:50 Labs: Laboratory Results - last 24 hr 07/03/18 07/04/18 07/04/18 21:07 06:46 11:14 POC Glucose (mg/dL) 105 158 H 168 H Assessment & Plan - Assessment and Plan (Free Text) Assessment: 57 yo WM with h/o Crohn's (on infliximab), DM presenting with diarrhea and abd pain. # Abd Pain: Improve since admission per patient report. Suspect related to constipation/ileus with colonic distension seen on CT. Pt with small BMs but suspect component of overflow. Will start aggressive bowel regimen to attempt to fully resolve symptoms. 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 Follows with Rheum. Plan: - Bowel regimen of Tap Water Enema and then Mineral Oil Enema - Miralax BID - Supportive care - Low residue diet - Enoxaparin for DVT ppx as IBD pts are higher risk Pt discussed with Dr. Potter. Please see attestation for further recs/changes. <Micah Potter - Last Filed: 07/04/18 16:48> Meds - Medications Medications: Current Medications Aspirin (Aspirin Chewable) 81 mg PO DAILY [facility] Last Admin: 07/04/18 10:03 Dose: 81 mg Glipizide (Glucotrol) 5 mg PO ACB [facility] Last Admin: 07/04/18 08:30 Dose: 5 mg Hydroxychloroquine Sulfate (Plaquenil) 200 mg PO BID [facility]; Protocol Last Admin: 07/04/18 10:03 Dose: 200 mg Losartan Potassium (Cozaar) 50 mg PO DAILY [facility] Last Admin: 07/04/18 10:03 Dose: 50 mg Metformin HCl (Glucophage) 500 mg PO BID [facility] Last Admin: 07/04/18 10:03 Dose: 500 mg Metoprolol Tartrate (Lopressor) 25 mg PO BID [facility] Last Admin: 07/04/18 10:03 Dose: 25 mg Ondansetron HCl (Zofran Inj) 4 mg IVP Q6H PRN PRN Reason: Nausea/Vomiting Polyethylene Glycol (Miralax) 17 gm PO BID [facility] Last Admin: 07/04/18 13:58 Dose: Not Given Tramadol HCl (Ultram) 50 mg PO QID PRN PRN Reason: Pain, moderate (4-7) Last Admin: 07/04/18 15:25 Dose: 50 mg Results - Vital Signs Recent Vital Signs: Last Vital Signs Temp 98.3 F 07/04/18 14:00 Pulse 75 07/04/18 14:00 Resp 18 07/04/18 14:00 BP 146/99 H 07/04/18 14:00 Pulse Ox 99 07/04/18 14:00 - Labs Result Diagrams: 07/03/18 06:50 07/03/18 06:50 Labs: Laboratory Results - last 24 hr 07/03/18 07/04/18 07/04/18 21:07 06:46 11:14 POC Glucose (mg/dL) 105 158 H 168 H 07/04/18 15:58 POC Glucose (mg/dL) 131 H Attending/Attestation - Attestation I have personally seen and examined this patient.: Yes I have fully participated in the care of the patient.: Yes I have reviewed all pertinent clinical information: Yes Notes (Text): 07/04/18 16:39 I have seen and examined patient with GI fellow. Agree with above documentation with the following additions. In brief, this is a 57 year old male with history of Crohn's ileitis complicated by stricturing disease requiring partial small bowel resection, DM, who presents to hospital with complaint of abdominal pain. He has been maintained on outpatient Remicade but recently has complained of worsening joint disease and is undergoing rheumatologic workup for potential drug induced lupus. He reports sharp epigastric pain, 8/10 intensity which was associated with nausea and started 2 days ago. He claims to be having routine daily bowel movements, though small volume. He otherwise denies nausea, vomiting, fever/chills, or rectal bleeding. He had a colonoscopy in May howing multiple small bowel apthous ulcerations, otherwise normal colon. Recently he reports his diabetes has been uncontrolled. Crohn's ileitis DM - uncontrolled Abdominal pain ?drug induced lupus CT imaging reviewed by me showing distended colon with fecal retention, no obstruction - suggestive of ileus - Low residue diet as tolerated - Suggest administration of tap water and mineral oil enema along with miralax BID - Maintain glycemic control - Continue with supportive care, IVF hydration - Will consider changing outpatient crohn's medication given potential drug induced lupus reaction - Will continue to monitor patient clinical course
[2018-07-04] MEDS: POLYETHYLENE GLYCOL 3350 17 GM/Dose PACKET PO SCH ×2 (13:58→18:14)
[2018-07-04] MEDS ORDERED: Mineral Oil Enema 135 ml RC ONE (15:00)
--- NOTE | 2018-07-04 17:21 | HP ---
HISTORY OF PRESENT ILLNESS: The patient is a 57-year-old male who presents to the emergency room with a complaint of abdominal pain. He says the pain came out rather suddenly yesterday afternoon and it was worsened all through the evening, so finally the patient presented to the emergency room and he is evaluated and admitted. PAST MEDICAL HISTORY: He is known to have a history of Crohn's disease. He is status post hemicolectomy secondary to his Crohn's. He also has a history of [id number] diabetes mellitus, status post transient ischemic attack in the past and history of hypertension. SOCIAL HISTORY: He is , never smoked. He is a nonalcoholic drinker. ALLERGIES: HE IS KNOWN TO BE ALLERGIC TO SUDAFED WHICH CAUSED PALPITATIONS IN THE PAST. MEDICATIONS: At the time of admission include aspirin 81 mg a day, Glucotrol 5 mg twice a day, Plaquenil 200 mg twice a day, Cozaar 50 mg daily and metformin 500 mg twice a day. He also takes vitamin B12 injections once a month. REVIEW OF SYSTEMS: Otherwise unremarkable. The patient was recently hospitalized approximately 1 or 2 weeks ago for similar Crohn's exacerbation. PHYSICAL EXAMINATION: VITAL SIGNS: His blood pressure is 183/110, heart rate is 78, he is afebrile at 98.4 beats per minute. Examination of the head, eyes, ears, nose and throat is unremarkable. NECK: Supple with no lymphadenopathy and no goiter. HEART: Regular. No murmurs are appreciated. LUNGS: Clear to auscultation and percussion. ABDOMEN: Flat, diffusely tender. Bowel sounds are normal. EXTREMITIES: Free of cyanosis, clubbing or edema. NEUROLOGICAL: The patient is awake, alert and oriented and there are no focal neurological signs. DIAGNOSTICS: Abdominal x-ray shows large bowel to be severely dilated. CAT scan of the abdomen showed stools in the large intestine suggestive of constipation and chronic ileus. There was no evidence of small bowel obstruction. So, the patient is admitted. His records officer Dr. Potter is requested to consult. The patient will be reevaluated in the morning. Rolo Olson MD [facility] # [id number] MTDR[facility]
--- NOTE | 2018-07-04 21:32 | PN ---
DATE: 07/04/2018 SUBJECTIVE: The patient was seen this morning in Room 570, bed 1, resting comfortably in bed. Abdominal pain on admission has subsided significantly. He is feeling much better. He had no bowel movements today. Mostly, watery stool yesterday. PHYSICAL EXAMINATION LUNGS: Good aeration right and left. HEART: Regular, non-tachycardic. ABDOMEN: Bloated, distended, somewhat tympanitic. LABORATORY DATA: I reviewed the CAT scan, showing large dilated air-filled loops of large bowel with some fluid levels. PLAN: Case was discussed with Dr. Potter regarding the patient's Crohn's and what appears to be paralytic ileus. At the patient's request, I will decrease his IV fluids and increase his diet. Per Dr. Potter, we will order laxatives, cathartics, and stimulants for the colonic ileus. We will not use Reglan at this time per his advice. He has been in touch with the patient's social service liaison, Dr. James as there was concern that the Remicade is causing a lupus-like irritation or lupoid reaction to the Remicade and they will be working on alternative therapies for the patient's Crohn's. Kris Olson MD [facility]
--- NOTE | 2018-07-05 07:13 | CP.PCM.PN ---
<Nicko Kauffman - Last Filed: 07/05/18 11:52> Subjective - Date & Time of Evaluation Date of Evaluation: 07/05/18 Time of Evaluation: 07:20 - Subjective Subjective: PGY-4 GI Fellow Prog Note Pt lying in bed when seen this AM. Reports a few BMs overnight. Denies abd pain. 5 point ROS negative other than stated above Objective - Vital Signs/Intake and Output Vital Signs (last 24 hours): Temp Pulse Resp BP Pulse Ox 97.8 F 74 18 140/95 H 97 07/04/18 22:14 07/04/18 22:14 07/04/18 22:14 07/04/18 22:14 07/04/18 22:14 Intake and Output: 07/05/18 07/05/18 06:59 18:59 Intake Total 480 Balance 480 - Medications Medications: Current Medications Aspirin (Aspirin Chewable) 81 mg PO DAILY [facility] Last Admin: 07/04/18 10:03 Dose: 81 mg Glipizide (Glucotrol) 5 mg PO B [facility] Last Admin: 07/04/18 08:30 Dose: 5 mg Hydroxychloroquine Sulfate (Plaquenil) 200 mg PO BID [facility]; Protocol Last Admin: 07/04/18 17:17 Dose: 200 mg Losartan Potassium (Cozaar) 50 mg PO DAILY [facility] Last Admin: 07/04/18 10:03 Dose: 50 mg Metformin HCl (Glucophage) 500 mg PO BID [facility] Last Admin: 07/04/18 17:17 Dose: 500 mg Metoprolol Tartrate (Lopressor) 25 mg PO BID [facility] Last Admin: 07/04/18 17:17 Dose: 25 mg Ondansetron HCl (Zofran Inj) 4 mg IVP Q6H PRN PRN Reason: Nausea/Vomiting Polyethylene Glycol (Miralax) 17 gm PO BID [facility] Last Admin: 07/04/18 18:14 Dose: Not Given Tramadol HCl (Ultram) 50 mg PO QID PRN PRN Reason: Pain, moderate (4-7) Last Admin: 07/04/18 15:25 Dose: 50 mg - Labs Labs: 07/03/18 06:50 07/03/18 06:50 - Constitutional Appears: Well, No Acute Distress - Head Exam Head Exam: ATRAUMATIC, NORMAL INSPECTION - Eye Exam Eye Exam: EOMI. absent: Conjunctival injection, Scleral icterus - ENT Exam ENT Exam: Mucous Membranes Moist. absent: Mucous Membranes Dry - Respiratory Exam Respiratory Exam: NORMAL BREATHING PATTERN. absent: Accessory Muscle Use, Respiratory Distress - GI/Abdominal Exam GI & Abdominal Exam: Soft, Normal Bowel Sounds. absent: Bruit, Distended, Firm, Guarding, Rigid, Tenderness, Mass, Organomegaly, Pulsatile Mass Assessment and Plan - Assessment and Plan (Free Text) Assessment: 57 yo WM with h/o Crohn's (on infliximab), DM presenting with diarrhea and abd pain. # Abd Pain: Improved since admission. Suspect related to constipation/ileus with colonic distension seen on CT. Pt with small BMs but suspect component of overflow. 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 Follows with Rheum. Plan: - Miralax as needed as OP - Supportive care - Low residue diet - OK to DC from GI standpoint - F/u with Dr. Potter as OP Thank you for the consult. Will sign off. Please calll if questions. Pt discussed with Dr. Potter. Please see attestation for further recs/changes. <Micah Potter - Last Filed: 07/05/18 12:21> Objective - Vital Signs/Intake and Output Vital Signs (last 24 hours): Temp Pulse Resp BP Pulse Ox 98.4 F 77 20 152/90 H 99 07/05/18 08:08 07/05/18 09:15 07/05/18 08:08 07/05/18 09:15 07/05/18 08:08 Intake and Output: 07/05/18 07/05/18 06:59 18:59 Intake Total 480 Balance 480 - Medications Medications: Current Medications Aspirin (Aspirin Chewable) 81 mg PO DAILY [facility] Last Admin: 07/05/18 09:14 Dose: 81 mg Glipizide (Glucotrol) 5 mg PO ACB [facility] Last Admin: 07/05/18 09:15 Dose: 5 mg Hydroxychloroquine Sulfate (Plaquenil) 200 mg PO BID [facility]; Protocol Last Admin: 07/05/18 09:14 Dose: 200 mg Losartan Potassium (Cozaar) 50 mg PO DAILY [facility] Last Admin: 07/05/18 09:15 Dose: 50 mg Metformin HCl (Glucophage) 500 mg PO BID [facility] Last Admin: 07/05/18 09:14 Dose: 500 mg Metoprolol Tartrate (Lopressor) 25 mg PO BID [facility] Last Admin: 07/05/18 09:15 Dose: 25 mg Ondansetron HCl (Zofran Inj) 4 mg IVP Q6H PRN PRN Reason: Nausea/Vomiting Polyethylene Glycol (Miralax) 17 gm PO BID [facility] Last Admin: 07/05/18 09:16 Dose: Not Given Tramadol HCl (Ultram) 50 mg PO QID PRN PRN Reason: Pain, moderate (4-7) Last Admin: 07/04/18 15:25 Dose: 50 mg - Labs Labs: 07/03/18 06:50 07/03/18 06:50 Attending/Attestation - Attestation I have personally seen and examined this patient.: Yes I have fully participated in the care of the patient.: Yes I have reviewed all pertinent clinical information, including history, physical exam and plan: Yes Notes (Text): 07/05/18 12:18 I have seen and examined patient with GI fellow. No acute events overnight. He had a bowel movement yesterday but has been refusing miralax due to intolerability. He otherwise denies abdominal pain, nausea, vomiting, fever/chills. He is tolerating PO diet without difficulty. Crohn's ileitis DM Abdominal pain - ileus - Diet as tolerated - Continue with bowel regimen to promote motility and prevent constipation, again stressed importance of miralax for optimal benefit - Will plan for office follow up in a few weeks regarding potential medication change due to drug induced lupus - Patient planned for hospital discharge today, will sign off case. Please reconsult as necessary, thank you.
[2018-07-05 08:09] VITALS: BP 152/90; PULSE 77; RESP 20; TEMP 98.4; O2SAT 99
[2018-07-05] MEDS: POLYETHYLENE GLYCOL 3350 17 GM/Dose PACKET PO SCH (09:16)
--- NOTE | 2018-07-07 07:16 | DS ---
HISTORY OF PRESENT ILLNESS: This is a 57-year-old man with Crohn's disease, diabetes, hypertension who presented to the emergency room with abdominal pain different than his usual Crohn's pain and quite severe. He was admitted, followed by his gas meter repair supervisor, Dr. Potter. CT scan of the abdomen showed air-filled dilated loops of large intestine with moderate amount of stool present as well. Dr. Potter treated the patient with cathartics, laxatives, and bulk agents. Patient moved his bowels as he had been, but it was watery stool. He was passing quite a bit of gas, he felt much better. He was ready for discharge to home. He will follow up with gas meter repair supervisor regarding an outpatient bowel fiber regimen. FINAL DISCHARGE DIAGNOSES: 1. Abdominal pain. 2. Paralytic ileus. 3. Crohn's disease. 4. Hypertension. 5. Diabetes. Kris Olson MD
== END 2018-07-05 12:24 | disposition home or self-care (01) | DRG 389 ==
LOC: ED 06:36 → ERH 12:56 → 5RSO 14:08
PROVIDERS: ADMIT Internal Medicine; ATTEND Internal Medicine
DX: K56.0 Paralytic ileus (principal); K50.00 Crohn's disease of small intestine without complications; E11.65 Type 2 diabetes mellitus with hyperglycemia; I10 Essential (primary) hypertension; M32.9 Systemic lupus erythematosus, unspecified; Z80.3 Family history of malignant neoplasm of breast; Z82.49 Family history of ischemic heart disease and other diseases of the circulatory system; Z86.73 Personal history of transient ischemic attack (TIA), and cerebral infarction without residual deficits; Z87.891 Personal history of nicotine dependence; Z90.49 Acquired absence of other specified parts of digestive tract; Z88.8 Allergy status to other drugs, medicaments and biological substances

== ENCOUNTER 2018-10-07 12:20 | Emergency (ER) | payer OTHER ==
[2018-10-07 12:21] VITALS: BMI 21.1
[2018-10-07 12:54] VITALS: RESP 18; TEMP 98.4
[2018-10-07] MEDS ORDERED: Insulin Regular 1 UNITS/0.01 ML ML SC ONE (13:04)
[2018-10-07] MEDS ORDERED: Sodium Chloride 0.9% 1,000 ML IV STA ×2 (13:05→14:12)
--- NOTE | 2018-10-07 13:30 | ED PDOC ---
Arrival/HPI - General Chief Complaint: High Blood Sugar Time Seen by Provider: 10/07/18 12:22 Historian: Patient - History of Present Illness Narrative History of Present Illness (Text): 10/07/18 13:04 57 y/o M, with past medical history of Crohn's disease on Remicade and no history of steroids, diabetes, and hypertension, presents to the ED for evaluation of hyperglycemia today. Patient informs taking Metformin this morning as prescribed but noticed having an elevated blood sugar of 370 mg/dL. Patient informs associated nausea but denies any dizziness or vomiting. Patient states difficulty controlling his sugar for the last couple weeks. Patient denies any other associated medical complaints. Patient denies any fevers, chills, headache, dizziness, chest pain, shortness of breath, dyspnea on exertion, cough, abdominal pain, vomiting, diarrhea, back pain, neck pain, or any other complaints. Patient denies any recent medication changes. Patient informs receiving a shot from his Plumbing Instructor Dr. Foy recently. Time/Duration: > month Symptom Onset: Gradual Symptom Course: Unchanged Activities at Onset: Light Context: Home Past Medical History - Provider Review Nursing Documentation Reviewed: Yes - Infectious Disease Hx of Infectious Diseases: None - Cardiac Hx Hypertension: Yes - Pulmonary Hx Respiratory Disorders: No Hx Asthma: No Hx Bronchitis: No Hx Chronic Obstructive Pulmonary Disease (COPD): No Hx Emphysema: No Hx Pneumonia: No Hx Respiratory Aspiration: No Hx Respiratory Tract Infection: No Hx Sleep Apnea: No Hx Tuberculosis: No - Neurological Hx Neurological Disorder: No Hx Alzheimer's Disease: No HX Cerebrovascular Accident: No Hx Dementia: No Hx Dizziness: No Hx Meningitis: No Hx Migraine: No Hx Parkinson's Disease: No Hx Seizures: No Hx Transient Ischemic Attacks (TIA): No - HEENT Hx HEENT Disorder: No Hx Blind: No Hx Cataracts: No Hx Deafness: No Hx Difficulty Chewing: No Hx Epistaxis: No Hx Glaucoma: No Hx Macular Degeneration: No - Renal Hx Renal Disorder: No Hx Dialysis: No Hx Kidney Stones: No Hx Neurogenic Bladder: No Hx Pyelonephritis: No Hx Renal Cancer: No Hx Renal Failure: No - Endocrine/Metabolic Hx Endocrine Disorders: Yes Hx Adrenal Cancer: No Hx Diabetes Insipidus: No Hx Diabetes Mellitus Type 1: No Hx Diabetes Mellitus Type 2: Yes Hx Hyperthyroidism: No Hx Hypothyroidism: No Hx Systemic Lupus Erythematosus: Yes (possible dx. No confirmed) - Hematological/Oncological Hx Blood Disorders: No Hx AIDS: No Hx Anemia: No Hx Cancer: No Hx Chemotherapy: No Hx Cirrhosis: No Hx Hemophilia: No Hx Hepatitis A: No Hx Hepatitis B: No Hx Hepatitis C: No Hx Metastasis: No Hx Shingles: No Hx Sickle Cell Disease: No Hx Unexplained Bleeding: No - Integumentary Hx Dermatological Disorder: No Hx Basal Cell Carcinoma: No Hx Eczema: No Hx Melanoma: No Hx Psoriasis: No Hx Squamous Cell Carcinoma: No - Musculoskeletal/Rheumatological Hx Musculoskeletal Disorders: Yes (L SHOULDER AND L ELBOW SURGERY) Hx Arthritis: No Hx Back Pain: No Hx Degenerative Joint Disease: No Hx Falls: Yes Hx Fractures: No Hx Gout: No Hx Herniated Disk: No Hx Myasthenia Gravis: No Hx Osteoarthritis: No Hx Osteomyelitis: No Hx Osteoporosis: No Hx Rhabdomyolysis: No Hx Spinal Stenosis: No Hx Unsteady Gait: No - Gastrointestinal Hx Gastrointestinal Disorders: Yes (ENTERITIS,ENTEROCOLITIS,SBO,HERNIORHAPPHY X 2.IBS) Hx Colostomy: No Hx Crohn's Disease: Yes Hx Diverticulitis: No Hx Gall Bladder Disease: No Hx Gastroesophageal Reflux: No Hx Ileostomy: No Hx Liver Failure: No Hx Pancreatitis: No HX Swallowing Problems: No - Genitourinary/Gynecological Hx Genitourinary Disorders: No Hx Hematuria: No Hx Incontinence: No Hx Prostate Problems: No Hx Sexually Transmitted Diseases: No Hx Urinary Tract Infection: No - Psychiatric Hx Psychophysiologic Disorder: No Hx Anxiety: No Hx Bipolar Disorder: No Hx Depression: No Hx Emotional Abuse: No Hx Hallucinations: No Hx Panic Disorder: No Hx Post Traumatic Stress Disorder: No Hx Psychosis: No Hx Physical Abuse: No Hx Schizophrenia: No Hx Sexual Abuse: No Hx Substance Use: No - Surgical History Hx Amputation: No Hx Appendectomy: No Hx Cardiac Catheterization: No Hx Cholecystectomy: No Hx Coronary Stent: No Hx Gastric Bypass Surgery: No Hx Hysterectomy: No Hx Joint Replacement: No Hx Kidney Transplant: No Hx Liver Transplant: No Hx Mastectomy: No Hx Musculoskeletal Surgery: No Hx Open Heart Surgery: No Hx Orthopedic Surgery: No Hx Splenectomy: No Hx Valve Replacement: No - Anesthesia Hx Anesthesia: Yes Hx Anesthesia Reactions: No Hx Malignant Hyperthermia: No - Suicidal Assessment Feels Threatened In Home Enviroment: No Family/Social History - Physician Review Nursing Documentation Reviewed: Yes Family/Social History: No Known Family HX Smoking Status: Never Smoked Hx Alcohol Use: No Hx Substance Use: No Allergies/Home Meds Allergies/Adverse Reactions: Allergies pseudoephedrine HCl [From Sudafed] Allergy (Verified 07/03/18 16:13) "HEART RACES" DENIES NAUSEA Home Medications: Home Meds Medication Instructions Recorded Confirmed RX: Aspirin [Ecotrin] 81 mg PO QAM 05/22/16 07/03/18 RX: Cyanocobalamin [Vitamin B12 1 ml SC Q30D 02/19/17 07/03/18 1000 mcg/ml Inj] RX: GlipiZIDE [Glucotrol] 5 mg PO BID 09/23/17 07/03/18 RX: Hydroxychloroquine Sulfate 200 mg PO BID 05/09/18 07/03/18 [Plaquenil] RX: Losartan [Cozaar] 50 mg PO DAILY 05/09/18 07/03/18 RX: metFORMIN [glucOPHAGE] 500 mg PO BID 05/09/18 07/03/18 Review of Systems - Physician Review All systems were reviewed & negative as marked: Yes - Review of Systems Constitutional: absent: Fevers Respiratory: absent: SOB, Cough Cardiovascular: absent: Chest Pain Gastrointestinal: Nausea. absent: Abdominal Pain, Diarrhea, Vomiting Genitourinary Male: absent: Dysuria, Urinary Output Changes Musculoskeletal: absent: Back Pain, Neck Pain Skin: absent: Rash Neurological: absent: Headache, Dizziness Endocrine: Other (Elevated blood sugar ) Physical Exam Vital Signs Reviewed: Yes Vital Signs Temp Pulse Resp BP Pulse Ox 10/07/18 12:21 98.4 F 88 18 137/88 98 Temperature: Afebrile Blood Pressure: Normal Pulse: Regular Respiratory Rate: Normal Appearance: Positive for: Well-Appearing, Non-Toxic, Comfortable Pain Distress: None Mental Status: Positive for: Alert and Oriented X 3 Finger Stick Blood Glucose: 363 - Systems Exam Head: Present: Atraumatic, Normocephalic Pupils: Present: PERRL Extroacular Muscles: Present: EOMI Conjunctiva: Present: Normal Mouth: Present: Moist Mucous Membranes Neck: Present: Normal Range of Motion Respiratory/Chest: Present: Clear to Auscultation, Good Air Exchange. No: Respiratory Distress, Accessory Muscle Use Cardiovascular: Present: Regular Rate and Rhythm, Normal S1, S2. No: Murmurs Abdomen: No: Tenderness, Distention, Peritoneal Signs Back: Present: Normal Inspection Upper Extremity: Present: Normal Inspection. No: Cyanosis, Edema Lower Extremity: Present: Normal Inspection. No: Edema Neurological: Present: GCS=15, CN II-XII Intact, Speech Normal Skin: Present: Warm, Dry, Pale. No: Rashes Psychiatric: Present: Alert, Oriented x 3, Normal Insight, Normal Concentration Medical Decision Making ED Course and Treatment: 10/07/18 13:04 Impression: 57 year old male presents to the ED for evaluation of elevated blood sugar. Differential Diagnosis included but are not limited to: -- DKA -- hyperosmolar nonketotic coma Plan: --Labs -- IVF --Insulin SC --VBG --Urinalysis --Reglan --Toradol -- Reassess and disposition Prior Visits: Notes and results from previous visits were reviewed. Progress Notes: 10/07/18 18:26 Labs reviewed with patient's initial glucose in 400s with final repeat finger stick glucose at 165. Patient reassessed and report marked improvement from headache. He has no somatic complaints at this time. The patient is advised to continue taking his medications as prescribed and to see his PCP for follow up in 3-5 days. He is also given an shipwright for follow up. Questions answered and return protocol given. He is stable for discharge. 10/09/18 23:22 - Lab Interpretations Lab Results: 10/07/18 13:30 10/07/18 13:30 Lab Results 10/07/18 18:16: POC Glucose (mg/dL) 165 H 10/07/18 15:58: POC Glucose (mg/dL) 257 H 10/07/18 13:52: Urine Color Yellow, Urine Appearance Clear, Urine pH 7.0, Ur Specific [place] 1.015, Urine Protein Negative, Urine Glucose (UA) >=1000, Urine Ketones Negative, Urine Blood Negative, Urine Nitrate Negative, Urine Bilirubin Negative, Urine Urobilinogen 0.2, Ur Leukocyte Esterase Negative 10/07/18 13:30: Sodium 133, Potassium 4.4, Chloride 99, Carbon Dioxide 28, Anion Gap 11, BUN 19, Creatinine 0.7 L, Est GFR ( Amer) > 60, Est GFR (Non-Af Amer) > 60, Random Glucose 406 H* D, Calcium 9.0, Total Bilirubin 1.0, AST 18, ALT 11, Alkaline Phosphatase 141 H D, Total Protein 7.0, Albumin 4.1, Globulin 2.9, Albumin/Globulin Ratio 1.4 10/07/18 13:30: WBC 3.8 L D, RBC 4.48, Hgb 13.3 L, Hct 37.7 L, MCV 84.2, MCH 29.7, MCHC 35.3, RDW 13.1, Plt Count 142, MPV 10.5, Neut % (Auto) 64.9, Lymph % (Auto) 23.9, Alcorn % (Auto) 7.7 H, Eos % (Auto) 3.2, Baso % (Auto) 0.3, Lymph # (Auto) 0.9 L, Alcorn # (Auto) 0.3, Eos # (Auto) 0.1, Baso # (Auto) 0.01, Absolute Neuts (auto) 2.45 10/07/18 12:56: POC Glucose (mg/dL) 363 H I have reviewed the lab results: Yes - Medication Orders Current Medication Orders: Sodium Chloride (Sodium Chloride 0.9%) 1,000 mls @ 999 mls/hr IV .Q1H1M STA Stop: 10/07/18 14:05 Discontinued Medications Insulin Human Regular (Humulin R) 6 units SC ONCE ONE Stop: 10/07/18 13:05 - Scribe Statement The provider has reviewed the documentation as recorded by the Scribe Juany Pinzon. All medical record entries made by the Scribe were at my direction and personally dictated by me. I have reviewed the chart and agree that the record accurately reflects my personal performance of the history, physical exam, medical decision making, and the department course for this patient. I have also personally directed, reviewed, and agree with the discharge instructions and disposition. Disposition/Present on Arrival - Present on Arrival Any Indicators Present on Arrival: No History of DVT/PE: No History of Uncontrolled Diabetes: No Urinary Catheter: No History of Decub. Ulcer: No History Surgical Site Infection Following: None - Disposition Have Diagnosis and Disposition been Completed?: Yes Diagnosis: Hyperglycemia due to type 2 diabetes mellitus, Headache Disposition: HOME/ ROUTINE Disposition Time: 18:22 Patient Plan: Discharge Condition: IMPROVED Discharge Instructions (ExitCare): Hyperglycemia, Adult (DC), Diabetes Type 2 (DC) Print Language: KAZAKH Additional Instructions: All medical record entries made by the Scribe were at my direction and personally dictated by me. I have reviewed the chart and agree that the record accurately reflects my personal performance of the history, physical exam, medical decision making, and the department course for this patient. I have also personally directed, reviewed, and agree with the discharge instructions and disposition. Please follow up with your PCP in 3-5 days. Try to schedule an appointment with an shipwright. Referrals: Kris Olson MD [Family Provider] - Follow up with primary Cam,Madhuri Godoy MD [Medical Doctor] - Follow up with primary Forms: [facility] (Rwandan)
[2018-10-07 13:48] LABS: BASO # 0.01 K/mm3 (0.0-2.0); BASO % 0.3 % (0.0-3.0); EOS # 0.1 (0.0-0.7); EOS % 3.2 % (1.5-5.0); HEMOGLOBIN 13.3 g/dL (14.0-18.0); LYMPH # 0.9 (1.2-3.4); LYMPH % 23.9 % (22.0-35.0); MEAN CELL VOLUME 84.2 fl (80.0-105.0); MEAN CORPUSCULAR HEMOGLOBIN 29.7 pg (25.0-35.0); MEAN CORPUSCULAR HGB CONC 35.3 g/dl (31.0-37.0); MEAN PLATELET VOLUME 10.5 fl (7.0-11.0); MONO # 0.3 (0.1-0.6); MONO % 7.7 % (1.0-6.0); RBC 4.48 10^6/uL (3.5-6.1); RED CELL DISTRIBUTION WIDTH 13.1 % (11.5-14.5); WHITE BLOOD COUNT 3.8 10^3/uL (4.5-11.0)
[2018-10-07 13:59] LABS: URINE BILIRUBIN NEGATIVE (NEGATIVE); URINE BLOOD NEGATIVE (NEGATIVE); URINE GLUCOSE (UA) >=1000 mg/dL (NEGATIVE); URINE LEUKOCYTE ESTERASE NEGATIVE Leu/uL (NEGATIVE); URINE PROTEIN NEGATIVE mg/dL (<30 mg/dL); URINE UROBILINOGEN 0.2 E.U./dL (<1 E.U./dL)
[2018-10-07 14:00] LABS: URINE APPEARANCE CLEAR (CLEAR); URINE COLOR YELLOW (YELLOW)
[2018-10-07 14:08] LABS: ALB/GLOB RATIO 1.4 (1.1-1.8); ALBUMIN 4.1 g/dL (3.0-4.8); ALT/SGPT 11 U/L (7-56); AST/SGOT 18 U/L (17-59); BLOOD UREA NITROGEN 19 mg/dL (7-21); GFR NON-AFRICAN AMERICAN > 60
[2018-10-07 19:31] VITALS: BP 140/89; PULSE 82; O2SAT 99
== END 2018-10-07 18:58 | disposition home or self-care (01) ==
LOC: ED 12:20
DX: E11.65 Type 2 diabetes mellitus with hyperglycemia (principal); R51 Headache; I10 Essential (primary) hypertension; M32.9 Systemic lupus erythematosus, unspecified
CPT/HCPCS: 80053; 81003; 82948; 85025; 96361; 96374; 99284; J2765; J7030

== ENCOUNTER 2018-10-29 10:46 | Inpatient (IN) | payer OTHER ==
[2018-10-29 10:46] VITALS: BMI 21.1
[2018-10-29] MEDS ORDERED: Morphine 4 mg/ml ISec IVP STA (11:32)
[2018-10-29] MEDS: Sodium Chloride 0.9% 1,000 ML IV SCH (11:54)
[2018-10-29 12:09] LABS: BASO # 0.02 K/mm3 (0.0-2.0); BASO % 0.4 % (0.0-3.0); EOS # 0.2 (0.0-0.7); EOS % 2.9 % (1.5-5.0); HEMOGLOBIN 14.2 g/dL (14.0-18.0); LYMPH # 1.5 (1.2-3.4); MEAN CELL VOLUME 86.2 fl (80.0-105.0); MEAN CORPUSCULAR HEMOGLOBIN 29.2 pg (25.0-35.0); MEAN CORPUSCULAR HGB CONC 33.9 g/dl (31.0-37.0); MEAN PLATELET VOLUME 10.9 fl (7.0-11.0); MONO # 0.4 (0.1-0.6); MONO % 6.7 % (1.0-6.0); RBC 4.86 10^6/uL (3.5-6.1); WHITE BLOOD COUNT 5.2 10^3/uL (4.5-11.0)
--- NOTE | 2018-10-29 12:24 | ED PDOC ---
Arrival/HPI - General Chief Complaint: Abdominal Pain Time Seen by Provider: 10/29/18 11:03 Historian: Patient - History of Present Illness Narrative History of Present Illness (Text): Alexis Carolina is a 57 year old male, with a past medical history of Crohn's disease, nephrolithiasis, hernias, hypertension, and diabetes, who presents to the emergency department with complaints of pain on the right side lateral flank shooting into groin since 45 minutes [employer]. Patient also notes nausea without any vomiting. Patient states current pain is not similar to hernia or kidney stone. He notes the pain is also unlike his previous crohns as well. He denies any current diarrhea or constipation. Patient informs no history of current symptoms. Patient denies fevers, chills, darkened/ bloody stool, dysuria, vomiting, or diarrhea. He denies any chest pain or shortness of breath. No trauma or fall. No headache. No other complaints PMD: Kris Olson Time/Duration: 1 hour Symptom Onset: Sudden Symptom Course: Unchanged Activities at Onset: Light Context: Home Past Medical History - Provider Review Nursing Documentation Reviewed: Yes - Infectious Disease Hx of Infectious Diseases: None - Cardiac Hx Cardiac Disorders: Yes Hx Hypertension: Yes - Pulmonary Hx Respiratory Disorders: No - Neurological Hx Neurological Disorder: No - HEENT Hx HEENT Disorder: No - Renal Hx Renal Disorder: No - Endocrine/Metabolic Hx Endocrine Disorders: Yes Hx Diabetes Mellitus Type 2: Yes - Hematological/Oncological Hx Blood Disorders: No - Integumentary Hx Dermatological Disorder: No - Musculoskeletal/Rheumatological Hx Musculoskeletal Disorders: Yes (L SHOULDER AND L ELBOW SURGERY) Hx Falls: Yes - Gastrointestinal Hx Gastrointestinal Disorders: Yes Hx Crohn's Disease: Yes - Genitourinary/Gynecological Hx Genitourinary Disorders: No - Psychiatric Hx Psychophysiologic Disorder: No Hx Substance Use: No - Surgical History Hx Hysterectomy: No Hx Open Reduction Internal Fixation: Yes - Anesthesia Hx Anesthesia: Yes Hx Anesthesia Reactions: No Hx Malignant Hyperthermia: No - Suicidal Assessment Feels Threatened In Home Enviroment: No Family/Social History - Physician Review Nursing Documentation Reviewed: Yes Family/Social History: No Known Family HX Smoking Status: Never Smoked Hx Alcohol Use: No Hx Substance Use: No Allergies/Home Meds Allergies/Adverse Reactions: Allergies pseudoephedrine HCl [From Sudafed] Allergy (Verified 10/29/18 10:50) "HEART RACES" DENIES NAUSEA Home Medications: Home Meds Medication Instructions Recorded Confirmed Aspirin [Ecotrin] 81 mg PO QAM 05/22/16 10/29/18 GlipiZIDE [Glucotrol] 10 mg PO BID 09/23/17 10/29/18 Losartan [Cozaar] 50 mg PO DAILY 05/09/18 10/29/18 metFORMIN [glucOPHAGE] 500 mg PO BID 05/09/18 10/29/18 Cholecalciferol [Vitamin D 1000 IU] 1 tab PO DAILY 10/29/18 10/29/18 Insulin Glargine,Hum.rec.anlog 10 unit SC 1700 10/29/18 10/29/18 [Lantus Solostar] Review of Systems - Physician Review All systems were reviewed & negative as marked: Yes - Review of Systems Constitutional: absent: Fatigue, Weight Change, Fevers, Night Sweats Eyes: absent: Vision Changes, Photophobia, Eye Pain ENT: absent: Hearing Changes, Tinnitus, TMJ Pain Respiratory: absent: SOB, Cough, Sputum, Wheezing Cardiovascular: absent: Chest Pain, Palpitations, Edema, Calf Pain Gastrointestinal: Abdominal Pain (right side shooting into groin ), Nausea. absent: Stool Changes, Diarrhea, Vomiting, Hematochezia Genitourinary Male: absent: Dysuria, Frequency, Hematuria Musculoskeletal: absent: Arthralgias, Back Pain, Neck Pain Skin: absent: Rash, Pruritis Neurological: absent: Headache, Dizziness Physical Exam Vital Signs Reviewed: Yes Vital Signs Temp Pulse Resp BP Pulse Ox 10/29/18 10:58 97.8 F 60 17 160/101 H 100 Temperature: Afebrile Blood Pressure: Hypertensive Pulse: Regular Respiratory Rate: Normal Appearance: Positive for: Well-Appearing, Non-Toxic, Comfortable Pain Distress: None Mental Status: Positive for: Alert and Oriented X 3 - Systems Exam Head: Present: Atraumatic, Normocephalic Pupils: Present: PERRL Extroacular Muscles: Present: EOMI Conjunctiva: Present: Normal Mouth: Present: Moist Mucous Membranes Pharnyx: Present: Normal. No: ERYTHEMA, EXUDATE Neck: Present: Normal Range of Motion. No: Meningeal Signs, MIDLINE TENDERNESS Respiratory/Chest: Present: Clear to Auscultation, Good Air Exchange. No: Respiratory Distress, Accessory Muscle Use Cardiovascular: Present: Regular Rate and Rhythm, Normal S1, S2. No: Murmurs Abdomen: Present: Tenderness (RLQ and RUQ pain). No: Distention, Peritoneal Signs Back: Present: Normal Inspection. No: CVA Tenderness, Midline Tenderness Upper Extremity: Present: Normal Inspection. No: Cyanosis, Edema Lower Extremity: Present: NORMAL PULSES, Neurovascularly Intact, Other (Excoriation of bilateral lower extremities). No: Edema, CALF TENDERNESS Neurological: Present: GCS=15, CN II-XII Intact, Speech Normal, Motor Func Grossly Intact, Memory Normal Skin: Present: Warm, Dry, Normal Color. No: Rashes Psychiatric: Present: Alert, Oriented x 3, Normal Insight, Normal Concentration Medical Decision Making ED Course and Treatment: 10/29/18 11:03 Impression: Patient is a 57 year old male who presents to the Emergency department with complaints of right sided abdominal pain shooting into his groin. He denies any testicular pain. He notes R sides flank pain radiating into upper groin but on exam he mostly has RLQ and R upper lateral abdominal pain. No CVAT or midline tenderness. No cauda equina signs or symptoms. No rash or penile discharge. No signs of fall or trauma. No CP or SOB. Differential Diagnosis included but are not limited to: Kidney stone, Crohns, Gallbladder associated pain Plan: -- CT Abdomen/Pelvis CT with IV Contrast -- US Gallbladder -- EKG -- Labs -- Urinalysis -- Morphine -- IV Fluids -- Zofran Inj. -- Reassess and disposition Prior Visits: Notes and results from previous visits were reviewed. Progress Notes: 10/29/18 11:47 Reviewed EKG, shows: NSR at 62 BPM, No STEMI. 10/29/18 13:48 Labs largely unremarkable. Glucose elevated, not within range of hyperosmolar. No DKA. US unremarkable Pending CT results, UA 10/29/18 14:30 Paged certified surgical technician. Questionable SBO. 10/29/18 14:51 Spoke with certified surgical technician, who will see the patient. 10/29/18 15:16 IMPRESSION: 1. This apparent circumferential mural thickening in the gastric antrum, pylorus and mucosal enhancement in the duodenal cap with moderate amount of fl uid and inflammatory changes lateral to the duodenum. Findings could be related to nonspecific infectious/inflammatory gastritis and duodenitis. No definite evidence for perforation. 2. Postsurgical changes in the cecum. Moderate fluid-filled dilated mid small bowel loops with fecalization of mid and distal small bowel contents. Large amount of stool in the colon. Findings could be related to chronic stasis however developing distal small bowel obstruction he is also a consideration. Clinical follow-up is advised. 3. 2 mm nonobstructing stone in the lower pole of the left kidney. 10/29/18 16:05 Spoke to medical center manager on surgical service, who is pending certified surgical technician eval of pt 10/29/18 17:56 appreciate consult w/ president & ceo [employer]: to admit to pts medicine Appreciate consult w/ Dr. Bailey: to admit to his service Pt in NAD, agreeable to plan. 10/31/18 16:58 - RAD Interpretation Radiology Orders: 10/29/18 11:31 ABDOMEN & PELVIS [ABD & PELVIS IV CONTRAST ONLY] [CT] Stat 10/29/18 11:33 GALLBLADDER & COMMON DUCT [US] Stat Rig Builder Helper: Radiologist - EKG Interpretation Interpreted by ED Physician: Yes Type: 12 lead EKG - Medication Orders Current Medication Orders: Sodium Chloride (Sodium Chloride 0.9%) 1,000 mls @ 100 mls/hr IV .Q10H HEATHER Last Admin: 10/29/18 11:54 Dose: 100 mls/hr eMAR Start Stop Document 10/29/18 11:54 BB (Rec: 10/29/18 11:55 [id number] Intravenous Solution Start Date 10/29/18 Start Time 11:55 Discontinued Medications Morphine Sulfate (Morphine) 4 mg IVP STAT STA Stop: 10/29/18 11:33 Last Admin: 10/29/18 11:54 Dose: 4 mg MAR Pain Assessment Document 10/29/18 11:54 BB (Rec: 10/29/18 11:54 [id number] Pain Reassessment Is this a pain reassessment? No Presence of Pain Presence of Pain Yes Pain Scale Used Protocol: PSCALES Pain Scale Used Numeric Location Left, Right or Bilateral Right Upper or Lower Lower Pain Location Body Site Abdomen Description Intensity of Pain at present 8 IVP Administration Document 10/29/18 11:54 BB (Rec: 10/29/18 11:54 [id number] Charges for Administration # of IVP Administrations 1 Ondansetron HCl (Zofran Inj) 4 mg IVP STAT STA Stop: 10/29/18 11:34 Last Admin: 10/29/18 11:54 Dose: 4 mg IVP Administration Document 10/29/18 11:54 BB (Rec: 10/29/18 11:54 BB [id number]) Charges for Administration # of IVP Administrations 1 - Scribe Statement The provider has reviewed the documentation as recorded by the Scribe Bhupendra Wilson All medical record entries made by the Scribe were at my direction and personally dictated by me. I have reviewed the chart and agree that the record accurately reflects my personal performance of the history, physical exam, medical decision making, and the department course for this patient. I have also personally directed, reviewed, and agree with the discharge instructions and disposition. Disposition/Present on Arrival - Present on Arrival Any Indicators Present on Arrival: No History of DVT/PE: No History of Uncontrolled Diabetes: No Urinary Catheter: No History of Decub. Ulcer: No History Surgical Site Infection Following: None - Disposition Have Diagnosis and Disposition been Completed?: Yes Diagnosis: SBO (small bowel obstruction) Disposition: HOSPITALIZED Disposition Time: 15:15 Condition: STABLE
[2018-10-29 12:26] LABS: ALB/GLOB RATIO 1.4 (1.1-1.8); ALBUMIN 4.6 g/dL (3.0-4.8); ALT/SGPT 14 U/L (7-56); AST/SGOT 26 U/L (17-59); BLOOD UREA NITROGEN 21 mg/dL (7-21); CALCIUM 9.8 mg/dL (8.4-10.5); GFR NON-AFRICAN AMERICAN > 60; LIPASE 65 U/L (23-300)
[2018-10-29] MEDS ORDERED: Iohexol 350 MG/100 ML VIAL ONE (13:08)
--- NOTE | 2018-10-29 13:22 | US ---
Date of service: 10/29/2018 HISTORY: ruq pain COMPARISON: None. TECHNIQUE: Sonographic evaluation of the right upper quadrant of the abdomen. FINDINGS: LIVER: Measures 16.5 cm in length. Normal echogenicity of the liver parenchyma. No mass. No intrahepatic bile duct dilatation. Normal hepatopetal portal venous flow. GALLBLADDER: Unremarkable. No gallstones. COMMON BILE DUCT: Measures 5 mm. No stones. No dilatation. PANCREAS: Unremarkable as visualized. No mass. No ductal dilatation. RIGHT KIDNEY: Measures 11.6 cm in length. Normal echogenicity. No calculus, mass, or hydronephrosis. AORTA: Able to visualize only the proximal abdominal aorta which is of normal caliber. IVC: Unremarkable. OTHER FINDINGS: None . IMPRESSION: No evidence of cholelithiasis or cholecystitis. Unremarkable examination.
--- NOTE | 2018-10-29 14:24 | CT ---
Date of service: 10/29/2018 PROCEDURE: CT Abdomen and Pelvis with contrast HISTORY: ruq, rlq pain, hx of nephrolithaisis and crohns COMPARISON: 07/03/2018. TECHNIQUE: CT scan of the abdomen and pelvis was performed after administration of intravenous contrast. Oral contrast was not administered. Coronal and sagittal reformatted images were obtained. Contrast dose: 100 mL Omnipaque 350 Radiation dose: Total exam DLP = 226.7 mGy-cm. This CT exam was performed using one or more of the following dose reduction techniques: Automated exposure control, adjustment of the mA and/or kV according to patient size, and/or use of iterative reconstruction technique. FINDINGS: LOWER THORAX: There is dependent atelectasis in the lung bases. LIVER: Normal in size with homogeneous enhancement. No gross lesion or ductal dilatation. GALLBLADDER AND BILE DUCTS: Well distended. No calcified gallstones, wall thickening or pericholecystic fluid. PANCREAS: Normal in size with homogeneous enhancement. No gross lesion or ductal dilatation. SPLEEN: Normal in size and appearance. ADRENALS: No discrete nodule. KIDNEYS AND URETERS: Normal in size with homogeneous enhancement. There is a 2 mm nonobstructing stone in the lower pole of the left kidney. No hydronephrosis. No solid mass. VASCULATURE: No aortic aneurysm. There are no aortic atherosclerotic calcifications or mural plaque present. BOWEL: Evaluation of the bowel is limited in the absence of oral contrast. There is apparent mild circumferential mural thickening in the gastric antrum pylorus and mucosal enhancement in the duodenal cap. There is significant fluid and inflammatory changes lateral to the duodenum. The proximal small bowel loops are normal in caliber. There are fluid-filled dilated mid small bowel loops with fecalization of distal small bowel contents. The ileocecal junction is normal. There are postsurgical changes in the cecum. There is large amount of stool in the colon. APPENDIX: Surgically absent. PERITONEUM: No free air. LYMPH NODES: There are prominent mesenteric lymph nodes in the right lower quadrant, the largest measures 1.2 cm in transverse diameter, likely reactive. BLADDER: Well distended and normal in appearance. REPRODUCTIVE: The prostate gland is normal in size. BONES: No acute fracture. There is mild degenerative disc disease at L4-5. OTHER FINDINGS: None. IMPRESSION: 1. This apparent circumferential mural thickening in the gastric antrum, pylorus and mucosal enhancement in the duodenal cap with moderate amount of fluid and inflammatory changes lateral to the duodenum. Findings could be related to nonspecific infectious/inflammatory gastritis and duodenitis. No definite evidence for perforation. 2. Postsurgical changes in the cecum. Moderate fluid-filled dilated mid small bowel loops with fecalization of mid and distal small bowel contents. Large amount of stool in the colon. Findings could be related to chronic stasis however developing distal small bowel obstruction he is also a consideration. Clinical follow-up is advised. 3. 2 mm nonobstructing stone in the lower pole of the left kidney.
--- NOTE | 2018-10-29 15:40 | CP.PCM.CON ---
History of Present Illness - History of Present Illness History of Present Illness: Anuj Martell, PGY-[address] 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 He states that this morning he awoke with sharp pain that began along his ribs and radiated down into his scrotum. Patient reprots there were no alleviating factors. Describes the pain initially as a 10/10, although with pain medications it has come down to a 7/10. Patient denies precipitating factors, but states it didn't feel like his Crohn's or nephrolithiasis pains and was concerned and therefore came in for evaluation. He states that he has typically moves his bowels at least daily with soft, often watery BMs but experienced a harder consistency BM this AM. Patient reports radiation of pain into his lower abdomen and scrotum but denies hematemeis, melena and hematochezia and testicular pain. Further denies chest pain, shortness of breath, palpitations, nausea, vomiting, diarrhea, fevers, headaches, leg pain, dysuria. PMHx: See HPI PSurgHx: Right hemicolectomy and TI resection 09/2016 , multiple inguinal hernia repairs Meds: ASA, Vit D, Metoprolol, Glipizide, Metformin, Losartan, Stelara, Lantus Fam Hx: Mother with breast cancer; father with CAD Soc Hx: Former smoker, occasional EtOH use, Denies any drug usage All: Pseudoephedrine PMD: Dr. Olson Review of Systems - Review of Systems Review of Systems: 12 point ROS completed and negative except as described in HPI. Past Patient History - Infectious Disease Hx of Infectious Diseases: None - Past Medical History & Family History Past Medical History?: Yes - Past Social History Smoking Status: Never Smoked - CARDIAC Hx Cardiac Disorders: Yes Hx Hypertension: Yes - PULMONARY Hx Respiratory Disorders: No - NEUROLOGICAL Hx Neurological Disorder: No - HEENT Hx HEENT Problems: No - RENAL Hx Chronic Kidney Disease: No - ENDOCRINE/METABOLIC Hx Endocrine Disorders: Yes Hx Diabetes Mellitus Type 2: Yes - HEMATOLOGICAL/ONCOLOGICAL Hx Blood Disorders: No - INTEGUMENTARY Hx Dermatological Problems: No - MUSCULOSKELETAL/RHEUMATOLOGICAL Hx Musculoskeletal Disorders: Yes (L SHOULDER AND L ELBOW SURGERY) Hx Falls: Yes - GASTROINTESTINAL Hx Gastrointestinal Disorders: Yes Hx Crohn's Disease: Yes - GENITOURINARY/GYNECOLOGICAL Hx Genitourinary Disorders: No - PSYCHIATRIC Hx Psychophysiologic Disorder: No Hx Substance Use: No - SURGICAL HISTORY Hx Hysterectomy: No Hx Open Reduction Internal Fixation: Yes - ANESTHESIA Hx Anesthesia: Yes Hx Anesthesia Reactions: No Hx Malignant Hyperthermia: No Meds Allergies/Adverse Reactions: Allergies Allergy/AdvReac Type Severity Reaction Status Date / Time pseudoephedrine HCl Allergy "HEART Verified 10/29/18 10:50 [From Sudafed] RACES" - Medications Medications: Current Medications Sodium Chloride (Sodium Chloride 0.9%) 1,000 mls @ 100 mls/hr IV .Q10H HEATHER Last Admin: 10/29/18 11:54 Dose: 100 mls/hr Physical Exam - Constitutional Appears: Well, Non-toxic, No Acute Distress (Uncomfortable) - Head Exam Head Exam: ATRAUMATIC, NORMOCEPHALIC - Eye Exam Eye Exam: EOMI, Normal appearance Pupil Exam: PERRL - ENT Exam ENT Exam: Mucous Membranes Dry - Respiratory Exam Respiratory Exam: Decreased Breath Sounds, Clear to Auscultation Bilateral. absent: Accessory Muscle Use, Chest Wall Tenderness, Rales, Rhonchi, Wheezes, Respiratory Distress - Cardiovascular Exam Cardiovascular Exam: RRR, +S1, +S2 - GI/Abdominal Exam GI & Abdominal Exam: Normal Bowel Sounds, Soft, Tenderness. absent: Distended, Firm, Guarding, Hyperactive Bowel Sounds, Hypoactive Bowel Sounds, Rebound - Back Exam Back exam: CVA tenderness (R) (minor, tenderness mostly below level of CVA), NORMAL INSPECTION. absent: CVA tenderness (L), muscle spasm, rash noted, vertebral tenderness - Neurological Exam Neurological exam: Alert, Oriented x3 - Psychiatric Exam Psychiatric exam: Anxious, Normal Affect, Normal Mood - Skin Skin Exam: Dry, Intact, Normal Color, Warm Results - Vital Signs Recent Vital Signs: Last Vital Signs Temp 98.2 F 10/29/18 12:36 Pulse 65 10/29/18 14:07 Resp 18 10/29/18 14:07 BP 152/97 H 10/29/18 14:07 Pulse Ox 98 10/29/18 14:07 - Labs Result Diagrams: 10/29/18 11:48 10/29/18 11:48 Labs: Laboratory Results - last 24 hr 10/29/18 10/29/18 10/29/18 11:38 11:48 11:48 WBC 5.2 D RBC 4.86 Hgb 14.2 Hct 41.9 L MCV 86.2 MCH 29.2 MCHC 33.9 RDW 13.0 Plt Count 155 MPV 10.9 Neut % (Auto) 62.0 Lymph % (Auto) 28.0 [place] % (Auto) 6.7 H Eos % (Auto) 2.9 Baso % (Auto) 0.4 Lymph # (Auto) 1.5 Lee # (Auto) 0.4 Eos # (Auto) 0.2 Baso # (Auto) 0.02 Absolute Neuts (auto) 3.24 Sodium 135 Potassium 4.5 Chloride 96 L Carbon Dioxide 30 Anion Gap 14 BUN 21 Creatinine 0.9 Est GFR ( Amer) > 60 Est GFR (Non-Af Amer) > 60 POC Glucose (mg/dL) 279 H Random Glucose 326 H* Calcium 9.8 Magnesium 1.7 Total Bilirubin 1.5 H AST 26 ALT 14 Alkaline Phosphatase 148 H Total Protein 8.0 Albumin 4.6 Globulin 3.3 Albumin/Globulin Ratio 1.4 Lipase 65 Assessment & Plan - Assessment and Plan (Free Text) Assessment: 57 M with PMHx of who presents with R flank pain 2/2 chronic stasis vs devel oping distal small bowel obstruction. CT abd/pel: Circumferential mural thickening in the gastric antrum, pylorus and mucosal enhancement in the duodenal cap with moderate amount of fluid and inflammatory changes lateral to the duodenum. Findings could be related to nonspecific infectious/inflammatory gastritis and duodenitis. No definite evidence for perforation. Postsurgical changes in the cecum. Moderate fluid- filled dilated mid small bowel loops with fecalization of mid and distal small bowel contents. Large amount of stool in the colon. Plan: IVF, NPO Monitor bowel function Toradol for pain control GI consult [facility] Further recs per Dr. Jamie Martell, PGY-1
[2018-10-29 16:42] LABS: PH,URINE 6.5 (4.7-8.0); URINE BILIRUBIN NEGATIVE (NEGATIVE); URINE BLOOD LARGE (NEGATIVE); URINE GLUCOSE (UA) 500 mg/dL (NEGATIVE); URINE LEUKOCYTE ESTERASE NEGATIVE Leu/uL (NEGATIVE); URINE PROTEIN TRACE mg/dL (<30 mg/dL); URINE UROBILINOGEN 0.2 E.U./dL (<1 E.U./dL)
[2018-10-29 16:54] LABS: URINE APPEARANCE SLIGHT-CLOUDY (CLEAR); URINE COLOR YELLOW (YELLOW)
[2018-10-29 17:00] LABS: URINE RBC 25 - 30 /hpf (0-2)
--- NOTE | 2018-10-29 17:52 | CARD ---
APPROVED REPORT Date of service: 10/29/2018 EKG Measurement Heart [id number] <Conclusion> Normal sinus rhythm Normal ECG
[2018-10-29] MEDS ORDERED: Morphine 2 mg/ml ISec IVP PRN (19:18)
[2018-10-29] MEDS ORDERED: Ciprofloxacin 200mg/100ml D5W 100 ML IVPB SCH (22:00)
--- NOTE | 2018-10-29 23:23 | HP ---
DATE OF EXAM: 10/29/2018 ADMISSION HISTORY AND PHYSICAL CHIEF COMPLAINT: Right sided flank pain radiating to the right testicle. HISTORY OF PRESENT ILLNESS: This is a 57-year-old I have known for many years with Crohn disease who has had a significant amount of abdominal pain over the course of last 2 years. His Crohn's is now under better control and so he says he was feeling well yesterday, had a normal typical good day, was feeling absolutely fine this morning. When in the late morning, early afternoon while sitting down had a sudden onset, severe right-sided flank pain that radiated around to the side and down into the right testicle. The pain was rather severe prompting him to come to the emergency room. He clearly states "I know Crohn disease and this is not my Crohn disease pain." The patient is evaluated in the emergency room. A CT scan was performed raising question of air-fluid levels and possible early bowel obstruction but as I recall, this is essentially unchanged from several prior CAT scans. I reviewed some of the 14 CAT scans of the abdomen and pelvis done on this patient over the last 2-1/2 years to find similar findings. He states he has been moving his bowels quite normally with no pain, discomfort or bleeding. PAST MEDICAL HISTORY: Significant for Crohn disease. He is status post hemicolectomy secondary to Crohn's, also he is status post TIA, he has type 2 diabetes and hypertension. SOCIAL HISTORY: He does not smoke, never did. Does not drink alcohol. ALLERGIES: HE IS SAID TO BE ALLERGIC TO SUDAFED WHICH CAUSES PALPITATIONS. MEDICATIONS AT THE TIME OF ADMISSION: See the med list. He recently had trouble with Remicade and was changed to other DMARD agents by Dr. Potter, his ground worker. REVIEW OF SYSTEMS: Otherwise, unremarkable. He has a history of renal colic in the past but has not been bothering him recently. PHYSICAL EXAMINATION: GENERAL: The patient was seen this Sunday evening in the emergency room, room #9, resting on a stretcher in some discomfort from that residual flank pain, but is much improved after receiving some IV morphine and other analgesics. HEAD AND NECK: Unremarkable. Conjunctivae are pink. Mucous membranes are moist. Neck is supple without masses. LUNGS: Show good aeration. HEART: Regular. ABDOMEN: Quite soft. Nontender. There is minimal residual right-sided discomfort most of the pain he points to is coming from the lateral right flank up in the rib area and posteriorly. He describes it radiating down into the groin. There is no guarding or rebound. : Genitals appeared normal. EXTREMITIES: Unremarkable. IMPRESSION Right-sided flank pain radiating to the right testicle in a 57-year-old man with a history of renal colic and Crohn disease. I suspect the pain is related to renal colic. We will need to review the CT scan with radiologist in the morning. We will continue IV fluids, IV morphine for analgesics. Add tamsulosin for the renal stone. Continue several of his prior home medications. Strain all urine. GI consult called. Kris Olson MD
[2018-10-30] MEDS: Insulin Reg-MEDIUM-Coverage SC SCH ×4 (10:30→21:40)
[2018-10-30 11:35] LABS: URINE BILIRUBIN NEGATIVE (NEGATIVE); URINE BLOOD LARGE (NEGATIVE); URINE GLUCOSE (UA) 500 mg/dL (NEGATIVE); URINE LEUKOCYTE ESTERASE NEGATIVE Leu/uL (NEGATIVE); URINE PROTEIN TRACE mg/dL (<30 mg/dL); URINE UROBILINOGEN 0.2 E.U./dL (<1 E.U./dL)
[2018-10-30 11:36] LABS: URINE APPEARANCE SL CLOUDY (CLEAR); URINE COLOR YELLOW (YELLOW)
[2018-10-30 11:42] LABS: URINE BACTERIA LARGE /hpf; URINE COARSE GRANULAR CAST TRACE /hpf; URINE EPITHELIAL CELLS 0 - 2 /hpf (0-5); URINE RBC TNTC /hpf (0-2)
--- NOTE | 2018-10-30 11:42 | PCM.URO ---
Urology Progress Note - Subjective Abdominal Pain: Yes - Objective Lab Results Last 24 Hours: Laboratory Results - last 24 hr 10/29/18 10/29/18 10/29/18 11:38 11:48 11:48 WBC 5.2 D RBC 4.86 Hgb 14.2 Hct 41.9 L MCV 86.2 MCH 29.2 MCHC 33.9 RDW 13.0 Plt Count 155 MPV 10.9 Neut % (Auto) 62.0 Lymph % (Auto) 28.0 [place] % (Auto) 6.7 H Eos % (Auto) 2.9 Baso % (Auto) 0.4 Lymph # (Auto) 1.5 [place] # (Auto) 0.4 Eos # (Auto) 0.2 Baso # (Auto) 0.02 Absolute Neuts (auto) 3.24 Sodium 135 Potassium 4.5 Chloride 96 L Carbon Dioxide 30 Anion Gap 14 BUN 21 Creatinine 0.9 Est GFR ( Amer) > 60 Est GFR (Non-Af Amer) > 60 POC Glucose (mg/dL) 279 H Random Glucose 326 H* Calcium 9.8 Magnesium 1.7 Total Bilirubin 1.5 H AST 26 ALT 14 Alkaline Phosphatase 148 H Total Protein 8.0 Albumin 4.6 Globulin 3.3 Albumin/Globulin Ratio 1.4 Lipase 65 Urine Color Urine Appearance Urine pH Ur Specific [place] Urine Protein Urine Glucose (UA) Urine Ketones Urine Blood Urine Nitrate Urine Bilirubin Urine Urobilinogen Ur Leukocyte Esterase Urine RBC Urine WBC Ur Epithelial Cells 10/29/18 10/30/18 10/30/18 16:29 09:16 11:05 WBC RBC Hgb Hct MCV MCH MCHC RDW Plt Count MPV Neut % (Auto) Lymph % (Auto) [place] % (Auto) Eos % (Auto) Baso % (Auto) Lymph # (Auto) [place] # (Auto) Eos # (Auto) Baso # (Auto) Absolute Neuts (auto) Sodium Potassium Chloride Carbon Dioxide Anion Gap BUN Creatinine Est GFR ( Amer) Est GFR (Non-Af Amer) POC Glucose (mg/dL) 151 H Random Glucose Calcium Magnesium Total Bilirubin AST ALT Alkaline Phosphatase Total Protein Albumin Globulin Albumin/Globulin Ratio Lipase Urine Color Yellow Yellow Urine Appearance Slight-cloudy Sl cloudy Urine pH 6.5 6.0 Ur Specific [place] 1.010 1.025 Urine Protein Trace H Trace H Urine Glucose (UA) 500 H 500 H Urine Ketones Negative Trace H Urine Blood Large H Large H Urine Nitrate Negative Negative Urine Bilirubin Negative Negative Urine Urobilinogen 0.2 0.2 Ur Leukocyte Esterase Negative Negative Urine RBC 25 - 30 H Urine WBC 2 - 5 Ur Epithelial Cells 6 - 8 H Intake & Output: Intake & Output 10/29/18 10/30/18 10/30/18 18:59 06:59 18:59 Intake Total 240 Output Total 300 Balance -60 Weight 139 lb Intake: Oral 240 Output: Urine 300 Urine, Voided 300 Other: # Bowel Movements 0 Vital Signs: Vital Signs - 24 hr 10/29/18 10/29/18 10/29/18 12:36 14:07 15:57 Temperature 98.2 F Pulse Rate 64 65 80 Respiratory 18 18 18 Rate Blood Pressure 155/101 H 152/97 H 154/89 H O2 Sat by Pulse 99 98 96 Oximetry 10/29/18 10/29/18 10/30/18 18:22 19:55 06:00 Temperature 97.8 F Pulse Rate 71 79 Respiratory 18 16 17 Rate Blood Pressure 128/87 102/60 O2 Sat by Pulse 98 99 Oximetry 10/30/18 10:38 Temperature Pulse Rate Respiratory Rate Blood Pressure 102/60 O2 Sat by Pulse Oximetry - Plan See Orders: Yes (kub,u/s)
[2018-10-30 11:43] LABS: URINE AMORPHOUS SEDIMENT FEW /hpf
--- NOTE | 2018-10-30 13:19 | RAD ---
Date of service: 10/30/2018 HISTORY: urolithiasis COMPARISON: 07/03/2018 FINDINGS: BOWEL: Normal. No obstruction. No free air. BONES: Normal. OTHER FINDINGS: There is a small stone in the region of the lower pole of left kidney. There is a large amount of stool and bowel gas which may be obscuring stones. IMPRESSION: As above
--- NOTE | 2018-10-30 13:59 | US ---
Date of service: 10/30/2018 PROCEDURE: Ultrasound of the Kidneys HISTORY: hydronephrosis COMPARISON: Abdomen pelvis CT with contrast 10/29/2018. TECHNIQUE: Sonogram of the kidneys. FINDINGS: RIGHT KIDNEY: Measures: 11.1 x 5.8 x 5.3 cm. Normal in size, contour and echogenicity. Mild hydronephrosis identified. No urolithiasis or cystic or solid parenchymal mass noted. No perinephric fluid collection evident. LEFT KIDNEY: Measures: 10.0 x 4.7 x 5.9 cm cm. Normal in size, contour and echogenicity. A 4 mm intrarenal calculus is nonobstructive at the lower pole in the left renal pelvis is somewhat full but no caliceal dilatation is identified throughout. No perinephric fluid collection. OTHER FINDINGS: None. IMPRESSION: Mild right hydronephrosis with none on the left. A 4 mm intrarenal calculus is nonobstructive at the lower pole left kidney. No solid parenchymal mass identified bilaterally.
--- NOTE | 2018-10-30 15:16 | CP.PCM.PN ---
Subjective - Date & Time of Evaluation Date of Evaluation: 10/30/18 Time of Evaluation: 10:10 - Subjective Subjective: Surgery Progress note. Dr. Ayala Pt seen and examined at bedside. No acute events overnight. No new complaints. still with some flank pain. No F/C. no N/V/D. Reports flatus and BM. No new complaints. Objective - Vital Signs/Intake and Output Vital Signs (last 24 hours): Temp Pulse Resp BP Pulse Ox 97.8 F 79 17 102/60 99 10/30/18 06:00 10/30/18 06:00 10/30/18 06:00 10/30/18 10:38 10/30/18 06:00 Intake and Output: 10/30/18 10/30/18 06:59 18:59 Intake Total 240 Output Total 300 Balance -60 - Medications Medications: Current Medications Aspirin (Ecotrin) 81 mg PO QAM [facility] Last Admin: 10/30/18 10:31 Dose: 81 mg Glipizide (Glucotrol) 10 mg PO BID [facility] Last Admin: 10/30/18 10:31 Dose: 10 mg Sodium Chloride (Sodium Chloride 0.9%) 1,000 mls @ 100 mls/hr IV .Q10H [facility] Last Admin: 10/29/18 11:54 Dose: 100 mls/hr Insulin Human Regular (Humulin R Med) 0 units SC [facility]; Protocol Last Admin: 10/30/18 13:10 Dose: 3 unit Ketorolac Tromethamine (Toradol) 15 mg IVP Q6H PRN PRN Reason: Pain, moderate (4-7) Last Admin: 10/30/18 03:00 Dose: 15 mg Losartan Potassium (Cozaar) 50 mg PO DAILY [facility] Last Admin: 10/30/18 10:38 Dose: Not Given Metformin HCl (Glucophage) 500 mg PO BID [facility] Last Admin: 10/30/18 10:32 Dose: 500 mg Metoprolol Tartrate (Lopressor) 100 mg PO BID [facility] Last Admin: 10/30/18 10:38 Dose: Not Given Morphine Sulfate (Morphine) 2 mg IVP Q4H PRN PRN Reason: Pain, moderate (4-7) Tamsulosin HCl (Flomax) 0.4 mg PO DAILY [facility] Last Admin: 10/30/18 10:31 Dose: 0.4 mg - Labs Labs: 10/29/18 11:48 10/29/18 11:48 - Constitutional Appears: Non-toxic, No Acute Distress - Head Exam Head Exam: ATRAUMATIC, NORMAL INSPECTION, NORMOCEPHALIC - Eye Exam Eye Exam: EOMI, Normal appearance. absent: Scleral icterus - ENT Exam ENT Exam: Mucous Membranes Moist - Respiratory Exam Respiratory Exam: NORMAL BREATHING PATTERN. absent: Accessory Muscle Use, Respiratory Distress - Cardiovascular Exam Cardiovascular Exam: absent: JVD - GI/Abdominal Exam GI & Abdominal Exam: Soft. absent: Distended, Firm, Guarding, Tenderness, Rebound - Extremities Exam Extremities Exam: Normal Inspection. absent: Calf Tenderness - Neurological Exam Neurological Exam: Alert, Awake, Oriented x3 - Skin Skin Exam: Dry, Intact, Normal Color, Warm Assessment and Plan - Assessment and Plan (Free Text) Assessment: 58yo F with abdominal pain. Surgery consulted for possible SBO. - Low suspicion for surgical pathology. - US with some evidence of hydronephrosis. - Xray consistent with urolithiasis at left lower pole of kidney Plan: - f/u Urology recs - No further general surgery intervention warranted at this time. - Pain management - monitor bowel fxn Further recs as per Dr. Jamie Plasnecia PGY2 surgery
[2018-10-30] MEDS: Sodium Chloride 0.9% 1,000 ML IV SCH (18:24)
[2018-10-30 19:42] VITALS: TEMP 97.6; O2SAT 98
[2018-10-31] MEDS: Insulin Reg-MEDIUM-Coverage SC SCH (08:07)
[2018-10-31 08:42] VITALS: RESP 20
[2018-10-31 09:30] VITALS: BP 145/87; PULSE 80
--- NOTE | 2018-10-31 10:15 | CON ---
DATE: 10/31/2018 HISTORY OF PRESENT ILLNESS: I examined Mr. Carolina this morning. He is a 58-year-old white male known to bi consultant with the past medical history of Crohn's disease. The patient was admitted with flank pain radiating to the right testicle. Also pain radiating to the upper aspect of the right thigh. The patient noted that the discomfort he had prior to admission is not typical of a Crohn's flare. Note that the patient became refractory to Remicade, treatment was subsequently switched to Stelara and Crohn's disease seems to be under better control. There has been no hematemesis or rectal bleeding. Pain he related has roughly 8 or 9/10 and flank related not typically the same he would experience to when his Crohn's flares. PAST MEDICAL HISTORY: His past medical history includes segmental colectomy as well as TIA, diabetes and hypertension. PHYSICAL EXAMINATION: VITAL SIGNS: I reviewed this patient's vital signs. HEENT: Noncontributory. LUNGS: Clear to auscultation. HEART: Regular rhythm. ABDOMEN: Soft. No tenderness elicited in any quadrant. The abdomen has normal bowel sounds and is not distended. LABORATORY DATA: I reviewed this patient's laboratory data which consists of H and H of 14 and 41. Chemistry noncontributory and that the alk phos is 148, bili 1.5, normal transaminases. Sugar is variable. Electrolytes within normal limits. Urine shows significant amount of blood as well as glucose, protein and increased RBC's. I reviewed the consult of Dr. Palomo who is evaluating this patient for kidney stones. I reviewed the CT report which indicates a nonobstructive stone in the lower pole of left kidney. Evaluation of CT imaging indicates a very substantial amount of stool extending from the cecum through the ascending colon, transverse and through the mid-descending colon. The patient on exam had only mild tenderness over the distribution of the stool noted above. Ultrasound has fairly revealed right hydronephrosis and an intrarenal calculus nonobstructive at the lower pole of the left kidney. ASSESSMENT: This is a 58-year-old male admitted with complaints most likely related to past history of kidney stone, is being followed by Urology. Note that this examination is not significant for a Crohn's disease flare. The abdomen is not distended, discomfort noted in the lower quadrants due to fecal retention. Note that the patient is currently on Stelara and seems to be doing well. No need for acute intervention from a GI standpoint in this particular case. At present, the patient seems to be doing well on a diabetic diet. We will continue on current medications. Depending upon the patient's request, he may need medication help in clearing the impaction. I reviewed this issue with patient at the bedside. Prince Tyler DO
--- NOTE | 2018-10-31 11:34 | PN ---
DATE: 10/30/2018 The patient is a 58-year-old male who presented to the emergency room with right-sided flank pain radiating to the right testicle. The patient is known to have a history of Crohn's disease, he is status post hemicolectomy secondary to Crohn's disease. He is status post TIA, also suffers from hypertension and non-insulin dependent diabetes mellitus. The patient has been hospitalized for small bowel obstruction in the past. CAT scan showed there to be a right ureteral calculus. When seen in the hospital visit, his and son are at the bedside. The pain has somewhat subsided, however, he says it does come and go at times. During the hospital visit, Dr. Palomo, who is covering for Dr. Willingham, came to visit. As per the patient, Dr. Willingham knows of this calculus in the right ureter, has been there before, however, had not been any problem. We are hoping that the patient passes the stone on his own. As per Dr. Palomo, a repeat study will be done to see if the stone is still there or has it been passed. He may require cystoscopy and ureteral stents. The patient is to be re-evaluated in the morning. Followup x-ray of the abdomen is ordered. Rolo Olson MD NOAM
--- NOTE | 2018-11-02 04:41 | DS ---
HISTORY OF PRESENT ILLNESS: This is a 57-year-old man I have known for sometime with Crohn's disease, diabetes, and hypertension. He was in his usual state of health, feeling well, had a bowel movement the day before in the morning of his presentation to the ER, he was sitting in a kitchen when suddenly developed a right-sided flank pain radiated down to his right testicle. He came to the emergency room. CAT scan was performed, initially there was concerned about a small bowel obstruction, have been asked to see the patient and it was hours later, I was asked to admit to my service for overnight observation. I came to visit the patient in the emergency room. He told me this pain is not typical of his Crohn's disease. He does have a history of renal colic and this pain was sudden onset on her right flank radiating down. On reviewing the CAT scan, I noticed the calculus in the distal right ureter. He was admitted to the floor and treated with IV fluids, tamsulosin and analgesics and the next morning, his symptoms had improved significantly. He was seen by my covering physician, my brother Dr. Rolo Olson as well as Urology. At that time, the patient was asymptomatic. KUB did not show any stones. Ultrasound showed no stones present, but the residual dilated ureter and mild hydronephrosis was noted. I spoke to the radiologist and the CT scan report was amended commenting on the stone and hydroureter. By the following morning, when I came back to see the patient, he was completely asymptomatic. Upon my entering the room as to be discharged home, I was in full agreement. He is to follow up with me in the office. FINAL DISCHARGE DIAGNOSES: 1. Right-sided renal colic, stone passed. 2. Crohn's disease. 3. Diabetes. 4. Hypertension. Kris Olson MD
== END 2018-10-31 14:28 | disposition home or self-care (01) | DRG 694 ==
LOC: ED 10:46 → ERH 17:50 → 3RSO 19:22
PROVIDERS: ADMIT Internal Medicine; ATTEND Internal Medicine
DX: N13.2 Hydronephrosis with renal and ureteral calculous obstruction (principal); K50.012 Crohn's disease of small intestine with intestinal obstruction; E11.9 Type 2 diabetes mellitus without complications; Z79.82 Long term (current) use of aspirin; Z79.84 Long term (current) use of oral hypoglycemic drugs; Z79.899 Other long term (current) drug therapy; Z87.442 Personal history of urinary calculi; I10 Essential (primary) hypertension; E55.9 Vitamin D deficiency, unspecified; N43.3 Hydrocele, unspecified; Z86.73 Personal history of transient ischemic attack (TIA), and cerebral infarction without residual deficits; Z87.891 Personal history of nicotine dependence; Z90.49 Acquired absence of other specified parts of digestive tract; Z82.49 Family history of ischemic heart disease and other diseases of the circulatory system; Z80.3 Family history of malignant neoplasm of breast

== ENCOUNTER 2018-11-05 23:29 | Observation (INO) | payer OTHER ==
[2018-11-05 23:29] VITALS: BMI 21.1
[2018-11-06] MEDS ORDERED: Sodium Chloride 0.9% 1,000 ML IV STA (00:32)
--- NOTE | 2018-11-06 00:46 | ED PDOC ---
Arrival/HPI - General Chief Complaint: Back Pain Time Seen by Provider: 11/05/18 23:38 Historian: Patient - History of Present Illness Narrative History of Present Illness (Text): 11/06/18 00:45 Alexis Carolina is a 58 year old male, with a past medical history of Crohn's disease, nephrolithiasis, hernias, hypertension, and diabetes, who presents to the emergency department complaining of right flank pain tonight. Patient was recently seen in the Emergency department for similar complaints on 10/29/2018, had CT scan performed which showed a 2mm non-obstructing stone on the left, and was discharged home. Patient denies any fever, chills, chest pain, shortness of breath, nausea, vomiting, diarrhea, urinary symptoms, neck pain, headache, dizziness, or any other complaints. Symptom Onset: Gradual Symptom Course: Unchanged Activities at Onset: Light Context: Home Past Medical History - Provider Review Nursing Documentation Reviewed: Yes - Infectious Disease Hx of Infectious Diseases: None - Cardiac Hx Cardiac Disorders: Yes Hx Hypertension: Yes - Pulmonary Hx Respiratory Disorders: No - Neurological Hx Neurological Disorder: No - HEENT Hx HEENT Disorder: No - Renal Hx Renal Disorder: No - Endocrine/Metabolic Hx Endocrine Disorders: Yes Hx Diabetes Mellitus Type 2: Yes - Hematological/Oncological Hx Blood Disorders: No - Integumentary Hx Dermatological Disorder: No - Musculoskeletal/Rheumatological Hx Musculoskeletal Disorders: Yes (L SHOULDER AND L ELBOW SURGERY) Hx Falls: Yes - Gastrointestinal Hx Gastrointestinal Disorders: Yes Hx Crohn's Disease: Yes - Genitourinary/Gynecological Hx Genitourinary Disorders: No - Psychiatric Hx Psychophysiologic Disorder: No Hx Substance Use: No - Surgical History Hx Hysterectomy: No Hx Open Reduction Internal Fixation: Yes - Anesthesia Hx Anesthesia: Yes Hx Anesthesia Reactions: No Hx Malignant Hyperthermia: No - Suicidal Assessment Feels Threatened In Home Enviroment: No Family/Social History - Physician Review Nursing Documentation Reviewed: Yes Family/Social History: Unknown Family HX Smoking Status: Never Smoked Hx Alcohol Use: No Hx Substance Use: No Allergies/Home Meds Allergies/Adverse Reactions: Allergies pseudoephedrine HCl [From Sudafed] Allergy (Verified 11/06/18 00:20) "HEART RACES" DENIES NAUSEA Home Medications: Home Meds Medication Instructions Recorded Confirmed Aspirin [Ecotrin] 81 mg PO QAM 05/22/16 11/06/18 GlipiZIDE [Glucotrol] 10 mg PO BID 09/23/17 11/06/18 Losartan [Cozaar] 50 mg PO DAILY 05/09/18 11/06/18 metFORMIN [glucOPHAGE] 500 mg PO BID 05/09/18 11/06/18 Cholecalciferol [Vitamin D 1000 IU] 1 tab PO DAILY 10/29/18 11/06/18 Insulin Glargine,Hum.rec.anlog 10 unit SC 1700 10/29/18 11/06/18 [Lantus Solostar] Review of Systems - Physician Review All systems were reviewed & negative as marked: Yes - Review of Systems Constitutional: Normal. absent: Fevers Eyes: Normal ENT: Normal Respiratory: Normal. absent: SOB, Cough Cardiovascular: Normal. absent: Chest Pain Gastrointestinal: Normal. absent: Abdominal Pain, Diarrhea, Nausea, Vomiting, Anorexia Genitourinary Male: Normal. absent: Dysuria, Frequency Musculoskeletal: Normal. absent: Back Pain, Neck Pain Skin: Normal. absent: Other Neurological: Normal. absent: Dizziness Endocrine: Normal Hemo/Lymphatic: Normal Psychiatric: Normal Physical Exam Vital Signs Reviewed: Yes Vital Signs Temp Pulse Resp BP Pulse Ox 11/06/18 00:18 98.8 F 75 18 161/96 H 97 Temperature: Afebrile Blood Pressure: Normal Pulse: Regular Respiratory Rate: Normal Appearance: Positive for: Well-Appearing, Non-Toxic, Comfortable Pain Distress: None Mental Status: Positive for: Alert and Oriented X 3 - Systems Exam Head: Present: Atraumatic, Normocephalic Pupils: Present: PERRL Extroacular Muscles: Present: EOMI Conjunctiva: Present: Normal Mouth: Present: Moist Mucous Membranes Neck: Present: Normal Range of Motion Respiratory/Chest: Present: Clear to Auscultation, Good Air Exchange. No: Respiratory Distress, Accessory Muscle Use Cardiovascular: Present: Regular Rate and Rhythm, Normal S1, S2. No: Murmurs Abdomen: No: Tenderness, Distention, Peritoneal Signs Back: Present: CVA Tenderness (Right CVA tenderness). No: Midline Tenderness Upper Extremity: Present: Normal Inspection. No: Cyanosis, Edema Lower Extremity: Present: Normal Inspection. No: Edema Neurological: Present: GCS=15, CN II-XII Intact, Speech Normal Skin: Present: Warm, Dry, Normal Color. No: Rashes Psychiatric: Present: Alert, Oriented x 3, Normal Insight, Normal Concentration Medical Decision Making ED Course and Treatment: 11/06/18 00:45 Impression: 58 year old male complaining of abdominal pain tonight. Plan: -- CT Abdomen and Pelvis w/o contrast -- Labs, lipase -- IV fluids -- Toradol -- Zofran -- Pepcid -- Reassess and disposition Prior Visits: Notes and results from previous visits were reviewed. Progress Notes: 11/06/18 03:51 CT Abdomen and Pelvis: Bilateral basilar atelectatic pulmonary changes. Fluid-filled proximal colon. Normal unenhanced liver. Mild diffuse thickening of gallbladder and nondilated extrahepatic biliary system. Mildly enlarged unenhanced spleen. Normal pancreas. Normal bilateral adrenal glands. Normal size of the right kidney. There is no right renal mass. There are no right renal calculi. 4.2 Mm obstructing stone at the right ureterovesical junction. Mild right hydroureteronephrosis. Normal size of the left kidney. There is no left renal mass. 4 mm left renal nonobstructing stone. There is mild left hydronephrosis. Normal visualized left ureter. Normal visualized stomach. Normal small intestine. There is no demonstrated peritoneal fluid Normal abdominal aorta. Normal inferior vena cava. Normal retroperitoneum. Normal urinary bladder. There is no pelvic mass lesion or lymphadenopathy. There is no pelvic fluid. Moderate amount of fecal residue in the distal colon. Mild prostatomegaly. Normal abdominal wall. Mild spondylosis. IMPRESSION: Obstructing stone of the right ureterovesical junction. Electronically signed on Nov 06, 2018 1:56:09 AM EST by: Yuriy Martin M.D., Certified by ROSALIA, MSK, Neuroradiology 11/06/18 03:[address] [place] Olson, who is aware and agrees with plan. Accepts pt in to his service. Pt will go to [facility] observation for renal colic. - Lab Interpretations I have reviewed the lab results: Yes - RAD Interpretation Radiology Orders: 11/06/18 00:31 ABD & PELVIS W/O PO OR IV CONT [CT] Stat Golf Cart Assembler: Radiologist - EKG Interpretation Type: Monitor strip - Medication Orders Current Medication Orders: Famotidine (Pepcid) 20 mg IVP STAT STA Stop: 11/06/18 00:33 Sodium Chloride (Sodium Chloride 0.9%) 1,000 mls @ 999 mls/hr IV .Q1H1M STA Stop: 11/06/18 01:32 Ketorolac Tromethamine (Toradol) 30 mg IVP ONCE ONE Stop: 11/06/18 00:33 Lactulose (Enulose) 20 gm PO ONCE STA Stop: 11/06/18 00:37 - Scribe Statement The provider has reviewed the documentation as recorded by the [place] Provider Scribe Attestation: All medical record entries made by the Scribe were at my direction and personally dictated by me. I have reviewed the chart and agree that the record accurately reflects my personal performance of the history, physical exam, medical decision making, and the department course for this patient. I have also personally directed, reviewed, and agree with the discharge instructions and disposition. Disposition/Present on Arrival - Present on Arrival Any Indicators Present on Arrival: No History of DVT/PE: No History of Uncontrolled Diabetes: No Urinary Catheter: No History of Decub. Ulcer: No History Surgical Site Infection Following: None - Disposition Have Diagnosis and Disposition been Completed?: Yes Diagnosis: Renal colic, Intractable pain Disposition: HOSPITALIZED Disposition Time: 04:04 Condition: STABLE Forms: Fluid-1 (Romanian)
[2018-11-06 00:59] LABS: HEMOGLOBIN 12.5 g/dL (14.0-18.0); MEAN CELL VOLUME 87.6 fl (80.0-105.0); MEAN CORPUSCULAR HEMOGLOBIN 29.9 pg (25.0-35.0); MEAN CORPUSCULAR HGB CONC 34.2 g/dl (31.0-37.0); MEAN PLATELET VOLUME 10.3 fl (7.0-11.0); RBC 4.18 10^6/uL (3.5-6.1); WHITE BLOOD COUNT 5.9 10^3/uL (4.5-11.0)
[2018-11-06 01:13] LABS: ALB/GLOB RATIO 1.3 (1.1-1.8); ALT/SGPT 8 U/L (7-56); AST/SGOT 18 U/L (17-59); BLOOD UREA NITROGEN 24 mg/dL (7-21); CALCIUM 9.2 mg/dL (8.4-10.5); GFR NON-AFRICAN AMERICAN > 60; LIPASE 40 U/L (23-300)
[2018-11-06 01:55] LABS: PH,URINE 6.5 (4.7-8.0); URINE BILIRUBIN NEGATIVE (NEGATIVE); URINE BLOOD TRACE-INTACT (NEGATIVE); URINE GLUCOSE (UA) >=1000 mg/dL (NEGATIVE); URINE LEUKOCYTE ESTERASE NEGATIVE Leu/uL (NEGATIVE); URINE PROTEIN NEGATIVE mg/dL (<30 mg/dL)
[2018-11-06 02:03] LABS: URINE APPEARANCE CLEAR (CLEAR); URINE COLOR YELLOW (YELLOW)
[2018-11-06 02:14] LABS: URINE BACTERIA RARE /hpf; URINE EPITHELIAL CELLS 0 - 2 /hpf (0-5); URINE WBC 0 - 2 /hpf (0-6)
[2018-11-06] MEDS ORDERED: Morphine 2 mg/ml ISec IVP STA (03:47)
[2018-11-06] MEDS ORDERED: Morphine 2 mg/ml ISec IVP PRN (04:03)
--- NOTE | 2018-11-06 08:40 | CT ---
Date of service: 11/06/2018 PROCEDURE: CT Abdomen and Pelvis without intravenous contrast HISTORY: right flank pain COMPARISON: None. TECHNIQUE: Technique. Contrast dose: Radiation dose: Total exam DLP = 308.02 mGy-cm. This CT exam was performed using one or more of the following dose reduction techniques: Automated exposure control, adjustment of the mA and/or kV according to patient size, and/or use of iterative reconstruction technique. FINDINGS: LOWER THORAX: Unremarkable. LIVER: Unremarkable. No gross lesion or ductal dilatation. GALLBLADDER AND BILE DUCTS: Unremarkable. PANCREAS: Unremarkable. No gross lesion or ductal dilatation. SPLEEN: Unremarkable. ADRENALS: Unremarkable. No mass. KIDNEYS AND URETERS: There is a 4 mm obstructing stone in the right UVJ. There is moderate hydronephrosis and hydroureter. There is mild perinephric stranding. There is a nonobstructing 4 mm stone in the left kidney VASCULATURE: Unremarkable. No aortic aneurysm. No aortic atherosclerotic calcification or mural plaque present. BOWEL: Unremarkable. No obstruction. No gross mural thickening. APPENDIX: Unremarkable. Normal appendix. PERITONEUM: Unremarkable. No free fluid. No free air. LYMPH NODES: Unremarkable. No enlarged lymph nodes. BLADDER: Unremarkable. REPRODUCTIVE: Unremarkable. BONES: No acute fracture. OTHER FINDINGS: The report concurs with the preliminary [facility] report IMPRESSION: There is a 4 mm obstructing stone in the right UVJ. There is moderate hydronephrosis and hydroureter. There is mild perinephric stranding. There is a nonobstructing 4 mm stone in the left kidney
[2018-11-06] MEDS: Dextrose 5%/0.45% NS 1,000 ML IV SCH (09:36)
[2018-11-06] MEDS: Cholecalciferol 1,000 INTLU TAB PO SCH (10:26)
[2018-11-06] MEDS: Insulin Detemir 100 units/ml Vial (Levemir) SC SCH (17:08)
--- NOTE | 2018-11-06 18:53 | PCM.URO ---
Urology Progress Note - Subjective Flank Pain: Yes (4 mm stone / observation and no change cysto 3/7) - Objective Lab Results Last 24 Hours: Laboratory Results - last 24 hr 11/06/18 11/06/18 11/06/18 00:40 00:40 01:33 WBC 5.9 RBC 4.18 Hgb 12.5 L Hct 36.6 L MCV 87.6 MCH 29.9 MCHC 34.2 RDW 13.0 Plt Count 150 MPV 10.3 Sodium 137 Potassium 4.3 Chloride 100 Carbon Dioxide 30 Anion Gap 12 BUN 24 H Creatinine 1.2 Est GFR ( Amer) > 60 Est GFR (Non-Af Amer) > 60 POC Glucose (mg/dL) Random Glucose 245 H Calcium 9.2 Total Bilirubin 1.2 AST 18 ALT 8 Alkaline Phosphatase 119 Total Protein 7.1 Albumin 4.0 Globulin 3.0 Albumin/Globulin Ratio 1.3 Lipase 40 Urine Color Yellow Urine Appearance Clear Urine pH 6.5 Ur Specific [place] 1.020 Urine Protein Negative Urine Glucose (UA) >=1000 Urine Ketones Trace H Urine Blood Trace-intact H Urine Nitrate Negative Urine Bilirubin Negative Urine Urobilinogen 2.0 H Ur Leukocyte Esterase Negative Urine RBC 1 - 3 H Urine WBC 0 - 2 Ur Epithelial Cells 0 - 2 Urine Bacteria Rare 11/06/18 11/06/18 11/06/18 06:41 11:51 15:53 WBC RBC Hgb Hct MCV MCH MCHC RDW Plt Count MPV Sodium Potassium Chloride Carbon Dioxide Anion Gap BUN Creatinine Est GFR ( Amer) Est GFR (Non-Af Amer) POC Glucose (mg/dL) 104 153 H 199 H Random Glucose Calcium Total Bilirubin AST ALT Alkaline Phosphatase Total Protein Albumin Globulin Albumin/Globulin Ratio Lipase Urine Color Urine Appearance Urine pH Ur Specific [place] Urine Protein Urine Glucose (UA) Urine Ketones Urine Blood Urine Nitrate Urine Bilirubin Urine Urobilinogen Ur Leukocyte Esterase Urine RBC Urine WBC Ur Epithelial Cells Urine Bacteria Intake & Output: Intake & Output 11/05/18 11/06/18 11/06/18 18:59 06:59 18:59 Intake Total 400 Balance 400 Weight 139 lb Intake: Oral 400 Vital Signs: Vital Signs - 24 hr 11/06/18 11/06/18 11/06/18 00:18 03:06 05:13 Temperature 98.8 F 98.2 F Pulse Rate 75 77 72 Respiratory 18 18 17 Rate Blood Pressure 161/96 H 125/83 125/80 O2 Sat by Pulse 97 98 98 Oximetry 11/06/18 11/06/18 11/06/18 06:00 07:35 10:26 Temperature 98 F Pulse Rate 60 65 Respiratory 16 18 Rate Blood Pressure 126/77 119/73 O2 Sat by Pulse 98 Oximetry 11/06/18 11/06/18 11/06/18 14:00 16:44 17:13 Temperature 99.2 F 99.2 F Pulse Rate 65 65 65 Respiratory 18 18 Rate Blood Pressure 122/72 122/72 122/72 O2 Sat by Pulse 97 97 Oximetry
--- NOTE | 2018-11-07 01:44 | CON ---
DATE: 11/06/2018 UROLOGY CONSULTATION REASON FOR THE CONSULTATION: Severe right renal colic. HISTORY OF PRESENT ILLNESS: Mr. Alexis Carolina is a pleasant gentleman who I saw him last week actually, at that time he did not have any hydronephrosis. He came in with abdominal pain, there was a question whether GI or related. He had some stone up in his kidney, but the exact diagnosis at the time of discharge I did not reveal any distal ureteral stone which he is now presenting with. So, he went home and he was feeling better for about a day or two since he went home last weekend. Now he represents with severe right renal colic and on a repeat CT scan now he is found to have 4 mm stone in the distal ureter. last week. See the CT scan. The patient is feeling some nausea. Although, he just ate. PAST MEDICAL AND SURGICAL HISTORY: As listed on the chart. The patient of Dr. Kris Olson. SOCIAL HISTORY: He is here with his . REVIEW OF SYSTEMS: As above, noncontributory. See also previous GI consult as well. PHYSICAL EXAMINATION: GENERAL: A well nourished male, he is currently resting in his bed. VITAL SIGNS: Noted. He is currently afebrile. ABDOMEN: Relatively soft, not grossly distended. The remainder of exam is otherwise unremarkable. LABORATORY DATA: Seen on the chart. BUN, creatinine, and white count are all noted. CT scan, the official reading is not back yet but it looks like there is distal ureteral stone with hydro. DIAGNOSIS: Severe renal colic from a 4 mm stone at the uterovesical junction. Urology planning to followup. We are going to continue to observe the patient. We will provide the patient analgesics and antiemetics. IV fluid and hydration, strain the urine. If does not resolve, then we will consider cystoscopy. Depending on the patient's plan, we will do cystoscopy, ureteroscopy, either laser lithotripsy or stone basketing or just placing a stent. Further plans will follow. We will discuss options, location, etc. depending on the patient clinically. PLAN: As follows; 1. IV fluid. 2. Analgesics. 3. Antiemetic. 4. Hydration. 5. Straining of the urine and then followup plans to follow. ADDENDUM: Towards the end of the day, the patient is still having discomfort, has not passed the stone, would like to know if we can treat him. We are going to make arrangements for an add on 11/07/2018 for cystoscopy and a stent insertion and hopefully a ureteroscopy laser lithotripsy. Depending on how the patient does clinically. I did discuss and we will discus further about the risk of sepsis and perhaps we will need to reconsider just stenting versus ureteroscopy. We would like to see how the patient does and have . Slade Palomo MD
[2018-11-07] MEDS: Dextrose 5%/0.45% NS 1,000 ML IV SCH (08:13)
[2018-11-07] MEDS: Cholecalciferol 1,000 INTLU TAB PO SCH (10:00)
[2018-11-07] MEDS ORDERED: Sodium Chloride 0.9% 1,000 ML IV SCH (14:00)
[2018-11-07] MEDS ORDERED: Propofol 10 mg/ml Inj (20 ML) ONE (14:24)
[2018-11-07] MEDS ORDERED: cefTRIAXone (Rocephin) 1 gm Inj ONE (14:27)
[2018-11-07] MEDS ORDERED: Iohexol 240 (50 ml) ONE (14:27)
[2018-11-07] MEDS ORDERED: HYDROmorphone 0.5 mg/0.5 ml ISec IVP PRN (15:22)
[2018-11-07] MEDS ORDERED: Lactated Ringer's 1,000 ML IV SCH (15:30)
[2018-11-07 15:38] VITALS: O2SAT 98
[2018-11-07] MEDS ORDERED: Oxycodone/Acetaminophen 5/325 mg Tab PO PRN (15:41)
[2018-11-07] MEDS ORDERED: Magnesium Citrate Oral SOL (300 ml) PO ONE (17:59)
[2018-11-07] MEDS: Magnesium Citrate Oral SOL (300 ml) PO ONE ×2 (18:30→19:41)
[2018-11-07] MEDS: Insulin Detemir 100 units/ml Vial (Levemir) SC SCH (18:31)
[2018-11-08] MEDS: Dextrose 5%/0.45% NS 1,000 ML IV SCH (03:10)
[2018-11-08 08:17] VITALS: BP 135/84; RESP 18; TEMP 97.2
[2018-11-08] MEDS: Cholecalciferol 1,000 INTLU TAB PO SCH (09:33)
[2018-11-08 09:37] VITALS: PULSE 63
--- NOTE | 2018-11-08 11:52 | RAD ---
Date of service: 11/07/2018 PROCEDURE: Fluoroscopy up to 1 hr HISTORY: RETROGRADE PYELOGRAM/ STONE REMOVAL / STENT INSERTION (RIGHT) COMPARISON: TECHNIQUE: 50.6 sec of fluoro time. Cumulative dose 9.11 mGy. Seventeen images submitted. FINDINGS: There is placement of a right ureteral stent. The proximal pigtail is seen in the upper pole calyx. The catheter is looped in the renal pelvis. The pigtail is not completely formed in the bladder but the distal tip is probably within the bladder. IMPRESSION: As above
--- NOTE | 2018-11-09 04:15 | DS ---
HOSPITAL COURSE: This is a 58-year-old man with Crohn disease, status post ileal resection who presented to the emergency room approximately 2 weeks ago with sudden onset right-sided flank pain. Initially, scans were read as negative but I saw a distal stone in the right ureter which later radiologist confirmed and addended. The patient was treated with IV fluids, this pain subsided dramatically. KUB did not show any followup stone. Renal ultrasound did not show any stone, so it was presumed the stone had passed and he was cleared for discharge to home after being seen by Urology. The patient was home for a few days, doing well when suddenly the pain returned. He tried conservative treatments with analgesics and fluid intake but the pain was on and off and then came quite severe prompting this admission. He was seen on admission by Dr. Rolo Olson who was covering for me as well as by Dr. Palomo, urologist. The patient was initially admitted, treated conservatively with IV fluids and analgesics, but the stone did not pass. The pain continued, so he was taken to the OR for cystoscopy, stent placement and basket retrieval of the stone. The stone was sent for analysis. The patient was comfortable, held overnight and this Sunday morning, was clear, awake, alert in good spirits. He was seen by myself and Dr. Palomo. The pigtail catheter was removed and the patient was ready for discharge to home. We discussed the possibility of antibiotics but felt is not necessary at this point after the course of antibiotics given during hospital stay. He was instructed to follow up with Dr. Palomo later this week as well as with me later in the week. DISCHARGE DIAGNOSES: 1. Renal colic. 2. Distal right ureteral stone at the ureterovesical junction. 3. Crohn disease. 4. Hypertension. 5. Diabetes. Kris Olson MD MTDRegan
--- NOTE | 2018-11-25 12:10 | OP ---
PROCEDURE DATE: 11/07/2018 UROLOGY OPERATIVE NOTE Please make a note, this is a repeat of a dictation. On reviewing my note, the patient is familiar to me. PREOPERATIVE DIAGNOSES: Severe renal colic, urolithiasis, hematuria, hydronephrosis, and intermittent pain. POSTOPERATIVE DIAGNOSES: Severe renal colic, urolithiasis, hematuria, hydronephrosis and intermittent pain. PROCEDURES: Cystoscopy, retrograde pyelogram, ureteroscopy, laser lithotripsy, insertion of double-J stent, stone basketing. ESTIMATED BLOOD LOSS: Less than 10 mL. COMPLICATIONS: There were no complications. INDICATIONS: See history and physical for further details and pre consultation. This is a very pleasant gentleman I met a few days ago. He has a history of stone disease. Initially, it was a very small stone. The patient was feeling better, then discharged home, he got readmitted now with severe renal colic with the stone, we confirmed this with imaging. We then discussed various options and he is here now for the above procedure. We made arrangements with the operating room to have the special laser nurse available. We arranged for this procedure. We explained to the patient risks, benefits and alternatives. We explained that treating in the [facility]. After all the various options which we did risks, benefits and treatment alternatives, he is now ready for the above procedure. UROLOGY OPERATIVE FINDINGS: 1. Normal anterior urethra, no strictures. 2. The verumontanum was moderately visually occlusive, normal within the limits of age. 3. We found the stone. We identified the stone. We were able to laser it and basket it. Subsequently, we put in the double J stent. There were no complications. Double-J stent with dangles that we will be able to remove at the bedside subsequently without the aid of another procedure. After obtaining informed consent, the patient was placed on the table. Routine monitors were placed. Time-out was called to confirm patient positioning, antibiotic prophylaxis. All that is confirmed. Now the patient is in lithotomy position. We prepped in usual sterile fashion. Cystoscope was introduced via urethra. The anterior urethra normal, no strictures. The verumontanum is moderately visually occlusive, normal was in the , about 2-3 cm in length. We identified the ureteral orifice, retrograde pyelogram was performed. The wire was passed up to the kidney without difficulty. We now went with a rigid ureteroscope encasing the wire. We identified the stone and took nice pictures. We now did a laser for the stone and then we stopped, slowly we basketed the stone. At the termination, we put a double-J stenting with dangles. We emptied the bladder. We tacked the stent in the penis. The patient tolerated the procedure without complication. I have also planned to discuss the procedure with Dr. Olson, his medical doctor and then further plans will follow. We will plan to keep the patient in the hospital for observation and then subsequently remove the double-J stent. We will see how the patient feels. But overall, the procedure went well. ADDENDUM: This is a repeat of a dictation as mentioned above. Slade Palomo MD
== END 2018-11-08 12:34 | disposition home or self-care (01) ==
LOC: ED 23:29 → ERH 11-06 03:59 → INTOOBSV 11-06 03:59 → ERH 11-06 05:04 → 5RNO 11-06 05:43
PROVIDERS: ADMIT Internal Medicine; ATTEND Internal Medicine
DX: N13.2 Hydronephrosis with renal and ureteral calculous obstruction (principal); K50.90 Crohn's disease, unspecified, without complications; I10 Essential (primary) hypertension; E11.9 Type 2 diabetes mellitus without complications; Z79.4 Long term (current) use of insulin; Z79.82 Long term (current) use of aspirin
CPT/HCPCS: 52356; 74176; 76000; 80053; 81001; 82948; 83690; 85027; 96361; 96372; 96374; 96375; 99283; C1758; C1769; C2617; G0378; J0696; J1580; J1885; J2001; J2270; J2405; J2704; J3010; J7030; J7042; J7120; Q9966

== ENCOUNTER 2019-01-05 15:23 | Inpatient (IN) | payer OTHER ==
[2019-01-05] MEDS ORDERED: Sodium Chloride 0.9% 1,000 ML IV STA (15:55)
--- NOTE | 2019-01-05 16:01 | ED PDOC ---
Arrival/HPI - General Chief Complaint: GI Problem Time Seen by Provider: 01/05/19 15:30 Historian: Patient - History of Present Illness Narrative History of Present Illness (Text): 01/05/19 17:36 58 y/o male with PMH of Chron's Disease, DM, HTN presents to the ED c/o diarrhea x 2 weeks. Diarrhea is brown, watery, nonbloody 3-4 times daily with occasional foul odor. Associated intermittent chills and left sided abdominal discomfort. Pt called Dr. Seferino Olson this morning who recommend he come in to ED for evaluation. Denies fever, nausea, vomiting, dizziness, headache, palpitations, chest pain, SOB, back pain, testicular pain, penile discharge, urinary symptoms, or any other associated symptoms. PMD:Dr. Olson GI: Dr. Tyler Past Medical History - Provider Review Nursing Documentation Reviewed: Yes Primary Care Provider: Kris Olson - Infectious Disease Hx of Infectious Diseases: None - Cardiac Hx Cardiac Disorders: Yes Hx Hypertension: Yes - Pulmonary Hx Respiratory Disorders: No - Neurological Hx Neurological Disorder: No - HEENT Hx HEENT Disorder: No - Renal Hx Renal Disorder: No - Endocrine/Metabolic Hx Diabetes Mellitus Type 2: Yes - Hematological/Oncological Hx Blood Transfusions: Yes Hx Blood Transfusion Reaction: No - Integumentary Hx Dermatological Disorder: No - Musculoskeletal/Rheumatological Hx Falls: No - Gastrointestinal Hx Gastrointestinal Disorders: Yes Hx Crohn's Disease: Yes - Genitourinary/Gynecological Hx Genitourinary Disorders: No - Psychiatric Hx Psychophysiologic Disorder: No Hx Substance Use: No - Surgical History Hx Hysterectomy: No Hx Open Reduction Internal Fixation: Yes - Anesthesia Hx Anesthesia Reactions: No Hx Malignant Hyperthermia: No - Suicidal Assessment Feels Threatened In Home Enviroment: No Family/Social History - Physician Review Nursing Documentation Reviewed: Yes Family/Social History: No Known Family HX Smoking Status: Never Smoked Hx Alcohol Use: No Hx Substance Use: No Allergies/Home Meds Allergies/Adverse Reactions: Allergies pseudoephedrine HCl [From Sudafed] Allergy (Verified 01/05/19 15:27) "HEART RACES" DENIES NAUSEA Home Medications: Home Meds Medication Instructions Recorded Confirmed Aspirin [Ecotrin] 81 mg PO QAM 05/22/16 01/05/19 GlipiZIDE [Glucotrol] 10 mg PO BID 09/23/17 01/05/19 Losartan [Cozaar] 50 mg PO DAILY 05/09/18 01/05/19 metFORMIN [glucOPHAGE] 500 mg PO BID 05/09/18 01/05/19 Cholecalciferol [Vitamin D 1000 IU] 1 tab PO DAILY 10/29/18 01/05/19 Insulin Glargine,Hum.rec.anlog 10 unit SC 1700 10/29/18 01/05/19 [Lantus Solostar] Review of Systems - Review of Systems Constitutional: Normal. absent: Fevers Eyes: Normal. absent: Vision Changes ENT: Normal. absent: Sore Throat, Sinus Congestion Respiratory: Normal. absent: SOB, Cough Cardiovascular: Normal. absent: Chest Pain, Palpitations, Syncope Gastrointestinal: Abdominal Pain, Diarrhea. absent: Nausea, Vomiting, Appetite Changes, Hematochezia, Hematemesis Genitourinary Male: Normal. absent: Dysuria, Frequency Musculoskeletal: Normal. absent: Back Pain, Neck Pain Skin: Normal. absent: Rash Neurological: Normal. absent: Headache, Dizziness Endocrine: Diaphoresis Physical Exam Vital Signs Reviewed: Yes Vital Signs Temp Pulse Resp BP Pulse Ox 01/05/19 15:27 97.6 F 74 19 136/86 100 Temperature: Afebrile Blood Pressure: Normal Pulse: Regular Respiratory Rate: Normal Appearance: Positive for: Well-Appearing, Non-Toxic, Comfortable Pain Distress: None Mental Status: Positive for: Alert and Oriented X 3 Finger Stick Blood Glucose: 323 - Systems Exam Head: Present: Atraumatic, Normocephalic Pupils: Present: PERRL Extroacular Muscles: Present: EOMI Conjunctiva: Present: Normal Mouth: Present: Moist Mucous Membranes Neck: Present: Normal Range of Motion. No: Meningeal Signs Respiratory/Chest: Present: Clear to Auscultation, Good Air Exchange. No: Respiratory Distress, Accessory Muscle Use Cardiovascular: Present: Regular Rate and Rhythm, Normal S1, S2, Peripheal Pulses Present Abdomen: Present: Tenderness (LLQ), Normal Bowel Sounds. No: Distention, Peritoneal Signs, Rebound, Guarding Rectal: Present: Normal Rectal Tone. No: Occult Blood, Rectal Tenderness, Gross Blood, Melena Back: Present: Normal Inspection. No: CVA Tenderness Upper Extremity: Present: Normal Inspection, Normal ROM, NORMAL PULSES, Neurovascularly Intact, Capillary Refill < 2s. No: Cyanosis, Edema, Temperature Abnormalties Lower Extremity: Present: Normal Inspection, NORMAL PULSES, Normal ROM, Neurovascularly Intact, Capillary Refill < 2 s. No: Edema, Temperature Abnormalties Neurological: Present: GCS=15, CN II-XII Intact, Speech Normal, Motor Func Grossly Intact, Normal Sensory Function, Gait Normal Skin: Present: Warm, Dry, Normal Color. No: Rashes Psychiatric: Present: Alert, Oriented x 3, Normal Insight, Normal Concentration, Normal Affect, Normal Mood Medical Decision Making ED Course and Treatment: 16:06 Initial Plan: * CBC, CMP * Coags * Lipase * Troponin * UA * EKG * CXR * CT Abd/Pelvis * IVF EKG shows rate 72, NSR, no STEMI, nonspecific changes Bloodwork reviewed, remarkable for mild anemia (pt with history of anemia, FOBT negative), elevated glucose (IVF ordered) and low magnesium (Mg sulfate ordered). Otherwise unremarkable, no leukocytosis or other electrolyte abnormalities. Urine shows mild dehydration, no infection CT shows sigmoid colitis and proctitis, which is a new finding compared to prior studies. Patient requesting admission, uncomfortable with discharge home. Will speak with PMD. 18:[address] Kris Olson who accepted patient for inpatient admission with diagnosis of sigmoid colitis and proctitis. Pt to go to med/surg floor. Requests GI consult, Rocephin, and IVF. Vitals stable at this time. Pt updated with change in disposition. Dr. Olson originally requested Dr. Potter for GI consult, however patient states that Dr. Tyler is his current GI doctor. Dr. Tyler to be consulted. - Lab Interpretations Narrative Lab Interpretation (Text): 01/05/19 17:34 01/05/19 16:19 01/05/19 16:19 Lab Results 01/05/19 16:45: Urine Color Yellow, Urine Appearance Clear, Urine pH 6.0, Ur Specific [place] 1.020, Urine Protein Negative, Urine Glucose (UA) >=1000, Urine Ketones Negative, Urine Blood Negative, Urine Nitrate Negative, Urine Bilirubin Negative, Urine Urobilinogen 0.2, Ur Leukocyte Esterase Negative 01/05/19 16:19: Sodium 138, Chloride 102, Potassium 4.3, Carbon Dioxide 28, Anion Gap 12, BUN 22 H, Creatinine 0.8, Est GFR ( Amer) > 60, Est GFR (Non-Af Amer) > 60, Random Glucose 283 H, Calcium 9.1, Magnesium 1.5 L, Total Bilirubin 0.8, AST 20, ALT 8, Alkaline Phosphatase 119, Troponin I < 0.01, Total Protein 7.0, Albumin 4.0, Globulin 3.0, Albumin/Globulin Ratio 1.4, Lipase 79 01/05/19 16:19: PT 11.0, INR 0.99, APTT 28.8 01/05/19 16:19: WBC 3.8 L D, RBC 4.33, Hgb 12.9 L, Hct 37.4 L, MCV 86.4, MCH 29.8, MCHC 34.5, RDW 13.0, Plt Count 156, MPV 10.8, Neut % (Auto) 60.6, Lymph % (Auto) 28.5, [place] % (Auto) 6.9 H, Eos % (Auto) 3.7, Baso % (Auto) 0.3, Lymph # (Auto) 1.1 L, [place] # (Auto) 0.3, Eos # (Auto) 0.1, Baso # (Auto) 0.01, Absolute Neuts (auto) 2.30 01/05/19 16:10: pO2 49, VBG pH 7.39, VBG pCO2 46.0, VBG HCO3 27.8, VBG Total CO2 29.2 H, VBG O2 Sat (Calc) 82.9 H, VBG Base Excess 2.2 H, VBG Potassium 4.0, Sodium 138.0, Chloride 103.0, Glucose 292 H, Lactate 2.1, FiO2 21.0, Venous Blood Potassium 4.0 I have reviewed the lab results: Yes - RAD Interpretation Narrative RAD Interpretations (Text): 01/05/19 17:34 CT Abd/Pelvis with IV contrast: FINDINGS: LOWER THORAX: Unremarkable. LIVER: Hepatic steatosis. No focal masses. No intrahepatic bile duct dilatation or perihepatic ascites. GALLBLADDER AND BILE DUCTS: Collapsed gallbladder. PANCREAS: Unremarkable. No gross lesion or ductal dilatation. SPLEEN: Stable splenomegaly. ADRENALS: Unremarkable. No mass. KIDNEYS AND URETERS: Solitary small calculus nonobstructing less than 3 mm midpole region left kidney. Unremarkable. No hydronephrosis. No solid mass. VASCULATURE: Unremarkable. No aortic aneurysm. No atherosclerotic calcification or mural plaque present. BOWEL: Inflammatory changes primarily affecting rectum and sigmoid. Stable postoperative changes following partial right hemicolectomy. APPENDIX: Normal appendix is not visible. PERITONEUM: Unremarkable. No free fluid. No free air. LYMPH NODES: Unremarkable. No enlarged lymph nodes. BLADDER: Unremarkable. REPRODUCTIVE: Unremarkable. BONES: No acute fracture. Degenerative changes limited to L4-5 level. OTHER FINDINGS: None. IMPRESSION: Sigmoid colitis/proctitis. This represents a new/acute finding compared to prior studies. No evidence of obstructing lesion. Stable splenomegaly. Stable postoperative changes related to partial colectomy. No abnormalities at the enterocolic anastomosis. Solitary nonobstructing calculus left kidney. CXR: FINDINGS: LUNGS: No active pulmonary disease. PLEURA: No significant pleural effusion identified, no pneumothorax apparent. CARDIOVASCULAR: No atherosclerotic calcification present Normal. OSSEOUS STRUCTURES: No significant abnormalities. VISUALIZED UPPER ABDOMEN: Normal. OTHER FINDINGS: None. IMPRESSION: No active disease. No significant interval change compared to the prior examination(s). 01/08/19 10:31 Radiology Orders: 01/05/19 15:55 CHEST PORTABLE [RAD] [place] Master: Radiologist - EKG Interpretation EKG Interpretation (Text): 01/05/19 18:43 Rate 72; NSR; Normal Intervals; No STEMI, nonspecific ST/T wave changes Interpreted by ED Physician: Yes Type: 12 lead EKG - Medication Orders Current Medication Orders: Sodium Chloride (Sodium Chloride 0.9%) 1,000 mls @ 999 mls/hr IV .Q1H1M STA Stop: 01/05/19 16:55 Disposition/Present on Arrival - Present on Arrival Any Indicators Present on Arrival: No History of DVT/PE: No History of Uncontrolled Diabetes: No Urinary Catheter: No History of Decub. Ulcer: No History Surgical Site Infection Following: None - Disposition Have Diagnosis and Disposition been Completed?: Yes Diagnosis: Colitis, Proctitis, Hyperglycemia Disposition: HOSPITALIZED Disposition Time: 17:45 Patient Plan: Admission Condition: STABLE
--- NOTE | 2019-01-05 16:26 | RAD ---
Date of service: 01/05/2019 HISTORY: hyperglycemia COMPARISON: 07/03/2018. FINDINGS: LUNGS: No active pulmonary disease. PLEURA: No significant pleural effusion identified, no pneumothorax apparent. CARDIOVASCULAR: No atherosclerotic calcification present Normal. OSSEOUS STRUCTURES: No significant abnormalities. VISUALIZED UPPER ABDOMEN: Normal. OTHER FINDINGS: None. IMPRESSION: No active disease. No significant interval change compared to the prior examination(s).
[2019-01-05 16:28] LABS: VENOUS BLOOD GAS BASE EXCESS 2.2 mmol/L (0.0-2.0); VENOUS BLOOD GAS PO2 49 mm/Hg (30-55); VENOUS BLOOD PH 7.39 (7.32-7.43)
[2019-01-05 16:29] LABS: BASO # 0.01 K/mm3 (0.0-2.0); BASO % 0.3 % (0.0-3.0); EOS # 0.1 (0.0-0.7); EOS % 3.7 % (1.5-5.0); HEMOGLOBIN 12.9 g/dL (14.0-18.0); LYMPH # 1.1 (1.2-3.4); LYMPH % 28.5 % (22.0-35.0); MEAN CELL VOLUME 86.4 fl (80.0-105.0); MEAN CORPUSCULAR HEMOGLOBIN 29.8 pg (25.0-35.0); MEAN CORPUSCULAR HGB CONC 34.5 g/dl (31.0-37.0); MEAN PLATELET VOLUME 10.8 fl (7.0-11.0); MONO # 0.3 (0.1-0.6); MONO % 6.9 % (1.0-6.0); RBC 4.33 10^6/uL (3.5-6.1); WHITE BLOOD COUNT 3.8 10^3/uL (4.5-11.0)
[2019-01-05 16:37] LABS: INR 0.99; PARTIAL THROMBOPLASTIN TIME 28.8 Seconds (26.9-38.3)
[2019-01-05 16:39] LABS: ALB/GLOB RATIO 1.4 (1.1-1.8); ALT/SGPT 8 U/L (7-56); AST/SGOT 20 U/L (17-59); BLOOD UREA NITROGEN 22 mg/dL (7-21); CALCIUM 9.1 mg/dL (8.4-10.5); GFR NON-AFRICAN AMERICAN > 60; LIPASE 79 U/L (23-300)
[2019-01-05 16:49] LABS: TROPONIN I < 0.01 ng/mL
[2019-01-05] MEDS ORDERED: Magnesium Sulfate 2 gm/50 ml 2 GM/50 ML BAG IVPB ONE (16:51)
[2019-01-05 16:59] LABS: URINE BILIRUBIN NEGATIVE (NEGATIVE); URINE BLOOD NEGATIVE (NEGATIVE); URINE GLUCOSE (UA) >=1000 mg/dL (NEGATIVE); URINE LEUKOCYTE ESTERASE NEGATIVE Leu/uL (NEGATIVE); URINE PROTEIN NEGATIVE mg/dL (<30 mg/dL); URINE UROBILINOGEN 0.2 E.U./dL (<1 E.U./dL)
[2019-01-05 17:00] LABS: URINE APPEARANCE CLEAR (CLEAR); URINE COLOR YELLOW (YELLOW)
[2019-01-05] MEDS ORDERED: Iohexol 350 MG/100 ML VIAL ONE (17:04)
[2019-01-05] MEDS ORDERED: Sodium Chloride 0.9% 500 ML IV STA (17:31)
--- NOTE | 2019-01-05 17:35 | CT ---
Date of service: 01/05/2019 PROCEDURE: CT Abdomen and Pelvis with contrast HISTORY: LLQ pain, diarrhea COMPARISON: 10/29/2018, 11/06/2018. Serial CT scans of the abdomen and pelvis. TECHNIQUE: Intravenous contrast dose: 100 cc Omnipaque 350. Radiation dose: Total exam DLP = 380.34 mGy-cm. This CT exam was performed using one or more of the following dose reduction techniques: Automated exposure control, adjustment of the mA and/or kV according to patient size, and/or use of iterative reconstruction technique. FINDINGS: LOWER THORAX: Unremarkable. LIVER: Hepatic steatosis. No focal masses. No intrahepatic bile duct dilatation or perihepatic ascites. GALLBLADDER AND BILE DUCTS: Collapsed gallbladder. PANCREAS: Unremarkable. No gross lesion or ductal dilatation. SPLEEN: Stable splenomegaly. ADRENALS: Unremarkable. No mass. KIDNEYS AND URETERS: Solitary small calculus nonobstructing less than 3 mm midpole region left kidney. Unremarkable. No hydronephrosis. No solid mass. VASCULATURE: Unremarkable. No aortic aneurysm. No atherosclerotic calcification or mural plaque present. BOWEL: Inflammatory changes primarily affecting rectum and sigmoid. Stable postoperative changes following partial right hemicolectomy. APPENDIX: Normal appendix is not visible. PERITONEUM: Unremarkable. No free fluid. No free air. LYMPH NODES: Unremarkable. No enlarged lymph nodes. BLADDER: Unremarkable. REPRODUCTIVE: Unremarkable. BONES: No acute fracture. Degenerative changes limited to L4-5 level. OTHER FINDINGS: None. IMPRESSION: Sigmoid colitis/proctitis. This represents a new/acute finding compared to prior studies. No evidence of obstructing lesion. Stable splenomegaly. Stable postoperative changes related to partial colectomy. No abnormalities at the enterocolic anastomosis. Solitary nonobstructing calculus left kidney.
[2019-01-05] MEDS: Sodium Chloride 0.9% 1,000 ML IV SCH (17:42)
[2019-01-05] MEDS ORDERED: cefTRIAXone 1 gm 1 GM/100 ML BAG IVPB STA (18:20)
[2019-01-05 19:53] LABS: VENOUS BLOOD GAS BASE EXCESS 2.7 mmol/L (0.0-2.0); VENOUS BLOOD GAS PO2 60 mm/Hg (30-55); VENOUS BLOOD PH 7.41 (7.32-7.43)
[2019-01-05 21:11] VITALS: BMI 19.9
[2019-01-06] MEDS: Sodium Chloride 0.9% 1,000 ML IV SCH (06:33)
[2019-01-06 08:11] VITALS: RESP 20
--- NOTE | 2019-01-06 08:45 | HP ---
DATE OF EXAM: 01/05/2019 CHIEF COMPLAINT: Diarrhea, abdominal discomfort. HISTORY OF PRESENT ILLNESS: This is a 58-year-old man with a history of Crohn's disease, diabetes, and hypertension who presented to the emergency room with approximately two weeks of brown watery stools. In the stools, there was no blood noted, and it occurred 3 or 4 times daily. The patient admits to intermittent chills, some left-sided abdominal discomfort. This morning, he called Dr. Rolo Olson, on his private number to report these symptoms and was advised to either come to the office tomorrow or come to the emergency room today for evaluation. Apparently, the patient came to the emergency room for evaluation and was seen and a CAT scan was done showing results that prompted this admission in the form of acute inflammation of the rectum and sigmoid colon. PAST MEDICAL HISTORY: Significant for Crohn's disease. The patient is status post hemicolectomy due to Crohn's disease. He is also status post TIA. He has type 2 diabetes and hypertension. SOCIAL HISTORY: He does not smoke, he never did, does not drink alcohol. ALLERGIES: HE IS SAID TO BE ALLERGIC TO SUDAFED, WHICH CAUSES PALPITATIONS. His rn acute care is Dr. Potter. REVIEW OF SYSTEMS: Otherwise unremarkable. PHYSICAL EXAMINATION: In emergency room, the patient was relatively comfortable, although clinically dry. His exam is reported to be unremarkable except for a low abdominal tenderness, especially on the left lower quadrant and prompting his admission. LABORATORY DATA: Labs were rather acceptable in the sense that his white count was chronically low at 3.8. His H and H was good at 12 and 27. Electrolytes were acceptable except as mentioned he is clinically dry with a BUN of 22 and a urine specific gravity of 1.02. CT scan was the most concerning of the results prompting this admission, they have reported new and acute inflammatory changes... IMPRESSION: 1. abdominal pain with diarrhea 2. New, acute changes on CT Scan in the rectum and sigmoid colon 3. Crohns [id number] 4. Diabetes Kris Olson MD NOAM
[2019-01-06] MEDS: Insulin Reg-LOW-Coverage SC SCH ×2 (12:52→21:49)
--- NOTE | 2019-01-06 13:41 | CARD ---
APPROVED REPORT Date of service: 01/05/2019 EKG Measurement Heart [id number] <Conclusion> Normal sinus rhythm Normal Electrocardiogram
[2019-01-06 16:21] VITALS: O2SAT 97
--- NOTE | 2019-01-06 16:51 | PN ---
DATE: 01/06/2019 SUBJECTIVE: The patient is a 58-year-old male, with a history of Crohn's disease, diabetes, and hypertension, who was admitted through the emergency room after several days to weeks of liquid watery bowel movements. The patient is status post hemicolectomy because of his Crohn's disease. He also has a history of transient ischemic attack, diabetes type 2, and hypertension. CAT scan showed sigmoid colitis. When seen today, the patient denies any pain or discomfort from the colitis; however, he continues to have frequent watery bowel movements. He was evaluated by Dr. Tyler, who proposed a change in medication; however, the patient could not remember the names of the new medicines. Today, he was placed on regular insulin coverage as his finger-stick glucoses were elevated in the upper 200 range. Laboratory studies will be repeated in the morning. We are continuing to follow the patient closely. Case to be discussed with Dr. Tyler. Rolo Olson MD
--- NOTE | 2019-01-06 20:37 | CON ---
DATE: 01/06/2019 HISTORY OF PRESENT ILLNESS: I saw Mr. Carolina this morning. 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 The patient has had numerous admissions for treatment of the latter. His most recent endoscopic procedure is as per Dr. Potter. The patient was evaluated previously. He did not respond to past medical therapy, which included TNF inhibitors in form of Remicade, Humira, etc. The patient is also steroid refractory. The patient was placed on Stelara and had been currently doing well up to about two weeks ago. Note that the diarrhea is brown, watery, nonbloody, usually three to four bowel movements a day. He has not taken any recent antibiotics and has not been in contact with people with the flu. His current symptoms not suggestive of a Crohn's since his abdomen is nontender and abdomen is not distended as well. He has no fever or chills. PHYSICAL EXAMINATION: VITAL SIGNS: I reviewed this patient's vital signs. HEENT: Noncontributory. LUNGS: Clear to auscultation except for decreased breath sounds, basilar. HEART: Regular rhythm. ABDOMEN: Soft. No tenderness elicited. It is not distended. Mild tenderness elicited in the left periumbilical and the left lower quadrant and suprapubic. LABORATORY DATA: Indicate white count of 3.8 with H and H of 12.1 and 37, platelet count of 156. Coags within normal limits. Chemistry indicates mild elevation of glucose in the range of [address]: Significant for hepatic steatosis with contracted gallbladder. There is a small left kidney calculus, non-obstructing. Review of the bowel including images indicate inflammatory change involving the rectum as well as sigmoid. He has sigmoid colectomy on the right side. ASSESSMENT: This is a 58-year-old white male with history of Crohn's disease, steroid refractory, also anti-TNF refractory as well. Currently, on Stelara with new-onset diarrhea. Differential diagnoses in this case include: 1. Exacerbation of Crohn's disease, which is probably less likely given the fact he has a very little abdominal pain. Also, he is at high risk for Cytomegalovirus infection other possibility would be Clostridium difficile. At the current time point, he is on ceftriaxone, IV fluids. Liquid diet was ordered. I have ordered stool for Clostridium difficile. It will be interesting to see his response to antibiotics. Prince Tyler DO, PhD NOAM
[2019-01-07] MEDS: Sodium Chloride 0.9% 1,000 ML IV SCH (01:17)
--- NOTE | 2019-01-07 06:20 | CP.PCM.PN ---
Subjective - Date & Time of Evaluation Date of Evaluation: 01/07/19 Time of Evaluation: 06:20 - Subjective Subjective: Patient was seen at bedside. He had complain of head ache. He received tylenol for headache. I was asked to co-sign order for tylenol. States that head ache is going away. Also states that he did not get his blood pressure medications. And he is upset about it . Medical record was reviewed. This 58 year old white male was admitted with brown watery stools, chills, left sided abdominal discomfort Has PMH of Crohn's disease,DM,HTN. Objective - Vital Signs/Intake and Output Vital Signs (last 24 hours): Temp Pulse Resp BP Pulse Ox 98.2 F 72 20 129/70 97 01/06/19 16:20 01/06/19 16:20 01/06/19 16:20 01/06/19 16:20 01/06/19 16:20 Intake and Output: 01/06/19 01/07/19 18:59 06:59 Intake Total 240 1140 Balance 240 1140 - Medications Medications: Current Medications Ciprofloxacin (Cipro) 500 mg PO Q12 HEATHER; Protocol Stop: 01/07/19 20:13 Last Admin: 01/06/19 21:48 Dose: 500 mg Sodium Chloride (Sodium Chloride 0.9%) 1,000 mls @ 150 mls/hr IV .Q6H40M HEATHER Last Admin: 01/07/19 01:17 Dose: 150 mls/hr Insulin Human Regular (Humulin R Low) 1 units SC ACHS HEATHER; Protocol Last Admin: 01/06/19 21:49 Dose: Not Given Metronidazole (Flagyl) 500 mg PO Q8 HEATHER; Protocol Last Admin: 01/07/19 05:33 Dose: 500 mg - Labs Labs: 01/05/19 16:19 01/05/19 16:19 PT 11.0 SECONDS (9.4-12.5) 01/05/19 16: INR 0.99 01/05/19 16:19 APTT 28.8 Seconds (26.9-38.3) 01/05/19 16:19 - Constitutional Appears: Well, In Acute Distress - Head Exam Head Exam: ATRAUMATIC, NORMAL INSPECTION, NORMOCEPHALIC - Eye Exam Eye Exam: Normal appearance - ENT Exam ENT Exam: Normal Exam - Neck Exam Neck Exam: Normal Inspection - Respiratory Exam Respiratory Exam: NORMAL BREATHING PATTERN - Cardiovascular Exam Cardiovascular Exam: absent: JVD - GI/Abdominal Exam GI & Abdominal Exam: absent: Distended - Rectal Exam Rectal Exam: Deferred - Exam Additional comments: Deferred. - Extremities Exam Extremities Exam: Normal Inspection - Back Exam Back Exam: NORMAL INSPECTION - Neurological Exam Neurological Exam: Alert, Awake - Psychiatric Exam Psychiatric exam: Normal Affect, Normal Mood - Skin Skin Exam: Normal Color Assessment and Plan - Assessment and Plan (Free Text) Assessment: Headache. Crohn's disease. DM. HTN. Anemia. Plan: Tylenol 650 mg PO x 1. Continue present management.
[2019-01-07 06:32] LABS: BASO # 0.01 K/mm3 (0.0-2.0); BASO % 0.3 % (0.0-3.0); EOS # 0.1 (0.0-0.7); HEMOGLOBIN 11.8 g/dL (14.0-18.0); LYMPH # 0.6 (1.2-3.4); LYMPH % 19.5 % (22.0-35.0); MEAN CELL VOLUME 85.4 fl (80.0-105.0); MEAN CORPUSCULAR HEMOGLOBIN 29.2 pg (25.0-35.0); MEAN CORPUSCULAR HGB CONC 34.2 g/dl (31.0-37.0); MEAN PLATELET VOLUME 10.1 fl (7.0-11.0); MONO # 0.2 (0.1-0.6); MONO % 7.1 % (1.0-6.0); RBC 4.04 10^6/uL (3.5-6.1); RED CELL DISTRIBUTION WIDTH 12.7 % (11.5-14.5)
[2019-01-07 07:44] LABS: ALB/GLOB RATIO 1.2 (1.1-1.8); ALBUMIN 2.9 g/dL (3.0-4.8); ALT/SGPT 12 U/L (7-56); AST/SGOT 14 U/L (17-59); BLOOD UREA NITROGEN 7 mg/dL (7-21); GFR NON-AFRICAN AMERICAN > 60
[2019-01-07 08:16] VITALS: BP 133/81; PULSE 73; TEMP 98.1
[2019-01-07] MEDS: Insulin Reg-LOW-Coverage SC SCH (09:11)
--- NOTE | 2019-01-07 10:14 | PN ---
DATE: 01/07/2019 SUBJECTIVE: I saw Mr. Carolina this morning. He is a 58-year-old white male, known to this system consultant, with a past medical history of Crohn's disease. The patient is currently on Stelara, having broken through on medications previously, which include Humira and Remicade, etc. The patient is also steroid refractory. Control of his Crohn's disease on Stelara has been fairly good with minimal flares. He denied any severe abdominal pain, rectal bleeding, or hematemesis. The patient was admitted due to refractory diarrhea. Later this morning, the patient denies any abdominal pain or nausea or vomiting. He is having liquid diet with no problems. The patient had one dose of Rocephin yesterday and we started on Cipro 500 b.i.d. plus metronidazole 500 t.i.d. yesterday evening. PHYSICAL EXAMINATION: VITAL SIGNS: I reviewed this patient's vital signs. HEENT: Noncontributory. LUNGS: Clear to auscultation. HEART: Regular rate and rhythm. ABDOMEN: Soft. No tenderness elicited even in the left lower quadrant, which was mildly symptomatic yesterday. The patient had small volume-liquid balance yesterday. LABORATORY DATA: I reviewed this patient's laboratory data today. Blood cultures have been negative. Note that the C. difficile that I requested is still not in the computer system as of yet. I reviewed the patient's abdominal CT yesterday. I also reviewed Dr. Olson's note. ASSESSMENT: This is a 58-year-old white male with a history of severe Crohn's disease with resections, admitted with complaints of diarrhea. I reviewed the plan of care for this patient at the bedside, also gave the patient a written flowchart as far as what plan to follow as an outpatient. Note that the overall progression of treatment depends on the result of the Clostridium difficile toxin and the antigen study. If the Clostridium difficile study is positive, the patient deserves either Flagyl or vancomycin for roughly 10 to 14 days. If the Clostridium difficile was negative, we will continue on the Cipro 500 b.i.d. plus metronidazole 500 t.i.d. for at least 14 days. If all the above are negative, the patient deserves a trial of at least low-dose steroid taper most likely in the form of prednisone to start roughly 15 or 20 mg tapered off over a period of roughly two weeks. If all the above are negative and the patient continues to experience diarrhea, unfortunately there are no other options available since the patient is on Stelara. At this particular juncture, I suggest that the patient consider a [facility] consultation for possible inflammatory bowel disease medications and clinical trials. The patient's diet was advanced this morning, possibly this is the reason for his small and liquid bowel movements. On the outside suggested a soft low fiber diabetic diet as the diarrhea situation resolves. I will sign off the case today. Again as indicated previously, the overall plan of action depends on the results of the Clostridium difficile study. Prince Tyler DO, PhD NOAM
--- NOTE | 2019-01-09 17:23 | DS ---
HISTORY OF PRESENT ILLNESS: This is a 58-year-old man with a history of diabetes and Crohn's disease, who presented to the emergency room because of 4 days of watery stool. There was no blood. There was some left lower quadrant abdominal pain. In the emergency room, labs were acceptable and unremarkable; however, CT scan showed thickening of the sigmoid colon and rectum, so with a distal sigmoid colitis, proctitis, it was felt that he be admitted for GI evaluation. He is currently on IV Rocephin because of the Crohn's. He was seen by GI. His symptoms have subsided. He is tolerating the diet well. Diarrhea quieted, and he was ready for discharge to home. FINAL DISCHARGE DIAGNOSES: 1. Sigmoid colitis and proctitis, new and acute as noted on admitting CT scan. 2. Crohn's disease. 3. Diabetes. 4. Hypertension. Kris Olson MD
== END 2019-01-07 13:29 | disposition home or self-care (01) | DRG 392 ==
LOC: ED 15:23 → ERH 18:19 → 3RNO 20:07
PROVIDERS: ADMIT Internal Medicine; ATTEND Internal Medicine
DX: K52.9 Noninfective gastroenteritis and colitis, unspecified (principal); K50.90 Crohn's disease, unspecified, without complications; I10 Essential (primary) hypertension; E11.65 Type 2 diabetes mellitus with hyperglycemia; N20.0 Calculus of kidney; K62.89 Other specified diseases of anus and rectum; D64.9 Anemia, unspecified; R51 Headache; Z86.73 Personal history of transient ischemic attack (TIA), and cerebral infarction without residual deficits; Z79.84 Long term (current) use of oral hypoglycemic drugs

== ENCOUNTER 2019-01-20 12:31 | Emergency (ER) | payer OTHER ==
[2019-01-20 12:32] VITALS: BMI 19.9
[2019-01-20] MEDS ORDERED: Sodium Chloride 0.9% 1,000 ML IV STA (13:46)
[2019-01-20 14:44] LABS: BASO # 0.01 K/mm3 (0.0-2.0); BASO % 0.1 % (0.0-3.0); EOS # 0.1 (0.0-0.7); EOS % 1.4 % (1.5-5.0); LYMPH # 0.8 (1.2-3.4); LYMPH % 11.9 % (22.0-35.0); MEAN CELL VOLUME 86.4 fl (80.0-105.0); MEAN CORPUSCULAR HEMOGLOBIN 28.5 pg (25.0-35.0); MEAN PLATELET VOLUME 10.8 fl (7.0-11.0); MONO # 0.6 (0.1-0.6); MONO % 9.2 % (1.0-6.0); RBC 4.56 10^6/uL (3.5-6.1)
[2019-01-20 14:53] LABS: ALB/GLOB RATIO 1.3 (1.1-1.8); ALBUMIN 4.1 g/dL (3.0-4.8); ALT/SGPT 11 U/L (7-56); AST/SGOT 21 U/L (17-59); BLOOD UREA NITROGEN 15 mg/dL (7-21); CALCIUM 9.2 mg/dL (8.4-10.5); GFR NON-AFRICAN AMERICAN > 60; LIPASE 69 U/L (23-300)
--- NOTE | 2019-01-20 15:37 | ED PDOC ---
Arrival/HPI - General Chief Complaint: Abdominal Pain Time Seen by Provider: 01/20/19 12:43 Historian: Patient - History of Present Illness Narrative History of Present Illness (Text): 01/20/19 15:33 A 58 year old male, whose past medical history includes IBS, Crohn's disease, diabetes, and hypertension, presents to the emergency department complaining of abdominal pain starting last night. Patient reports also was experiencing diarrhea, which has been resolving on its own. Patient denies any fever, nausea, vomiting, bloody stool, or any other complaints at this time. Past Medical History - Provider Review Nursing Documentation Reviewed: Yes - Infectious Disease Hx of Infectious Diseases: None - Cardiac Hx Cardiac Disorders: Yes Hx Hypertension: Yes - Pulmonary Hx Respiratory Disorders: No - Neurological Hx Neurological Disorder: No - HEENT Hx HEENT Disorder: No - Renal Hx Renal Disorder: No - Endocrine/Metabolic Hx Diabetes Mellitus Type 2: Yes - Hematological/Oncological Hx Blood Transfusions: Yes Hx Blood Transfusion Reaction: No - Integumentary Hx Dermatological Disorder: No - Musculoskeletal/Rheumatological Hx Falls: No - Gastrointestinal Hx Gastrointestinal Disorders: Yes Hx Crohn's Disease: Yes - Genitourinary/Gynecological Hx Genitourinary Disorders: No - Psychiatric Hx Psychophysiologic Disorder: No Hx Substance Use: No - Surgical History Hx Hysterectomy: No Hx Open Reduction Internal Fixation: Yes - Anesthesia Hx Anesthesia Reactions: No Hx Malignant Hyperthermia: No - Suicidal Assessment Feels Threatened In Home Enviroment: No Family/Social History - Physician Review Nursing Documentation Reviewed: Yes Family/Social History: No Known Family HX Smoking Status: Never Smoked Hx Alcohol Use: No Hx Substance Use: No Allergies/Home Meds Allergies/Adverse Reactions: Allergies pseudoephedrine HCl [From Sudafed] Allergy (Verified 01/05/19 15:27) "HEART RACES" DENIES NAUSEA Home Medications: Home Meds Medication Instructions Recorded Confirmed Aspirin [Ecotrin] 81 mg PO QAM 05/22/16 01/05/19 GlipiZIDE [Glucotrol] 10 mg PO BID 09/23/17 01/05/19 Losartan [Cozaar] 50 mg PO DAILY 05/09/18 01/05/19 metFORMIN [glucOPHAGE] 500 mg PO BID 05/09/18 01/05/19 Cholecalciferol [Vitamin D 1000 IU] 1 tab PO DAILY 10/29/18 01/05/19 Insulin Glargine,Hum.rec.anlog 10 unit SC 1700 10/29/18 01/05/19 [Tesha Lara] Review of Systems - Physician Review All systems were reviewed & negative as marked: Yes - Review of Systems Constitutional: absent: Fevers Gastrointestinal: Abdominal Pain, Diarrhea (currently resolving on its own, as per patient.). absent: Stool Changes (no bloody stool), Nausea, Vomiting Physical Exam Vital Signs Reviewed: Yes Vital Signs Temp Pulse Resp BP Pulse Ox 01/20/19 15:30 98.0 F 88 19 130/70 99 01/20/19 13:32 99 F 88 20 141/94 H 100 Temperature: Afebrile Blood Pressure: Normal Pulse: Regular Respiratory Rate: Normal Appearance: Positive for: Well-Appearing, Non-Toxic, Comfortable Pain Distress: None Mental Status: Positive for: Alert and Oriented X 3 - Systems Exam Head: Present: Atraumatic, Normocephalic Pupils: Present: PERRL Extroacular Muscles: Present: EOMI Conjunctiva: Present: Normal Mouth: Present: Moist Mucous Membranes Neck: Present: Normal Range of Motion Respiratory/Chest: Present: Clear to Auscultation, Good Air Exchange. No: Respiratory Distress, Accessory Muscle Use Cardiovascular: Present: Regular Rate and Rhythm, Normal S1, S2. No: Murmurs Abdomen: Present: Tenderness (mid-abdominal pain/tenderness). No: Distention, Peritoneal Signs Back: Present: Normal Inspection Upper Extremity: Present: Normal Inspection. No: Cyanosis, Edema Lower Extremity: Present: Normal Inspection. No: Edema Neurological: Present: GCS=15, CN II-XII Intact, Speech Normal Skin: Present: Warm, Dry, Normal Color. No: Rashes Psychiatric: Present: Alert, Oriented x 3, Normal Insight, Normal Concentration Medical Decision Making ED Course and Treatment: 01/20/19 15:37 Impression: 58 year old male with abdominal pain. Plan: -- EKG -- Labs -- Pepcid -- Zofran -- IV Fluids -- Urinalysis -- Urine Culture -- Reassess and disposition Prior Visits: Notes and results from previous visits were reviewed. Patient was last seen here in the ER on 01/05/2019 for diarrhea. Patient was admitted. Progress Notes: 01/20/19 15:[address] Olson, recommends calling patient's GI physician. 01/20/19 15:[address] Phillips, recommends discharge patient with steroid tapering, starting at 30 mg daily, and instruct patient to follow-up with PMD. - Lab Interpretations Lab Results: Total Bilirubin 1.2 mg/dL (0.2-1.3) 01/20/19 14:28 AST 21 U/L (17-59) 01/20/19 14:28 ALT 11 U/L (7-56) 01/20/19 14:28 Alkaline Phosphatase 95 U/L (38-126) 01/20/19 14:28 Total Protein 7.2 g/dL (5.8-8.3) 01/20/19 14:28 Albumin 4.1 g/dL (3.0-4.8) 01/20/19 14:28 Globulin 3.1 gm/dL 01/20/19 14:28 Albumin/Globulin Ratio 1.3 (1.1-1.8) 01/20/19 14:28 Lipase 69 U/L (23-300) 01/20/19 14:28 - Medication Orders Current Medication Orders: Sodium Chloride (Sodium Chloride 0.9%) 1,000 mls @ 100 mls/hr IV .Q10H STA Stop: 01/20/19 23:45 Last Admin: 01/20/19 14:45 Dose: 100 mls/hr eMAR Start Stop Document 01/20/19 14:45 [email or web address] (Rec: 01/20/19 14:45 [email or web address] [id number] Intravenous Solution Start Date 01/20/19 Start Time 14:45 Discontinued Medications Famotidine (Pepcid) 20 mg IVP STAT STA Stop: 01/20/19 13:47 Last Admin: 01/20/19 14:46 Dose: 20 mg IVP Administration Document 01/20/19 14:46 [email or web address] (Rec: 01/20/19 14:46 [email or web address] [id number]) Charges for Administration # of IVP Administrations 1 Ondansetron HCl (Zofran Inj) 8 mg IVP STAT STA Stop: 01/20/19 13:47 Last Admin: 01/20/19 14:45 Dose: 8 mg IVP Administration Document 01/20/19 14:45 [email or web address] (Rec: 01/20/19 14:46 [email or web address] [id number] Charges for Administration # of IVP Administrations 1 - Scribe Statement The provider has reviewed the documentation as recorded by the [employer] Provider Scribe Attestation: All medical record entries made by the Scribe were at my direction and personally dictated by me. I have reviewed the chart and agree that the record accurately reflects my personal performance of the history, physical exam, medical decision making, and the department course for this patient. I have also personally directed, reviewed, and agree with the discharge instructions and disposition. Disposition/Present on Arrival - Present on Arrival Any Indicators Present on Arrival: No History of DVT/PE: No History of Uncontrolled Diabetes: No Urinary Catheter: No History of Decub. Ulcer: No History Surgical Site Infection Following: None - Disposition Have Diagnosis and Disposition been Completed?: Yes Diagnosis: Abdominal pain, Crohns disease Disposition: HOME/ ROUTINE Disposition Time: 15:00 Condition: GOOD Discharge Instructions (ExitCare): Crohn's Disease (DC) Additional Instructions: ZULEYKA CAMPOS, thank you for letting us take care of you today. The emergency medical care you received today was directed at your acute symptoms. If you were prescribed any medication, please fill it and take as directed. It may take several days for your symptoms to resolve. Return to the Emergency Department if your symptoms worsen, do not improve, or if you have any other problems. Please contact your doctor or call one of the physicians/clinics you have been referred to that are listed on the Patient Visit Information form that is included in your discharge packet. Bring any paperwork you were given at discharge with you along with any medications you are taking to your follow up visit. Our treatment cannot replace ongoing medical care by a primary care provider outside of the emergency department. Thank you for allowing the [facility] team to be part of your care today. Follow up with your primary care doctor in 3-4 days for re-evaluation of you abdominal pain and Prednisone dose. Prescriptions: predniSONE [predniSONE Tab] 30 mg PO DAILY 5 Days tab Referrals: Kris Olson MD [Primary Care Provider] - Follow up with primary Forms: [employer] ([place])
[2019-01-20 16:03] VITALS: BP 121/75; PULSE 80; RESP 18; TEMP 98.3; O2SAT 98
--- NOTE | 2019-01-21 11:44 | CARD ---
APPROVED REPORT Date of service: 01/20/2019 EKG Measurement Heart [id number] <Conclusion> Normal sinus rhythm Normal ECG
== END 2019-01-20 16:03 | disposition home or self-care (01) ==
LOC: ED 12:31
DX: K50.90 Crohn's disease, unspecified, without complications (principal); E11.9 Type 2 diabetes mellitus without complications; I10 Essential (primary) hypertension
CPT/HCPCS: 80053; 83690; 83735; 85025; 93005; 96374; 96375; 99283; J2405; J7030